=== PATIENT | male | born 1950 | race Caucasian/White ===

== ENCOUNTER 2019-12-22 06:59 | Outpatient (CLI) | payer MEDICARE, SELFPAY ==
[2019-12-22 08:23] LABS: Alanine Aminotransferase 25 U/L (16-63); Albumin Level 3.9 g/dL (3.4-5.0); Alkaline Phosphatase 77 U/L (46-116); Anion Gap 12.8 mmol/L (7-16); Aspartate Amino Transferase 19 U/L (15-37); Bilirubin,Total 0.5 mg/dL (0.00-1.00); Blood Urea Nitrogen 24 mg/dL (7-18); Calcium 9.2 mg/dL (8.5-10.1); Carbon Dioxide 29 mmol/L (21-32); Chloride 105 mmol/L (98-108); Estimated Glomerular Filt Rate 51; Glucose 97 mg/dL (70-99); Osmolality Calculated 298 mOsm/kg (285-295); Potassium 4.8 mmol/L (3.5-5.1); Prostate Specific Antigen 5.8 ng/mL (< OR = 4.0); Sodium 142 mmol/L (136-145); Total Protein 7.1 g/dL (6.4-8.2)
[2019-12-26 14:51] LABS: Testosterone Free 76.2 pg/mL (30.0-135.0); Testosterone Total 508 ng/dL (250-1100)
== END 2019-12-22 07:00 | disposition home or self-care (01) ==
LOC: CHSLAB 07:02
PROVIDERS: Visit Provider Urology
DX: N42.9 Disorder of prostate, unspecified (principal)
CPT/HCPCS: 36415; 80053; 84153; 84402; 84403

== ENCOUNTER 2020-04-16 07:30 | Outpatient (RCR) | payer MEDICARE, SELFPAY ==
--- NOTE | 2020-04-16 07:47 | PTOPEVAL ---
Thank you for referring Jimi Villalobos to [facility]. Please review, sign, date and return this plan of care ROJELIO. I agree with and certify that the following plan of care is medically necessary. Referring Physician Date Admitting Provider: Attending Provider: Romero Obando MD Referring Provider: *PT Outpatient Evaluation Start: 04/16/20 07:03 Freq: Status: Active Protocol: Document 04/16/20 07:04 RAFAT (Rec: 04/16/20 07:27 RAFAT [id number]) Therapy Assessment Status Assessment Status Assessment Status Evaluation Evaluation Information Problem Diagnosis right arm pain, cervical radiculopathy Onset 02/15/20 Subjective Information Pt. reports he developed arm Query Text:As Reported By Patient/ pain on the right couple Family months ago. He recalls no particular incident, just gradual onset. He reports pain and numbness in the right forearm and hand and pain into the right shoulder blade and neck. He reports pain affects his sleep. He reports that nothing particular increases his pain and pain is pretty much continous. He states that his goal is to reduce his arm pain. 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 [employer] Hand Dominance Right Activity of Daily Living Ability Independent Indoor/Home Mobility Independent Community Mobility Independent Stairs Ability Independent Functional Cognition (Planning, Shopping Independent , Taking Medications) Cooking Yes Cleaning Yes Laundry Yes Shopping Yes Driving Yes Pain Assessment Pain Scale Pain Scale Used Numeric (1 - 10) Self Report Pain Assessment Right Arm(s) Reported Pain Level 7 Pain Description Aching,Burning Pain Frequency Chronic Lowest Pain Intensity 0 Greatest Pain Intensity 7 Pain Aggravating Factors None Pain Behaviors None Pain Score Pain Score 7: Self Report Cervical and Lumbar ROM Cervical ROM Cervical Flexion (0-60) 55 Query Text:Active in Degrees Cervical Extension (0-70) 30 Query Text:A
== END 2020-05-08 09:26 | disposition home or self-care (01) ==
LOC: CHSPT 07:30
PROVIDERS: PCP Family Medicine; Visit Provider Family Medicine
DX: M54.12 Radiculopathy, cervical region (principal); M19.90 Unspecified osteoarthritis, unspecified site
CPT/HCPCS: 97012; 97014; 97110; 97140; 97161; G0283

== ENCOUNTER 2020-05-04 08:42 | Outpatient (CLI) | payer MEDICARE, SELFPAY ==
--- NOTE | ~2020-05-04 | MR_ITS ---
EXAMINATION: MR cervical spine wo con DATE: 05/04/2020 10:03 INDICATION: Neck pain. TECHNIQUE: Magnetic resonance imaging (MRI) of the cervical spine was performed without intravenous c ontrast. Sequences included sagittal T2-weighted FSE, sagittal T2-weighted FS FSE, sagittal T1-weight ed FSE, axial MERGE, and axial T2-weighted FSE. COMPARISON: Cervical spine MRI 11/29/2014, radiographs 11/14/2014 FINDINGS: Motion artifact is noted. There is kyphosis of cervical spine. There is 2 mm anterolisthesi s of C4 on C5. Vertebral body heights are normal. There is mildly decreased disc height at C4-C5 and C5-C6 and severely decreased disc height at C6-C7. The spinal cord signal intensity is normal. The fo llowing disc levels are specifically discussed: C2-C3: The disc does not extend beyond the endplate margin. There is ankylosis of right uncovertebral joint with mild hypertrophy. There is mild left facet joint osteoarthritis. There is ankylosis of ri ght facet joint with moderate hypertrophy. There is moderate right neural foraminal stenosis. There i s no central canal stenosis. C3-C4: The disc is bulging. There is severe right and mild left uncovertebral joint osteoarthritis. T here is severe right and moderate left facet joint osteoarthritis. There is severe right and moderate left neural foraminal stenosis. There is no central canal stenosis. C4-C5: The disc is bulging. There is severe bilateral uncovertebral joint osteoarthritis. There is mo derate right and severe left facet joint osteoarthritis. There is moderate bilateral neural foraminal stenosis. There is no central canal stenosis. C5-C6: The disc is bulging. There is severe bilateral uncovertebral joint osteoarthritis. There is mi ld right and severe left facet joint osteoarthritis. There is moderate bilateral neural foraminal alma nosis. There is moderate central canal stenosis. C6-C7: The disc is bulging. There is severe bilateral uncovertebral joint osteoarthritis. There is no facet joint osteoarthritis. There is moderate bilateral neural foraminal stenosis. There is mild leonarda tral canal stenosis. C7-T1: The disc is bulging. There is no uncovertebral joint osteoarthritis. There is severe bilateral facet joint osteoarthritis. There is moderate right and mild left neural foraminal stenosis. There i s mild central canal stenosis. IMPRESSION: 1. Severe cervical spondylosis, stable from 11/29/2014. Reviewed, dictated and finalized at location A.
== END 2020-05-04 08:43 | disposition home or self-care (01) ==
LOC: CHSIMG 08:44
PROVIDERS: PCP Family Medicine; Visit Provider Family Medicine
DX: M54.2 Cervicalgia (principal); M54.12 Radiculopathy, cervical region
CPT/HCPCS: 72141

== ENCOUNTER 2020-05-17 13:12 | Outpatient (CLI) | payer MEDICARE, SELFPAY ==
--- NOTE | ~2020-05-17 | XR_ITS ---
XR cervical spine 4-5V DATE: 05/17/2020 13:57 INDICATION: Right arm tingling. Radiculopathy. TECHNIQUE: AP, open-mouth, lateral, swimmer's views. Flexion and extension lateral views. COMPARISON: 05/04/2020 MR cervical spine examination 11/14/2014 cervical spine FINDINGS: There is straightening of the cervical spine. C1 and C2 are normally aligned and the odontoid process is intact. No fracture or dislocation or locked facet is evident. No prevertebral soft tissue swelling. There is severe degenerative disc disease at C5-6 and C6-7. There is prominent degenerative change at the apophyseal joints of the cervical spine. There is uncovertebral joint spurring of the mid and lower cervical spine, particularly pronounced at C5-6 and C6-7 on the right and C6-7 on the left. IMPRESSION: Extensive degenerative changes Reviewed, dictated and finalized at location A.
== END 2020-05-17 13:13 | disposition home or self-care (01) ==
PROVIDERS: PCP Family Medicine; Visit Provider Family Medicine
DX: M54.12 Radiculopathy, cervical region (principal)
CPT/HCPCS: 72050

== ENCOUNTER 2021-02-06 08:47 | Outpatient (CLI) | payer MEDICARE, SELFPAY ==
[2021-02-06 08:58] LABS: Basophils Absolute Auto 0.06 K/mm3 (0.00-0.10); Basophils Percent Auto 0.7 % (0.0-1.0); Eosinophils Absolute Auto 0.39 K/mm3 (0.02-0.50); Eosinophils Percent Auto 4.5 % (1.0-6.0); Hematocrit 42.4 % (37.0-46.0); Hemoglobin 14.1 g/dL (12.4-15.3); Immature Granulocyte Absolute 0.03 K/mm3 (0.00-0.00); Immature Granulocyte Percent A 0.3 % (0.0-0.0); Lymphocytes Absolute Auto 3.12 K/mm3 (1.10-4.50); Lymphocytes Percent Auto 35.9 % (18.0-42.0); Mean Corpuscular HGB Conc 33.3 g/dL (32.0-36.0); Mean Corpuscular Hemoglobin 31.2 pg (27.0-31.0); Mean Corpuscular Volume 93.8 fL (78.0-102.0); Mean Platelet Volume 8.8 fl (8.7-11.0); Monocytes Absolute Auto 0.61 K/mm3 (0.10-0.90); Neutrophils Absolute Auto 4.5 K/mm3 (1.7-7.2); Neutrophils Percent Auto 51.6 % (50.0-70.0); Platelet Count Result 250 K/mm3 (150-420); Red Blood Count 4.52 M/mm3 (4.70-6.10); Red Cell Distribution Width 12.8 % (11.6-14.4); White Blood Count 8.7 K/mm3 (4.8-10.8)
[2021-02-06 09:47] LABS: Alanine Aminotransferase 24 U/L (16-63); Albumin Level 3.8 g/dL (3.4-5.0); Alkaline Phosphatase 79 U/L (46-116); Anion Gap 7 mmol/L (8-16); Aspartate Amino Transferase 19 U/L (15-37); Bilirubin,Total 0.7 mg/dL (0.00-1.00); Blood Urea Nitrogen 24 mg/dL (7-18); Calcium 8.8 mg/dL (8.5-10.1); Carbon Dioxide 31 mmol/L (21-32); Chloride 103 mmol/L (98-108); Cholesterol 112 mg/dL (0-200); Estimated Glomerular Filt Rate 55; Ferritin 168 ng/mL (26-388); Glucose 89 mg/dL (70-99); HDL Direct 46 mg/dL (40-60); Iron 95 ug/dL (65-175); LDL Cholesterol Calculated 52 mg/dL (<130); Osmolality Calculated 295 mOsm/kg (285-295); Percent Iron Saturation 32 % (12-57); Potassium 4.6 mmol/L (3.5-5.1); Sodium 141 mmol/L (136-145); Total Protein 6.8 g/dL (6.4-8.2); Triglycerides 68 mg/dL (0-150)
[2021-02-06 09:54] LABS: Thyroid Stimulating Hormone Reflex 2.37 u/IU/mL (0.36-3.74)
== END 2021-02-06 08:48 | disposition home or self-care (01) ==
LOC: CHSLAB 08:50
PROVIDERS: PCP Family Medicine; Visit Provider Family Medicine
DX: G62.9 Polyneuropathy, unspecified (principal); I10 Essential (primary) hypertension; D64.9 Anemia, unspecified; E66.3 Overweight; E78.5 Hyperlipidemia, unspecified; R97.20 Elevated prostate specific antigen [PSA]
CPT/HCPCS: 36415; 80053; 80061; 82728; 83540; 83550; 84153; 84443; 85025

== ENCOUNTER 2023-06-10 08:13 | Emergency (ER) | payer MEDICARE, SELFPAY ==
[2023-06-10 08:24] VITALS: BP 152/81; PULSE 69; RESP 18; TEMP 36.4; O2SAT 97
--- NOTE | 2023-06-10 08:30 | ED.WOUNDLAC ---
HPI - Wound/Laceration General Chief Complaint: Wound/Laceration Stated Complaint: left thumb laceration Time Seen by Provider: 06/10/23 08:29 Source: patient Mode of arrival: ambulatory Limitations: no limitations History of Present Illness HPI narrative: patient presents to the emergency room with a left thumb laceration. Laceration was done last evening. Tetanus shot is up-to-date 6 years ago. Patient was using a pair of scissors and sliced his left outer thumb. Onset (ago): hour(s) (12) Place: home Patient tetanus UTD: Yes Context: accidental Associated symptoms: none Treatments prior to arrival: bandage Related Data Home Medications Medication Instructions Recorded Confirmed atorvastatin 20 mg tablet 20 mg PO DAILY 11/10/19 05/14/21 celecoxib 100 mg capsule (Celebrex) 100 mg PO BID 11/10/19 05/14/21 magnesium oxide 400 mg PO DAILY 11/10/19 05/14/21 omeprazole 20 mg capsule,delayed 20 mg PO DAILY 11/10/19 05/14/21 release sildenafil (pulm.hypertension) 20 20 mg PO .PRN PRN sexual activity 11/10/19 05/14/21 mg tablet cyanocobalamin (vitamin B-12) 1,000 mcg PO DAILY 01/10/20 05/14/21 1,000 mcg capsule Allergies Allergy/AdvReac Type Severity Reaction Status Date / Time bee venom protein (honey bee) Allergy Severe Anaphylaxis Verified 06/10/23 08:28 codeine Allergy Anaphylaxis Verified 06/10/23 08:28 Bee stings Allergy Intermediate anaphylaxis Uncoded 05/14/21 08:19 Review of Systems Review of Systems: All systems reviewed & are unremarkable except as noted in HPI and below Cardiovascular: Cardiovascular: Reports no additional cardiovascular complaints and Denies chest pain Respiratory: Respiratory: Reports no additional respiratory complaints and Denies chest congestion Gastrointestinal: Gastrointestinal: Reports no additional gastrointestinal complaints and Denies abdominal pain Musculoskeletal: Musculoskeletal: Reports no additional musculoskeletal complaints, Denies back pain and Denies myalgias Integumentary/Breasts: Skin/Breast: Reports system reviewed and no additional complaints, except as docu PMFSH Past Medical History Medical History (Updated 06/10/23 @ 08:41 by Shane Patel MD) Cervical radiculopathy GERD (gastroesophageal reflux disease) Hyperlipidemia Hypertension Osteoarthritis Overweight Surgical History Surgical History H/O knee surgery Bilateral Orthoscopic History of carpal tunnel surgery Bilateral Hx of tonsillectomy Age 11 Family History Family History Mother Medical history unknown Father Medical history unknown Social History Social History Smoking status: Former smoker Tobacco type: cigarettes Alcohol intake: current Living arrangements: with family Additional living arrangements comments: . 3 Children. Occupation/Education: retired Additional occupation/education comments: Prior Occupation: [employer]. Gender identity (if verbalized by the patient): Male Exam Const: General: healthy appearing Nutritional Appearance: well nourished Orientation/consciousness: patient oriented x3 Limitations: no limitations Chest: Chest palpation & inspection: normal inspection of the chest Resp: Effort & Inspection: normal respiratory effort Cardio: Rate: regular rate Rhythm: regular rhythm Heart sounds: no murmurs Skin: General skin exam: normal color Rashes: no rashes Wounds: wounds noted ( Left thumb extensor surface has a 3.5 cm laceration to subcutaneous.) Neuro: General: patient oriented x3 and moves all extremities Extrem: General: normal to inspection and no clubbing, cyanosis or edema Course Vital Signs Vital signs: Vital Signs Temperature 36.4 C L 06/10/23 08:24 Pulse Rate 69 06/10/23 08:24 Respir
[2023-06-10] MEDS: LIDOCAINE HCL 1% LOCAL INJ 10 ML VIAL 5 ML INFILTRATE (08:37)
== END 2023-06-10 09:08 | disposition home or self-care (01) ==
PROVIDERS: Emergency Provider Emergency Medicine
DX: S61.012A Laceration without foreign body of left thumb without damage to nail, initial encounter (principal); E78.5 Hyperlipidemia, unspecified; I10 Essential (primary) hypertension; Z87.891 Personal history of nicotine dependence; W45.8XXA Other foreign body or object entering through skin, initial encounter; Y92.009 Unspecified place in unspecified non-institutional (private) residence as the place of occurrence of the external cause
CPT/HCPCS: 12001; 99282

== ENCOUNTER 2024-05-24 13:00 | Outpatient (RCR) | payer MEDICARE, SELFPAY ==
--- NOTE | 2024-05-24 13:50 | OPREHPOC ---
Outpatient Therapy Plan of Care This is a Multidisciplinary Plan of Care that may contain components documented by all disciplines (PT, OT, and ST.) PT Problem 1 PT Problem #1 Knowledge Deficit PT Goal 1 Goal 1. patient to display safe NWB R LE transfer/ ambulation, and verbalized understanding of post op rehab plan. Target Visit 1 Progress Met
--- NOTE | 2024-05-24 13:51 | PTOPEVDC ---
Assessment and note entered by JT File, PT Thank you for referring Jimi Dominguez Jr. to [facility].? An evaluation has been completed. No further treatment is needed. Evaluation Information Assessment Status Evaluation Diagnosis pre-op weight bearing and rom training. Other ICD-10 Condition Codes ( M13.871 - other specified arthritis, R ankle and PT) foot Subjective Information patient reports he is having surgery on the R ankle on 07/05/24. he reports he is having the ankle fused to straighten it out. he reports he is coming to therapy to be trained on getting around with post-op NWB precautions. he reports he lives alone, but will have his grandson staying with him after surgery. he reports he was told he will be non weightbearing on the R LE for 2 months after the surgery. he reports he does have 5 steps to get in and out of the home. he reports he does have a basement. he reports he will not need to go down to the basement after surgery. he reports he does have a railing on both sides of his outside steps. he reports he also has a ramp. he reports he does own a walker and a wheelchair. he reports he also owns a knee scooter. he reports he averages 10,000 steps a day walking. he report she also still works 4 days per week. Reported Pain Level Pain Score 0: Self Report Assessment PT Clinical Summary mr. dominguez is a 74 yo man who presents to skilled PT services for evaluation and education of safe transfers and ambulation with NWB R LE in preparation of R ankle surgery next month. objective measures of the R ankle were taken in anticipation of patient returning to skilled PT after surgery. he was educated and displays safe transfers and ambulation with NWB R LE today. patient will be DC'd from skilled PT at this time, but return roughly 2 months post op for rehab. Plan of Care Treatment Frequency and DC to independent HEP pre-op, and return to Duration skilled PT for post-op rehab.
== END 2024-05-24 14:40 | disposition home or self-care (01) ==
LOC: CHSPT 13:00
DX: M13.871 Other specified arthritis, right ankle and foot (principal)
CPT/HCPCS: 97110; 97161

== ENCOUNTER 2024-06-02 09:00 | Outpatient (CLI) | payer MEDICARE, SELFPAY ==
--- NOTE | 2024-06-02 09:17 | ECG_ITS ---
Test Date: 2024-06-02 09:24:36 Measurements Intervals [place] Rate: 60 P: 58 IA: 180 QRS: -7 QRSD: 100 T: 31 QT: 426 QTc: 428 Interpretive Statements SINUS RHYTHM BASELINE ARTIFACT- I, II, III, AVR, AVL, AVF, V1-V3 NORMAL ECG No previous ECG available for comparison Electronically Signed On 06-02-2024 12:38:54 CDT by Cody Jorgensen D.O.
[2024-06-02 09:23] LABS: Basophils Absolute Auto 0.05 K/mm3 (0.00-0.10); Basophils Percent Auto 0.6 % (0.0-1.0); Eosinophils Absolute Auto 0.36 K/mm3 (0.02-0.50); Eosinophils Percent Auto 4.3 % (1.0-6.0); Hematocrit 41.5 % (37.0-46.0); Immature Granulocyte Absolute 0.04 K/mm3 (0.00-0.00); Immature Granulocyte Percent A 0.5 % (0.0-0.0); Lymphocytes Absolute Auto 2.77 K/mm3 (1.10-4.50); Lymphocytes Percent Auto 33.5 % (18.0-42.0); Mean Corpuscular HGB Conc 33.7 g/dL (32-36); Mean Corpuscular Hemoglobin 30.4 pg (27.0-31.0); Mean Platelet Volume 8.8 fl (8.7-11.0); Monocytes Absolute Auto 0.64 K/mm3 (0.10-0.90); Monocytes Percent Auto 7.7 % (2.0-11.0); Neutrophils Absolute Auto 4.42 K/mm3 (1.70-7.20); Neutrophils Percent Auto 53.4 % (50.0-70.0); Platelet Count Result 255 K/mm3 (150-420); Red Blood Count 4.61 M/mm3 (4.70-6.10); White Blood Count 8.3 K/mm3 (4.8-10.8)
[2024-06-02 09:33] LABS: Hemoglobin A1C 5.6 % (<5.7)
[2024-06-02 09:37] LABS: Prothrombin Time 10.5 Seconds (9.50-12.1)
[2024-06-02 09:57] LABS: Alanine Aminotransferase 23 U/L (16-63); Albumin Level 3.6 g/dL (3.4-5.0); Alkaline Phosphatase 83 U/L (46-116); Anion Gap 7 mmol/L (4-12); Aspartate Amino Transferase 20 U/L (15-37); Bilirubin,Total 0.9 mg/dL (0.00-1.00); Blood Urea Nitrogen 15 mg/dL (7-18); Calcium 8.8 mg/dL (8.5-10.1); Carbon Dioxide 30 mmol/L (21-32); Chloride 104 mmol/L (98-108); Cholesterol 121 mg/dL (0-200); Estimated Glomerular Filt Rate 50; Glucose 97 mg/dL (70-99); HDL Direct 43 mg/dL (40-60); LDL Cholesterol Calculated 60 mg/dL (<130); Osmolality Calculated 292 mOsm/kg (285-295); Potassium 4.6 mmol/L (3.5-5.1); Prostate Specific Antigen 5.6 ng/mL (< OR = 4.0); Sodium 141 mmol/L (136-145); Total Protein 6.8 g/dL (6.4-8.2); Triglycerides 90 mg/dL (0-150)
== END 2024-06-02 09:01 | disposition home or self-care (01) ==
PROVIDERS: PCP Family Medicine; Visit Provider Family Medicine
DX: Z01.818 Encounter for other preprocedural examination (principal); E11.9 Type 2 diabetes mellitus without complications; R10.9 Unspecified abdominal pain; E78.5 Hyperlipidemia, unspecified; R97.20 Elevated prostate specific antigen [PSA]; R35.1 Nocturia; Z12.5 Encounter for screening for malignant neoplasm of prostate
CPT/HCPCS: 36415; 80053; 80061; 83036; 84153; 85025; 85610; 93005; G0103

== ENCOUNTER 2024-06-07 14:20 | Outpatient (CLI) | payer MEDICARE, SELFPAY ==
--- NOTE | 2024-06-07 14:30 | ECG_ITS ---
Test Date: 2024-06-07 14:43:06 Measurements Intervals [place] Rate: 72 P: 19 IL: 173 QRS: -3 QRSD: 98 T: 38 QT: 376 QTc: 412 Interpretive Statements SINUS RHYTHM DELAYED PRECORDIAL R/S TRANSITION BASELINE WANDER- II, III, AVF, V4 BORDERLINE ECG Compared to ECG 06/02/2024 09:24:36 No significant changes Electronically Signed On 06-07-2024 17:09:32 CDT by Cody Jorgensen D.O.
[2024-06-07 14:34] LABS: Basophils Absolute Auto 0.06 K/mm3 (0.00-0.10); Basophils Percent Auto 0.6 % (0.0-1.0); Eosinophils Absolute Auto 0.32 K/mm3 (0.02-0.50); Hematocrit 42.2 % (37.0-46.0); Immature Granulocyte Absolute 0.05 K/mm3 (0.00-0.00); Immature Granulocyte Percent A 0.5 % (0.0-0.0); Lymphocytes Percent Auto 34.4 % (18.0-42.0); Mean Corpuscular HGB Conc 33.2 g/dL (32-36); Mean Corpuscular Hemoglobin 29.6 pg (27.0-31.0); Mean Corpuscular Volume 89.2 fL (78.0-102.0); Mean Platelet Volume 8.4 fl (8.7-11.0); Monocytes Absolute Auto 0.77 K/mm3 (0.10-0.90); Monocytes Percent Auto 7.2 % (2.0-11.0); Neutrophils Absolute Auto 5.86 K/mm3 (1.70-7.20); Neutrophils Percent Auto 54.3 % (50.0-70.0); Platelet Count Result 240 K/mm3 (150-420); Red Blood Count 4.73 M/mm3 (4.70-6.10); Red Cell Distribution Width 13.6 % (11.6-14.4); White Blood Count 10.8 K/mm3 (4.8-10.8)
== END 2024-06-07 14:21 | disposition home or self-care (01) ==
LOC: CHSLAB 14:22
PROVIDERS: PCP Nurse Practitioner Family; Visit Provider Nurse Practitioner Family
DX: Z01.818 Encounter for other preprocedural examination (principal)
CPT/HCPCS: 36415; 85025; 93005

== ENCOUNTER 2024-10-11 13:40 | Emergency (ER) | payer MEDICARE, SELFPAY ==
--- NOTE | ~2024-10-11 | US_ITS ---
EXAMINATION: US venous doppler LE RT DATE: 10/11/2024 15:04 INDICATION: Right lower limb swelling TECHNIQUE: Grayscale ultrasound images without and with compression and Doppler ultrasound images of the right lower extremity veins were obtained. COMPARISON: None. FINDINGS: The visualized portions of right common femoral vein, profunda (deep) femoral vein, femoral vein, pop liteal vein, peroneal trunk, posterior tibial veins, peroneal veins, gastrocnemius vein and greater s aphenous vein outflow are patent. IMPRESSION: 1. No deep venous thrombosis in the right lower limb. Reviewed, dictated and finalized at location B. DILIGENCE COORDINATOR
[2024-10-11 13:40] VITALS: BP 154/72; PULSE 80; RESP 18; TEMP 36.6; O2SAT 98
--- NOTE | 2024-10-11 14:02 | ED_ITS ---
HPI - Extremity Injury (Lower) General Chief Complaint: Extremity Injury, Lower Stated Complaint: right leg swelling Time Seen by Provider: 10/11/24 13:57 Source: patient Mode of arrival: ambulatory Limitations: no limitations History of Present Illness HPI Narrative: 74-year-old male with a history of hypertension, dyslipidemia, arthritis, cervical radiculopathy, GERD, bilateral leg swelling, right ankle arthritis S/P right fibular osteotomy and TB of fibular fusion presents to the ED with -- R leg swelling. right greater than the left. No history of recent trauma. No chest pain or shortness of breath. he is unsure as to how long he has had it. When he went for physical therapy, the therapist noted his swelling and directed him to the ED for further management. MD complaint: other ( Right leg swelling) Relieving factors: nothing Exacerbating factors: nothing Other symptoms: none Related Data Home Medications Medication Instructions Recorded Confirmed atorvastatin 20 mg tablet 20 mg PO DAILY 11/10/19 06/07/24 magnesium oxide 400 mg PO DAILY 11/10/19 06/07/24 omeprazole 20 mg capsule,delayed 20 mg PO DAILY 11/10/19 06/07/24 release cyanocobalamin (vitamin B-12) 1,000 mcg PO DAILY 01/10/20 06/07/24 1,000 mcg capsule gabapentin 100 mg capsule 100 mg PO BID 06/21/23 06/07/24 Allergies Allergy/AdvReac Type Severity Reaction Status Date / Time bee venom protein (honey bee) Allergy Severe Anaphylaxis Verified 10/11/24 13:55 codeine Allergy Anaphylaxis Verified 10/11/24 13:55 Bee stings Allergy Intermediate anaphylaxis Uncoded 06/07/24 14:15 Review of Systems Review of Systems: All systems reviewed & are unremarkable except as noted in HPI and below Constitutional: Constitutional: Reports as per HPI and Reports no additional constitutional complaints Eyes: Eyes: Reports as per HPI and Reports no additional eye complaints ENT: Reports system reviewed and no additional complaints, except as documented and Reports as per HPI Cardiovascular: Cardiovascular: Reports as per HPI and Reports no additional cardiovascular complaints Respiratory: Respiratory: Reports as per HPI and Reports no additional respiratory complaints Gastrointestinal: Gastrointestinal: Reports as per HPI and Reports no additional gastrointestinal complaints Genitourinary: Genitourinary: Reports no additional male genitourinary complaints and Reports as per HPI Musculoskeletal: Musculoskeletal: Reports as per HPI Comments: Arthritis with surgery of the right foot on 06/04/2024. Status post bilateral knee surgeries. Integumentary/Breasts: Skin/Breast: Reports system reviewed and no additional complaints, except as docu and Reports as per HPI Neurologic: Reports system reviewed and no additional complaints, except as documented and Reports as per HPI Psychiatric: Psychiatric: Reports no additional psychiatric complaints and Reports as per HPI Endocrine: Endocrine: Reports no additional endocrine complaints and Reports as per HPI Hematologic/Lymphatic: Hematologic/Lymphatic: Reports no additional hematologic/lymphatic complaints and Reports as per HPI Allergic/Immunologic: Allergic/Immunologic: Reports no additional allergic/immunologic complaints and Reports as per HPI [facility] Past Medical History Medical History (Updated 10/11/24 @ 15:23 by Gary Pritchett MD) Cervical radiculopathy GERD (gastroesophageal reflux disease) Hyperlipidemia Hypertension Osteoarthritis Overweight Surgical History Surgical History H/O knee surgery Bilateral Orthoscopic History of carpal tunnel surgery Bilateral Hx of tonsillectomy Age 11 Family History Family History Mother Medical history unknown Father Medical history unknown Social History Social History Smoking status: Former smoker Tobacco type: cigarettes Alcohol intake: current Living arrangements: with family Additional living arrangements comments: . 3 Children. Occupation/Education: retired Additional occupation/education comments: Prior Occupation: [employer]. Gender identity (if verbalized by the patient): Male Exam Narrative: Blood pressure stable. Oxygen saturation of 98% on room air with a respiratory rate of 18 Const: General: no acute distress Nutritional Appearance: obese Orientation/consciousness: patient oriented x3 Limitations: no limitations HENMT: Head: normal to inspection Ears: external ears normal Face/Nose/Sinus: Normal external nose present Face and sinus: normal facial exam Mouth: Yes Normal oral and palatal mucosa present Throat: posterior oropharynx normal Eyes: Conjunctivae: conjunctivae normal Pupils: Equal, round and reactive pupils present EOM: EOMs intact bilaterally Direct Ophthalmoscopy: no photophobia Chest: Chest palpation & inspection: normal inspection of the chest and abnormal inspection of the chest Resp: Effort & Inspection: normal respiratory effort Auscultation: clear to auscultation bilaterally Cardio: Rate: regular rate Rhythm: regular rhythm GI: GI Palp: Yes Soft to palpation Auscultation: normal bowel sounds Other: no tenderness/ rigidity / rebound. : General: Yes no CVA tenderness Back/Spine/Pelvis: Back: no CVA tenderness Skin: Rashes: no rashes Wounds: no wounds Other: Both legs have chronic venous stasis changes with distended veins. Neuro: General: patient oriented x3, moves all extremities, no meningeal signs, no focal motor deficits and CN's II-XI intact bilaterally Cranial nerves: Yes Nystagmus not present Speech: normal speech Extrem: General: no pedal edema Other: Bilateral leg swelling right greater than the left. Scars on bilateral knee joints. Scar on the right lateral foot and leg. Psych: Mental Status: mental status grossly normal Affect: normal affect Attitude: cooperative Course Course Emergency Course: Right leg swelling--- venous Dopplers do not show any evidence of DVT Vital Signs Vital signs: Vital Signs Temperature 36.6 C 10/11/24 13:40 Pulse Rate 80 10/11/24 13:40 Respiratory Rate 18 10/11/24 13:40 Blood Pressure 154/72 H 10/11/24 13:40 Pulse Oximetry 98 10/11/24 13:40 Oxygen Delivery Room Air 10/11/24 13:40 Temperature 36.6 C 10/11/24 13:40 Pulse Rate 67 10/11/24 14:45 Respiratory Rate 16 10/11/24 14:45 Blood Pressure 127/56 L 10/11/24 14:45 Pulse Oximetry 96 10/11/24 14:45 Oxygen Delivery Room Air 10/11/24 14:45 MDM - Extremity Injury (Lower) MDM Narrative Medical decision making narrative: right leg swelling-- postoperative Differential Diagnosis Differential diagnosis: Likely ankle sprain and strain Medical Records Attestation: I reviewed the patient's medical records. Discharge Plan Discharge Clinical Impression: Leg swelling Patient Disposition: Home, Self-Care Condition: Stable Instructions: Antibiotic Form, Leg Edema (ED) Patient Language: Romanian Prescriptions: No Action magnesium oxide 400 mg magnesium tablet 400 mg PO DAILY omeprazole 20 mg capsule,delayed release(DR/EC) 20 mg PO DAILY atorvastatin 20 mg tablet 20 mg PO DAILY cyanocobalamin (vitamin B-12) 1,000 mcg capsule 1,000 mcg PO DAILY gabapentin 100 mg capsule 100 mg PO BID ipratropium bromide 42 mcg (0.06 %) spray,non-aerosol 2 spray intranasal TID Qty: 15 5RF Rx Instructions: administer into each nostril Follow-up/Referrals: Serge Lauren DO [Primary Care Provider] - Time of Disposition: 15:23
[2024-10-11 14:45] VITALS: BP 127/56; PULSE 67; RESP 16; O2SAT 96
== END 2024-10-11 15:35 | disposition home or self-care (01) ==
PROVIDERS: Emergency Provider Internal Medicine Critical Care Medicine; PCP Family Medicine
DX: M79.89 Other specified soft tissue disorders (principal); I10 Essential (primary) hypertension; E78.5 Hyperlipidemia, unspecified; Z87.891 Personal history of nicotine dependence
CPT/HCPCS: 93971; 99284

== ENCOUNTER 2025-03-05 18:21 | Emergency (ER) | payer MEDICARE, SELFPAY ==
[2025-03-05] VITALS (18 sets, daily range): BP systolic 115–144; BP diastolic 57–121; PULSE 69–90; RESP 13–23; TEMP 36.5–37.2; O2SAT 95–99
--- NOTE | ~2025-03-05 | CT_ITS ---
CTA chest PE protocol Ordering provider: Oumar Castañeda III, DO History: 74 years Male with . cp . Comparison: : NONE. Technique: CT angiogram chest was performed following timed intravenous injection of contrast. Thin s lice axial images and reformatted coronal images were obtained. Three dimensional reformatted images of the chest were also obtained using a [employer] workstation. . Automated exposure control and iterati ve reconstruction technique were employed. The dose-length product was 861.12 mGy-cm. 100 mL Omnipaqu e 350 was given IV. Findings: PULMONARY ARTERIES: No pulmonary embolus. VISUALIZED THORACIC INLET: Normal. MEDIASTINUM: Aorta/coronary arteries: Mild atheromatous disease. Heart/other: The heart is not enlarged. Lymph nodes: No mediastinal or hilar adenopathy. LUNGS: No pulmonary nodules or masses. No infiltrates or effusions. No pneumothorax. Dependent atelectatic c hanges. VISUALIZED UPPER ABDOMEN: the visualized upper abdomen is normal. MUSCULOSKELETAL: Soft tissues: The superficial soft tissues are normal. Bones: Age appropriate degenerative changes of the spine. IMPRESSION: 1. No pulmonary embolism. 2. No acute cardiopulmonary pathology. Reviewed, dictated and finalized at location A.
--- NOTE | ~2025-03-05 | XR_ITS ---
XR chest 1V portable Ordering provider: Oumar Castañeda III, DO History: 74 years Male with . chest pain . Comparison: None. FINDINGS: MEDIASTINUM: The cardiac silhouette is not enlarged. LUNGS: No infiltrates, effusions or pneumothorax. OTHER: No free air under the diaphragm. IMPRESSION: No acute cardiopulmonary pathology. Reviewed, dictated and finalized at location A.
--- OUTSIDE RECORDS SUMMARY | 2025-03-05 18:23 | XMS_ITS | Encounter Summary ---
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 This section includes the names of all active insurance providers for the patient. Insurance Provider Type of Coverage Plan Name Start of Policy Coverage End of Policy Coverage Group Number Member ID Insurance Provider's Telephone Number Policy Goodman's Name Patient's Relationship to Policy Goodman AARP MEDIGAP PLAN F PLAN F Nov 22, 2018 MEDIGAP [id number] [phone] BLANCA TOTH RT PATIENT AARP MED SUPP MEDIGAP PLAN F PLAN F Nov 22, 2018 PLAN F [id number] BLANCA TOTH RT PATIENT AARP MED SUPP MEDIGAP PLAN F MEDIC ARE SUPPL EMENT Aug 22, 2015 PLAN F [id number] [phone] BLANCA TOTH RT PATIENT AARP MED SUPP MEDIGAP PLAN F PLAN F Aug 22, 2015 PLAN F [id number] [phone] BLANCA TOTH RT PATIENT AARP MED SUPP MEDICARE SUPPLEMEN THIERNO MEDIC ARE SUPPL EMENT Aug 22, 2015 PLAN F [id number] WOOD,ALBE RT PATIENT AARP MED SUPP MEDIGAP PLAN F MEDIC ARE SUPPL EMENT Aug 22, 2015 PLAN F [id number] [phone] BLANCA TOTH RT PATIENT AARP MED SUPP MEDIGAP PLAN F MEDIC ARE SUPPL EMENT Aug 22, 2015 PLAN F [id number] [phone] BLANCA TOTH RT PATIENT MEDICARE (WNR) MEDICARE () PART B Apr 22, 2014 PART B [id number] WOODGERBERE RT PATIENT MEDICARE (WNR) MEDICARE (M) PART A Apr 22, 2014 PART A [id number] WOODGERBERE RT PATIENT MEDICARE (WNR) MEDICARE (M) PART B Apr 22, 2014 PART B [id number] GERBER TOTHE RT PATIENT MEDICARE (WNR) MEDICARE (M) PART A Apr 22, 2014 PART A [id number] [phone] WOODGERBERE RT PATIENT MEDICARE (WNR) MEDICARE () PART B Apr 22, 2014 PART B [id number] GERBER TOTHE RT PATIENT MEDICARE (WNR) MEDICARE () PART A Apr 22, 2014 PART A [id number] BLANCA TOTH RT PATIENT MEDICARE (WNR) MEDICARE () PART B Apr 22, 2014 PART B [id number] BLANCA TOTH RT PATIENT MEDICARE (WNR) MEDICARE () PART A Apr 22, 2014 PART A [id number] WOODBLANCA RT PATIENT MEDICARE (WNR) MEDICARE () PART A Apr 22, 2014 PART A [id number] WOODGERBERE RT PATIENT MEDICARE (WNR) MEDICARE (M) PART B Apr 22, 2014 PART B [id number] WOODGERBERE RT PATIENT MEDICARE (WNR) MEDICARE () PART A Apr 22, 2014 PART A [id number] [phone] WOODALBE RT PATIENT MEDICARE (WNR) MEDICARE (M) PART B Apr 22, 2014 PART B [id number] [phone] WOOD,ALBE RT PATIENT MEDICARE (WNR) MEDICARE (M) PART B Apr 22, 2014 PART B [id number] BLANCA TOTH RT PATIENT MEDICARE (WNR) MEDICARE (M) PART A Apr 22, 2014 PART A [id number] [phone] BLANCA TOTH RT PATIENT MEDICARE (WNR) MEDICARE (M) PART B Apr 22, 2014 PART B [id number] [phone] BLANCA TOTH RT PATIENT MEDICARE (WNR) MEDICARE (M) PART A Apr 22, 2014 PART A [id number] BLANCA TOTH RT PATIENT Selected Encounter This section includes the information on record at MD for the Encounter. 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 Date/Time Primary/Secondary Diagnosis Diagnosis Name Provider Source April 20, 2024 03:10 PM PRIMARY Idiopathic progressive neuropathy OSVALDO JOHNSON [facility] Plan of Treatment: Future Appointments (+ 6 months) and Future Tests (+/- 45 days) The Plan of Treatment section includes future care activities for the patient from all MD treatmentfacilities. This section includes future appointments and future orders which are active, pending or scheduled. Future Appointments This section includes appointments that were scheduled to occur 6 months from the date of the Encounter, up to a maximum of 20 appointments. The data comes from all MD treatment facilities. Appointment Date/Time Appointment Type Appointme nt Facility Name May 18, 2024 09:00 AM AMBULATORY - NONE [facility] May 31, 2024 09:00 AM AMBULATORY - NONE [facility] Jun 28, 2024 10:30 AM AMBULATORY - NONE [facility] NIS[facility] Jul 20, 2024 12:00 PM AMBULATORY - NONE [facility] Sep 18, 2024 09:45 AM AMBULATORY - MEDICINE [facility] RUPERT[facility] Sep 18, 2024 10:30 AM AMBULATORY - SURGERY [facility] Cheryl GUIDRY [facility] Oct 18, 2024 11:30 AM AMBULATORY - NONE [facility] Social History: Smoking Status (Most current) and Tobacco Use (All prior to encounter date) This section includes the most current, and the historical, smoking and tobacco- related health factors from the MD facility where the Encounter took place. Current Smoking Status This section includes the most current smoking, or tobacco-related health factor, from the MD facility where the Encounter took place. Date/Time Current Smoking Status Comment Perri ity April 12, 2023 08:30 AM VA-TOBACCO FORMER USER [facility] Tobacco Use History This section includes a history of the smoking, or tobacco-related health factors, that were collected on or before the date of the Encounter. The data comes from the MD facility where the Encounter took place. Date/Time Smoking Status/Tobacco Use Comment Madonna acfaisal April 12, 2023 08:30 AM VA-TOBACCO QUIT 15 YRS OR MORE [facility] Sep 20, 2018 01:16 PM VA-TOBACCO FORMER USER [facility] Sep 20, 2018 01:16 PM VA-TOBACCO QUIT 15 YRS OR MORE [facility] Sep 21, 2017 08:29 AM QUIT TOBACCO >7 YEARS AGO quit 20 years ago [facility] Nov 02, 2016 09:14 AM QUIT TOBACCO >7 YEARS AGO [facility] Feb 05, 2015 08:58 AM QUIT TOBACCO >7 YEARS AGO [facility] Aug 08, 2013 07:25 AM QUIT TOBACCO >12 M O & <7 YRS AGO [facility] Jul 12, 2012 08:35 AM QUIT TOBACCO >12 M O & <7 YRS AGO [facility] March 25, 2011 09:59 AM QUIT TOBACCO IN TH E LAST 12 MONTHS [facility] Mar 18, 2010 08:33 AM TOBACCO OFFERRED P T MEDS (PROVIDER) [facility] Mar 18, 2010 08:33 AM TOBACCO OFFERRED S [facility] SMOKING CLINIC [facility] Feb 01, 2009 08:40 AM TOBACCO OFFERRED P T MEDS (PROVIDER) [facility] Feb 01, 2009 08:40 AM TOBACCO OFFERRED S [facility] CLINIC [facility] Aug 03, 2008 02:23 PM TOBACCO OFFERRED P T MEDS (PROVIDER) [facility] Aug 03, 2008 02:23 PM TOBACCO OFFERRED S [facility]MOKING CLINIC [facility] Jun 10, 2007 08:46 AM TOBACCO OFFERRED P T MEDS (PROVIDER) [facility] Jun 10, 2007 08:46 [facility] Mar 10, 2001 11:07 AM CURRENT NON-SMOKER [facility] May 08, 2000 08:41 AM CURRENT NON-SMOKER [facility] Advance Directives: All historical and current Section Date Range: From patient's date of to the date document was created. This section includes ALL of a patient's completed or amended [facility] Advance and Rescinded Directives. The entries below indicate that a directive exists for the patient, but an actual copy is not included with this document. The data comes from all MD facilities. Date Advance Directives Provider Source Mar 16, 2024 ADVANCE DIRECTIVE DISCUSSION LUPE LEPE [facility] Feb 09, 2024 ADVANCE DIRECTIVE LEXY WHALEY Nov 03, 2023 RESCINDED ADVANCE DIRECTIVE LUPE LEPE [place] [facility] Sep 20, 2023 RESCINDED ADVANCE DIRECTIVE LENNIE VALENTIN [facility] Aug 26, 2021 [facility] Encounter Notes: All associated encounter notes This section contains the clinical notes associated to the Encounter. Date/Time Encounter Note(s) Provider Source April 20, 2024 02:59 PM ORTHOTICS PROSTHET ICS CONSULT: LOCAL TITLE: CONSULT/ORTHOTIC LAB (CUSTOM) STANDARD TITLE: ORTHOTICS PROSTHETICS CONSULT DATE OF NOTE: APRIL 20, 2024@14:59 ENTRY DATE: APRIL 20, 2024@15:00 AUTHOR: OSVALDO JOHNSON EXP COSIGNER: URGENCY: STATUS: COMPLETED OLEG TOTH Apr Consult for: ED Shoes & Custom Inserts referred from: _x_ [facility] __Mahoney _x_Lind __ [facility] __Japour __Nachowicz __ [facility] __Beckett __Nachowicz __ [facility] __Miller __ Other Diagnosis:Idiopathic Progressive Neuropathy(ICD-10-CM G60.3) Foot Exam Date:2023 Date of Last Issued Shoes:Jun 2020 __Serviceable _x_Condemned Date of Previous Issued Shoes: __Servicable __Condemned [place]'s primary complaint is:Wants smaller shoes to wear when he is not wearing his AFO's. Assessment/Treatment: [place] presents wearing previously dispensed pair of shoes with Bilat. ROMEO [facility] reports they are 10 years old. Shoes & AFO's show significant signs of wear and break down. They are in need of replacement at this time. may be having foot surgery so it does not make sense to make new AFO's. Will order 1 pair of footwear and 2 pairs of custom inserts for Se[place] to have some support while not wearing his AFO's. The following measurement was taken: Mens 10 x-wide/crush boxes. The following order will be placed with [facility]. __ Initial Shoe Order _x_ Repeat Shoe Order Order and send to [facility]: VENDOR-Orthofeet ([id number]) 1 pair ED Shoes-- Dorset 653 Black Size Mens 10 x-wide Vendor- [employer] Liz ([id number]) 2 pair custom Inserts-- Hixson [place] left 1st met cutout, right P- wing mod. and deep heel cups. _X_ FSS Contract Shoe __ Non Contract Shoe; meets patient's medical requirements _x_ Contracted Orthotic Device __ Off Contract Orthotic Device; meets patient's medical requirements [place] will be scheduled for fitting once orthotic devices arrive. Delivery/Scheduling Location: __[place] __[place] __Mail to __[facility] __[facility] __[facility] Education: was instructed on proper wear and care of orthotic devices. [place] instructed to follow-up as needed and to contact the clinic with any questions or concerns regarding orthotic devices. /montrell/ OSVALDO JOHNSON Family Literacy Coordinator Signed: 04/20/2024 15:10 OSVALDO JOHNSON [facility]
--- OUTSIDE RECORDS SUMMARY | 2025-03-05 18:23 | XMS_ITS | Encounter Summary ---
Author Organization [facility] Address [address] [place] [address] Care Team Providers Care Animal Shelter Worker Name Role Phone Richard Ibrahim DO, Anthony John Primary Care Pro vider Gretchen Salinas MD Unavailable [phone] Encounter Details Date Type Department Care Team (Late st Contact Info) Description 11/23/2023 Telephone [facility] [address] [place] [address] Gretchen Salinas MD [address] [place] [address] Social History Tobacco Use Types Packs/Day Years Used Date Smoking Tobacco: Former Cigarettes Q uit: 1990 Smokeless Tobacco: Never Alcohol Use Standard Drinks/Week Comments Never 0 (1 standard drink = 0.6 oz pur e alcohol) Sex and Gender Information Value Date Recorded Sex Assigned at Not on file Legal Sex Male 10:01 PM CDT Gender Identity Not on file Sexual Orientation Not on file documented as of this encounter Plan of Treatment Not on file documented as of this encounter Visit Diagnoses Not on filedocumented in this encounter Care Teams Animal Shelter Worker Relationship Specialty Start Date End Date Nishant Ramos Jr., DO [address] [place] [address] PCP - General FAMILY PRACTICE 09/17/23 Gretchen Salinas MD [facility] [place] [address] Consulting Physician CARDIOVASCULAR DISEASE 09/20/23 documented as of this encounter
--- OUTSIDE RECORDS SUMMARY | 2025-03-05 18:23 | XMS_ITS | Encounter Summary ---
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 Name Role Phone DEJUAN PEARL Primary Care [...] F PLAN F Nov 22, 2018 MEDIGAP [id number] [phone] BLANCA TOTH RT PATIENT AARP MED SUPP MEDIGAP PLAN F PLAN F Nov 22, 2018 PLAN F [id number] [phone] BLANCA TOTH RT PATIENT AARP MED SUPP MEDIGAP PLAN F MEDIC ARE SUPPL EMENT Aug 22, 2015 PLAN F [id number] [phone] BLANCA TOTH RT PATIENT AARP MED SUPP MEDICARE SUPPLEMEN THIERNO MEDIC ARE SUPPL EMENT Aug 22, 2015 PLAN F [id number] BLANCA TOTH RT PATIENT AARP MED SUPP MEDIGAP PLAN F PLAN F Aug 22, 2015 PLAN F [id number] [phone] BLANCA TOTH RT PATIENT AARP MED SUPP MEDIGAP PLAN F MEDIC ARE SUPPL EMENT Aug 22, 2015 PLAN F [id number] [phone] BLANCA TOTH RT PATIENT AARP MED SUPP MEDIGAP PLAN F MEDIC ARE SUPPL EMENT Aug 22, 2015 PLAN F [id number] [phone] BLANCA TOTH RT PATIENT MEDICARE (WNR) MEDICARE (M) PART A Apr 22, 2014 PART A [id number] WOODGERBERE RT PATIENT MEDICARE (WNR) MEDICARE (M) PART B Apr 22, 2014 PART B [id number] BLANCA TOTH RT PATIENT MEDICARE (WNR) MEDICARE (M) PART A Apr 22, 2014 PART A [id number] BLANCA TOTH RT PATIENT MEDICARE (WNR) MEDICARE (M) PART B Apr 22, 2014 PART B [id number] BLANCA TOTH RT PATIENT MEDICARE (WNR) MEDICARE (M) PART A Apr 22, 2014 PART A [id number] BLANCA TOTH RT PATIENT MEDICARE (WNR) MEDICARE (M) PART B Apr 22, 2014 PART B [id number] BLANCA TOTH RT PATIENT MEDICARE (WNR) MEDICARE (M) PART A Apr 22, 2014 PART A [id number] BLANCA TOTH RT PATIENT MEDICARE (WNR) MEDICARE (M) PART B Apr 22, 2014 PART B [id number] BLANCA TOTH RT PATIENT MEDICARE (WNR) MEDICARE (M) PART A Apr 22, 2014 PART A [id number] BLANCA TOTH RT PATIENT MEDICARE (WNR) MEDICARE (M) PART B Apr 22, 2014 PART B [id number] WOODGERBERE RT PATIENT MEDICARE (WNR) MEDICARE (M) PART A Apr 22, 2014 PART A [id number] WOODGERBERE RT PATIENT MEDICARE (WNR) MEDICARE (M) PART B Apr 22, 2014 PART B [id number] WOOD,ALBE RT PATIENT MEDICARE (WNR) MEDICARE (M) PART A Apr 22, 2014 PART A [id number] BLANCA TOTH RT PATIENT MEDICARE (WNR) MEDICARE (M) PART B Apr 22, 2014 PART B [id number] BLANCA TOTH RT PATIENT MEDICARE (WNR) MEDICARE (M) PART A Apr 22, 2014 PART A [id number] BLANCA TOTH RT PATIENT MEDICARE (WNR) MEDICARE (M) PART B Apr 22, 2014 PART B [id number] [phone] BLANCA TOTH RT PATIENT Selected Encounter This section includes the information on record at [place] for the Encounter. Date/Time Encounter Type Encounter Description Reason Provider Source Feb 12, 2025 09:00 AM OFFICE O/P EST LOW 20 MIN PRIMARY CARE/MEDICINE ICD-10-CM I89.0 Lymphedema, not elsewhere classified CRISTELA ALVAREZ [facility] Encounter Template Text not used by [place] Assessments - Encounter Diagnoses This section includes the primary and secondary diagnoses documented for the Encounter. Date/Time Primary/Secondary Diagnosis Diagnosis Name Provider Source Feb 19, 2025 04:02 PM PRIMARY Lymphedema, not elsewhere classified CRISTELA ALVAREZ [facility] Feb 19, 2025 04:02 PM SECONDARY Hyperlipidemia, unspecified CUTINECRISTELA WADSWORTH [facility] Feb 19, 2025 04:02 PM SECONDARY Morbid (severe) obesity due to excess calories CRISTELA ALVAREZ [facility] Feb 19, 2025 04:02 PM SECONDARY Nonrheumatic aortic (valve) insufficiency CRISTELA ALVAREZ [facility] Feb 19, 2025 04:02 PM SECONDARY Pain in left knee CRISTELA ALVAREZ [facility] Feb 19, 2025 04:02 PM SECONDARY Paresthesia of skin CRISTELA ALVAREZ [facility] Plan of Treatment: Future Appointments (+ 6 months) and Future Tests (+/- 45 days) The Plan of Treatment section includes future care activities for the patient from all [place] treatmentfacilities. This section includes future appointments and future orders which are active, pending or scheduled. Future Appointments This section includes appointments that were scheduled to occur 6 months from the date of the Encounter, up to a maximum of 20 appointments. The data comes from all [place] treatment facilities. Appointment Date/Time Appointment Type Appointme nt Facility Name Feb 13, 2025 11:00 AM AMBULATORY - NONE [facility] Mar 13, 2025 10:00 AM AMBULATORY - NONE [facility] April 02, 2025 10:30 AM AMBULATORY - SURGERY [facility] April 05, 2025 10:40 AM AMBULATORY - NONE [facility] April 17, 2025 08:00 AM AMBULATORY - NONE [facility] Active, Pending, and Scheduled Orders This section includes a listing of several types of active, pending, and scheduled orders, including clinic medications orders, diagnostic test orders, procedure orders and consult orders; where the start date of the order is 45 days before the date of the Encounter or 45 days after the date of theEncounter. The data comes from all [place] treatment [facility]. Test Date/Time Test Type Test Details Facility Name Feb 07, 2025 06:49 AM Consult Order [facility] Cons Concrete Tester's Choice [facility] Lab Results: +/- 30 days of the encounter This section includes the Chemistry and Hematology Lab Results on record with [place] for the patient. Radiology Reports and Pathology Reports are provided separately, in subsequent sections. Lab Results This section contains the Chemistry/Hematology Results that were resulted 30 days before or 30 daysafter the date of the Encounter. Date/Time Source Result Type Result - Unit Interpretation Reference Range Specimen Type Comment Feb 26, 2025 11:31 AM [facility] OCCULT BLOOD FIT X1 SCREEN (550) FECES Specim en Type: FECES No comment entered. Ordering Provider: JOSÉ LUIS ALVAREZ Report Released Date/Time: Feb 12, 2025 09:13 AM Reporting Lab: [address] [id number] Performing Lab: [address] [id number] OCCULT BLOOD (FIT) #1 OF 1 Negative Nega tive Vital Signs: All taken on the encounter date This section contains inpatient and outpatient Vital Signs collected on the date of the Encounter. Date/Time Temperature Pulse Blood Pressure Respiratory Rate SP02 Pain Height Weight Body Mass Index Source Feb 12, 2025 09:02 AM 97.2 76 132/74 18 97 270.9 44 [facility] Social History: Smoking Status (Most current) and Tobacco Use (All prior to encounter date) This section includes the most current, and the historical, smoking and tobacco- related health factors from the [place] facility where the Encounter took place. Current Smoking Status This section includes the most current smoking, or tobacco-related health factor, from the [place] facility where the Encounter took place. Date/Time Current Smoking Status Comment Facil ity Feb 12, 2025 09:00 AM VA-TOBACCO NEVER USED CIGARETTES [facility] Tobacco Use History This section includes a history of the smoking, or tobacco-related health factors, that were collected on or before the date of the Encounter. The data comes from the [place] facility where the Encounter took place. Date/Time Smoking Status/Tobacco Use Comment F acility Feb 12, 2025 09:00 AM VA-TOBACCO NEVER U SED OTHER TYPE [facility] April 12, 2023 08:30 AM VA-TOBACCO FORMER USER [facility] April 12, 2023 08:30 AM VA-TOBACCO QUIT 15 YRS OR MORE [facility] Sep 20, 2018 01:16 PM VA-TOBACCO FORMER USER [facility] Sep 20, 2018 01:16 PM VA-TOBACCO QUIT 15 YRS OR MORE [facility] Sep 21, 2017 08:29 AM QUIT TOBACCO >7 YEARS AGO quit 20 years ago [facility] Nov 02, 2016 09:14 AM QUIT TOBACCO >7 YEARS AGO [facility] Feb 05, 2015 08:58 AM QUIT TOBACCO >7 YEARS AGO [facility] Aug 08, 2013 07:25 AM QUIT TOBACCO >12 M O & <7 YRS AGO [facility] Jul 12, 2012 08:35 AM QUIT TOBACCO >12 M O & <7 YRS AGO [facility] March 25, 2011 09:59 AM QUIT TOBACCO IN TH E LAST 12 MONTHS [facility] Mar 18, 2010 08:33 AM TOBACCO OFFERRED P T MEDS (PROVIDER) TIFFANIE [facility] Mar 18, 2010 08:33 AM TOBACCO OFFERRED S [facility] Feb 01, 2009 08:40 AM TOBACCO OFFERRED P T MEDS (PROVIDER) [facility] Feb 01, 2009 08:40 AM TOBACCO OFFERRED S [facility] Aug 03, 2008 02:23 PM TOBACCO OFFERRED P T MEDS (PROVIDER) [facility] Aug 03, 2008 02:23 PM TOBACCO OFFERRED S [facility] Jun 10, 2007 08:46 AM TOBACCO OFFERRED P T MEDS (PROVIDER) [facility] Jun 10, 2007 08:46 AM TOBACCO OFFERRED S [facility] Mar 10, 2001 11:07 AM CURRENT NON-SMOKER [facility] May 08, 2000 08:41 AM CURRENT NON-SMOKER [facility] Advance Directives: All historical and current Section Date Range: From patient's date of to the date document was created. This section includes ALL of a patient's completed or amended [place] Advance and Rescinded Directives. The entries below indicate that a directive exists for the patient, but an actual copy is not included with this document. The data comes from all [place] facilities. Date Advance Directives Provider Source Mar 16, 2024 ADVANCE DIRECTIVE DISCUSSION LUPE LEPE [facility] Feb 09, 2024 ADVANCE DIRECTIVE LEXY WHALEY Nov 03, 2023 RESCINDED ADVANCE DIRECTIVE LUPE LEPE [facility] Sep 20, 2023 RESCINDED ADVANCE DIRECTIVE LENNIE VALENTIN [facility] Aug 26, 2021 ADVANCE DIRECTIVE DISCUSSION [facility] Radiology Reports: +/- 30 days of the encounter Radiology Reports For cases when an order for radiology services may have been completed prior to the date of the Encounter, the report list includes the Radiology Reports that were completed up to 30 days before dateof the Encounter. For cases when an order for radiology services may have been completed after the date of the Encounter, the report list also includes the Radiology Reports that were completed up to30 days after date of the Encounter. The data comes from all [place] treatment facilities. Date/Time Radiology Report Provider Source Feb 12, 2025 09:38 AM RIGHT KNEE 2 VIEWS : OLEG TOTHLeroy [id number] -1950 M Exm Date: FEB 12, 2025@09:38 Req Phys: JOSÉ LUIS ALVAREZ Loc: [facility] PACCleo Summers MD (Req'g Loc) Img Loc: [facility] Service: [place] [address] (Case [id number] COMPLETE) RIGHT KNEE 2 VIEWS (RAD Detailed) CPT:41625 Proc Modifiers : RIGHT Reason for Study: See clinical history below: Clinical History: chronic right knee pain Report Status: Verified Date Reported: FEB 14, 2025 Date Verified: FEB 14, 2025 Cras E-Sig: Report: RIGHT KNEE 2 VIEWS HISTORY: See clinical history below: COMPARISON: 05/15/2019 TECHNIQUE: 2 view(s) of the right knee, submitted to the [place] National Teleradiology Program (NTP) for interpretation. FINDINGS: Moderate medial tibiofemoral compartment joint space narrowing with [id number] tricompartmental osteophyte production most pronounced at the patellofemoral articulation. Chondrocalcinosis. Patella alfred with small to moderate knee joint effusion/synovitis. 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 READING PHYSICIAN: Dima Lucas MD -[id number] 02/14/2025 5:55 PDT [facility] National Teleradiology Program [phone] (For Medical Practitioner Use Only) Attention Patients / Veterans: If you have questions or concerns about these test results, please contact your ordering provider or primary care team. Primary Diagnostic Code: NO ALERT REQUIRED Primary Interpreting Staff: OUTSIDE SERVICE RADIOLOGY, Staff Physician / RADIOLOGY,OUTSIDE SERVICE [facility] Encounter Notes: All associated encounter notes This section contains the clinical notes associated to the Encounter. Date/Time Encounter Note(s) Provider Source Feb 12, 2025 09:18 AM PRIMARY CARE NOTE: LOCAL TITLE: PROVIDER/VISIT ACTION STANDARD TITLE: PRIMARY CARE NOTE DATE OF NOTE: FEB 12, 2025@09:18 ENTRY DATE: FEB 12, 2025@09:18:23 AUTHOR: JOSÉ LUIS ALVAREZ COSIGNER: URGENCY: STATUS: COMPLETED SUBJECTIVE:PRESENTS WITH A CHIEF CONCERN OF EVALUATION AND MANAGEMENT OF: Annual visit- HISTORY OF PRESENT ILLNESS: This 74-year-old male presents to the [place] clinic to review his chronic health conditions, and recent labs: 1. Routine check-up, yearly. 2. My foot swelled up from wearing compression socks. It will swell when I work. It was like a baseball. What do I do about the socks? It helps his LLE. He denies open sore on right foot. He denies ankle/calf pain. 3. Review labs. Weight loss- I am working on it. He is scheduled for clinical pharmacy consult tomorrow. 4. Knees- the right one really hurts. 5. Right ankle- he is scheduled to see Michael Wood MD [facility] 6. His legs tighten at night. He takes daily OTC mag in AM. Current medications: Reviewed. OBJECTIVE: NURSING NOTES REVIEWED. VITAL SIGNS: DATE/TIME TEMP PULSE RESP BP PAIN WT (LB) P OX 02/12/25 @ 0902 97.2 76 18 132/74 270.9 97 01/23/25 @ 0805 Weight is down 10 pounds. 272 General: Morbidly obese, pleasant, conversational 74 y/o male who has a normal mood/affect and is in no acute distress. HEENT: EACs free of cerumen; TMs clear. Neck: there is no adenopathy, JVD, or thyromegaly. Heart: regular rate and rhythm without rubs/murmurs/gallops. Lungs: clear to auscultation with good aeration. There are no rales/rhonchi/wheezes. Musculoskeletal: bilateral 3+ nonpitting calf/ankle edema. Crepitus with passive ROM of right knee. The right knee demonstrates no effusion. Medial joint line is tender to palpation. There is full extension of the right knee. Neurological: MSR's are 1/4 bilaterally in patella/Achilles. There are no distal motor deficits. Negative straight leg raising bilaterally. LABORATORY DATA: None available. Assessment: 1. Lymphedema bilateral lower extremities, right greater than left. 2. Morbid obesity. 3. Osteoarthritis of the right knee. 4. Hyperlipidemia. 5. Systolic murmur. 6. Sensory neuropathy. Plan: 1. Discuss edema with podiatry. 2. 1000 mg Tylenol 2-3 times per day. Osteo Biflex. 3. Continue current medications. 4. He agrees to return for labs in June 2024. 5. He agrees to right knee X-rays. 6. He agrees to FIT test for colon cancer screening. 7. F/U with [facility]! Discussed importance of losing weight. 3. He is encouraged to follow-up with his other healthcare providers. 4. Return in 1 year. PC-MEDICATION RECONCILIATION: The following medication list was reviewed with the patient/caregiver: MRT5 - Allergies/ADRs FACILITY ALLERGY/ADR -------- [facility] BEE VENOM [facility] CODEINE MRR1 - Med Reconciliation INCLUDED IN THIS LIST: Alphabetical list of active outpatient prescriptions dispensed from this [place] (local) and dispensed from another [place] or [facility] facility (remote) as well as inpatient orders (local pending and active), local clinic medications, locally documented non-VA medications, and local prescriptions that have or been discontinued in the past 90 days. Non-VA Meds Last Documented On: Feb 12, 2025 NOTE The display of VA prescriptions dispensed from another [place] or [facility]D facility (remote) is limited to active outpatient prescription entries matched to National Drug File at the originating site and may not include some items such as investigational drugs, compounds, etc. NOT INCLUDED IN THIS LIST: Medications self-entered by the patient into personal health records (i.e. [employer]) are NOT included in this list. Non-VA medications documented outside this [place], remote inpatient orders (regardless of status) and remote clinic medications are NOT included in this list. The patient and provider must always discuss medications the patient is taking, regardless of where the medication was dispensed or obtained. OUTPT ATORVASTATIN CALCIUM 20MG TAB (Status = Active) TAKE ONE TABLET BY MOUTH AT BEDTIME FOR CHOLESTEROL CALL YOUR PROVIDER IF YOU HAVE MUSCLE PAIN, TENDERNESS OR WEAKNESS Rx# [id number] Last Released: 12/25/24 Qty/Days Supply: Rx Expiration Date: 02/14/25 Refills Remainin Indication: FOR CHOLESTEROL OUTPT BACLOFEN 10MG TAB (Status = Active) TAKE ONE-HALF TABLET BY MOUTH AT BEDTIME Rx# [id number] Last Released: 11/23/24 Qty/Days Supply: Rx Expiration Date: 11/02/25 Refills Remainin Indication: FOR MUSCLE SPASM Non-VA CYANOCOBALAMIN 1000MCG TAB TAKE FIVE TABLETS BY MOUTH ONCE A WEEK OUTPT GABAPENTIN 300MG CAP (Status = Active) TAKE ONE CAPSULE BY MOUTH TWICE A DAY Rx# [id number] Last Released: 01/19/25 Qty/Days Supply: Rx Expiration Date: 11/02/25 Refills Remainin Indication: FOR NERVE PAIN Non-VA MAGNESIUM OXIDE 400MG TAB TAKE ONE TABLET BY MOUTH DAILY Non-VA MULTIVITAMIN,HERBAL CAP/TAB TAKE BY MOUTH OUTPT OMEPRAZOLE 20MG EC CAP (Status = Discontinued) TAKE ONE CAPSULE BY MOUTH EVERY MORNING 30 MINUTES BEFORE BREAKFAST FOR STOMACH ACID Rx# [id number] Last Released: 11/03/24 Qty/Days Supply: Rx Expiration Date: 07/19/25 Refills Remainin Indication: FOR STOMACH ACID OUTPT OMEPRAZOLE 20MG EC CAP (Status = Active/Suspended) TAKE ONE CAPSULE BY MOUTH EVERY MORNING 30 MINUTES BEFORE BREAKFAST FOR STOMACH ACID Rx# [id number] Last Released: Qt Supply: Rx Expiration Date: 02/13/26 Refills Remainin Indication: FOR STOMACH ACID Non-VA PSYLLIUM CAP TAKE 1 CAPSULE BY MOUTH DAILY SUPPLIES Potential risks, benefits, and alternative to medications prescribed were discussed with Addy/caregiver who was given an opportunity to ask questions, which were answered to the best of my ability and seemingly to their satisfaction. Addy/caregiver was/were instructed to contact provider (means provided) with any concerns or questions. A list of reconciled medications was provided to the /caregiver. /montrell/ josé luis alvarez do DO Signed: 02/13/2025 12:47 JOSÉ LUIS ALVAREZ [facility] Feb 12, 2025 09:05 AM NURSING NOTE: LOCAL TITLE: SAKINA/PREVMED STANDARD TITLE: NURSING NOTE DATE OF NOTE: FEB 12, 2025@09:05 ENTRY DATE: FEB 12, 2025@09:05:39 AUTHOR: FARIBA ANTHONY EXP COSIGNER: URGENCY: STATUS: COMPLETED Two patient identifiers used: - NAME - DATE OF S: 74 year old patient presents to the [facility]. Reason for visit: Routine Stated chief concern / complaint: - edema in RLE after wearing compression stocking - bilateral knee pain and nerve pain LABS done: 09/18/2024 CO-MANAGED by: [facility] referrals Patient needs medication refills. Patient provided education on [facility] appointment information. O: Current medications reviewed and taken as prescribed. Denies any new herbal, OTC, or new prescription medications. HEIGHT: 65.5 in [166.4 cm] (04/12/2023 08:30) WEIGHT: 270.9 lb [122.88 kg] (02/12/2025 09:02) TEMP: 97.2 F [36.2 C] (02/12/2025 09:02) PULSE: 76 (02/12/2025 09:02) RESP: 18 (02/12/2025 09:02) BP: 132/74 (02/12/2025 09:02) POX: 97 w/Supplemental 02 (No entry) Qualifier ROOM AIR (02/12/2025 09:02) A / P: Refer to provider for evaluation. Clinical Reminders: Alcohol Use Screen (AUDIT-C): Alcohol Screen: SCREEN FOR ALCOHOL (AUDIT-C) An alcohol screening test (AUDIT-C) was negative (score=4). 1. How often did you have a drink containing alcohol in the past year? Consider a drink to be a 12 ounce can or bottle of regular beer, 8 ounces of malt liquor, a 5 ounce glass of table wine, or a 1.5 ounce shot of liquor (like scotch, gin, or vodka). Four or more times a week 2. How many drinks containing alcohol did you have on a typical day when you were drinking in the past year? One or two drinks 3. How often did you have six or more drinks on one occasion in the past year? Never Depression Screening: Perform PHQ-2 A PHQ-2 screen was performed. The score was 0 which is a negative screen for depression. Over the past two weeks, how often have you been bothered by the following problems? 1. Little interest or pleasure in doing things Not at all 2. Feeling down, depressed, or hopeless Not at all Sexual Orientation: The patient thinks of their sexual orientation as: Straight or Heterosexual RHS Screen: RHS Screen Session Format: Face to Face Environmental Check Screening was not completed at this time due to: Another adult present SAKINA-DIABETIC FOOT SCREEN: Patient had diabetic foot screen at this encounter. Skin inspection (left) FINDINGS: Normal Skin inspection (right) FINDINGS: Normal Pedal Pulses present (left) FINDINGS: Normal Pedal Pulses present (right) FINDINGS: Normal Patient had sensation checked by monofilament (left) FINDINGS: Abnormal Patient had sensation checked by monofilament (right) FINDINGS: Abnormal FOOT RISK ASSESSMENT SCREEN SCORE: NORMAL: Foot Risk Level 0 Normal skin inspection of the feet,palpable pedal pulses, and ability to feel monofilament deformity. Advise the patient to monitor the feet on a daily basis. EDUCATIONAL TOPIC: KEEPING FEET HEALTHY-INSTRUCTIONS FOR PROPER FOOT CARE Additional topics covered: podiatry care Level of Understanding: Good Homelessness/Food Insecurity Screen: In the past 2 months, have you been living in stable housing that you own, rent, or stay in as part of a household? Yes - Living in stable housing. Are you worried or concerned that in the next 2 months you may NOT have stable housing that you own, rent, or stay in as part of a household? No - Not worried about housing near future The reports the following: Within the past 12 months, you worried whether your food would run out before you got money to buy more. Never true Within the past 12 months, the food you bought just didn't last and you didn't have money to get more. Never true SAKINA-ADVANCE DIRECTIVES: Advance care planning is the process for identifying and communicating an individual's values and preferences regarding future health care. An advance directive is a written statement regarding preferences about future health care decisions in the event that individual becomes unable to make those decisions. Notification of Rights Related to Advance Directives: Written notification provided. ADVANCE DIRECTIVE: Do you have an Advance Directive? YES Addy's Advance Directive is available in the medical record. The Addy does not want to have the Advance Directive updated, rescinded, or reviewed. SAKINA-EDUCATION ASSESSMENT: ``````````````````````````` ``````````` ANNUAL EDUCATION NEEDS/BARRIER ASSESSMENT Primary healthcare language: Swiss Barriers to Learning: Physical: Hearing Impairment Visual Impairment Cognitive: None Socioeconomic: None Preferred Learning Methods: Small Group Instruction - Interaction ``````````````````````````` ``````````` SAKINA-EXERCISE SCREEN: Patient had Exercise Screening done at this encounter. Type of exercise, duration and frequency/week. Comment: as tolerated Did patient report New Balance Problem? [ NO ] Did patient report New Transfer Problem? [ NO ] Did patient report New Ambulating Problem? [ NO ] Has the patient fallen within the past 12 months? NO. Consult Orders placed: No Consult orders needed. SAKINA-PT AT RISK INCAPACITATED SCREEN: 1) Does the patient meet any of the criteria for being considered incapacitated? [ NO ] SAKINA-SKIN RISK ASSESSMENT: SAKINA/SKIN RISK REMINDER *CORPORATE RECRUITER* The reports no current pressure ulcers, wounds, or a history of pressure ulcers. The reports no use of a wheelchair for mobility at least 75% of the time. SAKINA/FRAIL ELDERLY SCREEN(FISH): BEGIN ASSESSMENT INSTRUMENTAL ACTIVITIES OF DAILY LIVING (IADL) SCALE ([place]) Ability to use telephone: 1 point - Operates telephone on own initiative; looks up and dials numbers, etc. Shoppin point - Takes care of all shopping needs independently Food preparation: 1 point - Plans, prepares, and serves adequate meals independently Housekeepin point - Maintains house alone or with occasional assistance (e.g., heavy work domestic help ) Laundry: 1 point - Does personal laundry completely Mode of transportation: 1 point - Travels independently on public transportation or drives own car Responsibility for own medications: 1 point - Is responsible for taking medication in correct dosages at correct time Ability to handle finances: 1 point - Manages financial matters independently (budgets, writes checks, pays rent and bills, goes to bank), collects and keeps track of income SCORING: The total score may range from 0 - 8. A lower score indicates the patient needs more assistances. Total score: 8 points Click appropriate selection below: Patient does not require assistance. (Total Score was 8) SAKINA/AKBAR INDEX (ADLS SCREEN): FUNCTIONAL: Akbar Index of [place] in Activities of Daily Living ACTIVITIES INDEPENDENCE (1 point) NO supervision, direction, or personal assistance. DEPENDENCE (0 points) WITH supervision, direction, personal assistance, OR total care. BATHING Point(s) (1 point) Baths self completely or needs help in bathing only a single a single part of the body such as the back, genital area or disabled extremity. DRESSING Point(s) (1 point) Gets clothes from closets and drawers and puts on clothes and outer garments complete with fasteners. May complete with fasteners. May have help tying shoes. TOILETING Point(s) (1 point) Goes to toilet, gets on and off, arranges clothes, cleans genital area without help.\ TRANSFERRING Point(s) (1 point) Moves in and out of bed or chair unassisted. Mechanical transferring aides are acceptable. CONTINENCE Point(s) (1 point) Exercises complete self control over urination and defecation. FEEDING Point(s) (1 point) Gets food from plate into mouth without help Preparation of food may be done by another person. TOTAL POINTS: 6=High (patient independent) 0=Low (patient very dependent) 6 Tobacco Use Screening: The patient has never smoked cigarettes. The patient has never used other types of tobacco. Stress: reports nothing in the last 6 months that has caused worry or stress. Avg Risk Colorectal Cancer Screen: AVERAGE RISK colorectal cancer screening is due based on information available to this clinical reminder FOBT/FIT (Fecal Immunochemical Testing) has been ordered. See order tab for details. /montrell/ Fariba Anthony LPN Licensed Practical Nurse Signed: 02/12/2025 09:12 FARIBA ANTHONY
--- OUTSIDE RECORDS SUMMARY | 2025-03-05 18:23 | XMS_ITS ---
Author Organization Unknown Address [address] [place] [phone] Phone Care Team Providers Care Mechanical Engineering Intern Name Role Phone LACEY Clark Attending Unavailable NO PCP Primary Unavailable Social History Type Status Start Date End Date Code Code Syst em Sex Male Hospital Discharge Instructions Should you have any questions prior to discharge, please contact a member of your healthcare team. If you have left the hospital and have any questions, please contact your primary care physician. Reason For Referral No Data Found Plan of Treatment No Data Found Encounters Encounter Diagnosis Start Date Code Code Sys tem Electrocardiogram abnormal 09/30/2023 [id number] S NOMED-CT Personal Care Team Section Performer Name Performer Role Active Date Inactive Da te
--- OUTSIDE RECORDS SUMMARY | 2025-03-05 18:23 | XMS_ITS | Encounter Summary ---
Author Name [facility] [place] [facility] Address [address] [place] [address] Care Team Providers Care Die Setter Name Role Phone DEJUAN PEARL Primary Care [...] F PLAN F Nov 22, 2018 MEDIGAP [id number] [phone] BLANCA TOTH RT PATIENT AARP MED SUPP MEDIGAP PLAN F PLAN F Nov 22, 2018 PLAN F [id number] [phone] BLANCA TOTH RT PATIENT AARP MED SUPP MEDIGAP PLAN F MEDIC ARE SUPPL EMENT Aug 22, 2015 PLAN F [id number] [phone] BLANCA TOTH RT PATIENT AARP MED SUPP MEDIGAP PLAN F PLAN F Aug 22, 2015 PLAN F [id number] [phone] BLANCA TOTH RT PATIENT AARP MED SUPP MEDICARE SUPPLEMEN THIERNO MEDIC ARE SUPPL EMENT Aug 22, 2015 PLAN F [id number] BLANCA TOTH RT PATIENT AARP MED SUPP MEDIGAP PLAN F MEDIC ARE SUPPL EMENT Aug 22, 2015 PLAN F [id number] [phone] BLANCA TOTH RT PATIENT AARP MED SUPP MEDIGAP PLAN F MEDIC ARE SUPPL EMENT Aug 22, 2015 PLAN F [id number] [phone] BLANCA TOTH RT PATIENT MEDICARE (WNR) MEDICARE (M) PART B Apr 22, 2014 PART B [id number] BLANCA TOTH RT PATIENT MEDICARE (WNR) MEDICARE (M) PART A Apr 22, 2014 PART A [id number] BLANCA TOTH RT PATIENT MEDICARE (WNR) MEDICARE (M) PART B Apr 22, 2014 PART B [id number] BLANCA TOTH RT PATIENT MEDICARE (WNR) MEDICARE (M) PART A Apr 22, 2014 PART A [id number] [phone] BLANCA TOTH RT PATIENT MEDICARE (WNR) MEDICARE (M) PART B Apr 22, 2014 PART B [id number] [phone] BLANCA TOTH RT PATIENT MEDICARE (WNR) MEDICARE (M) PART A Apr 22, 2014 PART A [id number] BLANCA TOTH RT PATIENT MEDICARE (WNR) MEDICARE (M) PART B Apr 22, 2014 PART B [id number] BLANCA TOTH RT PATIENT MEDICARE (WNR) MEDICARE (M) PART A Apr 22, 2014 PART A [id number] BLANCA TOTH RT PATIENT MEDICARE (WNR) MEDICARE (M) PART A Apr 22, 2014 PART A [id number] BLANCA TOTH RT PATIENT MEDICARE (WNR) MEDICARE (M) PART B Apr 22, 2014 PART B [id number] BLANCA TOTH RT PATIENT MEDICARE (WNR) MEDICARE (M) PART A Apr 22, 2014 PART A [id number] [phone] BLANCA TOTH RT PATIENT MEDICARE (WNR) MEDICARE (M) PART B Apr 22, 2014 PART B [id number] [phone] BLANCA TOTH RT PATIENT MEDICARE (WNR) MEDICARE (M) PART B Apr 22, 2014 PART B [id number] BLANCA TOTH RT PATIENT MEDICARE (WNR) MEDICARE (M) PART A Apr 22, 2014 PART A [id number] [phone] BLANCA TOTH RT PATIENT MEDICARE (WNR) MEDICARE (M) PART B Apr 22, 2014 PART B [id number] [phone] BLANCA TOTH PATIENT MEDICARE (WNR) MEDICARE (M) PART A Apr 22, 2014 PART A [id number] BLANCA TOTH PATIENT Selected Encounter This section includes the information on record at [place] for the Encounter. Date/Time Encounter Type Encounter Description Reason Pro vider Source April 03, 2024 09:15 AM Outpatient Encounter COMMUNITY CARE CONSULT IHE Encounter Template Text not used by [facility] Plan of Treatment: Future Appointments (+ 6 months) and Future Tests (+/- 45 days) The Plan of Treatment section includes future care activities for the patient from all [place] treatmentfacilities. This section includes future appointments and future orders which are active, pending or scheduled. Future Appointments This section includes appointments that were scheduled to occur 6 months from the date of the Encounter, up to a maximum of 20 appointments. The data comes from all [place] treatment facilities. Appointment Date/Time Appointment Type Appointme nt Facility Name April 06, 2024 09:00 AM [facility]ATORY - NONE [facility] April 10, 2024 10:45 AM AMBULATORY - NONE [facility] April 20, 2024 01:00 PM AMBULATORY - NONE [facility] May 18, 2024 09:00 AM AMBULATORY - NONE [facility] May 31, 2024 09:00 AM AMBULATORY - NONE [facility] Jun 28, 2024 10:30 AM AMBULATORY - NONE [facility] Jul 20, 2024 12:00 PM AMBULATORY - NONE [facility] Sep 18, 2024 09:45 AM AMBULATORY - MEDICINE [facility] Sep 18, 2024 10:30 AM AMBULATORY - SURGERY [facility] Advance Directives: All historical and current Section Date Range: From patient's date of to the date document was created. This section includes ALL of a patient's completed or amended VA Advance and Rescinded Directives. The entries below indicate that a directive exists for the patient, but an actual copy is not included with this document. The data comes from all [place] facilities. Date Advance Directives Provider Source Mar 16, 2024 ADVANCE DIRECTIVE DISCUSSION [facility] Feb 09, 2024 ADVANCE DIRECTIVE LEXY WHALEY [facility] Nov 03, 2023 RESCINDED ADVANCE DIRECTIVE [facility] Sep 20, 2023 RESCINDED ADVANCE DIRECTIVE LENNIE VALENTIN [facility] Aug 26, 2021 ADVANCE DIRECTIVE DISCUSSION COLT PEARL [facility] Encounter Notes: All associated encounter notes This section contains the clinical notes associated to the Encounter. Date/Time Encounter Note(s) Provider Source Mar 16, 2024 11:06 AM NONVA NOTE: LOCAL TITLE: COMMUNITY CARE-PATIENT LETTER (AUTO-PRINT) STANDARD TITLE: NONVA NOTE DATE OF NOTE: MAR 16, 2024@11:06 ENTRY DATE: MAR 16, 2024@11:06:47 AUTHOR: GALE MORTON COSIGNER: URGENCY: STATUS: COMPLETED Dear: OLEG TOTH DO NOT REPORT TO A [place] LOCATION OF CARE You have an appointment with a community provider. Your appointment details are: Appointment date & time: March@09:15 Community Provider or Facility: [facility] Community Provider Location: [address] [address] P:[phone] F:[phone] [phone] Community Provider Type of Specialty: Physical Therapy Referral number: [id number] Referral valid: Feb to Jul You can find your authorization information online at [email or web address] If you have a co-pay for your care or prescriptions, [place] will send you a bill in the mail. Do not pay co-pays to community providers. If you get a bill or are asked for a co-pay, contact [facility] at [phone]. In case of emergency call 911 or go to the nearest emergency department. You or your emergency care provider can contact [place] to report emergency treatment. You have 72 hours to report emergency care to [place]. Call (TTY:711) or visit [email or web address] If you have an immediate need for prescription medication after your community care visit, you may be eligible for up to a 14-day supply, filled at a participating [facility] ([facility]) pharmacy. You can find an in-network pharmacy online at: [email or web address].gov/find-locations/ For immediate prescription, provide an eligible pharmacy the following information: BIN: [id number] PCN: [id number] Group: [id number] The prescribed medications must be related to the services authorized on the referral and must be included in the [place] National Formulary. If you do not need medication immediately and for medication supply greater than 14-days, ask the community provider to send your prescription to the pharmacy at [facility] and [place] will mail it to you. To reach the [facility] pharmacy call and press 1. If you are eligible for travel benefits, please note: - Travel will only be paid to the nearest facility that can provide care. - All claims must include proof of attendance attached to the claim. (after-visit summary, discharge paper, letter from treating facility on official letterhead, patient name, dates of service, and provider signature). NOTE: Appointments lists, and preparation instructions are not acceptable. - Claims can be submitted through the Beneficiary Travel Self Service System (BTSSS)at access.[place].gov - For assistance with your travel pay, you may contact [place] [employer] at [phone]. GALE MORTON [facility]
--- OUTSIDE RECORDS SUMMARY | 2025-03-05 18:23 | XMS_ITS | Clinical Summary ---
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 Active atorvastatin (LIPITOR) 20 MG tablet Take 1 tablet (20 mg total) by mouth nightly at bedtime. Active baclofen (LIORESAL) 10 MG tablet Take 0.5 tablets (5 mg total) by mouth nightly at bedtime. Active gabapentin (NEURONTIN) 300 MG capsule Take 1 capsule (300 mg total) by mouth 2 (two) times a day. Active omeprazole (PRILOSEC) 20 MG capsule Take 1 capsule (20 mg total) by mouth daily. Active vitamin B-12 (CYANOCOBALAMIN ) 1000 MCG tablet Take 5 tablets (5,000 mcg total) by mouth once a week. Active Multiple Vitamins-Minera ls (MULTIVITAMIN-M INERALS OR) Active Senna (SENNOSIDES) 8.6 MG tablet Take 1 tablet (8.6 mg total) by mouth daily. 04/12/2023 Active magnesium oxide (MAG-OX) 400 MG tablet Take 1 tablet (400 mg total) by mouth daily. 04/12/2023 Active B Complex-C (SUPER B COMPLEX OR) Take 1 tablet by mouth daily. Active Active Problems Problem Noted Date Diagnosed Date Abnormal ECG 11/07/2023 Hypercholesterolemia 11/07/2023 H/O: hypertension 11/07/2023 Social History Tobacco Use Types Packs/Day Years Used Date Smoking Tobacco: Former Cigarettes Q uit: 1990 Smokeless Tobacco: Never Tobacco Cessation:Counseling Given: No Alcohol Use Standard Drinks/Week Comments Never 0 (1 standard drink = 0.6 oz pur e alcohol) PHQ-2 Answer Date Recorded Patient Health Questionnaire-2 Score 0 05/15/2024 Sex and Gender Information Value Date Recorded Sex Assigned at Not on file Legal Sex Male 10:01 PM CDT Gender Identity Not on file Sexual Orientation Not on file Last Filed Vital Signs Vital Sign Reading Time Taken Comments Blood Pressure 148/76 05/15/2024 9:51 AM CDT Pulse 61 05/15/2024 9:51 AM CDT Temperature 36.4 C (97.5 F) 05/15/2024 9:51 AM CDT Respiratory Rate 20 11/18/2023 4:06 PM [facility] [facility] Oxygen Saturation 98% 05/15/2024 9:51 AM CDT Inhaled Oxygen Concentration - - Weight 124.7 kg (275 lb) 05/15/2024 9:51 AM CDT Height 165.1 cm (5' 5 ) 05/15/2024 9:51 AM CDT Body Mass Index 45.76 05/15/2024 9:51 AM CDT Plan of Treatment Health Maintenance Due Date Last Done Comments Colorectal Cancer Screening Colonoscopy (10 Years) 1950 Hepatitis C 1967 AAA SCREENING 2014 Annual Medicare Wellness Visit 2014 Zoster Vaccines (2 of 2) 05/15/2019 03/20/2019 RSV Immunization or 60+ Years (1 - 1-dose 75+ series) 2024 COVID-19 Vaccine ( - season) 2024 04/14/2021, 04/11/2021, 03/24/2021 PHQ-2 (Physician Endeavor) 11/22/2024 05/15/2024 DTaP, Tdap and Td Vaccines (3 - Td or Tdap) 09/01/2026 09/01/2016, 08/22/2016, 11/22/2009, Additional history exists Pneumococcal Vaccine: 50+ Years Completed 08/26/2021, 11/02/2016, 02/05/2015 Meningococcal B Vaccine Aged Out No l onger eligible based on patient's age to complete this topic Meningococcal Vaccine Aged Out No wojciech francesca eligible based on patient's age to complete this topic RSV Immunizations Under 20 Months Aged Out No longer eligible based on patient's age to complete this topic Insurance [facility] OFFICE OF COMMUNITY CARE MEDICARE AAR Advance Directives Documents on File Type Date Recorded 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 Expl anation Advance Directives and Living Will 02/09/2024 8:50 AM 09/20/2022 - LIVING WILL Power of Preschool Teacher'S Assistant 02/09/2024 8:49 AM 09/20 - ANGI Balderrama-Healthcare Agent; Healthcare Agents on File Name Relationship Healthcare Agent Relationship Communication Aneglia Pastor ([facility]) Healthcare Agent Health Care Agent Care Teams Funeral Prearrangement Counselor Relationship Specialty Start Date End Date Nishant Ramos Jr., DO [address] [place] [address] PCP - General FAMILY PRACTICE 09/17/23 Gretchen Salinas MD [facility] [place] [address] Consulting Physician CARDIOVASCULAR DISEASE 09/20/23
--- OUTSIDE RECORDS SUMMARY | 2025-03-05 18:23 | XMS_ITS ---
Author Organization [facility] Address [address] [place], [place] [id number] Care Team Providers Care Vendor Analyst Name Role Phone JOJO GALVAN Unavailable [phone] Jason Alarcon Jr Unavailable Unavailable Allergies Allergen (clinical drug ingredient) Drug/Non Drug Allergy documented on EMR Reaction Allergy Type Onset Date Status bee pollen Bee Pollens (uncoded) Unknown Allergy 015 active Bee Sting/Venom (uncoded) Unknown Allergy 05/23/2015 active codeine Codeine Unknown Drug Allergy 05/23/2015 active REASON FOR VISIT Patient has severe collapse of the right foot and ankle. He wears Addis braces and the foot continues to collapse and cause pain. [facility] not [facility]., He would like cortisone injections for both ankles as this provides relief. He is also inquiring about where he could go to discuss surgery Medications Medication SIG (Take, Route, Frequency, Duration) Notes Start Date End Date Status hydrocortisone 10 MG/ML / neomycin 3.5 MG/ML / polymyxin B 29923 UNT/ML Otic Solution hydrocortisone 10 MG/ML / neomycin 3.5 MG/ML / polymyxin B 04972 UNT/ML Otic SolutionOriginal Medicationhydrocortisone 10 MG/ML / neomycin 3.5 MG/ML / polymyxin B 67377 UNT/ML Otic Solution *Reorder from [facility] 8 Active Encounters Encounter Location Date Provider Diagnosis [facility] [address] [place], [place] [id number] 03/20/2024 JOJO SNOOK Pain in right ankle and joints of right foot M25.571 ; Pain in left ankle and joints of left foot M25.572 ; Primary osteoarthritis, right ankle and foot M19.071 ; Primary osteoarthritis, left ankle and foot M19.072 ; Posterior tibial tendinitis, right leg M76.821 and Pain in right foot M79.671 Assessments Encounter Date Diagnosis (ICD Code) Assessment Notes Treatment Notes Treatment Clinical Notes Section Notes 03/20/2024 Pain in right ankle and joints of right foot (ICD-10 - M25.571) Sinus Tarsi Syndrome: I discussed anti-inflammatory treatment options and various means of immobilization with the patient. I educated the patient on icing and stretching, supportive shoegear, and the use of orthotic devices and bracing. Kenalog Injection: Following skin prep, a total of 3 ccs of a 1-1-1 mix of 0.5% marcaine plain, 1% lidocaine plain, and Kenalog was injected right sinus tarsi. 03/20/2024 Pain in left ankle and joints of left foot (ICD-10 - M25.572) Sinus Tarsi Syndrome: I discussed anti-inflammatory treatment options and various means of immobilization with the patient. I educated the patient on icing and stretching, supportive shoegear, and the use of orthotic devices and bracing. Arthritis, Osteo: I discussed anti-inflammatory treatment options and various means of immobilization with the patient. I educated the patient on icing and stretching, supportive shoegear, and the use of orthotic devices and bracing. Kenalog Injection: Following skin prep, a total of 3 ccs of a 1-1-1 mix of 0.5% marcaine plain, 1% lidocaine plain, and Kenalog was injected left sinus tarsi 03/20/2024 Primary osteoarthritis , right ankle and foot (ICD-10 - M19.071) Consult: Dr. Marc Caro for evaluation of collapsed right foot 03/20/2024 Primary osteoarthritis , left ankle and foot (ICD-10 - M19.072) 03/20/2024 Posterior tibial tendinitis, right leg (ICD-10 - M76.821) Posterior Tibialis Tendon Dysfunction: I discussed anti-inflammatory treatment options and various means of immobilization with the patient. I educated the patient on icing and stretching, supportive shoegear, and the use of orthotic devices and bracing. Continue [place] ankle braces 03/20/2024 Pain in right foot (ICD-10 - M79.671) Plan Of Treatment Treatment Notes Assessment Notes Pain in right ankle and join ts of right foot Sinus Tarsi Syndrome: I discussed anti-inflammatory treatment options and various means of immobilization with the patient. I educated the patient on icing and stretching, supportive shoegear, and the use of orthotic devices and bracing. Kenalog Injection: Following skin prep, a total of 3 ccs of a 1-1-1 mix of 0.5% marcaine plain, 1% lidocaine plain, and Kenalog was injected right sinus tarsi. Pain in left ankle and joint s of left foot Sinus Tarsi Syndrome: I discussed anti-inflammatory treatment options and various means of immobilization with the patient. I educated the patient on icing and stretching, supportive shoegear, and the use of orthotic devices and bracing. Arthritis, Osteo: I discussed anti-inflammatory treatment options and various means of immobilization with the patient. I educated the patient on icing and stretching, supportive shoegear, and the use of orthotic devices and bracing. Kenalog Injection: Following skin prep, a total of 3 ccs of a 1-1-1 mix of 0.5% marcaine plain, 1% lidocaine plain, and Kenalog was injected left sinus tarsi Primary osteoarthritis, righ t ankle and foot Consult: Dr. Marc Caro for evaluati on of collapsed right foot Posterior tibial tendinitis, right leg Posterior Tibialis Tendon Dysfunction: I discussed anti-inflammatory treatment options and various means of immobilization with the patient. I educated the patient on icing and stretching, supportive shoegear, and the use of orthotic devices and bracing. Continue [place] ankle braces Progress Notes * OLEG TOTH WDOB:1950 (74 yo M)Acc No.[id number]:03/20/2024 Patient: OLEG DAMIAN Provider: Adolfo Galvan DPM :1950 A ge:73 Y S ex:Male Date:03/20/2024 Address:[address] [place] [address] Subjective: * Chief Complaints: * 1 . Patient has severe collapse of the right foot and ankle. He wears Addis braces and the foot continues to collapse and cause pain. Patient has been discussing [facility] with [facility] but they can not help.. 2. He would like cortisone injections for both ankles as this provides relief. He is also inquiring about where he could go to discuss surgery. * HPI: H PI: Follow Up Visit P atient presents for follow up visit for bilateral foot pain. Patient would like injection in both. Recieved cortisone injection in both at last visit. Patient would also like to discuss surgery on right foot with doctor., MA: LB. * ROS: G eneral / Constitutional: Patient denies c hills, fever, weight loss. ? M usculoskeletal: Patient complains of a rthritis, gait (walking problems), use of Addis braces. P eripheral Vascular: Patient denies u lceration of feet. S kin: Patient complains of f ungal nails, nail changes. ? N eurologic: Patient denies b alance difficulty, confusion, difficulty speaking. * Medical History: * Family History: F ather: PRN - Father: . M other: PRN - Mother: . B rother: SIB - Brother: . S ister: SIB - Sister: . * Social History: M igrated Social History: M igrated Social History: History of tobacco use : , Smoking Status : Former smoker , Alcohol intake :. * Medications: T aking hydrocortisone 10 MG/ML / neomycin 3.5 MG/ML / polymyxin B 75965 UNT/ML Otic Solution , Notes to Pharmacist: hydrocortisone 10 MG/ML / neomycin 3.5 MG/ML / polymyxin B 24845 UNT/ML Otic SolutionOriginal Medicationhydrocortisone 10 MG/ML / neomycin 3.5 MG/ML / polymyxin B 20379 UNT/ML Otic Solution *Reorder from [facility], Medication List reviewed and reconciled with the patient * Allergies: B ee Pollens: Allergy - Onset Date 05/23/2015, Bee Sting/Venom: Allergy - Onset Date 05/23/2015, Codeine: Allergy - Onset Date 05/23/2015. Objective: * Vitals: * Examination: C onstitutional: Constitutional T he patient is awake, alert, well developed, well groomed and well nourished.. D ermatologic: Skin findings: S kin is thin, atrophic and lacking pedal hair.. Nail pathology: N ails 1-5 bilateral are elongated, thick, discolored, and dystrophic with subungual debris. They are painful to palpation. ? V ascular: Dorsalis pedis pulse: 0 /4, bilateral. Posterior tibial pulse: 1 /4, bilaterally. Capillary refill: g reater than 3 seconds. Edema: N o edema, bilateral. N eurologic: Gross sensation G ross sensation is intact to light touch..? M usculoskeletal: Muscle Strength M uscle strength is 5/5 in regards to dorsiflexion, plantarflexion, inversion, and eversion in bilateral lower extremities.. Pain on palpation l ateral portal of the left sinus tarsi and with ROM of the subtalar joint., lateral portal of the right sinus tarsi and with ROM of the subtalar joint.. Foot Structure T he foot structure is noted to be, planus, bilaterally, There is calcaneus valgus noted, right, There is forefoot valgus noted, right. ? Assessment: * Assessment: 1. P ain in right ankle and joints of right foot - M25.571 (Primary) 2 . P ain in left ankle and joints of left foot - M25.572 3 . P rimary osteoarthritis, right ankle and foot - M19.071 4 . P rimary osteoarthritis, left ankle and foot - M19.072 5 . P osterior tibial tendinitis, right leg - M76.821 ?6. P ain in right foot - M79.671 Plan: * Treatment: 2. P ain in left ankle and joints of left foot Notes: Sinus Tarsi Syndrome: I discussed anti-inflammatory treatment options and various means of immobilization with the patient. I educated the patient on icing and stretching, supportive shoegear, and the use of orthotic devices and bracing. Arthritis, Osteo: I discussed anti-inflammatory treatment options and various means of immobilization with the patient. I educated the patient on icing and stretching, supportive shoegear, and the use of orthotic devices and bracing. Kenalog Injection: Following skin prep, a total of 3 ccs of a 1-1-1 mix of 0.5% marcaine plain, 1% lidocaine plain, and Kenalog was injected left sinus tarsi 3. P rimary osteoarthritis, right ankle and foot Notes: Consult: Dr. Marc Caro for evaluation of collapsed right foot 4. P osterior tibial tendinitis, right leg Notes: Posterior Tibialis Tendon Dysfunction: I discussed anti-inflammatory treatment options and various means of immobilization with the patient. I educated the patient on icing and stretching, supportive shoegear, and the use of orthotic devices and bracing. Continue Addis ankle braces * Procedure Codes: 2 0600 DRAIN/INJECT, JOINT/BURSA, Modifiers: RT , DRAIN/INJECT, JOINT/BURSA, Modifiers: 59 , LT * Billing Information: * Visit Code: 11501 Office Visit, Est Pt., Level 3. Modifiers: 25 * Procedure Codes: DRAIN/INJECT, JOINT/BURSA. Modifiers: RT DRAIN/INJECT, JOINT/BURSA. Modifiers: 59, LT * Sign off status: Completed true * Provider: Adolfo Galvan DPM Date: 0 03/20/2024 Generated for Petrona steve/Cameron/Jaxon on: 0 03/05/2025 06:23 PM CDT History and Physical Notes * HPI (History of Present Illness) Category Sub-Category Detail Notes Category Not es HPI Follow Up Visit Patient presents for follow up visit for bilateral foot pain. Patient would like injection in both. Recieved cortisone injection in both at last visit. Patient would also like to discuss surgery on right foot with doctor., MA: LB Examination Category Sub-Category Detail Notes Category Not es Dermatologic Skin findings: Skin is thin, at rophic and lacking pedal hair. Nail pathology: Nails 1-5 bilateral are elongated, thick, discolored, and dystrophic with subungual debris. They are painful to palpation Neurologic Gross sensation Gross sensation is intact to light touch. Vascular Dorsalis pedis pulse: 0/4, bilateral Edema: No edema, bilateral Capillary refill: greater than 3 secon ds Posterior tibial pulse: 1/4, bilaterally Musculoskeletal Muscle Strength Muscle strength is 5/5 in regards to dorsiflexion, plantarflexion, inversion, and eversion in bilateral lower extremities. Pain on palpation lateral portal of th e left sinus tarsi and with ROM of the subtalar joint., lateral portal of the right sinus tarsi and with ROM of the subtalar joint. Foot Structure The foot structure i s noted to be, planus, bilaterally, There is calcaneus valgus noted, right, There is forefoot valgus noted, right Constitutional Constitutional The patient is a wake, alert, well developed, well groomed and well nourished.
--- OUTSIDE RECORDS SUMMARY | 2025-03-05 18:23 | XMS_ITS | Encounter Summary ---
Author Name [facility] [place] [facility] [place] Address [address] [place] [address] Care Team Providers Care Sorter Operator Name Role Phone DEJUAN PEARL Primary Care [...] F PLAN F Nov 22, 2018 MEDIGAP [id number] [phone] BLANCA TOTH RT PATIENT AARP MED SUPP MEDIGAP PLAN F PLAN F Nov 22, 2018 PLAN F [id number] [phone] BLANCA TOTH RT PATIENT AARP MED SUPP MEDIGAP PLAN F MEDIC ARE SUPPL EMENT Aug 22, 2015 PLAN F [id number] [phone] BLANCA TOTH RT PATIENT AARP MED SUPP MEDIGAP PLAN F MEDIC ARE SUPPL EMENT Aug 22, 2015 PLAN F [id number] [phone] BLANCA TOTH RT PATIENT AARP MED SUPP MEDICARE SUPPLEMEN THIERNO MEDIC ARE SUPPL EMENT Aug 22, 2015 PLAN F [id number] BLANCA TOTH RT PATIENT AARP MED SUPP MEDIGAP PLAN F MEDIC ARE SUPPL EMENT Aug 22, 2015 PLAN F [id number] [phone] BLANCA TOTH RT PATIENT AARP MED SUPP MEDIGAP PLAN F PLAN F Aug 22, 2015 PLAN F [id number] [phone] BLANCA TOTH RT PATIENT MEDICARE (WNR) MEDICARE () PART A Apr 22, 2014 PART A [id number] WOODGERBERE RT PATIENT MEDICARE (WNR) MEDICARE (M) PART B Apr 22, 2014 PART B [id number] WOODGERBERE RT PATIENT MEDICARE (WNR) MEDICARE (M) PART A Apr 22, 2014 PART A [id number] [phone] WOODALBE RT PATIENT MEDICARE (WNR) MEDICARE (M) PART B Apr 22, 2014 PART B [id number] [phone] GERBER TOTHE RT PATIENT MEDICARE (WNR) MEDICARE () PART A Apr 22, 2014 PART A [id number] BLANCA TOTH RT PATIENT MEDICARE (WNR) MEDICARE (M) PART B Apr 22, 2014 PART B [id number] BLANCA TOTH RT PATIENT MEDICARE (WNR) MEDICARE () PART A Apr 22, 2014 PART A [id number] GERBER TOTHE RT PATIENT MEDICARE (WNR) MEDICARE (M) PART B Apr 22, 2014 PART B [id number] [phone] WOODGERBERE RT PATIENT MEDICARE (WNR) MEDICARE (M) PART A Apr 22, 2014 PART A [id number] WOODGERBERE RT PATIENT MEDICARE (WNR) MEDICARE (M) PART A Apr 22, 2014 PART A [id number] WOODGERBERE RT PATIENT MEDICARE (WNR) MEDICARE (M) PART B Apr 22, 2014 PART B [id number] WOODALBE RT PATIENT MEDICARE (WNR) MEDICARE (M) PART A Apr 22, 2014 PART A [id number] WOOD,ALBE RT PATIENT MEDICARE (WNR) MEDICARE (M) PART B Apr 22, 2014 PART B [id number] BLANCA TOTH RT PATIENT MEDICARE (WNR) MEDICARE (M) PART B Apr 22, 2014 PART B [id number] BLANCA TOTH RT PATIENT MEDICARE (WNR) MEDICARE (M) PART A Apr 22, 2014 PART A [id number] BLANCA TOTH RT PATIENT MEDICARE (WNR) MEDICARE (M) PART B Apr 22, 2014 PART B [id number] BLANCA TOTH PATIENT Selected Encounter This section includes the information on record at [place] for the Encounter. Date/Time Encounter Type Encounter Description Reason Provider Source Feb 13, 2025 01:00 PM NQHP OL DIG ASSMT&MGMT 5-10 CLINICAL PHARMACY ICD-10-CM E66.9 Obesity, unspecified TERRY ALVARADO IHAdolfo Encounter Template Text not used by [place] Assessments - Encounter Diagnoses This section includes the primary and secondary diagnoses documented for the Encounter. Date/Time Primary/Secondary Diagnosis Diagnosis Name Provider Source Feb 13, 2025 02:17 PM PRIMARY Obesity, unspecified TERRY ALVARADO [facility] Plan of Treatment: Future Appointments (+ 6 months) and Future Tests (+/- 45 days) The Plan of Treatment section includes future care activities for the patient from all [place] treatmentfacilities. This section includes future appointments and future orders which are active, pending or scheduled. Future Appointments This section includes appointments that were scheduled to occur 6 months from the date of the Encounter, up to a maximum of 20 appointments. The data comes from all [place] treatment facilities. Appointment Date/Time Appointment Type Appointme nt Facility Name Mar 13, 2025 10:00 AM AMBULATORY - NONE [facility] April 02, 2025 10:30 AM AMBULATORY - SURGERY [facility] April 05, 2025 10:40 AM [facility] April 17, 2025 08:00 AM AMBULATORY - NONE [facility] Active, Pending, and Scheduled Orders This section includes a listing of several types of active, pending, and scheduled orders, including clinic medications orders, diagnostic test orders, procedure orders and consult orders; where the start date of the order is 45 days before the date of the Encounter or 45 days after the date of theEncounter. The data comes from all [place] treatment facilities. Test Date/Time Test Type Test Details Facility Name Feb 07, 2025 06:49 AM Consult Order [facility] Oracle Database Manager's Choice [facility] Lab Results: +/- 30 days of the encounter This section includes the Chemistry and Hematology Lab Results on record with [facility] for the patient. Radiology Reports and Pathology Reports are provided separately, in subsequent sections. Lab Results This section contains the Chemistry/Hematology Results that were resulted 30 days before or 30 daysafter the date of the Encounter. Date/Time Source Result Type Result - Unit Interpretation Reference Range Specimen Type Comment Feb 26, 2025 11:31 AM [facility] OCCULT BLOOD FIT X1 SCREEN (550) FECES Specim en Type: FECES No comment entered. Ordering Provider: JOSÉ LUIS ORTIZ Report Released Date/Time: Feb 12, 2025 09:13 AM Reporting Lab: [address] [id number] Performing Lab: [address] [id number] OCCULT BLOOD (FIT) #1 OF 1 Negative Nega tive Social History: Smoking Status (Most current) and Tobacco Use (All prior to encounter date) This section includes the most current, and the historical, smoking and tobacco- related health factors from the [place] facility where the Encounter took place. Current Smoking Status This section includes the most current smoking, or tobacco-related health factor, from the [place] facility where the Encounter took place. Date/Time Current Smoking Status Comment Perri ity Feb 12, 2025 09:00 AM [place]-TOBACCO NEVER USED CIGARETTES [facility] Tobacco Use History This section includes a history of the smoking, or tobacco-related health factors, that were collected on or before the date of the Encounter. The data comes from the [place] facility where the Encounter took place. Date/Time Smoking Status/Tobacco Use Comment F acility Feb 12, 2025 09:00 AM VA-TOBACCO NEVER U SED OTHER TYPE [facility] April 12, 2023 08:30 AM VA-TOBACCO FORMER USER [facility] April 12, 2023 08:30 AM VA-TOBACCO QUIT 15 YRS OR MORE [facility] Sep 20, 2018 01:16 PM VA-TOBACCO FORMER USER [facility] Sep 20, 2018 01:16 PM VA-TOBACCO QUIT 15 YRS OR [address] [facility] Sep 21, 2017 08:29 AM QUIT TOBACCO >7 YEARS AGO quit 20 years ago [facility] Nov 02, 2016 09:14 AM QUIT TOBACCO >7 YEARS AGO [facility] Feb 05, 2015 08:58 AM QUIT TOBACCO >7 YEARS AGO [facility] Aug 08, 2013 07:25 AM QUIT TOBACCO >12 M O & <7 YRS AGO [facility] Jul 12, 2012 08:35 AM QUIT TOBACCO >12 M O & <7 YRS AGO [facility] March 25, 2011 09:59 AM QUIT TOBACCO IN TH E LAST 12 MONTHS [facility] Mar 18, 2010 08:33 AM TOBACCO OFFERRED P T MEDS (PROVIDER) [facility] Mar 18, 2010 08:33 AM TOBACCO OFFERRED S TOP SMOKING CLINIC [facility] Feb 01, 2009 08:40 AM TOBACCO OFFERRED P T MEDS (PROVIDER) [facility] Feb 01, 2009 08:40 AM TOBACCO OFFERRED S [facility]MO[facility] CL[facility] Aug 03, 2008 02:23 PM TOBACCO OFFERRED P T MEDS (PROVIDER) [facility] Aug 03, 2008 02:23 PM TOBACCO OFFERRED S [facility]MO[facility] CLINIC [facility] Jun 10, 2007 08:46 AM TOBACCO OFFERRED P T MEDS (PROVIDER) [facility] Jun 10, 2007 08:46 AM TOBACCO OFFERRED S [facility]MO[facility] CLIN[facility] Mar 10, 2001 11:07 AM CURRENT NON-SMOKER [facility] May 08, 2000 08:41 AM CURRENT NON-SMOKER [facility] Advance Directives: All historical and current Section Date Range: From patient's date of to the date document was created. This section includes ALL of a patient's completed or amended [facility] Advance and Rescinded Directives. The entries below indicate that a directive exists for the patient, but an actual copy is not included with this document. The data comes from all [place] facilities. Date Advance Directives Provider Source Mar 16, 2024 ADVANCE DIRECTIVE DISCUSSION LUPE LEPE [facility] Feb 09, 2024 ADVANCE DIRECTIVE LEXY WHALEY Nov 03, 2023 RESCINDED ADVANCE DIRECTIVE LUPE LEPE [facility] Sep 20, 2023 RESCINDED ADVANCE DIRECTIVE LENNIE VALENTIN L[facility] Aug 26, 2021 ADVANCE DIRECTIVE DISCUSSION [facility] Radiology Reports: +/- 30 days of [...] the Encounter. The data comes from all [place] treatment facilities. 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 FINDINGS: Moderate medial tibiofemoral compartment joint space narrowing with [id number] tricompartmental osteophyte production most pronounced at the patellofemoral articulation. Chondrocalcinosis. Patella alfred with small to moderate knee joint effusion/synovitis. 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 READING PHYSICIAN: Dima Lucas MD -[id number] 02/14/2025 5:55 PDT [facility] National Teleradiology Program [phone] (For Medical Practitioner Use Only) Attention Patients / Veterans: If you have questions or concerns about these test results, please contact your ordering provider or primary care team. Primary Diagnostic Code: NO ALERT REQUIRED Primary Interpreting Staff: OUTSIDE SERVICE RADIOLOGY, Staff Physician / RADIOLOGY,OUTSIDE SERVICE [facility] Encounter Notes: All associated encounter notes This section contains the clinical notes associated to the Encounter. Date/Time Encounter Note(s) Provider Source Feb 13, 2025 01:00 PM PHARMACY CONSULT: LOCAL TITLE: CONSULT/PHARMACY STANDARD TITLE: PHARMACY CONSULT DATE OF NOTE: FEB 13, 2025@13:00 ENTRY DATE: FEB 13, 2025@13:00:43 AUTHOR: TERRY ALVARADO EXP COSIGNER: URGENCY: STATUS: COMPLETED Pharmacy Non-Formulary Request for Qsymia: APPROVED The medical record has been reviewed with regard to this prior authorization drug request. Medication requested: PHENTERMINE 3.75/TOPIRAMATE 23MG SA CAP Medication indication: obesity Medical history relevant to this request: OLEG TOTH JR is a 74 year old MALE managed by [facility] for weight loss. PMH includes OA, HTN, HLD, GERD. [facility] [place] has a BMI of 44.5 and enrolled with the MOVE program. CPP discussed weight loss options with . prefers phentermine/topiramate. Patient would like to avoid orlistat given frequent consumption of some high fat foods. Buproprion/naltrexone less desirable due to potential increased seizure risk with periodic heavy alcohol use. CPP counseled pt that while alcohol use is not a contraindication with Qsymia and it does not have the same seizure risk as bupropion/naltrexone, alcohol can still increase adverse effects and it is recommended to limit alcohol while taking. does not have glaucoma or hyperthyroidism and no SI. not on any interacting mediations. meets CFU for Qsymia. Will order under PACT provider and CPP is responsible for ensuring patient receives appropriate education and is scheduled for follow-up to assess efficacy and tolerability of medication. The request is approved - No formulary-preferred alternative Time Spent: 8 minutes /montrell/ Terry Alvarado, PharmD Assoc Chief, Clinical Pharmacy Signed: 02/13/2025 14:17 TERRY ALVARADO [facility]
--- OUTSIDE RECORDS SUMMARY | 2025-03-05 18:23 | XMS_ITS ---
Author Organization [facility] Address [address] [place], [place] [id number] Care Team Providers Care Cleaning Validation Consultant Name Role Phone JOJO GALVAN Unavailable [phone] Jason Alarcon Jr Unavailable Unavailable REASON FOR VISIT General care Encounters Encounter Location Date Provider Diagnosis [facility] [place] [address] [place], [place] [id number] 02/28/2024 JOJO GALVAN Plan Of Treatment No Information Progress Notes * OLEG TOTH WDOB:1950 (74 yo M)Acc No.[id number]:02/28/2024 Patient: OLEG DAMIAN Provider: Adolfo Galvan DPM :1950 A ge:73 Y S ex:Male Date:02/28/2024 Address:[address] [place], [place] [id number] Subjective: * Chief Complaints: * 1 . General care. * Medical History: Objective: * Vitals: Assessment: Plan: * Treatment: * Billing Information: * Visit Code: * Procedure Codes: * Electronic signature of JOJO GALVAN DPM on 03/05/2025 at 06:23 PM CDT Sign off status: Pending * Provider: Adolfo Galvan DPM Date: 02/28/2024 Generated for Printi ng/Faxing/eTransmitting on: 03/05/2025 06:23 PM CDT
--- OUTSIDE RECORDS SUMMARY | 2025-03-05 18:23 | XMS_ITS | Encounter Summary ---
Author Name [facility] [place] [facility] [place] [facility] [facility] [place] Address [address] [place] [address] Care Team Providers Care Data Management Specialist Name Role Phone DEJUAN PEARL Primary Care [...] F PLAN F Nov 22, 2018 MEDIGAP [id number] [phone] BLANCA TOTH RT PATIENT AARP MED SUPP MEDIGAP PLAN F PLAN F Nov 22, 2018 PLAN F [id number] [phone] BLANCA TOTH RT PATIENT AARP MED SUPP MEDIGAP PLAN F MEDIC ARE SUPPL EMENT Aug 22, 2015 PLAN F [id number] [phone] BLANCA TOTH RT PATIENT AARP MED SUPP MEDICARE SUPPLEMEN THIERNO MEDIC ARE SUPPL EMENT Aug 22, 2015 PLAN F [id number] BLANCA TOTH RT PATIENT A[employer] MED SUPP MEDIGAP PLAN F PLAN F Aug 22, 2015 PLAN F [id number] [phone] BLANCA TOTH RT PATIENT AARP MED SUPP MEDIGAP PLAN F MEDIC ARE SUPPL EMENT Aug 22, 2015 PLAN F [id number] [phone] BLANCA TOTH RT PATIENT AARP MED SUPP MEDIGAP PLAN F MEDIC ARE SUPPL EMENT Aug 22, 2015 PLAN F [id number] [phone] BLANCA TOTH RT PATIENT MEDICARE (WNR) MEDICARE (M) PART A Apr 22, 2014 PART A [id number] WOODGERBERE RT PATIENT MEDICARE (WNR) MEDICARE (M) PART B Apr 22, 2014 PART B [id number] BLANCA TOTH RT PATIENT MEDICARE (WNR) MEDICARE (M) PART A Apr 22, 2014 PART A [id number] BLANCA TOTH RT PATIENT MEDICARE (WNR) MEDICARE (M) PART B Apr 22, 2014 PART B [id number] BLANCA TOTH RT PATIENT MEDICARE (WNR) MEDICARE (M) PART A Apr 22, 2014 PART A [id number] BLANCA TOTH RT PATIENT MEDICARE (WNR) MEDICARE (M) PART B Apr 22, 2014 PART B [id number] BLANCA TOTH RT PATIENT MEDICARE (WNR) MEDICARE (M) PART A Apr 22, 2014 PART A [id number] BLANCA TOTH RT PATIENT MEDICARE (WNR) MEDICARE (M) PART B Apr 22, 2014 PART B [id number] BLANCA TOTH RT PATIENT MEDICARE (WNR) MEDICARE (M) PART A Apr 22, 2014 PART A [id number] BLANCA TOTH RT PATIENT MEDICARE (WNR) MEDICARE (M) PART B Apr 22, 2014 PART B [id number] WOODGERBERE RT PATIENT MEDICARE (WNR) MEDICARE (M) PART A Apr 22, 2014 PART A [id number] WOODGERBERE RT PATIENT MEDICARE (WNR) MEDICARE (M) PART B Apr 22, 2014 PART B [id number] WOOD,ALBE RT PATIENT MEDICARE (WNR) MEDICARE (M) PART A Apr 22, 2014 PART A [id number] BLANCA TOTH RT PATIENT MEDICARE (WNR) MEDICARE (M) PART B Apr 22, 2014 PART B [id number] BLANCA TOTH RT PATIENT MEDICARE (WNR) MEDICARE (M) PART A Apr 22, 2014 PART A [id number] [phone] BLANCA TOTH RT PATIENT MEDICARE (WNR) MEDICARE (M) PART B Apr 22, 2014 PART B [id number] BLANCA TOTH RT PATIENT Selected Encounter This section includes the information on record at [place] for the Encounter. Date/Time Encounter Type Encounter Description Reason Provider Source Dec 29, 2024 11:30 AM OFFICE O/P EST LOW 20 MIN PODIATRY ICD-10-CM M19.071 Primary osteoarthritis , right ankle and foot HORACE GONSALES Adolfo Encounter Template Text not used by [place] Assessments - Encounter Diagnoses This section includes the primary and secondary diagnoses documented for the Encounter. Date/Time Primary/Secondary Diagnosis Diagnosis Name Provider Source Jan 05, 2025 09:01 AM PRIMARY Primary osteoarthritis, right ankle and foot HORACE GONSALES [facility] Jan 05, 2025 09:01 AM SECONDARY Other abnormalities of gait and mobility HORACE GONSALES [facility] Jan 05, 2025 09:01 AM SECONDARY Other idiopathic peripheral autonomic neuropathy HORACE GONSALES [facility] Jan 05, 2025 09:01 AM SECONDARY Tinea unguium HORACE GONSALES [facility] Plan of Treatment: Future Appointments (+ 6 months) and Future Tests (+/- 45 days) The Plan of Treatment section includes future care activities for the patient from all [place] treatmentfacilities. This section includes future appointments and future orders which are active, pending or scheduled. Future Appointments This section includes appointments that were scheduled to occur 6 months from the date of the Encounter, up to a maximum of 20 appointments. The data comes from all [place] treatment facilities. Appointment Date/Time Appointment Type Appointme nt Facility Name Jan 23, 2025 08:00 AM AMBULATORY - NONE TIFFANIE TRACY [facility] Feb 01, 2025 10:00 AM AMBULATORY - SURGERY TIFFANIE GUIDRY [facility] Feb 01, 2025 10:05 AM AMBULATORY - NONE [facility] Feb 12, 2025 09:00 AM [facility] Feb 12, 2025 09:38 AM [facility] NONE [facility] Feb 13, 2025 11:00 AM AMBULATORY - NONE [facility] Mar 13, 2025 10:00 AM AMBULATORY - NONE [facility] April 02, 2025 10:30 AM AM[facility] - SURG[facility] April 05, 2025 10:40 AM AMBULATORY - NONE [facility] April 17, 2025 08:00 AM AMBULATORY - NONE [facility] Active, Pending, and Scheduled Orders This section includes a listing of several types of active, pending, and scheduled orders, including clinic medications orders, diagnostic test orders, procedure orders and consult orders; where the start date of the order is 45 days before the date of the Encounter or 45 days after the date of theEncounter. The data comes from all [place] treatment facilities. Test Date/Time Test Type Test Details Facility Name Feb 07, 2025 06:49 AM Consult Order [facility] Cons Grout Pump Operator's Choice [facility] Social History: Smoking Status (Most current) and Tobacco Use (All prior to encounter date) This section includes the most current, and the historical, smoking and tobacco- related health factors from the [facility] facility where the Encounter took place. Current Smoking Status This section includes the most current smoking, or tobacco-related health factor, from the [facility] facility where the Encounter took place. Date/Time Current Smoking Status Comment Perri ity April 12, 2023 08:30 AM VA-TOBACCO FORMER USER [facility] Tobacco Use History This section includes a history of the smoking, or tobacco-related health factors, that were collected on or before the date of the Encounter. The data comes from the [facility] facility where the Encounter took place. Date/Time Smoking Status/Tobacco Use Comment F acility April 12, 2023 08:30 AM VA-TOBACCO QUIT 15 YRS OR MORE [facility] Sep 20, 2018 01:16 PM VA-TOBACCO FORMER USER [facility] Sep 20, 2018 01:16 PM VA-TOBACCO QUIT 15 YRS OR MORE [facility] Sep 21, 2017 08:29 AM QUIT TOBACCO >7 YEARS AGO quit 20 years ago [facility] Nov 02, 2016 09:14 AM QUIT TOBACCO >7 YEARS AGO [facility] Feb 05, 2015 08:58 AM QUIT TOBACCO >7 YEARS AGO [facility] Aug 08, 2013 07:25 AM QUIT TOBACCO >12 M O & <7 YRS AGO [facility] Jul 12, 2012 08:35 AM QUIT TOBACCO >12 M O & <7 YRS AGO [facility] March 25, 2011 09:59 AM QUIT TOBACCO IN TH E LAST 12 MONTHS [facility] Mar 18, 2010 08:33 AM TOBACCO OFFERRED P T MEDS (PROVIDER) [facility] Mar 18, 2010 08:33 AM TOBACCO OFFERRED S [facility] Feb 01, 2009 08:40 AM TOBACCO OFFERRED P T MEDS (PROVIDER) [facility] Feb 01, 2009 08:40 AM TOBACCO OFFERRED S [facility] Aug 03, 2008 02:23 PM TOBACCO OFFERRED P T MEDS (PROVIDER) [facility] Aug 03, 2008 02:23 PM TOBACCO OFFERRED S [facility] Jun 10, 2007 08:46 AM TOBACCO OFFERRED P T MEDS (PROVIDER) [facility] Jun 10, 2007 08:46 AM TOBACCO OFFERRED S [facility] Mar 10, 2001 11:07 AM CURRENT NON-SMOKER [facility] May 08, 2000 08:41 AM CURRENT NON-SMOKER [facility] Advance Directives: All historical and current Section Date Range: From patient's date of to the date document was created. This section includes ALL of a patient's completed or amended [facility] Advance and Rescinded Directives. The entries below indicate that a directive exists for the patient, but an actual copy is not included with this document. The data comes from all [place] facilities. Date Advance Directives Provider Source Mar 16, 2024 ADVANCE DIRECTIVE DISCUSSION LUPE LEPE [facility] Feb 09, 2024 ADVANCE DIRECTIVE LEXY WHALEY [facility] Nov 03, 2023 RESCINDED ADVANCE DIRECTIVE LUPE LEPE [facility] Sep 20, 2023 RESCINDED ADVANCE DIRECTIVE LENNIE VALENTIN [facility] Aug 26, 2021 ADVANCE DIRECTIVE DISCUSSION COLT PEARL [facility] Encounter Notes: All associated encounter notes This section contains the clinical notes associated to the Encounter. Date/Time Encounter Note(s) Provider Source Dec 29, 2024 11:31 AM SURGERY NOTE: LOCAL TITLE: SURGERY/PODIATRY STANDARD TITLE: SURGERY NOTE DATE OF NOTE: DEC 29, 2024@11:31 ENTRY DATE: DEC 29, 2024@11:31:18 AUTHOR: HORACE GONSALES COSIGNER: URGENCY: STATUS: COMPLETED SUBJECTIVE 1) CONCERN: Painful, elongated toenails and callus formation Complicating factor(s): Diabetic neuropathy HPI: Patient presents with painful digital nail deformities of historically gradual onset present for an extended duration and painful callus formation. The condition is reported to be exacerbated by any increased pressure to the toes. The nail pathology is reported to be causing pain in the toes and negatively impacting the ability to wear protective shoe gear and the callus formation increases risk for ulceration. 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 2) S/p ankle fusion right ankle Patient underwent surgical management of end stage osteoarthritis of right ankle at [facility] in [place], [place]. Currently patient post-op management is deferred to their care. Currently reports ambulating in CAM boot and walker. Has started PT 2x/week per patient. Denies any other pedal concerns. ROS: Complete Review of Systems - All other systems reviewed and negative Allergies: Personally reviewed. See Cover Sheet Past medical history: Personally reviewed. See Cover Sheet Current medications: Personally reviewed. See Cover Sheet Family history: Personally reviewed. Social history was reviewed. OBJECTIVE VITALS Most recent vitals reviewed. See Cover Sheet. General: Patient is alert and oriented to person, place and time. Vascular: Dorsalis pedis and posterior tibial pulses are palpable bilaterally. The capillary refill time is less than 3 seconds in both feet. Scant hair growth on the dorsum of the feet and toes +1 Edema bilateral lower extremity. Neurological: Sensation is grossly intact and without deficit in both lower extremities with respect to light touch, two-point discrimination, and proprioception. Musculoskeletal: Muscle strength +5/5 left foot. Right foot 3/5 secondary s/p surgery. Integument: Skin texture and turgor is normal. The toenails on both feet (1-5 bilateral) are noted to be elongated, dystrophic, with subungual debris and lysis with variable levels of involvement on each nail. Cicatrix is noted to the lateral aspect of the foot with stab incision to medial aspect and plantar heel all healed consistent with prior surgery. Maceration noted to 3rd and 4th interspace right foot with no epidermal breakdown. No hyperkeratosis noted to feet bilateral. Psychological: Normal mood, appropriate to circumstances IMAGING No imaging obtained today. Prior films were not reviewed. ASSESSMENT Osteoarthritis Right Foot Peripheral Neuropathy Gait Instability Tinea Unguium PLAN -Chart Reviewed. -Patient examined and findings/treatment recommendations discussed. All questions answered to their satisfaction. End-stage PTTD, right -Patient underwent surgical intervention in the community in [place], [place]. -Patient to continue all recommendation per surgeon Tinea Unguium -The toenail(s) noted above were debrided manually with nail nippers. -Patient tolerated the procedure well. Tinea Pedis -Continue: Miconazole powder; patient reports having supplies at home. -Patient verbalized understanding and agrees with current plan of care. -RTC in 3 months for moderate risk DM foot care /es/ Horace Gonsales DPM, BRITTNEY ARGUELLO Reference Library Assistant Signed: 01/01/2025 14:51 [facility]
--- NOTE | 2025-03-05 18:24 | ECG_ITS ---
Test Date: 2025-03-05 18:31:41 Measurements Intervals Hurley Rate: 85 P: 47 NM: 192 QRS: -54 QRSD: 105 T: 60 QT: 360 QTc: 430 Interpretive Statements SINUS RHYTHM LEFT ANTERIOR FASCICULAR BLOCK MINIMAL Q WAVES- HIGH LATERAL LEADS BASELINE ARTIFACT- I, III, AVR, AVL ABNORMAL ECG Compared to ECG 06/07/2024 14:43:06 NO SIGNIFICANT CHANGE Electronically Signed On 03-06-2025 06:17:18 CDT by Cody Jorgensen D.O.
--- OUTSIDE RECORDS SUMMARY | 2025-03-05 18:24 | XMS_ITS | Encounter Summary ---
Author Name [facility] [place] [facility] [facility] [place] Address [address] [place] [address] Care Team Providers Care Pre Press Proofer Name Role Phone DEJUAN PEARL Primary Care [...] F PLAN F Nov 22, 2018 MEDIGAP [id number] [phone] BLANCA TOTH RT PATIENT AARP MED SUPP MEDIGAP PLAN F PLAN F Nov 22, 2018 PLAN F [id number] [phone] BLANCA TOTH RT PATIENT AARP MED SUPP MEDIGAP PLAN F MEDIC ARE SUPPL EMENT Aug 22, 2015 PLAN F [id number] [phone] BLANCA TOTH RT PATIENT AARP MED SUPP MEDIGAP PLAN F MEDIC ARE SUPPL EMENT Aug 22, 2015 PLAN F [id number] [phone] BLANCA TOTH RT PATIENT AARP MED SUPP MEDICARE SUPPLEMEN THIERNO MEDIC ARE SUPPL EMENT Aug 22, 2015 PLAN F [id number] BLANCA TOTH RT PATIENT AARP MED SUPP MEDIGAP PLAN F MEDIC ARE SUPPL EMENT Aug 22, 2015 PLAN F [id number] [phone] BLANCA TOTH RT PATIENT A[employer] MED SUPP MEDIGAP PLAN F PLAN F Aug 22, 2015 PLAN F [id number] [phone] BLANCA TOTH RT PATIENT MEDICARE (WNR) MEDICARE () PART A Apr 22, 2014 PART A [id number] BLANCA TOTH RT PATIENT MEDICARE (WNR) MEDICARE () PART B Apr 22, 2014 PART B [id number] [phone] GERBER TOTHE RT PATIENT MEDICARE (WNR) MEDICARE () PART A Apr 22, 2014 PART A [id number] BLANCA TOTH RT PATIENT MEDICARE (WNR) MEDICARE () PART A Apr 22, 2014 PART A [id number] BLANCA TOTH RT PATIENT MEDICARE (WNR) MEDICARE () PART B Apr 22, 2014 PART B [id number] BLANCA TOTH RT PATIENT MEDICARE (WNR) MEDICARE () PART B Apr 22, 2014 PART B [id number] BLANCA TOTH RT PATIENT MEDICARE (WNR) MEDICARE () PART A Apr 22, 2014 PART A [id number] BLANCA TOTH RT PATIENT MEDICARE (WNR) MEDICARE () PART B Apr 22, 2014 PART B [id number] BLANCA TOTH RT PATIENT MEDICARE (WNR) MEDICARE () PART A Apr 22, 2014 PART A [id number] BLANCA TOTH RT PATIENT MEDICARE (WNR) MEDICARE (M) PART A Apr 22, 2014 PART A [id number] WOODBLANCA RT PATIENT MEDICARE (WNR) MEDICARE (M) PART B Apr 22, 2014 PART B [id number] WOODGERBERE RT PATIENT MEDICARE (WNR) MEDICARE () PART A Apr 22, 2014 PART A [id number] GERBER TOTHE RT PATIENT MEDICARE (WNR) MEDICARE (M) PART B Apr 22, 2014 PART B [id number] [phone] BLANCA TOTH RT PATIENT MEDICARE (WNR) MEDICARE (M) PART B Apr 22, 2014 PART B [id number] BLANCA TOTH RT PATIENT MEDICARE (WNR) MEDICARE (M) PART A Apr 22, 2014 PART A [id number] BLANCA TOTH RT PATIENT MEDICARE (WNR) MEDICARE (M) PART B Apr 22, 2014 PART B [id number] BLANCA TOTH PATIENT Selected Encounter This section includes the information on record at [place] for the Encounter. Date/Time Encounter Type Encounter Description Reason Provider Source Feb 01, 2025 10:00 AM TELEHEALTH FACILITY FEE PHYSICAL THERAPY ICD-10-CM Z71.89 Other specified counseling HAMZAH ARROYO Adolfo Encounter Template Text not used by [place] Assessments - Encounter Diagnoses This section includes the primary and secondary diagnoses documented for the Encounter. Date/Time Primary/Secondary Diagnosis Diagnosis Name Provider Source Feb 08, 2025 11:21 AM PRIMARY Other specified counseling HAMZAH ARROYO [facility] Plan of Treatment: Future Appointments (+ 6 months) and Future Tests (+/- 45 days) The Plan of Treatment section includes future care activities for the patient from all [place] treatmentfacilities. This section includes future appointments and future orders which are active, pending or scheduled. Future Appointments This section includes appointments that were scheduled to occur 6 months from the date of the Encounter, up to a maximum of 20 appointments. The data comes from all [place] treatment facilities. Appointment Date/Time Appointment Type Appointme nt Facility Name Feb 12, 2025 09:00 AM AMBULATORY - MEDICINE [facility] Feb 12, 2025 09:38 AM AMBULATORY - NONE [facility] Feb 13, 2025 11:00 AM AMBULATORY - NONE [facility] Mar 13, 2025 10:00 AM AMBULATORY - NONE [facility] April 02, 2025 10:30 AM AMBULATORY - SURGERY [facility] April 05, 2025 10:40 AM AMBULATORY - NONE [facility] April 17, 2025 08:00 AM AMBULATORY - NONE [facility] [place] [facility] Active, Pending, and Scheduled Orders This section includes a listing of several types of active, pending, and scheduled orders, including clinic medications orders, diagnostic test orders, procedure orders and consult orders; where the start date of the order is 45 days before the date of the Encounter or 45 days after the date of theEncounter. The data comes from all [place] treatment facilities. Test Date/Time Test Type Test Details Facility Name Feb 07, 2025 06:49 AM Consult Order [facility] Cons Laundry Route Driver's Choice [facility] Lab Results: +/- 30 days of the encounter This section includes the Chemistry and Hematology Lab Results on record with [place] for the patient. Radiology Reports and Pathology Reports are provided separately, in subsequent sections. Lab Results This section contains the Chemistry/Hematology Results that were resulted 30 days before or 30 daysafter the date of the Encounter. Date/Time Source Result Type Result - Unit Interpretation Reference Range Specimen Type Comment Feb 26, 2025 11:31 AM [facility] OCCULT BLOOD FIT X1 SCREEN (550) FECES Specim en Type: FECES No comment entered. Ordering Provider: JOSÉ LUIS ORTIZ Report Released Date/Time: Feb 12, 2025 09:13 AM Reporting Lab: [facility] [address] [facility] [address] Performing Lab: [address] [address] OCCULT BLOOD (FIT) #1 OF 1 Negative Nega tive Social History: Smoking Status (Most current) and Tobacco Use (All prior to encounter date) This section includes the most current, and the historical, smoking and tobacco- related health factors from the [place] facility where the Encounter took place. Current Smoking Status This section includes the most current smoking, or tobacco-related health factor, from the [place] facility where the Encounter took place. Date/Time Current Smoking Status Comment Perri holland April 12, 2023 08:30 AM VA-TOBACCO FORMER USER [facility] Tobacco Use History This section includes a history of the smoking, or tobacco-related health factors, that were collected on or before the date of the Encounter. The data comes from the [place] facility where the Encounter took place. Date/Time Smoking Status/Tobacco Use Comment Madonna avila April 12, 2023 08:30 AM VA-TOBACCO QUIT 15 YRS OR MORE [facility] Sep 20, 2018 01:16 PM VA-TOBACCO FORMER USER [facility] Sep 20, 2018 01:16 PM [place] QUIT 15 YRS OR MORE [facility] Sep 21, 2017 08:29 AM QUIT TOBACCO >7 YEARS AGO quit 20 years ago [facility] Nov 02, 2016 09:14 AM QUIT TOBACCO >7 YEARS AGO [facility] Feb 05, 2015 08:58 AM QUIT TOBACCO >7 YEARS AGO [facility] Aug 08, 2013 07:25 AM QUIT TOBACCO >12 M O & <7 YRS AGO [facility] Jul 12, 2012 08:35 AM QUIT TOBACCO >12 M O & <7 YRS AGO [facility] March 25, 2011 09:59 AM QUIT TOBACCO IN TH E LAST 12 MONTHS [facility] Mar 18, 2010 08:33 AM TOBACCO OFFERRED P T MEDS (PROVIDER) [facility] Mar 18, 2010 08:33 AM TOBACCO OFFERRED S [facility] Feb 01, 2009 08:40 AM TOBACCO OFFERRED P T MEDS (PROVIDER) [facility] Feb 01, 2009 08:40 AM TOBACCO OFFERRED S [facility] Aug 03, 2008 02:23 PM TOBACCO OFFERRED P T MEDS (PROVIDER) [facility] Aug 03, 2008 02:23 PM TOBACCO OFFERRED S [facility] Jun 10, 2007 08:46 AM TOBACCO OFFERRED P T MEDS (PROVIDER) [facility] Jun 10, 2007 08:46 AM TOBACCO OFFERRED S [facility] Mar 10, 2001 11:07 AM CURRENT NON-SMOKER [facility] May 08, 2000 08:41 AM CURRENT NON-SMOKER [facility] Advance Directives: All historical and current Section Date Range: From patient's date of to the date document was created. This section includes ALL of a patient's completed or amended [place] Advance and Rescinded Directives. The entries below indicate that a directive exists for the patient, but an actual copy is not included with this document. The data comes from all [place] facilities. Date Advance Directives Provider Source Mar 16, 2024 ADVANCE DIRECTIVE DISCUSSION LUPE LEPE [facility] Feb 09, 2024 ADVANCE DIRECTIVE LEXY WHALEY [facility] Nov 03, 2023 RESCINDED ADVANCE DIRECTIVE LUPE LEPE [facility] Sep 20, 2023 RESCINDED ADVANCE DIRECTIVE LENNIE VALENTIN RA Aug 26, 2021 ADVANCE DIRECTIVE DISCUSSION COLT PEARL [facility] Radiology Reports: +/- 30 days of [...] the Encounter. The data comes from all [place] treatment facilities. 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 FINDINGS: Moderate medial tibiofemoral compartment joint space narrowing with [id number] tricompartmental osteophyte production most pronounced at the patellofemoral articulation. Chondrocalcinosis. Patella alfred with small to moderate knee joint effusion/synovitis. 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 READING PHYSICIAN: Dima Lucas MD -[id number] 02/14/2025 5:55 PDT [facility] National Teleradiology Program [phone] (For Medical Practitioner Use Only) Attention Patients / Veterans: If you have questions or concerns about these test results, please contact your ordering provider or primary care team. Primary Diagnostic Code: NO ALERT REQUIRED Primary Interpreting Staff: OUTSIDE SERVICE RADIOLOGY, Staff Physician / RADIOLOGY,OUTSIDE SERVICE [facility] Encounter Notes: All associated encounter notes This section contains the clinical notes associated to the Encounter. Date/Time Encounter Note(s) Provider Source Feb 01, 2025 10:04 AM TELEHEALTH NOTE: LOCAL TITLE: CVT REHAB STANDARD TITLE: TELEHEALTH NOTE DATE OF NOTE: FEB 01, 2025@10:04 ENTRY DATE: FEB 01, 2025@10:04:41 AUTHOR: HAMZAH ARROYO EXP COSIGNER: URGENCY: STATUS: COMPLETED Patient is here today for scheduled [facility] Patient gave verbal consent for CVT encounter. Brief history, patient reports: for compression stocking per provider order Exam: right ankle: 12' left ankle: 11.5 right calf: 18.75 left calf: 18.25 TeleRehab consultation with physical therapist Provider advised will order 6 closed toed, black hose to be mailed to [facility]. [place] reviewed. safety and laundring reveiewd. Naomy also be be ordered at mailed Patient verbalized understanding of instructions. /es/ HAMZAH ARROYO LPN LICENSED PRACITCAL NURSE Signed: 02/01/2025 10:15 Receipt Acknowledged By: 02/01/2025 10:17 /es/ Marc Alarcon, PT. Cert MDT. Cert DN. [facility] Physical Therapist HAMZAH ARROYO [facility]
--- OUTSIDE RECORDS SUMMARY | 2025-03-05 18:24 | XMS_ITS | Encounter Summary ---
Author Name [facility] [place] [facility] [place] [facility] [place] Address [address] [place] [address] Care Team Providers Care Rapid Extractor Operator Name Role Phone DEJUAN PEARL Primary [...] F PLAN F Nov 22, 2018 MEDIGAP [id number] BLANCA TOTH RT PATIENT AARP MED SUPP MEDIGAP PLAN F PLAN F Nov 22, 2018 PLAN F [id number] BLANCA TOTH RT PATIENT AARP MED SUPP MEDIGAP PLAN F MEDIC ARE SUPPL EMENT Aug 22, 2015 PLAN F [phone] BLANCA TOTH RT PATIENT AARP MED SUPP MEDICARE SUPPLEMEN THIERNO MEDIC ARE SUPPL EMENT Aug 22, 2015 PLAN F [id number] BLANCA TOTH RT PATIENT AARP MED SUPP MEDIGAP PLAN F PLAN F Aug 22, 2015 PLAN F [id number] BLANCA TOTH RT PATIENT AARP MED SUPP MEDIGAP PLAN F MEDIC ARE SUPPL EMENT Aug 22, 2015 PLAN F [id number] BLANCA TOTH RT PATIENT AARP MED SUPP MEDIGAP PLAN F MEDIC ARE SUPPL EMENT Aug 22, 2015 PLAN F [id number] BLANCA TOTH RT PATIENT MEDICARE (WNR) MEDICARE (M) PART A Apr 22, 2014 PART A [id number] WOODGERBERE RT PATIENT MEDICARE (WNR) MEDICARE (M) PART B Apr 22, 2014 PART B [id number] BLANCA TOTH RT PATIENT MEDICARE (WNR) MEDICARE (M) PART A Apr 22, 2014 PART A [id number] BLANCA TOTH RT PATIENT MEDICARE (WNR) MEDICARE (M) PART B Apr 22, 2014 PART B [id number] BLANCA TOTH RT PATIENT MEDICARE (WNR) MEDICARE (M) PART A Apr 22, 2014 PART A [id number] BLANCA TOTH RT PATIENT MEDICARE (WNR) MEDICARE (M) PART B Apr 22, 2014 PART B [id number] BLANCA TOTH RT PATIENT MEDICARE (WNR) MEDICARE (M) PART A Apr 22, 2014 PART A [id number] BLANCA TOTH RT PATIENT MEDICARE (WNR) MEDICARE (M) PART B Apr 22, 2014 PART B [id number] BLANCA TOTH RT PATIENT MEDICARE (WNR) MEDICARE (M) PART A Apr 22, 2014 PART A [id number] BLANCA TOTH RT PATIENT MEDICARE (WNR) MEDICARE (M) PART B Apr 22, 2014 PART B [id number] WOODGERBERE RT PATIENT MEDICARE (WNR) MEDICARE (M) PART A Apr 22, 2014 PART A [id number] WOODGERBERE RT PATIENT MEDICARE (WNR) MEDICARE (M) PART B Apr 22, 2014 PART B [id number] WOOD,ALBE RT PATIENT MEDICARE (WNR) MEDICARE (M) PART A Apr 22, 2014 PART A [id number] BLANCA TOTH RT PATIENT MEDICARE (WNR) MEDICARE (M) PART B Apr 22, 2014 PART B [id number] BLANCA TOTH RT PATIENT MEDICARE (WNR) MEDICARE (M) PART A Apr 22, 2014 PART A [id number] BLANCA TOTH RT PATIENT MEDICARE (WNR) MEDICARE (M) PART B Apr 22, 2014 PART B [id number] BLANCA TOTH PATIENT Selected Encounter This section includes the information on record at [place] for the Encounter. Date/Time Encounter Type Encounter Description Reason Provider Source Oct 18, 2024 11:30 AM OFFICE O/P EST MOD 30 MIN OPTOMETRY ICD-10-CM H25.13 Age-related nuclear cataract, bilateral CIARA WOODSON Adolfo Encounter Template Text not used by VA Assessments - Encounter Diagnoses This section includes the primary and secondary diagnoses documented for the Encounter. Date/Time Primary/Secondary Diagnosis Diagnosis Name Provider Source Oct 25, 2024 02:40 PM PRIMARY Age-related nuclear cataract, bilateral BRENDA WOODSON [facility] Oct 25, 2024 02:40 PM SECONDARY Benign neoplasm of right choroid BRENDA WOODSON [facility] Oct 25, 2024 02:40 PM SECONDARY Unspecified disorder of refraction BRENDA WOODSON [facility] Plan of Treatment: Future Appointments (+ 6 months) and Future Tests (+/- 45 days) The Plan of Treatment section includes future care activities for the patient from all [place] treatmentfacilities. This section includes future appointments and future orders which are active, pending or scheduled. Future Appointments This section includes appointments that were scheduled to occur 6 months from the date of the Encounter, up to a maximum of 20 appointments. The data comes from all [place] treatment facilities. Appointment Date/Time Appointment Type Appointme nt Facility Name Nov 01, 2024 08:30 AM AMBULATORY - NONE [facility] Nov 21, 2024 10:00 AM AMBULATORY - NONE [facility] Dec 29, 2024 11:30 AM AMBULATORY - SURGERY [facility] Jan 23, 2025 08:00 AM AMBULATORY - NONE [facility] Feb 01, 2025 10:00 AM AM[facility]ULATORY - [facility] Feb 01, 2025 10:05 AM [facility] Feb 12, 2025 09:00 AM [facility] - [facility]INE [facility] Feb 12, 2025 09:38 AM AMBULATORY - NONE [facility] Feb 13, 2025 11:00 AM AMBULATORY - NONE [facility] Mar 13, 2025 10:00 AM AMBULATORY - NONE [facility] April 02, 2025 10:30 AM AMBULATORY - SURGERY [facility] April 05, 2025 10:40 [facility] April 17, 2025 08:00 AM [facility] - NONE [facility] Social History: Smoking Status (Most current) [...] 12, 2023 08:30 AM VA-TOBACCO [facility] Tobacco Use History This section includes a history of the smoking, or tobacco-related health factors, that were collected on or before the date of the Encounter. The data comes from the [facility] facility where the Encounter took place. Date/Time Smoking Status/Tobacco Use Comment Madonna avila April 12, 2023 08:30 AM VA-TOBACCO QUIT 15 YRS OR MORE [facility] Sep 20, 2018 01:16 PM VA-TOBACCO FORMER USER [facility] Sep 20, 2018 01:16 PM VA-TOBACCO QUIT 15 YRS OR MORE [facility] Sep 21, 2017 08:29 AM QUIT TOBACCO >7 YEARS AGO quit 20 years ago [facility] Nov 02, 2016 09:14 AM QUIT TOBACCO >7 YEARS AGO [facility] Feb 05, 2015 08:58 AM QUIT TOBACCO >7 YEARS AGO [facility] Aug 08, 2013 07:25 AM QUIT TOBACCO >12 M O & <7 YRS AGO [facility] Jul 12, 2012 08:35 AM QUIT TOBACCO >12 M O & <7 YRS AGO [facility] March 25, 2011 09:59 AM QUIT TOBACCO IN TH E LAST 12 MONTHS [facility] Mar 18, 2010 08:33 AM TOBACCO OFFERRED P T MEDS (PROVIDER) [facility] Mar 18, 2010 08:33 AM TOBACCO OFFERRED S [facility] Feb 01, 2009 08:40 AM TOBACCO OFFERRED P T MEDS (PROVIDER) [facility] Feb 01, 2009 08:40 AM TOBACCO OFFERRED S [facility] Aug 03, 2008 02:23 PM TOBACCO OFFERRED P T MEDS (PROVIDER) [facility] Aug 03, 2008 02:23 PM TOBACCO OFFERRED S [facility] Jun 10, 2007 08:46 AM TOBACCO OFFERRED P T MEDS (PROVIDER) [facility] Jun 10, 2007 08:46 AM TOBACCO OFFERRED S [facility] Mar 10, 2001 11:07 AM CURRENT NON-SMOKER [facility] May 08, 2000 08:41 AM CURRENT NON-SMOKER [facility] Advance Directives: All historical and current Section Date Range: From patient's date of to the date document was created. This section includes ALL of a patient's completed or amended VA Advance and Rescinded Directives. The entries below indicate that a directive exists for the patient, but an actual copy is not included with this document. The data comes from all [place] facilities. Date Advance Directives Provider Source Mar 16, 2024 ADVANCE DIRECTIVE DISCUSSION LUPE LEPE [facility] Feb 09, 2024 ADVANCE DIRECTIVE LEXY WHALEY [facility] Nov 03, 2023 RESCINDED ADVANCE DIRECTIVE LUPE LEPE [facility] Sep 20, 2023 RESCINDED ADVANCE DIRECTIVE LENNIE VALENTIN RA [facility] Aug 26, 2021 ADVANCE DIRECTIVE DISCUSSION COLT PEARL [facility] Encounter Notes: All associated encounter notes This section contains the clinical notes associated to the Encounter. Date/Time Encounter Note(s) Provider Source Oct 18, 2024 11:45 AM OPTOMETRY NOTE: LOCAL TITLE: [facility] EYEGLASS PRESCRIPTION STANDARD TITLE: OPTOMETRY NOTE DATE OF NOTE: OCT 18, 2024@11:45 ENTRY DATE: OCT 18, 2024@11:45:25 AUTHOR: BRENDA WOODSON COSIGNER: URGENCY: STATUS: COMPLETED SUBJECT: optometry [address], [place] [address] New order EYEGLASS RX: R: +3.75-0.50*030 L: +3.75-0.50*020 ADD: +2.50 Lens Material: High index Lens Style: Progressive *Transitions Medical justification: PHOTOPHOBIA,NS Rx expires 2 years from date of provider signature. /montrell/ BRENDA WOODSON O.D. FRAME STRAIGHTENER Signed: 10/18/2024 12:09 BRENDA WOODSON [facility] Oct 18, 2024 10:16 AM SURGERY NOTE: LOCAL TITLE: SURGERY/OPTOMETRY CLINIC STANDARD TITLE: SURGERY NOTE DATE OF NOTE: OCT 18, 2024@10:16 ENTRY DATE: OCT 18, 2024@10:16:35 AUTHOR: BRENDA WOODSON EXP COSIGNER: URGENCY: STATUS: COMPLETED SUBJECT: optometry Ancillary Testing/Screening completed by:Mercedez Roland, COA, Optometry Foundation Assistant, [facility]. SUBJECTIVE: PT IDENTIFIED X 2 _x_EST __NEW __CONSULT REASON FOR VISIT/CHIEF COMPLAINT: 1 year return for routie exam Vision STABLE. No pain. No eye meds/drops. 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), +cataract ou, +choroidal nevus od, glaucoma, -AMD FOHX: no glaucoma, no AMD, no blindness Last Eye Exam: 10/28/2023 Ocular Meds: none Review of Systems/Medical Hx: x indicates positive response; no x indicates negative response x Cardio: __HTN, __CAD, _x_HL, __AFIB, __MI, _x_SVT w/ unstatained A-fib Respiratory: __COPD, __asthma, __sleep apnea/__CPAP, __home oxygen x Neuro: __Stroke (date), __Parkinson's, __MS, __dementia, __TBI, __migraine _x_Neuropathy Endocrine: __DM, __hypothyroid, __hyperthyroid Immune: __Rheumatoid arthritis, __lupus, __other autoimmune : __kidney disease, __dialysis Cancer: x Other:_x_Chronic pain joint/OA knee, _x_Reflux x Social Hx: Current Smoker __yes/PPD _x_no/Quit (1992) Blood Pressure: 118/76 (03/15/2024 13:53) BMI: 41.7 (APRIL 06, 2024@09:02:45) Allergies/ADR: ZOCOR, BEE VENOM, CODEINE OBJECTIVE: Alert & Oriented x 3 Distance Visual Acuity __sRx _x_cRx R: 20/25-2 L: 20/30 OU: 20/20-1 Near Visual Acuity __sRx _x_cRx OU: 20/20 Habitual Rx: (10/28/2023) _x_VA __private R: +4.25-0.50*030 L: +4.50-0.75*005 ADD: +2.50 Lens Style: __SVN __SVD __FT28 __FT35 __TF _x_PAL Other: __Tint (color) _x_Transitions (indication) Refraction: R: +3.75-0.50*030 L: +3.75-0.50*020 ADD: +2.50 Lens Material: High index Lens Style: Progressive *Transitions Medical justification: PHOTOPHOBIA,NS Acuity OD 20/20-1 OS 20/20 OU 20/20 Near 20/20 *vision comes and goes between blinks os>od* *slt axis change os noted, pt prefered today* Extra-Ocular Muscles: FROM both eyes, seems able to fix and follow including downgaze but does not move eye downward on command (pt notes unable to look down entire life ) Confrontational Field: FTFC each eye Pupils: ERRL OU, no APD OU SLIT LAMP EVALUATION: Lids and Lashes: S/p Ectropion Repair LL OU Conjunctiva: W/Q OU Cornea: Poor tbut OU Iris: Clear OU, no NVI OU A/C: D/Q OU Lens: 2+NS OU, tr fine PSC OU Angles (V/H): open OU Verbal consent obtained for tonometry/dilation. Pt advised on side effects. Drops instilled: _x_FLURESS/__PROPARACAINE/_ _FLUORESCEIN STRIP _x_1% TROPICAMIDE/__2.5% PHENYLEPHRINE 1 gtt OU _x__Goldmann ___Tonopen ___ICare IOP (mmHg): R 13 L 16 @ 11;45am DILATED FUNDUS EXAMINATION: ____Photos taken Vitreous: clear OD, asteroid OS C/D: OD 0.35 and OS 0.35 Rim: -NVD OU, Healthy OU Macula: Flat/even OU, no HEME/THICKENING/GA/CSME/CNV M OU Posterior Pole: clear OS, tiny nevus just beyond ST arcade OD Vessels: normal caliber and appearance OU Periphery: OD: Flat 360, no apparent breaks/tears/RD OS: Flat 360, no apparent breaks/tears/RD ASSESSMENT/PLAN: 1.Age-related nuclear cataract, bilateral Not visually significant. Pt ed cataract symptoms and natural progression. 2.Benign neoplasm of right choroid Longstanding 0.25DD size flat nevus with no high risk characteristics. Continue to monitor. 3.Unspecified disorder of refraction New glasses ordered today. See noted entitled [facility] Prescription on this date for details. RTC: 1yr DFE, baseline MAC OCT 35 minutes spent reviewing, documenting, examining and education, not including additional testing. Pt voiced understanding and agreement of plan. MEDICATION RECONCILIATION WAS DONE If medications were added, changed, discontinued or used on a temporary basis during this episode of care, they were evaluated for conflicts with other medications. The patient was made aware of any change in his/her medications and has been educated on the use of this product. Warnings related to adverse effects and reasons for this change in his/her medications were also discussed. Suicide Screen: C-SSRS Screening [place]-Suicide Severity Rating Scale (C-SSRS Screener) 1. Over the past month, have you wished you were or wished you could go to sleep and not wake up? No 2. Over the past month, have you had any actual thoughts of killing yourself? No 3. Over the past month, have you been thinking about how you might do this? Response not required due to responses to other questions. 4. Over the past month, have you had these thoughts and had some intention of acting on them? Response not required due to responses to other questions. 5. Over the past month, have you started to work out or worked out the details of how to kill yourself? Response not required due to responses to other questions. 6. If yes, at any time in the past month did you intend to carry out this plan? Response not required due to responses to other questions. 7. In your lifetime, have you ever done anything, started to do anything, or prepared to do anything to end your life (for example, collected pills, obtained a gun, gave away valuables, went to the roof but didn't jump)? No 8. If YES, was this within the past 3 months? Response not required due to responses to other questions. /montrell/ BRENDA WOODSON O.D. FRAME STRAIGHTENER Signed: 10/18/2024 12:23 BRENDA WOODSON [facility]
--- OUTSIDE RECORDS SUMMARY | 2025-03-05 18:24 | XMS_ITS | Encounter Summary ---
Author Name [facility] [place] Address [address] [place] [address] Care Team Providers Care Research Mechanic Name Role Phone DEJUAN PEARL Primary Care [...] F PLAN F Nov 22, 2018 MEDIGAP [id number] [phone] BLANCA TOTH RT PATIENT AARP MED SUPP MEDIGAP PLAN F PLAN F Nov 22, 2018 PLAN F [id number] BLANCA TOTH RT PATIENT AARP MED SUPP MEDIGAP PLAN F MEDIC ARE SUPPL EMENT Aug 22, 2015 PLAN F [id number] [phone] BLANCA TOTH RT PATIENT AARP MED SUPP MEDIGAP PLAN F MEDIC ARE SUPPL EMENT Aug 22, 2015 PLAN F [id number] BLANCA TOTH RT PATIENT AARP MED SUPP MEDICARE SUPPLEMEN THIERNO MEDIC ARE SUPPL EMENT Aug 22, 2015 PLAN F [id number] BLANCA TOTH RT PATIENT AARP MED SUPP MEDIGAP PLAN F MEDIC ARE SUPPL EMENT Aug 22, 2015 PLAN F [id number] BLANCA TOTH RT PATIENT AARP MED SUPP MEDIGAP PLAN F PLAN F Aug 22, 2015 PLAN F [id number] [phone] BLANCA TOTH RT PATIENT MEDICARE (WNR) MEDICARE () PART A Apr 22, 2014 PART A [id number] BLANCA TOTH RT PATIENT MEDICARE (WNR) MEDICARE () PART B Apr 22, 2014 PART B [id number] GERBER TOTHE RT PATIENT MEDICARE (WNR) MEDICARE () PART A Apr 22, 2014 PART A [id number] BLANCA TOTH RT PATIENT MEDICARE (WNR) MEDICARE () PART A Apr 22, 2014 PART A [id number] BLANCA TOTH RT PATIENT MEDICARE (WNR) MEDICARE () PART B Apr 22, 2014 PART B [id number] BLANCA TOTH RT PATIENT MEDICARE (WNR) MEDICARE () PART B Apr 22, 2014 PART B [id number] BLANCA TOTH RT PATIENT MEDICARE (WNR) MEDICARE () PART A Apr 22, 2014 PART A [id number] BLANCA TOTH RT PATIENT MEDICARE (WNR) MEDICARE () PART B Apr 22, 2014 PART B [id number] [phone] BLANCA TOTH RT PATIENT MEDICARE (WNR) MEDICARE () PART A Apr 22, 2014 PART A [id number] BLANCA TOTH RT PATIENT MEDICARE (WNR) MEDICARE (M) PART A Apr 22, 2014 PART A [id number] WOODBLANCA RT PATIENT MEDICARE (WNR) MEDICARE (M) PART B Apr 22, 2014 PART B [id number] 61A WOODGERBERE RT PATIENT MEDICARE (WNR) MEDICARE () PART A Apr 22, 2014 PART A [id number] GERBER TOTHE RT PATIENT MEDICARE (WNR) MEDICARE (M) PART B Apr 22, 2014 PART B [id number] BLANCA TOTH RT PATIENT MEDICARE (WNR) MEDICARE (M) PART B Apr 22, 2014 PART B [id number] BLANCA TOTH RT PATIENT MEDICARE (WNR) MEDICARE (M) PART A Apr 22, 2014 PART A [id number] BLANCA TOTH RT PATIENT MEDICARE (WNR) MEDICARE (M) PART B Apr 22, 2014 PART B [id number] BLANCA TOTH PATIENT Selected Encounter This section includes the information on record at [place] for the Encounter. Date/Time Encounter Type Encounter Description Reason Provider Source Mar 15, 2024 01:45 PM TELEHEALTH FACILITY FEE CARDIOLOGY ICD-10-CM Z71.89 Other specified counseling HAMZAH ARROYO Adolfo Encounter Template Text not used by [place] Assessments - Encounter Diagnoses This section includes the primary and secondary diagnoses documented for the Encounter. Date/Time Primary/Secondary Diagnosis Diagnosis Name Provider Source March 23, 2024 09:39 AM PRIMARY Other specified counseling [facility]ROY[facility] Plan of Treatment: Future Appointments (+ 6 months) and Future Tests (+/- 45 days) The Plan of Treatment section includes future care activities for the patient from all [place] treatmentfacilities. This section includes future appointments and future orders which are active, pending or scheduled. Future Appointments This section includes appointments that were scheduled to occur 6 months from the date of the Encounter, up to a maximum of 20 appointments. The data comes from all [place] treatment facilities. Appointment Date/Time Appointment Type Appointme nt Facility Name April 06, 2024 09:00 AM AMBULATORY - NONE [facility] April 10, 2024 10:45 AM AMBULATORY - NONE [facility] April 20, 2024 01:00 PM AMBULATORY - NONE [facility] May 18, 2024 09:00 AM AMBULATORY - NONE [facility] May 31, 2024 09:00 AM AMBULATORY - NONE [facility] Jun 28, 2024 10:30 AM AMBULATORY - NONE [facility] Jul 20, 2024 12:00 PM AMBULATORY - NONE [facility] Vital Signs: All taken on the encounter date This section contains inpatient and outpatient Vital Signs collected on the date of the Encounter. Date/Time Temperature Pulse Blood Pressure Respiratory Rate SP02 Pain Height Weight Body Mass Index Source Mar 15, 2024 01:53 PM 118/76 [facility] Mar 15, 2024 01:46 PM 98.2 71 146/77 20 5 271 45 [facility] Social History: Smoking Status (Most current) and Tobacco Use (All prior to encounter date) This section includes the most current, and the historical, smoking and tobacco- related health factors from the [place] facility where the Encounter took place. Current Smoking Status This section includes the most current smoking, or tobacco-related health factor, from the [place] facility where the Encounter took place. Date/Time Current Smoking Status Comment Facil ity April 12, 2023 08:30 AM VA-TOBACCO FORMER USER [facility] Tobacco Use History This section includes a history of the smoking, or tobacco-related health factors, that were collected on or before the date of the Encounter. The data comes from the [place] facility where the Encounter took place. Date/Time Smoking Status/Tobacco Use Comment F acility April 12, 2023 08:30 AM VA-TOBACCO QUIT 15 YRS OR MORE [facility] Sep 20, 2018 01:16 PM VA-TOBACCO FORMER USER [facility] Sep 20, 2018 01:16 PM VA-TOBACCO QUIT 15 YRS OR MORE [facility] Sep 21, 2017 08:29 AM QUIT TOBACCO >7 YEARS AGO quit 20 years ago [facility] Nov 02, 2016 09:14 AM QUIT TOBACCO >7 YEARS AGO [facility] Feb 05, 2015 08:58 AM QUIT TOBACCO >7 YEARS AGO [facility] Aug 08, 2013 07:25 AM QUIT TOBACCO >12 M O & <7 YRS AGO [facility] Jul 12, 2012 08:35 AM QUIT TOBACCO >12 M O & <7 YRS AGO [facility] March 25, 2011 09:59 AM QUIT TOBACCO IN TH E LAST 12 MONTHS [facility] Mar 18, 2010 08:33 AM TOBACCO OFFERRED P T MEDS (PROVIDER) [facility] Mar 18, 2010 08:33 AM TOBACCO OFFERRED S [facility] Feb 01, 2009 08:40 AM TOBACCO OFFERRED P T MEDS (PROVIDER) [facility] Feb 01, 2009 08:40 AM TOBACCO OFFERRED S [facility] Aug 03, 2008 02:23 PM TOBACCO OFFERRED P T MEDS (PROVIDER) [facility] Aug 03, 2008 02:23 PM TOBACCO OFFERRED S [facility] Jun 10, 2007 08:46 AM TOBACCO OFFERRED P T MEDS (PROVIDER) [facility] Jun 10, 2007 08:46 AM TOBACCO OFFERRED S [facility] Mar 10, 2001 11:07 AM CURRENT NON-SMOKER [facility] May 08, 2000 08:41 AM CURRENT NON-SMOKER [facility] Advance Directives: All historical and current Section Date Range: From patient's date of to the date document was created. This section includes ALL of a patient's completed or amended VA Advance and Rescinded Directives. The entries below indicate that a directive exists for the patient, but an actual copy is not included with this document. The data comes from all [place] facilities. Date Advance Directives Provider Source Mar 16, 2024 ADVANCE DIRECTIVE DISCUSSION LUPE LEPE [facility] Feb 09, 2024 ADVANCE DIRECTIVE LEXY WHALEY [facility] Nov 03, 2023 RESCINDED ADVANCE DIRECTIVE LUPE LEPE [facility] Sep 20, 2023 RESCINDED ADVANCE DIRECTIVE LENNIE VALENTIN [facility] Aug 26, 2021 [facility] Encounter Notes: All associated encounter notes This section contains the clinical notes associated to the Encounter. Date/Time Encounter Note(s) Provider Source Mar 15, 2024 01:53 PM TELEHEALTH NOTE: LOCAL TITLE: CVT CARDIOLOGY STANDARD TITLE: TELEHEALTH NOTE DATE OF NOTE: MAR 15, 2024@13:53 ENTRY DATE: MAR 15, 2024@13:53:53 AUTHOR: HAMZAH ARROYO COSIGNER: URGENCY: STATUS: COMPLETED Patient is here today for scheduled CVT cardiology clinical encounter with [facility]. Patient gave verbal consent for CVT encounter. Brief history, patient reports: 6 months follow up. Went over results of monitor . Sex:MALE Age:73 Patient lives with: self -VITAL SIGNS- 03/15/24 @ 1346 TEMPERATURE: 98.2 PULSE: 71 (03/15/24 @ 1346) RESPIRATION: 20 (03/15/24 @ 1346) BLOOD PRESSURE: 118/76 (03/15/24 @ 1353) BLOOD PRESSURE: 146/77 (03/15/24 @ 1346) WEIGHT: 271 lb. (123.18 kg.) (03/15/24 @ 1346) HEIGHT: 65.5 in [166.4 cm] (04/12/2023 08:30) BMI: 44.5 (MAR 15, 2024@13:46:44) PAIN: 5 (03/15/24 @ 1346) level today Vetern voiced undstanding of drama critic appointment today. /montrell/ HAMZAH ARROYO LPN LICENSED PRACITCAL NURSE Signed: 03/15/2024 14:01 HAMZAH ARROYO [facility]
--- OUTSIDE RECORDS SUMMARY | 2025-03-05 18:24 | XMS_ITS | Clinical Summary ---
Author Organization [employer] [address] [facility] Address [address] [place] [address] Care Team Providers Care Advertising Account Manager Name Role Phone Romero Obando MD Primary Care Provider Allergies Active Allergy Reactions Criticality Noted Date Comments Codeine Anaphylaxis High 06/27/2020 Hymenoptera Allergenic Extract Anaphylaxis High 04/2020 Medications celecoxib (CeleBREX) 200 mg capsule TAKE ONE CAPSULE BY MOUTH TWICE A DAY FOR PAIN Active DULoxetine (CYMBALTA) 20 mg Capsule, Delayed Release(E.C.) TAKE 1 CAPSULE BY MOUTH TWICE A DAY MOOD/PAIN Active omeprazole (PriLOSEC) 20 mg Capsule, Delayed Release(E.C.) TAKE ONE CAPSULE BY MOUTH EVERY MORNING 30 MINUTES BEFORE BREAKFAST FOR STOMACH ACID Active atorvastatin (LIPITOR) 40 mg tablet TAKE ONE-HALF TABLET BY MOUTH AT BEDTIME CALL YOUR PROVIDER IF YOU HAVE MUSCLE PAIN, TENDERNESS OR WEAKNESS (REPLACES ROSUVASTATIN) Active vardenafiL (LEVITRA) 20 mg tablet TAKE ONE TABLET BY MOUTH NEEDED 60 MINUTES PRIOR TO SEXUAL ACTIVITY. ED Active cyanocobalamin, vitamin B-12, 5,000 mcg tablet, IR & ER, biphasic TAKE ONE-HALF TABLET BY MOUTH EVERY DAY Active magnesium oxide 400 mg magnesium Tablet TAKE ONE TABLET BY MOUTH DAILY Active ferrous fumarate/vit Bcomp,C (SUPER B COMPLEX ORAL) Take 1 Tablet by mouth daily. Active Active Problems Problem Noted Date Diagnosed Date Ulnar neuropathy at elbow, right 06/25/2020 Cervical spondylosis without myelopathy 06/25/20 20 Family History Medical History Relation Name Comments No Known Problems Brother No Known Problems Father No Known Problems Mother No Known Problems Sister Relation Name Status Comments Brother Father Mother Sister Social History Tobacco Use Types Packs/Day Years Used Date Smoking Tobacco: Former Cigarettes Q uit: 1995 Alcohol Use Standard Drinks/Week Comments Yes 0 (1 standard drink = 0.6 oz pur e alcohol) rare Sex and Gender Information Value Date Recorded Sex Assigned at Not on file Legal Sex Male 11:29 AM CDT Gender Identity Not on file Sexual Orientation Not on file Occupation Industry Job Start Date Job End Date Not on file Not on file Not on file Not on file Last Filed Vital Signs Vital Sign Reading Time Taken Comments Blood Pressure - - Pulse - - Temperature - - Respiratory Rate - - Oxygen Saturation - - Inhaled Oxygen Concentration - - Weight 99.8 kg (220 lb) 06/27/2020 8:43 AM CDT Height 167.6 cm (5' 6 ) 06/27/2020 8:43 AM CDT Body Mass Index 35.51 06/27/2020 8:43 AM CDT Plan of Treatment Health Maintenance Due Date Last Done Comments COLORECTAL SCREENING 1994 Colorectal Cancer Screening 1994 FIT-DNA Q 3 years 1994 FIT/FOBT Q 1 year 1994 Flex Sig/CT Colonography Q 5 years 1994 ZOSTER VACCINE (1 of 2) 1999 RSV VACCINE (60+ or ) (1 - 1-dose 75+ series) 2024 INFLUENZA VACCINE (#1) 2024 8, 09/21/2017, 11/02/2016 DTAP/TDAP/TD VACCINES (2 - T d or Tdap) 08/22/2026 08/22/2016 PNEUMOCOCCAL VACCINE 50+ YEARS Completed 11/02/2016 , 02/05/2015 Insurance MEDICARE PART A [facility] [id number] Care Teams Advertising Account Manager Relationship Specialty Start Date End Date Romero Obando MD [address] [place] [address] PCP - General Family Practice 05/28/20
--- OUTSIDE RECORDS SUMMARY | 2025-03-05 18:24 | XMS_ITS | Encounter Summary ---
Author Name [facility] [place] [facility] [place] Address [address] [place] [address] Care Team Providers Care Events Associate Name Role Phone DEJUAN PEARL Primary Care [...] F PLAN F Nov 22, 2018 MEDIGAP [id number] BLANCA TOTH RT PATIENT AARP MED SUPP MEDIGAP PLAN F PLAN F Nov 22, 2018 PLAN F [id number] BLANCA TOTH RT PATIENT AARP MED SUPP MEDIGAP PLAN F MEDIC ARE SUPPL EMENT Aug 22, 2015 PLAN F [id number] [phone] BLANCA TOTH RT PATIENT AARP MED SUPP MEDIGAP PLAN F MEDIC ARE SUPPL EMENT Aug 22, 2015 PLAN F [id number] BLANCA TOTH RT PATIENT AARP MED SUPP MEDICARE SUPPLEMEN THIERNO MEDIC ARE SUPPL EMENT Aug 22, 2015 PLAN F [id number] WOOD,ALBE RT PATIENT AARP MED SUPP MEDIGAP PLAN F PLAN F Aug 22, 2015 PLAN F [id number] [phone] BLANCA TOTH RT PATIENT A[employer] MED SUPP MEDIGAP PLAN F MEDIC ARE SUPPL EMENT Aug 22, 2015 PLAN F [id number] BLANCA TOTH RT PATIENT MEDICARE (WNR) MEDICARE () PART A Apr 22, 2014 PART A [id number] WOODGERBERE RT PATIENT MEDICARE (WNR) MEDICARE () PART B Apr 22, 2014 PART B [id number] WOODGERBERE RT PATIENT MEDICARE (WNR) MEDICARE () PART A Apr 22, 2014 PART A [id number] GERBER TOTHE RT PATIENT MEDICARE (WNR) MEDICARE () PART B Apr 22, 2014 PART B [id number] BLANCA TOTH RT PATIENT MEDICARE (WNR) MEDICARE () PART A Apr 22, 2014 PART A [id number] BLANCA TOTH RT PATIENT MEDICARE (WNR) MEDICARE () PART B Apr 22, 2014 PART B [id number] BLANCA TOTH RT PATIENT MEDICARE (WNR) MEDICARE () PART A Apr 22, 2014 PART A [id number] BLANCA TOTH RT PATIENT MEDICARE (WNR) MEDICARE () PART B Apr 22, 2014 PART B [id number] WOODBLANCA RT PATIENT MEDICARE (WNR) MEDICARE () PART A Apr 22, 2014 PART A [id number] WOODBLANCA RT PATIENT MEDICARE (WNR) MEDICARE () PART B Apr 22, 2014 PART B [id number] WOODGERBERE RT PATIENT MEDICARE (WNR) MEDICARE () PART A Apr 22, 2014 PART A [id number] WOODALBE RT PATIENT MEDICARE (WNR) MEDICARE (M) PART B Apr 22, 2014 PART B [id number] WOOD,ALBE RT PATIENT MEDICARE (WNR) MEDICARE (M) PART A Apr 22, 2014 PART A [id number] [phone] BLANCA TOTH RT PATIENT MEDICARE (WNR) MEDICARE (M) PART B Apr 22, 2014 PART B [id number] BLANCA TOTH RT PATIENT MEDICARE (WNR) MEDICARE (M) PART A Apr 22, 2014 PART A [id number] BLANCA TOTH RT PATIENT MEDICARE (WNR) MEDICARE (M) PART B Apr 22, 2014 PART B [id number] BLANCA TOTH PATIENT Selected Encounter This section includes the information on [place] at [place] for the Encounter. Date/Time Encounter Type Encounter Description Reason Provider Source Mar 15, 2024 02:00 PM OFFICE O/P EST LOW 20 MIN CARDIOLOGY ICD-10-CM I47.10 Supraventricular tachycardia, unspecified EMMANUEL-MEGUID, ALAA E IHE Encounter Template Text not used by [place] Assessments - Encounter Diagnoses This section includes the primary and secondary diagnoses documented for the Encounter. Date/Time Primary/Secondary Diagnosis Diagnosis Name Provider Source March 23, 2024 09:37 AM PRIMARY Supraventricular tachycardia, unspecified EMMANUEL-MEGUID, ALAA E [facility] Plan of Treatment: Future Appointments (+ 6 months) and Future Tests (+/- 45 days) The Plan of Treatment section includes future care activities for the patient from all [place] treatmentfacilities. This section includes future appointments and future orders which are active, pending or scheduled. Future Appointments This section includes appointments that were scheduled to occur 6 months from the date of the Encounter, up to a maximum of 20 appointments. The data comes from all [place] treatment facilities. Appointment Date/Time Appointment Type Appointme nt Facility Name April 06, 2024 09:00 AM AMBULATORY - NONE [facility] April 10, 2024 10:45 AM AMBULATORY - NONE [facility] April 20, 2024 01:00 PM AMBULATORY - NONE [facility] May 18, 2024 09:00 AM AMBULATORY - NONE [facility] May 31, 2024 09:00 AM AMBULATORY - NONE [facility] Jun 28, 2024 10:30 AM AMBULATORY - NONE [facility] Jul 20, 2024 12:00 PM AMBULATORY - NONE [facility] [...] this document. The data comes from all [place] facilities. Date Advance Directives Provider Source Mar 16, 2024 ADVANCE DIRECTIVE DISCUSSION LUPE LEPE [place] [facility] Feb 09, 2024 ADVANCE DIRECTIVE LEXY WHALEY H Nov 03, 2023 RESCINDED ADVANCE DIRECTIVE LUPE LEPE [place] [facility] Sep 20, 2023 RESCINDED ADVANCE DIRECTIVE LENNIE VALENTIN [facility] Aug 26, 2021 ADVANCE DIRECTIVE DISCUSSION COLT PEARL [facility] Encounter Notes: All associated encounter notes This section contains the clinical notes associated to the Encounter. Date/Time Encounter Note(s) Provider Source Mar 15, 2024 01:49 PM TELEHEALTH NOTE: LOCAL TITLE: CVT CARDIOLOGY STANDARD TITLE: TELEHEALTH NOTE DATE OF NOTE: MAR 15, 2024@13:49 ENTRY DATE: MAR 15, 2024@13:49:44 AUTHOR: RAMONA POTTS COSIGNER: URGENCY: STATUS: COMPLETED Patient is here today for scheduled Follow up.with [facility]. Patient gave verbal consent for CVT encounter. Brief history, patient reports: History of non sustained PVCs, APCs (asymptomatic) Sex:MALE Age:73 Patient lives with: Family. -VITAL SIGNS- 03/15/24 @ 1346 TEMPERATURE: 98.2 PULSE: 71 (03/15/24 @ 1346) RESPIRATION: 20 (03/15/24 @ 1346) BLOOD PRESSURE: 146/77 (03/15/24 @ 1346) WEIGHT: 271 lb. (123.18 kg.) (03/15/24 @ 1346) HEIGHT: 65.5 in [166.4 cm] (04/12/2023 08:30) BMI: 44.5 (MAR 15, 2024@13:46:44) PULSE OXIMETRY - NONE FOUND - 1D Room Air PAIN: 5 (03/15/24 @ 1346) level today This is visit via CVT. The patient was agreeable to conduct this visit via CVT. I identified the by his first name, last name, and last 4 of his Social Security number. This is a follow-up visit. I have seen the visit last time in August 2023 (see note). The patient also sees a business objects architect in the community. He last saw Dr. Salinas ([facility]) on 11/18/2023. Dr. Salinas cleared him for foot surgery. His cardiac work-up included a Holter monitor which did not reveal any sustained arrhythmias. Patient remains asymptomatic from a cardiac standpoint. He has no chest pain. He has no dyspnea, orthopnea, or PND. He has no dizziness or loss of consciousness. His repeat blood pressure today was 118/76. Patient is a stable from a cardiac standpoint. No further cardiac work-up is needed at this time. /montrell/ RAMONA POTTS Freelance Photographer Signed: 03/15/2024 14:22 RAMONA POTTS HCS
--- OUTSIDE RECORDS SUMMARY | 2025-03-05 18:24 | XMS_ITS | Encounter Summary ---
Author Name [facility] [place] [facility] [place] Address [address] [place] [address] Care Team Providers Care Employee Relation Manager Name Role Phone DEJUAN PEARL Primary Care [...] F PLAN F Nov 22, 2018 MEDIGAP [id number] BLANCA TOTH RT PATIENT AARP MED SUPP MEDIGAP PLAN F PLAN F Nov 22, 2018 PLAN F [id number] BLANCA TOTH RT PATIENT AARP MED SUPP MEDIGAP PLAN F MEDIC ARE SUPPL EMENT Aug 22, 2015 PLAN F [id number] BLANCA TOTH RT PATIENT AARP MED SUPP MEDIGAP PLAN F PLAN F Aug 22, 2015 PLAN F [id number] BLANCA TOTH RT PATIENT AARP MED SUPP MEDICARE SUPPLEMEN THIERNO MEDIC ARE SUPPL EMENT Aug 22, 2015 PLAN F [id number] WOOD,ALBE RT PATIENT AARP MED SUPP MEDIGAP PLAN F MEDIC ARE SUPPL EMENT Aug 22, 2015 PLAN F [id number] [phone] BLANCA TOTH RT PATIENT AARP MED SUPP MEDIGAP PLAN F MEDIC ARE SUPPL EMENT Aug 22, 2015 PLAN F [phone] BLANCA TOTH RT PATIENT MEDICARE (WNR) MEDICARE () PART B Apr 22, 2014 PART B [id number] 61A WOODGERBERE RT PATIENT MEDICARE (WNR) MEDICARE (M) PART A Apr 22, 2014 PART A [id number] WOODGERBERE RT PATIENT MEDICARE (WNR) MEDICARE (M) PART B Apr 22, 2014 PART B [id number] GERBER TOTHE RT PATIENT MEDICARE (WNR) MEDICARE (M) PART A Apr 22, 2014 PART A [id number] [phone] WOODGERBERE RT PATIENT MEDICARE (WNR) MEDICARE () PART B Apr 22, 2014 PART B [id number] GERBER TOTHE RT PATIENT MEDICARE (WNR) MEDICARE () PART A Apr 22, 2014 PART A [id number] BLANCA TOTH RT PATIENT MEDICARE (WNR) MEDICARE () PART B Apr 22, 2014 PART B [id number] 86 BLANCA TOTH RT PATIENT MEDICARE (WNR) MEDICARE () PART A Apr 22, 2014 PART A [id number] WOODBLANCA RT PATIENT MEDICARE (WNR) MEDICARE () PART A Apr 22, 2014 PART A [id number] WOODGERBERE RT PATIENT MEDICARE (WNR) MEDICARE (M) PART B Apr 22, 2014 PART B [id number] WOODGERBERE RT PATIENT MEDICARE (WNR) MEDICARE () PART A Apr 22, 2014 PART A [id number] WOODALBE RT PATIENT MEDICARE (WNR) MEDICARE (M) PART B Apr 22, 2014 PART B [id number] [phone] WOOD,ALBE RT PATIENT MEDICARE (WNR) MEDICARE (M) PART B Apr 22, 2014 PART B [id number] BLACNA TOTH RT PATIENT MEDICARE (WNR) MEDICARE (M) PART A Apr 22, 2014 PART A [id number] [phone] BLANCA TOTH RT PATIENT MEDICARE (WNR) MEDICARE (M) PART B Apr 22, 2014 PART B [id number] [phone] BLANCA TOTH RT PATIENT MEDICARE (WNR) MEDICARE (M) PART A Apr 22, 2014 PART A [id number] BLANCA TOTH RT PATIENT Selected Encounter This section includes the information on record at [place] for the Encounter. Date/Time Encounter Type Encounter Description Reason Provider Source Mar 15, 2024 01:00 PM OFFICE O/P EST MOD 30 MIN PODIATRY ICD-10-CM 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, right foot MARC GONSALES Adolfo Encounter Template Text not used by [place] Assessments - Encounter Diagnoses This section includes the primary and secondary diagnoses documented for the Encounter. Date/Time Primary/Secondary Diagnosis Diagnosis Name Provider Source March 23, 2024 09:11 AM PRIMARY Congenital pes planus, right foot TALLEY,AMANDA MORENO [facility] March 23, 2024 09:11 AM SECONDARY Other abnormalities of gait and mobility AMANDA TALLEY [facility] March 23, 2024 09:11 AM SECONDARY Posterior tibial tendinitis, right leg AMANDA TALLEY [facility] Plan of Treatment: Future Appointments (+ 6 months) and Future Tests (+/- 45 days) The Plan of Treatment section includes future care activities for the patient from all [place] treatmentfacilities. This section includes future appointments and future orders which are active, pending or scheduled. Future Appointments This section includes appointments that were scheduled to occur 6 months from the date of the Encounter, up to a maximum of 20 appointments. The data comes from all [place] treatment facilities. Appointment Date/Time Appointment Type Appointme nt Facility Name April 06, 2024 09:00 AM AMBULATORY - NONE [facility] April 10, 2024 10:45 AM AMBULATORY - NONE [facility] April 20, 2024 01:00 PM AMBULATORY - NONE [facility] May 18, 2024 09:00 AM AMBULATORY - NONE [facility] May 31, 2024 09:00 AM AMBULATORY - NONE [facility] Jun 28, 2024 10:30 AM AMBULATORY - NONE [facility] Jul 20, 2024 12:00 PM AMBULATORY - NONE [facility] Vital Signs: All taken on the encounter date This section contains inpatient and outpatient Vital Signs collected on the date of the Encounter. Date/Time Temperature Pulse Blood Pressure Respiratory Rate SP02 Pain Height Weight Body Mass Index Source Mar 15, 2024 01:53 PM 118/76 [facility] Mar 15, 2024 01:46 PM 98.2 71 146/77 20 5 271 45 [facility] Social History: Smoking Status (Most current) and Tobacco Use (All prior to encounter date) This section includes the most current, and the historical, smoking and tobacco- related health factors from the [place] facility where the Encounter took place. Current Smoking Status This section includes the most current smoking, or tobacco-related health factor, from the [place] facility where the Encounter took place. Date/Time Current Smoking Status Comment Perri ity April 12, 2023 08:30 AM VA-TOBACCO FORMER USER [facility] Tobacco Use History This section includes a history of the smoking, or tobacco-related health factors, that were collected on or before the date of the Encounter. The data comes from the [place] facility where the Encounter took place. Date/Time Smoking Status/Tobacco Use Comment F margarita April 12, 2023 08:30 AM VA-TOBACCO QUIT 15 YRS OR MORE [facility] Sep 20, 2018 01:16 PM VA-TOBACCO FORMER USER [facility] Sep 20, 2018 01:16 PM VA-TOBACCO QUIT 15 YRS OR MORE [facility] Sep 21, 2017 08:29 AM QUIT TOBACCO >7 YEARS AGO quit 20 years ago [facility] Nov 02, 2016 09:14 AM QUIT TOBACCO >7 YEARS AGO [facility] Feb 05, 2015 08:58 AM QUIT TOBACCO >7 YEARS AGO [facility] Aug 08, 2013 07:25 AM QUIT TOBACCO >12 M O & <7 YRS AGO [facility] Jul 12, 2012 08:35 AM QUIT TOBACCO >12 M O & <7 YRS AGO [facility] March 25, 2011 09:59 AM QUIT TOBACCO IN TH E LAST 12 MONTHS [facility] Mar 18, 2010 08:33 AM TOBACCO OFFERRED P T MEDS (PROVIDER) [facility] Mar 18, 2010 08:33 AM TOBACCO OFFERRED S [facility]MO[facility] CLINIC [facility] Feb 01, 2009 08:40 AM TOBACCO OFFERRED P T MEDS (PROVIDER) [facility] Feb 01, 2009 08:40 AM TOBACCO OFFERRED S [facility]MO[facility] CLINIC [facility] Aug 03, 2008 02:23 PM TOBACCO OFFERRED P T MEDS (PROVIDER) [facility] Aug 03, 2008 02:23 PM TOBACCO OFFERRED S [facility] SMO[facility] CLINIC [facility] Jun 10, 2007 08:46 AM TOBACCO OFFERRED P T MEDS (PROVIDER) [facility] Jun 10, 2007 08:46 AM TOBACCO OFFERRED S [facility] CLINIC [facility] Mar 10, 2001 11:07 AM CURRENT NON-SMOKER [facility] May 08, 2000 08:41 AM CURRENT NON-SMOKER [facility] Advance Directives: All historical and current Section Date Range: From patient's date of to the date document was created. This section includes ALL of a patient's completed or amended [place] Advance and Rescinded Directives. The entries below indicate that a directive exists for the patient, but an actual copy is not included with this document. The data comes from all [place] facilities. Date Advance Directives Provider Source Mar 16, 2024 ADVANCE DIRECTIVE DISCUSSION LUPE LEPE [facility] Feb 09, 2024 ADVANCE DIRECTIVE LEXY WHALEY [facility] Nov 03, 2023 RESCINDED ADVANCE DIRECTIVE LUPE LEPE [facility] Sep 20, 2023 RESCINDED ADVANCE DIRECTIVE LENNIE VALENTIN [facility] Aug 26, 2021 ADVANCE DIRECTIVE DISCUSSION COLT PEARL [facility] Encounter Notes: All associated encounter notes This section contains the clinical notes associated to the Encounter. Date/Time Encounter Note(s) Provider Source Mar 15, 2024 01:08 PM SURGERY NOTE: LOCAL TITLE: SURGERY/PODIATRY STANDARD TITLE: SURGERY NOTE DATE OF NOTE: MAR 15, 2024@13:08 ENTRY DATE: MAR 15, 2024@13:08:14 AUTHOR: AMANDA TALLEY COSIGNER: MARC GONSALES URGENCY: STATUS: COMPLETED SURGERY/PODIATRY Has ADDENDA SUBJECTIVE 73 yo male return to clinic for end-stage PTTD right foot. Patient is accompanied by daughter. Patient reports continued pain to the right ankle. Continues to use ankle brace AFO with little to no improvement. Admits to seeing outside line haul owner operator for second opinion. Has an upcoming cardiology appointment. Inquires about proceeding with surgery for right ankle. ROS: Complete Review of Systems - All other systems reviewed and negative Allergies: Personally reviewed. See Cover Sheet Past medical history: Personally reviewed. See Cover Sheet Current medications: Personally reviewed. See Cover Sheet Family history: Personally reviewed. See Cover Sheet Social history was reviewed. OBJECTIVE VITALS Most [...] light touch, two-point discrimination, and proprioception. Musculoskeletal: Unchanged, with muscle strength +5/5. Left foot maintains a fairly neutral/rectus alignment. Right foot shows substantial posterior tibial tendon dysfunction with subluxation at the talonavicular joint and heightened areas of redness pain and pressure plantar medial arch where the talar head and medial cuneiform are misaligned. Pes planus is noted with forefoot abduction and rear foot eversion. This is semirigid and not manually reducible to neutral. Positive equinus deformity is noted as well. Positive pain on palpation bilateral sinus tarsi. Integument: Skin texture and turgor is normal. Areas of red discoloration due to continued high pressure and irritation along the plantar medial arch over the subluxed talar head and medial cuneiform, right greater than the left. The toenails on both feet (1-5 bilateral) are noted to be elongated, dystrophic, with subungual debris and lysis with variable levels of involvement on each nail. Hyperkeratosis to first met head left foot. Psychological: Normal mood, appropriate to circumstances IMAGING No imaging obtained today. Prior films were not reviewed. ASSESSMENT End Stage Posterior Tibial Tendon Dysfunction/Tendonitis right foot Osteoarthritis Right Foot Gastrocnemius Equinus right foot Pes Planus right foot Peripheral Neuropathy Gait Instability Tinea Unguium PLAN -Chart Reviewed. -Patient examined and findings/treatment recommendations discussed. All questions answered to their satisfaction. End-stage PTTD, right -Clinically, patient with end-stage digit deformity with minimal improvement with conservative care. -Patient was informed we will not be able to perform the surgery in [place]. -continue Addis ankle braces. new order placed -continue diclofenac gel as needed -will submit [facility] consult for 2nd opinion for surgical intervention. patient may benefit for surgical intervention. -Custom insert ordered -Prosthetics consulted for therapeutic shoe and plastizote insert. Tinea Unguium -The toenail(s) noted above were debrided manually with nail nippers. -Patient tolerated the procedure well. -Patient verbalized understanding and agrees with current plan of care. -RTC in 3 months for moderate risk foot care Amanda Talley DPM PGY2 Assessment and plan of care discussed with the attending physician, Dr. Gonsales, who concurs. /montrell/ AMANDA TALLEY Podiatry Resident// Signed: 03/15/2024 15:01 /montrell/ Marc Gonsales DPM, BRITTNEY ARGUELLO Clip Wrapper Cosigned: 03/15/2024 15:20 03/15/2024 ADDENDUM STATUS: COMPLETED Patient was seen and evaluated with the Resident (Amanda Talley DPM, PGY-2). Conditions and treatment options were presented and discussed with the resident with agreement on the plan of care. /montrell/ Marc Gonsales DPM, BRITTNEY ARGUELLO Clip Wrapper Signed: 03/15/2024 15:21 AMANDA TALLEY [facility]
--- OUTSIDE RECORDS SUMMARY | 2025-03-05 18:24 | XMS_ITS | Data Portability ---
Author Organization [facility], [address] [facility] ([place]) Address [address] 4th [place] [address] Care Team Providers Care Hog Sticker Name Role Phone WYATT NUNEZ Primary Care Provider JOSÉ LUIS ORTIZ Referring Provider [phone] Assessment Encounter Date Assessment Date Assessment LastModified by Organization Details LastModified Time 10/02/2024 10/02/2024 ASSESSMENT: Added in some resistance with sidestepping as well as hip 3 way. Also added in balance activities today with no ill effects. Decided to cancel all but 1 session for next week and then he will just work on his own. GOALS: Short Term Goals to be achieved in 4 weeks: -Patient will be independent with initial HEP. -Patient will report pain no worse than 3/10 with all activity. -Patient will demonstrate improvement on LEFS score from 50 to 70 . -Patient will demonstrate at least 4/5 right LE strength. -Patient will demonstrate improved right LE ROM. Longterm Goals to be achieved in 8 weeks: -Patient will report no pain with activity. -Patient will report no functional limitations on LEFS. -Patient will demonstrate 5/5 right LE strength -Patient will return to full work duties with no restrictions. -Patient will ambulate independently. -Patient will be independent with final HEP to continue upon discharge from PT. PLAN: Patient to be seen 2x/week for 8 weeks. Treatment will consist of therapeutic exercise, neuromuscular re-education, therapeutic activities, manual therapy, gait training and modalities as indicated. [email or web address] Not available 10/02/2024 11:36:07 10/11/2024 10/11/2024 ASSESSMENT: At this time patient is doing well and has no concerns that he feels need to be addressed with farther therapy. He does still have limitations in the motion at his ankle and his foot but that is to be expected given the surgery he had. Despite these limitations he is walking all his normal distances with no device. He will call with any concerns, but otherwise will be discharged from PT. GOALS: Short Term Goals to be achieved in 4 weeks: -Patient will be independent with initial HEP. -Patient will report pain no worse than 3/10 with all activity. -Patient will demonstrate improvement on LEFS score from 50 to 70 . -Patient will demonstrate at least 4/5 right LE strength. -Patient will demonstrate improved right LE ROM. Longterm Goals to be achieved in 8 weeks: -Patient will report no pain with activity. -Patient will report no functional limitations on LEFS. -Patient will demonstrate 5/5 right LE strength -Patient will return to full work duties with no restrictions. -Patient will ambulate independently. -Patient will be independent with final HEP to continue upon discharge from PT. PLAN: Discharge with HEP. [email or web address] Not available 10/11/2024 11:19:12 12/28/2024 12/28/2024 ASSESSMENT: 1. Stable six months postoperative course status post right TT fusion with little to no symptoms. 2. Left arch height loss with subfibular impingement. PLAN: He wanted to proceed with cortisone injection on the left and tolerated this well. He will continue activities as tolerated on the right. We are going to see him back in 3 months for possible repeat injection on the left and repeat x-rays on the right subtalar joint. CHIEF COMPLAINT: Six months status post right ankle fusion. HISTORY OF PRESENT ILLNESS: The patient returns today overall doing well. He is having pain on his right ankle. He is very pleased. He does have some pain on his left ankle. It is on the lateral side. It is an achy to sharp-shooting pain. PHYSICAL EXAMINATION: CONST: No acute distress. EYES: No icterus. RESP: Breathing appears normal. No use of accessory muscles. CV: Pulses palpable in feet. MSK: Patient s right lower extremity is neurovascularly intact, strength is 5/5, capillary refill is brisk, and sensations are intact. Range of motion is intact as expected. Skin incision is well healed. Moderate edema on the right. He is tender on the left over the subtalar joint and sinus tarsi. SKIN: No jaundice. PSYCH: Stable mood and affect. NEURO: No speech difficulty. Reviewed pertinent diagnostic tests, lab work, and imaging. These were reviewed with the patient. X-rays reviewed independently. Informed consent was discussed and obtained. An explanation of the procedure was provided. The risks and benefits of the procedure, the risks and benefits of alternative procedures, as well as the possible consequences of not undergoing the procedure were discussed. The patient verbalized understanding and gives consent to proceed. The left ankle was prepped. The ankle joint was injected intra-articularly with a mixture of 1 mL of betamethasone 6 mg/mL mixed with 2 mL of 0.5% Marcaine without epinephrine. The patient tolerated the procedure well. The patient was given the appropriate instructions of after-care for this injection. [email or web address] Not available 12/28/2024 13:44:03 Plan of Treatment Reminders Order Date Submit Date Provider Last Modified By Organization Details Last Modified Time Details Appointments Establish ed Patient 10.EST 2024 10:40A M Dr. Michael Wood Not available Not available Not available Lab None recorded. Referral None recorded. Procedures None recorded. Surgeries None recorded. Imaging None recorded. Medication Orders None recorded. Patient TargetsNo targets recorded. Patient InstructionsNo instructions recorded. Reason for Referral None Reported. Results Created Date Observation Date Name Description Value Unit Range Abnormal Flag Note LastModifiedBy Organization Detail LastModifiedTime 09/18/20 24 04/03/2024 imagi ng/di agnos tic resul t No observ ation record ed. [email or web address] Not Available 03:36:06 10/03/20 24 09/28/2024 XR, ankle , 3 [place] [address] Teleph one [phone] Name: Jiim Villalobos [id number] am Date: 2023 Age: 74Phys ician: Romero flores MD, Benj in : 1949Ex aminat ion: XR ANKLE COMPLE TE RIGHT EXAM: 3 views right ankle HISTOR Y: Status post operat rosemary arthro desis FINDIN GS: Tibiot alar arthro desis site appear s be united . Subtal ar arthro desis site appear s be united . Hardwa re stable . IMPRES ANDRADE: Likely united tibiot alar and subtal ar arthro desis sites with intact hardwa re. Electr onical ly signed in [employer] cribe by: RICO Flores MD on: 7:28 AM cc: Page PAGE 1 of [facility] ES 1 INTERFACE [facility] [address] [place] [address], [address], 10/03/2024 08:31:08 01/02/2012/28/2024 XR, ankle , 3 or more view [address] [address] Tele one Name: Jimi Villalobos [id number] am Date: 2024 Age: 74Phys ician: Romero flores MD, Rico in : 1949Ex aminat ion: XR ANKLE COMPLE TE RIGHT EXAM: 3 views right ankle HISTOR Y: Status post operat rosemary arthro desis FINDIN GS: Tibiot alar and subtal ar arthro desis sites appear to be well-h ealed. Hardwa re appear s to be stable . No change s since previo us films. IMPRES ANDRADE: Likely united tibiot alar and subtal ar arthro desis sites with intact hardwa re. Electr onical ly signed in [place] cribe by: RICO Flores MD on:12/23 7:27 AM cc: Page PAGE 1 of [facility] ES 1 INTERFACE [facility] [address] [place] [address], [address], 01/02/2025 08:29:47 Result Notes None recorded. Problems Name Problem SNOMED Code Status Onset Date Resolution Date Notes Provider Name and Address Organization Details Recorded Time Delayed healing of surgical wound 231314376 Active 2023 WHITNEY AroraC [address] [place] [address], [id number] , [facility] 4 10:48:25 Swelling of lower limb 411204280 Active 2023 Cecile Malik [facility] 4 11:19:51 Ankle pain 706891720 Active 2024 [facility] 13:13:58 Diabetic foot 991097786 Active 2023 Joel Palumbo [facility] 4 11:04:00 Acquired valgus deformity of left ankle 2698020199592 01 Active 2023 Joel Palumbo [facility] 4 11:25:08 Pain of right ankle joint 0843508044140 9106 Active 2023 Leigh Amezcua [facility] 4 10:34:30 Pain of left ankle joint 3166308454133 9103 Active 2023 Leigh Amezcua [facility] 4 10:34:35 Arthritis of right ankle 0521439198766 106 Active 2023 Melissa Peters [facility] 4 10:22:34 Tibialis posterior tendinitis 691851854 Active 2023 Lo Girard [facility] 4 12:09:44 Acquired equinus deformity of foot 87733090 Active 2023 Lo Girard [facility] 4 12:09:48 Notes:Some problems listed i n Document: #[id number] could not be added to this patient's chart. Please review this document and add these problems to the patient's chart manually as needed. Problem Notes None recorded. Procedures Surgical History Date Name Laterality Status Provider Name and Address Organization Details Recorded Time 07/05/20 24 Fusion of ankle joint open completed Melissa Peters [facility] 07/06/2024 07:58:59 Colonoscopy with biopsy completed Not Available Health Note 05/11/2024 11:34:52 Removal of tonsils completed Not Available Health Note 04/03/2024 19:44:28 Total knee arthroplasty completed Not Available Health Note 04/03/2024 19:44:28 Imaging Results Imaging Date Name Status LastModified by Organiz [facility] Details LastModified Time 04/03/2024 imaging/diag nostic result completed [email or web address] Information not available 09/18/2024 03:36:06 09/28/2024 XR, ankle, 3 or more view completed INTERFACE [facility] [address] [place] [address], [address], 10/03/2024 08:31:08 12/28/2024 XR, ankle, 3 or more view completed INTERFACE [facility] [address] [place] [address], [address], 01/02/2025 08:29:47 Procedure Notes None recorded. Medical Equipment None Reported. Allergies Allergen ID Allergen Name Allergen Category Reaction Reaction Severity Criticality Documentation Date Start Date Code Code System Note Provider Name and Address Organization Details Recorded Time 1173359 codeine medicatio n anaphylax is Not available Not available 12/22/20232019 2670 RxNorm React ion: Anaph ylaxi s; Not Available Not Available Not Available 2189445 honey bee venom environme nt anaphylax is Not available Not available 12/22/20232019 15064 7 RxNorm React ion: Anaph ylaxi s; Comme nt: Bee sting ; Not Available Not Available Not Available Medications Name Sig Start Date Stop Date Status Note LastModified by Organization Details LastModified Time amoxicillin 875 mg tablet TAKE 1 TABLET BY MOUTH EVERY 12 HOURS active Not Available Not Available No t Available aspirin 325 mg tablet,delaye d release TAKE 1 TABLET BY MOUTH DAILY active Not Available Not Available No t Available hydrocodone 7.5 mg-acetaminop hen 325 mg tablet TAKE 1 TO 2 TABLETS BY MOUTH EVERY 6 HOURS NEEDED FOR PAIN active Not Available Not Available No t Available cephalexin 500 mg capsule TAKE 1 CAPSULE BY MOUTH EVERY 8 HOURS FOR 14 DAYS active Not Available Not Available No t Available ipratropium bromide 42 mcg (0.06 %) nasal spray USE 2 SPRAYS IN EACH NOSTRIL THREE TIMES DAILY active Not Available Not Available No t Available Vitals None Recorded Social History Question Answer Notes LastModified by Organizat ion Details LastModified Time Do You Have An Advance Directive? Yes [email or web address] Information not available 05/11/2024 What Is Your Level Of Alcohol Consumption? Occasional [email or web address] Information not available 05/11/2024 How Many Times Per Week Do You Consume Alcohol? Less Than 1 Time Per Week [email or web address] Information not available 05/11/2024 What Is Your Level Of Caffeine Consumption? None [email or web address] Information not available 05/11/2024 What Is Your Code Status? Other [email or web address] Information not available 05/11/2024 Are You Currently Employed? 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 3-4 Times Per Week [email or web address] Information not available 05/11/2024 When Did You Quit Smoking? 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 Yes [email or web address] Information not available 05/11/2024 What Was The Date Of Your Most Recent Tobacco Screening? 05/18/2024 [email or web address] Information not available 05/11/2024 What Is Your Relationship Status? [email or web address] Information not available 05/11/2024 Do You Use Any Illicit Or Recreational Drugs? No [email or web address] Information not available 05/11/2024 Sex: Unknown Functional Status Question Answer Note LastModified by Organization D etails LastModified Time What is your exercise level? Moderate [email or web address] Information not available 05/11/2024 Mental Status None recorded. Family History Relationship Description Onset Age of this Age Resolved Age Notes LastModified by Organization Details LastModified Time Father No current problems or disability [email or web address] Not available 04/03 19:44:27 Mother No current problems or disability [email or web address] Not available 04/03 19:44:27 Unspecified Relation Family history unknown [email or web address] Not available 2023 11:34:51 Medical History Condition Response High Blood Pressure N COPD N Depression N Anxiety Disorder N Arthritis Y Cancer N Stroke N Fibromyalgia N Kidney Disease N Attention-deficit Hyperactivity Disorder N Thyroid Problems N Anemia N Diabetes N Bleeding Disorder N Hyperlipidemia N Asthma N Seizures N Heart Disease N Osteoporosis Y Past Encounters Encounter ID Performer Location Encounter Start Date Encounter Closed Date Diagnosis/Indication Diagnosis SNOMED-CT Code Diagnosis ICD10 Code Diagnosis Note [id number] Carl Rowland DPM [address] [facility] ([place]) [address], [place] [address] 04/10/2024 11:04:05 04/10/2024 15:52:10 Diabetic foot 013728299 E11.59 Acquired v algus deformity of left ankle 4818666619 69972 M21.421 [id number] Michael Wood MD [address] [facility] [place] [address] [place] [address] 05/18/2024 09:23:24 05/18/2024 10:35:28 Arthritis of right ankle 8126035273 641756 M13.871 Tibialis p osterior tendinitis 703333389 M76.821 Acquired e quinus deformity of foot 28202114 M21.6X1 [id number] Melissa [facility] ([place]) [address], [place] [address] 07/11/2024 12:20:11 07/11/2024 12:26:19 Arthritis of right ankle 0081634850 811082 M13.757 [id number] Butch Otto PA-C [address] [facility] [place] [address] [place] [address] 07/20/2024 10:03:09 07/20/2024 18:43:32 Arthritis of right ankle 3271495843 061789 M13.871 Delayed he aling of surgical wound 869424167 T81.89XS [id number] Butch Otto PA-C [address] [facility] ([place]) [address], [place] [address] 07/27/2024 10:20:42 07/27/2024 18:46:40 Arthritis of right ankle 3282085066 217499 M13.871 Delayed he aling of surgical wound 882290644 T81.89XA Additional diagnosis detail: Delayed surgical wound healing, initial encounter Postoperative visit 1836 [address] Z48.89 History of arthrodesis 127833562 Z98.1 Additional diagnosis detail: Arthrodesi s status [id number] Michael Wood MD [address] [facility] ([place]) [address] [place] [address], [place] [address] 08/17/2024 09:38:42 08/17/2024 10:48:16 Arthritis of right ankle 0521334460 488296 M13.871 History of arthrodesis 260378251 Z98.1 Additional diagnosis detail: Arthrodesi s status [id number] [facility] [address] [place] [address] ([place]) [address] [place] [address], [place] [address] 09/05/2024 10:46:56 09/05/2024 11:34:48 Arthritis of right ankle 8009197592 883784 M13.871 [id number] [facility] [address] [place] [address] ([place]) [address] [place] [address], [place] [address] 09/11/2024 11:23:11 09/11/2024 12:16:05 Arthritis of right ankle 2927960884 847273 M13.871 [id number] [facility] [address] [place] [address] ([place]) [address] [place] [address], [place] [address] 09/20/2024 11:28:25 09/20/2024 13:32:17 Arthritis of right ankle 7148513462 556649 M13.871 [id number] [facility] [address] [place] [address] ([place]) [address] [place] [address], [place] [address] 09/26/2024 10:54:23 09/26/2024 11:46:42 Arthritis of right ankle 8496914505 949677 M13.871 [id number] [facility] [address] [place] [address] ([place]) [address] [place] [address], [place] [address] 09/28/2024 09:21:16 09/28/2024 10:06:30 Arthritis of right ankle 1181027547 850613 M13.871 [id number] Michael Wood MD [address] [facility] ([place]) [address] [place] [address], [place] [address] 09/28/2024 10:23:29 09/28/2024 11:36:09 History of arthrodesis 574827589 Z98.1 Additional diagnosis detail: Arthrodesi s status [id number] Treva Barclay [facility] [address] [place] [address] ([place]) [address] [place] [address], [place] [address] 10/02/2024 10:56:22 10/02/2024 11:44:09 Arthritis of right ankle 3019699548 517070 M13.871 [id number] Tre[facility] [address] [place] [address] ([place]) [address] [place] [address] 10/11/2024 10:45:25 10/11/2024 11:32:58 Arthritis of right ankle 4579480526 852204 M13.871 [id number] Michael Wood MD [address] [facility] ([place]) [address] [place] [address], [place] [address] 11/13/2024 15:46:07 11/13/2024 18:30:29 [id number] Carl Rowland DPM [address] [facility] ([place]) [address] [place] [address], [place] [address] 11/21/2024 10:56:34 11/21/2024 11:22:17 Pain of right ankle joint 8823995828 2371073 M25.571 Z98.890 Swelling o f lower limb 240263123 M79.89 [id number] Michael Wood MD [address] [facility] ([place]) [address] [place] [address], [place] [address] 12/28/2024 11:07:56 12/28/2024 12:07:05 Ankle pain 934934680 M25.571 M25.572 History of arthrodesis 867795691 Z98.1 Additional diagnosis detail: Arthrodesi s status Health Concerns Section Related Observation LastModified by Organization Detai ls LastModified Time None Recorded Concern Status LastModified by Organization Details LastModified Time None Recorded Advance Directives Directive Y: Payers Encounter Date Sequence Insurance Name Policy Number Policy Goodman Covered Member ID Goodman Member ID Guarantor Name 10/02/2024 [facility] Jimi Wood [id number] [place]i [place] 10/02/2024 2 [facility] (MEDICARE REPLACEMENT/A DVANTAGE - PPO) Jimi Villalobos [id number] [facility] 10/11/2024 [facility] Villalobos [id number] [facility] 11/13/2024 [place] Jimi Clark Wilfredo [id number] [facility] 11/13/2024 2 [facility] (MEDICARE REPLACEMENT/A DVANTAGE - PPO) Jimi Villalobos [id number] [place]i [place] 11/21/2024 [facility] Jimi Villalobos [id number] [facility] 12/28/2024 [place] Jimi Villalobos [id number] [facility] 12/28/2024 2 [facility] (MEDICARE REPLACEMENT/A DVANTAGE - PPO) Jimi Villalobos [id number] [facility] Notes Date Note Type Note Provider Name and Address Organization Details Recorded Time 10/02/2024 text/html Patient reports the doctor told him he can drive and that he doesn't really need to return to therapy unless he wants to. States he has not been cleared to return to work yet. Treva Barclay DPT [address] [place] [address], [address], [facility] 10/02/2024 11:40:51 10/11/2024 text/html Patient reports his foot has been feeling fine. He walked almost 5000 steps yesterday. States he is going to put up his [place] lights today, but he doesn't climb ladders or anything. States he will be going back to work on November 22. Treva Barclay DPT [address] [place] [address], [address], [facility] 10/11/2024 11:23:16 11/21/2024 text/html Jimi Valencia a 74 year oldmalecomplains of chronic swelling of his right leg he had ankle reconstruction with Dr. Wood and was told that he would have swelling but now it seems to getting worse more in the leg and the foot he has had water pills but has not had a compression stocking Right leg shows 3+ pitting edema compared to 1+ pitting edema of the left leg Impression swelling right leg Plan I discussed in detail nature problem with him we will get him over the phone no pharmacy to black pickler 2 pairs of Jobst relief medium compression stockings follow-up as needed aCrl Rowland DPM [address] [place] [address], [address], [facility] 11/21/2024 11:22:09 12/28/2024 text/html Jimi Valencia a 74 year oldmalepresenting for care. Michael Wood MD [address] [place] [address], [address], [facility] 01/01/2025 10:11:02
--- OUTSIDE RECORDS SUMMARY | 2025-03-05 18:24 | XMS_ITS | Encounter Summary ---
Author Name [facility] [place] [facility] [place] Address [address] [place] [address] Care Team Providers Care Pulley Maintainer Name Role Phone DEJUAN PEARL Primary Care [...] F PLAN F Nov 22, 2018 MEDIGAP [id number] [phone] BLANCA TOTH RT PATIENT AARP MED SUPP MEDIGAP PLAN F PLAN F Nov 22, 2018 PLAN F [id number] BLANCA TOTH RT PATIENT AARP MED SUPP MEDIGAP PLAN F MEDIC ARE SUPPL EMENT Aug 22, 2015 PLAN F [id number] BLANCA TOTH RT PATIENT AARP MED SUPP MEDIGAP PLAN F PLAN F Aug 22, 2015 PLAN F [id number] [phone] BLANCA TOTH RT PATIENT AARP MED SUPP MEDICARE SUPPLEMEN THIERNO MEDIC ARE SUPPL EMENT Aug 22, 2015 PLAN F [id number] BLANCA TOTH RT PATIENT AARP MED SUPP MEDIGAP PLAN F MEDIC ARE SUPPL EMENT Aug 22, 2015 PLAN F [id number] [phone] BLANCA TOTH RT PATIENT AARP MED SUPP MEDIGAP PLAN F MEDIC ARE SUPPL EMENT Aug 22, 2015 PLAN F [id number] [phone] BLANCA TOTH RT PATIENT MEDICARE (WNR) MEDICARE (M) PART B Apr 22, 2014 PART B [id number] [phone] BLANCA TOTH RT PATIENT MEDICARE (WNR) MEDICARE (M) PART A Apr 22, 2014 PART A [id number] BLANCA TOTH RT PATIENT MEDICARE (WNR) MEDICARE (M) PART B Apr 22, 2014 PART B [id number] BLANCA TOTH RT PATIENT MEDICARE (WNR) MEDICARE (M) PART A Apr 22, 2014 PART A [id number] [phone] BLANCA TOTH RT PATIENT MEDICARE (WNR) MEDICARE (M) PART B Apr 22, 2014 PART B [id number] BLANCA TOTH RT PATIENT MEDICARE (WNR) MEDICARE (M) PART A Apr 22, 2014 PART A [id number] BLANCA TOTH RT PATIENT MEDICARE (WNR) MEDICARE (M) PART B Apr 22, 2014 PART B [id number] BLANCA TOTH RT PATIENT MEDICARE (WNR) MEDICARE (M) PART A Apr 22, 2014 PART A [id number] BLANCA TOTH RT PATIENT MEDICARE (WNR) MEDICARE (M) PART A Apr 22, 2014 PART A [id number] BLANCA TOTH RT PATIENT MEDICARE (WNR) MEDICARE (M) PART B Apr 22, 2014 PART B [id number] BLANCA TOTH RT PATIENT MEDICARE (WNR) MEDICARE (M) PART A Apr 22, 2014 PART A [id number] [phone] BLANCA TOTH RT PATIENT MEDICARE (WNR) MEDICARE (M) PART B Apr 22, 2014 PART B [id number] [phone] BLANCA TOTH RT PATIENT MEDICARE (WNR) MEDICARE (M) PART B Apr 22, 2014 PART B [id number] BLANCA TOTH RT PATIENT MEDICARE (WNR) MEDICARE (M) PART A Apr 22, 2014 PART A [id number] [phone] BLANCA TOTH RT PATIENT MEDICARE (WNR) MEDICARE (M) PART B Apr 22, 2014 PART B [id number] [phone] BLANCA TOTH RT PATIENT MEDICARE (WNR) MEDICARE (M) PART A Apr 22, 2014 PART A [id number] [phone] BLANCA TOTH PATIENT Selected Encounter This section includes the information on record at [place] for the Encounter. Date/Time Encounter Type Encounter Description Reason Pro vider Source April 10, 2024 10:45 AM Outpatient Encounter COMMUNITY CARE CONSULT IHE Encounter Template Text not used by [facility] Plan of Treatment: Future Appointments (+ 6 months) and Future Tests (+/- 45 days) The Plan of Treatment section includes future care activities for the patient from all [place] treatmentfacilities. This section includes future appointments and future orders which are active, pending or scheduled. Future Appointments This section includes appointments that were scheduled to occur 6 months from the date of the Encounter, up to a maximum of 20 appointments. The data comes from all [place] treatment facilities. Appointment Date/Time Appointment Type Appointme nt Facility Name April 20, 2024 01:00 PM AMBULATORY - NONE [facility] May 18, 2024 09:00 AM AM[facility]ULATORY - NONE [facility] May 31, 2024 09:00 AM AMBULATORY - NONE [facility] Jun 28, 2024 10:30 AM AMBULATORY - NONE [facility] Jul 20, 2024 12:00 PM AMBULATORY - NONE [facility] Sep 18, 2024 09:45 AM AMBULATORY - MEDICINE [facility] Sep 18, 2024 10:30 AM AMBULATORY - SURGERY [facility] Advance Directives: All historical and current Section Date Range: From patient's date of to the date document was created. This section includes ALL of a patient's completed or amended VA Advance and Rescinded Directives. The entries below indicate that a directive exists for the patient, but an actual copy is not included with this document. The data comes from all [place] facilities. Date Advance Directives Provider Source Mar 16, 2024 ADVANCE DIRECTIVE DISCUSSION [facility] LEPE [facility] Feb 09, 2024 ADVANCE DIRECTIVE LEXY WHALEY H Nov 03, 2023 RESCINDED ADVANCE DIRECTIVE LUPE LEPE [facility] Sep 20, 2023 RESCINDED ADVANCE DIRECTIVE LENNIE VALENTIN RA [facility] Aug 26, 2021 ADVANCE DIRECTIVE DISCUSSION COLT PEARL [facility] Encounter Notes: All associated encounter notes This section contains the clinical notes associated to the Encounter. Date/Time Encounter Note(s) Provider Source Mar 16, 2024 11:25 AM NONVA NOTE: LOCAL TITLE: COMMUNITY CARE-PATIENT LETTER (AUTO-PRINT) STANDARD TITLE: NONVA NOTE DATE OF NOTE: MAR 16, 2024@11:25 ENTRY DATE: MAR 16, 2024@11:25:21 AUTHOR: GALE MORTON COSIGNER: URGENCY: STATUS: COMPLETED Dear: OLEG TOTH DO NOT REPORT TO A [place] LOCATION OF CARE You have an appointment with a [facility] provider. Your appointment details are: Appointment date & time: March@10:45 [facility] Provider or Facility: [facility] Provider Location: [address] [address] Community Provider Type of Specialty: Podiatry Referral number: [id number] Referral valid: Feb to Jun You can find your authorization information online at [email or web address] If you have a co-pay for your care or prescriptions, [place] will send you a bill in the mail. Do not pay co-pays to [facility] providers. If you get a bill or are asked for a co-pay, contact [facility] at [phone]. In case of emergency call 911 or go to the nearest emergency department. You or your emergency care provider can contact [place] to report emergency treatment. You have 72 hours to report emergency care to VA. Call [phone] (TTY:711) or visit [email or web address]/ If you have an immediate need for prescription medication after your community care visit, you may be eligible for up to a 14-day supply, filled at a participating [facility] ([facility]) pharmacy. You can find an in-network pharmacy online at: [email or web address].gov/find-locations/ For immediate prescription, provide an eligible pharmacy the following information: BIN: [id number] PCN: [id number] Group: [id number] The prescribed medications must be related to the services authorized on the referral and must be included in the [place] National Formulary. If you do not need medication immediately and for medication supply greater than 14-days, ask the community provider to send your prescription to the pharmacy at [facility] and [place] will mail it to you. To reach the [facility] pharmacy call and press 1. If you [...] the Beneficiary Travel Self Service System (BTSSS)at access.[place].gov - For assistance with your travel pay, you may contact [employer] at [phone]. GALE MORTON [facility]
--- OUTSIDE RECORDS SUMMARY | 2025-03-05 18:24 | XMS_ITS | Encounter Summary ---
Author Name [facility] [place] [facility] [place] Address [address] [place] [address] Care Team Providers Care Aircraft Worker Name Role Phone DEJUAN PEARL Primary Care [...] F PLAN F Nov 22, 2018 MEDIGAP [id number] [phone] BLANCA TOTH RT PATIENT AARP MED SUPP MEDIGAP PLAN F PLAN F Nov 22, 2018 PLAN F [id number] BLANCA TOTH RT PATIENT AARP MED SUPP MEDIGAP PLAN F MEDIC ARE SUPPL EMENT Aug 22, 2015 PLAN F [id number] BLANCA TOTH RT PATIENT AARP MED SUPP MEDIGAP PLAN F PLAN F Aug 22, 2015 PLAN F [id number] [phone] BLANCA TOTH RT PATIENT AARP MED SUPP MEDICARE SUPPLEMEN THIERNO MEDIC ARE SUPPL EMENT Aug 22, 2015 PLAN F [id number] BLANCA TOTH RT PATIENT AARP MED SUPP MEDIGAP PLAN F MEDIC ARE SUPPL EMENT Aug 22, 2015 PLAN F [id number] [phone] BLANCA TOTH RT PATIENT AARP MED SUPP MEDIGAP PLAN F MEDIC ARE SUPPL EMENT Aug 22, 2015 PLAN F [id number] [phone] BLANCA TOTH RT PATIENT MEDICARE (WNR) MEDICARE () PART B Apr 22, 2014 PART B [id number] NAVNEETALBE RT PATIENT MEDICARE (WNR) MEDICARE (M) PART A Apr 22, 2014 PART A [id number] WOODALBE RT PATIENT MEDICARE (WNR) MEDICARE (M) PART B Apr 22, 2014 PART B [id number] GERBER TOTHE RT PATIENT MEDICARE (WNR) MEDICARE () PART A Apr 22, 2014 PART A [id number] [phone] GERBER TOTHE RT PATIENT MEDICARE (WNR) MEDICARE () PART B Apr 22, 2014 PART B [id number] [phone] GERBER TOTHE RT PATIENT MEDICARE (WNR) MEDICARE () PART A Apr 22, 2014 PART A [id number] BLANCA TOTH RT PATIENT MEDICARE (WNR) MEDICARE () PART B Apr 22, 2014 PART B [id number] BLANCA TOTH RT PATIENT MEDICARE (WNR) MEDICARE () PART A Apr 22, 2014 PART A [id number] GERBER TOTHE RT PATIENT MEDICARE (WNR) MEDICARE (M) PART A Apr 22, 2014 PART A [id number] NAVNEETALBE RT PATIENT MEDICARE (WNR) MEDICARE (M) PART B Apr 22, 2014 PART B [id number] WOODGERBERE RT PATIENT MEDICARE (WNR) MEDICARE (M) PART A Apr 22, 2014 PART A [id number] [phone] WOODALBE RT PATIENT MEDICARE (WNR) MEDICARE (M) PART B Apr 22, 2014 PART B [id number] [phone] WOODALBE RT PATIENT MEDICARE (WNR) MEDICARE (M) PART B Apr 22, 2014 PART B [id number] BLANCA TOTH RT PATIENT MEDICARE (WNR) MEDICARE (M) PART A Apr 22, 2014 PART A [id number] [phone] BLANCA TOTH RT PATIENT MEDICARE (WNR) MEDICARE (M) PART B Apr 22, 2014 PART B [id number] [phone] BLANCA TOTH RT PATIENT MEDICARE (WNR) MEDICARE (M) PART A Apr 22, 2014 PART A [id number] BLANCA TOTH RT PATIENT Selected Encounter This section includes the information on record at [place] for the Encounter. Date/Time Encounter Type Encounter Description Reason Provider Source Feb 01, 2025 10:05 AM SELF CARE MNGMENT TRAINING PHYSICAL THERAPY ICD-10-CM R60.0 Localized edema MARC BLANDON Adolfo Encounter Template Text not used by [place] Assessments - Encounter Diagnoses This section includes the primary and secondary diagnoses documented for the Encounter. Date/Time Primary/Secondary Diagnosis Diagnosis Name Provider Source Feb 08, 2025 11:20 AM PRIMARY Localized edema MARC BLANDON [facility] Plan of Treatment: Future Appointments (+ 6 months) and Future Tests (+/- 45 days) The Plan of Treatment section includes future care activities for the patient from all [place] treatmentfacilities. This section includes future appointments and future orders which are active, pending or scheduled. Future Appointments This section includes appointments that were scheduled to occur 6 months from the date of the Encounter, up to a maximum of 20 appointments. The data comes from all [place] treatment facilities. Appointment Date/Time Appointment Type Appointme nt Facility Name Feb 12, 2025 09:00 AM AMBULATORY - MEDICINE [facility] Feb 12, 2025 09:38 AM AMBULATORY - NONE [facility] Feb 13, 2025 11:00 AM AMBULATORY - NONE [facility] Mar 13, 2025 10:00 AM AMBULATORY - NONE [facility] April 02, 2025 10:30 AM AMBULATORY - SURGERY [facility] April 05, 2025 10:40 AM AMBULATORY - NONE [facility] April 17, 2025 08:00 AM AMBULATORY - NONE [facility] Active, Pending, and Scheduled Orders This section includes a listing of several types of active, pending, and scheduled orders, including clinic medications orders, diagnostic test orders, procedure orders and consult orders; where the start date of the order is 45 days before the date of the Encounter or 45 days after the date of theEncounter. The data comes from all [place] treatment facilities. Test Date/Time Test Type Test Details Facility Name Feb 07, 2025 06:49 AM Consult Order [facility] Cons Box Toe Maker's Choice [facility] Lab Results: +/- 30 days of the encounter This section includes the Chemistry and Hematology Lab Results on record with [place] for the patient. Radiology Reports and Pathology Reports are provided separately, in subsequent sections. Lab Results This section contains the Chemistry/Hematology Results that were resulted 30 days before or 30 daysafter the date of the Encounter. Date/Time Source Result Type Result - Unit Interpretation Reference Range Specimen Type Comment Feb 26, 2025 11:31 AM [facility] OCCULT BLOOD FIT X1 SCREEN (550) FECES Specim en Type: FECES No comment entered. Ordering Provider: JOSÉ LUIS ORTIZ Report Released Date/Time: Feb 12, 2025 09:13 AM Reporting Lab: [facility] [address] [facility] [id number] Performing Lab: [facility] [address] [facility] [id number] OCCULT BLOOD (FIT) #1 OF 1 Negative Nega tive Advance Directives: All historical and current Section Date Range: From patient's date of to the date document was created. This section includes ALL of a patient's completed or amended [place] Advance and Rescinded Directives. The entries below indicate that a directive exists for the patient, but an actual copy is not included with this document. The data comes from all [place] facilities. Date Advance Directives Provider Source Mar 16, 2024 ADVANCE DIRECTIVE DISCUSSION LUPE LEPE [facility] Feb 09, 2024 ADVANCE DIRECTIVE LEXY WHALEY [facility] Nov 03, 2023 RESCINDED ADVANCE DIRECTIVE LUPE LEPE [facility] Sep 20, 2023 RESCINDED ADVANCE DIRECTIVE LENNIE VALENTIN RA [facility] Aug 26, 2021 ADVANCE DIRECTIVE DISCUSSION COLT PEARL [facility] Radiology Reports: +/- 30 days of the [...] the Encounter. The data comes from all [place] treatment facilities. 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 FINDINGS: Moderate medial tibiofemoral compartment joint space narrowing with [id number] tricompartmental osteophyte production most pronounced at the patellofemoral articulation. Chondrocalcinosis. Patella alfred with small to moderate knee joint effusion/synovitis. 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 READING PHYSICIAN: Dima Lucas MD -[id number] 02/14/2025 5:55 PDT [facility] National Teleradiology Program [phone] (For Medical Practitioner Use Only) Attention Patients / Veterans: If you have questions or concerns about these test results, please contact your ordering provider or primary care team. Primary Diagnostic Code: NO ALERT REQUIRED Primary Interpreting Staff: OUTSIDE SERVICE RADIOLOGY, Staff Physician / RADIOLOGY,OUTSIDE SERVICE [facility] Encounter Notes: All associated encounter notes This section contains the clinical notes associated to the Encounter. Date/Time Encounter Note(s) Provider Source Feb 01, 2025 10:03 AM PHYSICAL MEDICINE REHAB CONSULT: LOCAL TITLE: CONSULT/HARRIETT/GENERAL NOTE STANDARD TITLE: PHYSICAL MEDICINE REHAB CONSULT DATE OF NOTE: FEB 01, 2025@10:03 ENTRY DATE: FEB 01, 2025@10:03:18 AUTHOR: MARC BLANDON EXP COSIGNER: URGENCY: STATUS: COMPLETED VISIT #: 01 REFERRING PROVIDER: Dru Edema/Venous Insufficiency (I87.2) 15-20 mmHg Knee high S: Needs stockings for LE's. CHF: No O: Size 18.75, 12 Would like Black Closed toe Oriented to christel. Will order Oriented to stocking use. A: Verbalized understanding. P: Will order stockings and christel 15 min self management education /es/ Marc Blandon, PT. Cert MDT. Cert DN. [facility] Physical Therapist Signed: 02/01/2025 10:15 MARC BLANDON [facility]
--- OUTSIDE RECORDS SUMMARY | 2025-03-05 18:25 | XMS_ITS | Patient Health Record ---
Author Organization [facility] Address [address] [place], [place] [id number] Care Team Providers Care Patient Care Name Role Phone JOJO WATSON Unavailable [phone] Jason Alarcon Jr Unavailable Unavailable Allergies Allergen (clinical drug ingredient) Drug/Non Drug Allergy documented on EMR Reaction Allergy Type Onset Date Status bee pollen Bee Pollens (uncoded) Unknown Allergy 015 active Bee Sting/Venom (uncoded) Unknown Allergy 05/23/2015 active codeine Codeine Unknown Drug Allergy 05/23/2015 active Reason For Referral No Information Medications Medication SIG (Take, Route, Frequency, Duration) Notes Start Date End Date Status hydrocortisone 10 MG/ML / neomycin 3.5 MG/ML / polymyxin B 81602 UNT/ML Otic Solution hydrocortisone 10 MG/ML / neomycin 3.5 MG/ML / polymyxin B 55234 UNT/ML Otic SolutionOriginal Medicationhydrocortisone 10 MG/ML / neomycin 3.5 MG/ML / polymyxin B 16451 UNT/ML Otic Solution *Reorder from [facility] 8 Active Encounters Encounter Location Date Provider Diagnosis [facility] [address] [place], [place] [id number] 03/20/2024 JOJO SNOOK Pain in right ankle [...] devices and bracing. Continue Addis ankle braces 03/20/2024 Pain in right foot (ICD-10 - M79.671) Plan Of Treatment No Information Insurance Providers Payer Name Payer Address Payer Phone Subscriber Number Group Number Insured Name Patient Relationship to Insured Coverage Start Date Coverage End Date Medicare Part B [facility] [address] [place] [address] [id number] OLEG TOTH Self - patient is the insured [facility] [address] [address] [place], [place] [id number] [phone] [id number] OLEG TOTH Self - patient is the insured
--- OUTSIDE RECORDS SUMMARY | 2025-03-05 18:25 | XMS_ITS | Clinical Summary ---
Author Organization [facility] Address [address] [place] [address] Care Team Providers Care Senior Bioinformatics Specialist Name Role Phone Romero Obando MD Primary Care Provider Allergies Active Allergy Reactions Criticality Noted Date Comments Codeine Other (See comments) High 06/27/2020 Reportedly unable to be aroused seven hours after taking codeine in 1976 Venom-Honey Bee Shortness of breath,Flushing (skin) High 01/23/2016 Has required epinephrine four to five times Medications atorvastatin (LIPITOR) 40 mg tablet TAKE ONE-HALF TABLET BY MOUTH AT BEDTIME CALL YOUR PROVIDER IF YOU HAVE MUSCLE PAIN, TENDERNESS OR WEAKNESS (REPLACES ROSUVASTATIN) Active celecoxib (CeleBREX) 200 mg capsule TAKE ONE CAPSULE BY MOUTH TWICE A DAY FOR PAIN Active cyanocobalamin, vitamin B-12, 5,000 mcg tablet, IR & ER, biphasic TAKE ONE-HALF TABLET BY MOUTH EVERY DAY Active DULoxetine DR (CYMBALTA) 20 mg capsule TAKE 1 CAPSULE BY MOUTH TWICE A DAY MOOD/PAIN Active omeprazole (PriLOSEC) 20 mg capsule TAKE ONE CAPSULE BY MOUTH EVERY MORNING 30 MINUTES BEFORE BREAKFAST FOR STOMACH ACID Active Active Problems Problem Noted Date Diagnosed Date Ulnar neuropathy at elbow, right 06/25/2020 Spinal stenosis of cervical region 01/23/2016 Pain of upper extremity 01/23/2016 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 gion 01/23/2016 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 Cervical spondylosis without myelopathy 01/23/20 16 Vitamin B12 deficiency without anemia 07/18/2015 Overview (02/26/2017): Vitamin B12 deficiency (non anemic) Skin sensation disturbance 08/08/2013 Overview (02/25/2017): SKIN SENSATION DISTURB Surgical History Surgery Date Site/Laterality Comments EPIDURAL INJECTION LUMBOSACRAL 04/22/2016 N/A EPIDURAL INJECTION LUMBOSACRAL 02/28/2016 N/A KNEE SURGERY 11/22/1998 - 11/21/1999 Bilateral Medical History Medical History Date Comments Hyperlipidemia Hyperlipidemia Hypertension Hypertension Social History Tobacco Use Types Packs/Day Years Used Date Smoking Tobacco: Former Smokeless Tobacco: Never Alcohol Use Standard Drinks/Week Comments Yes 0 (1 standard drink = 0.6 oz pur e alcohol) Sex and Gender Information Value Date Recorded Sex Assigned at Not on file 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 Gender Identity Not on file Sexual Orientation Not on file Obstetrics History Last Filed Vital Signs Vital Sign Reading Time Taken Comments Blood Pressure 128/75 05/15/2021 12:59 PM CDT Pulse 68 05/15/2021 12:59 PM CDT Temperature 36.4 C (97.5 F) 05/15/2021 12:59 PM CDT Respiratory Rate - - Oxygen Saturation 97% 05/15/2021 12:59 PM CDT Inhaled Oxygen Concentration - - Weight 117 kg (258 lb) 05/15/2021 12:59 PM CDT Height 165.1 cm (5' 5 ) 05/15/2021 12:59 PM CDT Body Mass Index 42.93 05/15/2021 12:59 PM CDT Plan of Treatment Not on file Insurance MEDICARE [facility] MEDICARE Member Subscriber Plan / Payer (Ef fective 2021-Present) Name:Jimi Villalobos W Member ID:[id number] Relation to Subscriber:Self Name:Jimi Villalobos Subscriber ID:[id number] Payer ID:[id number] Group ID:Not on file Type:MEDICARE TRADITIONAL Address: [address] [address] [facility] MEDICARE Care Teams Senior Bioinformatics Specialist Relationship Specialty Start Date End Date Romero Obando MD PCP - General Family Medicine 07/12/20
--- OUTSIDE RECORDS SUMMARY | 2025-03-05 18:25 | XMS_ITS | Referral Summary ---
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
--- OUTSIDE RECORDS SUMMARY | 2025-03-05 18:25 | XMS_ITS | Encounter Summary ---
Author Name [facility] [place] [facility] [place] [facility] [facility] [place] Address [address] [place] [address] Care Team Providers Care Floor Worker [place] Name Role Phone DEJUAN PEARL Primary Care [...] F PLAN F Nov 22, 2018 MEDIGAP [id number] [phone] BLANCA TOTH RT PATIENT AARP MED SUPP MEDIGAP PLAN F PLAN F Nov 22, 2018 PLAN F [id number] [phone] BLANCA TOTH RT PATIENT AARP MED SUPP MEDIGAP PLAN F MEDIC ARE SUPPL EMENT Aug 22, 2015 PLAN F [id number] [phone] BLANCA TOTH RT PATIENT AARP MED SUPP MEDIGAP PLAN F MEDIC ARE SUPPL EMENT Aug 22, 2015 PLAN F [id number] [phone] BLANCA TOTH RT PATIENT AARP MED SUPP MEDICARE SUPPLEMEN THIERNO MEDIC ARE SUPPL EMENT Aug 22, 2015 PLAN F [id number] BLANCA TOTH RT PATIENT AARP MED SUPP MEDIGAP PLAN F PLAN F Aug 22, 2015 PLAN F [id number] [phone] BLANCA TOTH RT PATIENT AARP MED SUPP MEDIGAP PLAN F MEDIC ARE SUPPL EMENT Aug 22, 2015 PLAN F [id number] [phone] BLANCA TOTH RT PATIENT MEDICARE (WNR) MEDICARE () PART A Apr 22, 2014 PART A [id number] WOODGERBERE RT PATIENT MEDICARE (WNR) MEDICARE () PART B Apr 22, 2014 PART B [id number] WOODGERBERE RT PATIENT MEDICARE (WNR) MEDICARE () PART A Apr 22, 2014 PART A [id number] [phone] GERBER TOTHE RT PATIENT MEDICARE (WNR) MEDICARE () PART B Apr 22, 2014 PART B [id number] BLANCA TOTH RT PATIENT MEDICARE (WNR) MEDICARE () PART A Apr 22, 2014 PART A [id number] BLANCA TOTH RT PATIENT MEDICARE (WNR) MEDICARE () PART B Apr 22, 2014 PART B [id number] BLANCA TOTH RT PATIENT MEDICARE (WNR) MEDICARE () PART A Apr 22, 2014 PART A [id number] BLANCA TOTH RT PATIENT MEDICARE (WNR) MEDICARE () PART B Apr 22, 2014 PART B [id number] WOODBLANCA RT PATIENT MEDICARE (WNR) MEDICARE () PART A Apr 22, 2014 PART A [id number] WOODGERBERE RT PATIENT MEDICARE (WNR) MEDICARE () PART B Apr 22, 2014 PART B [id number] WOODGERBERE RT PATIENT MEDICARE (WNR) MEDICARE () PART A Apr 22, 2014 PART A [id number] WOODALBE RT PATIENT MEDICARE (WNR) MEDICARE () PART B Apr 22, 2014 PART B [id number] [phone] WOODALBE RT PATIENT MEDICARE (WNR) MEDICARE (M) PART A Apr 22, 2014 PART A [id number] BLANCA TOTH RT PATIENT MEDICARE (WNR) MEDICARE (M) PART B Apr 22, 2014 PART B [id number] BLANCA TOTH RT PATIENT MEDICARE (WNR) MEDICARE (M) PART A Apr 22, 2014 PART A [id number] BLANCA TOTH RT PATIENT MEDICARE (WNR) MEDICARE (M) PART B Apr 22, 2014 PART B [id number] BLANCA TOTH PATIENT Selected Encounter This section includes the information on record at [place] for the Encounter. Date/Time Encounter Type Encounter Description Reason Provider Source Sep 18, 2024 10:30 AM OFFICE O/P EST LOW 20 MIN PODIATRY ICD-10-CM B35.1 Tinea unguium MARC GONSALES Adolfo Encounter Template Text not used by [place] Assessments - Encounter Diagnoses This section includes the primary and secondary diagnoses documented for the Encounter. Date/Time Primary/Secondary Diagnosis Diagnosis Name Provider Source Sep 29, 2024 09:38 AM PRIMARY Tinea unguium AMANDA TALLEY [facility] Sep 29, 2024 09:38 AM SECONDARY Other abnormalities of gait and mobility AMANDA TALLEY [facility] Sep 29, 2024 09:38 AM SECONDARY Type 2 diabetes mellitus with diabetic neuropathy, unsp ROSALIOAMANDA [facility] Plan of Treatment: Future Appointments (+ [...] Date/Time Appointment Type Appointme nt Facility Name Oct 18, 2024 11:30 AM AMBULATORY - NONE [facility] Nov 01, 2024 08:30 AM AM[facility]ATORY - NONE [facility] Nov 21, 2024 10:00 [facility] Dec 29, 2024 11:30 AM [facility] - SURGERY [facility] Jan 23, 2025 08:00 AM AM[facility]ULATORY - NONE [facility] Feb 01, 2025 10:00 AM AMBULATORY - SURGERY [facility] Feb 01, 2025 10:05 AM AMBULATORY - NONE [facility] Feb 12, 2025 09:00 AM AMBULATORY - MEDICINE [facility] Feb 12, 2025 09:38 AM AMBULATORY - NONE [facility] Feb 13, 2025 11:00 AM AMBULATORY - NONE [facility] Mar 13, 2025 10:00 AM AMBULATORY - NONE [facility] Lab Results: +/- 30 days of [...] Unit Interpretation Reference Range Specimen Type Comment Sep 18, 2024 09:27 AM [facility] VITAMIN B12 EIA SERUM Specimen Type: SERUM No comment entered. Ordering Provider: PAOLO ORTIZ Report Released Date/Time: Sep 11, 2024 02:38 PM Reporting Lab: [address] [address] Performing Lab: [address] [address] VITAMIN B12 EIA 580 pg/mL [id number] Sep 18, 2024 09:27 AM [facility] LIPID PNL PLASMA Specimen Type: PLASMA Comment: Low-risk levels (desirable) <200 mg/dL Moderate-risk levels (borderline) 200-239 mg/dL High-risk levels: >= 240 mg/dL Normal: <150 mg/dL -Borderline High: 150-199 mg/dL -High: 200-499 mg/dL -Very High: >500 mg/dL eGFR was calculated using the CKD-EPI Creatinine (2020) equation. Optimal: <100 mg/dL -Near Optimal/Above Optimal: 100-129 mg/dL -Borderline High: 130-159 mg/dL -High: 160-189 mg/dL -Very High: >=190 mg/dL Ordering Provider: JOSÉ LUIS ORTIZ Report Released Date/Time: Sep 11, 2024 02:38 PM Reporting Lab: [address] [address] Performing Lab: [facility] [address] [facility] [address] DIR. HDL 40 mg/dL L >=60 TRIGLYCERIDES 124 mg/dL See Comment DIR LDL canc CHOL 128 mg/dL See Comment LDL (CALCULATED) 63 mg/dL See Comment Sep 18, 2024 09:27 AM [facility] COMPREHENSIVE PNL PLASMA Specimen Ty pe: PLASMA Comment: Low-risk levels (desirable) <200 mg/dL Moderate-risk levels (borderline) 200-239 mg/dL High-risk levels: >= 240 mg/dL Normal: <150 mg/dL -Borderline High: 150-199 mg/dL -High: 200-499 mg/dL -Very High: >500 mg/dL eGFR was calculated using the CKD-EPI Creatinine (2020) equation. Optimal: <100 mg/dL -Near Optimal/Above Optimal: 100-129 mg/dL -Borderline High: 130-159 mg/dL -High: 160-189 mg/dL -Very High: >=190 mg/dL Ordering Provider: JOSÉ LUIS ORTIZ Report Released Date/Time: Sep 11, 2024 02:38 PM Reporting Lab: [facility] [address] [facility] [phone] Performing Lab: [address] [address] ANION GAP 8 mmol/L 5-15 EGFR 61 mL/min/{1.73_m2} >= 60 GLUCOSE 99 mg/dL 70-99 POTASSIUM 4.3 mmol/L 3.5-4.7 SODIUM 141 mmol/L 136-145 BILI,TOTAL 0.8 mg/dL 0.2-1.2 PROTEIN, TOTL 7.3 g/dL 5.7-8.2 ALBUMIN 4.5 g/dL 3.4-5.0 ALKAL PHOS 87 U/L 45-117 ALT 20 U/L 10-65 AST 19 U/L 10-37 UREA NITROGEN 18 mg/dL 7-21 CALCIUM, TOTAL 10.3 mg/dL 8.7-10.4 CO2 28 mmol/L 21-32 CHLORIDE 105 mmol/L 98-109 CREATININE 1.24 mg/dL H 0.73-1.18 Social History: Smoking Status (Most current) and Tobacco Use (All prior to encounter date) This section includes the most current, and the historical, smoking and tobacco- related health factors from the [place] facility where the Encounter took place. Current Smoking Status This section includes the most current smoking, or tobacco-related health factor, from the [place] facility where the Encounter took place. Date/Time Current Smoking Status Comment Perri ity April 12, 2023 08:30 AM VA-TOBACCO FORMER USER [facility] Tobacco Use History This section includes a history of the smoking, or tobacco-related health factors, that were collected on or before the date of the Encounter. The data comes from the [place] facility where the Encounter took place. Date/Time Smoking Status/Tobacco Use Comment F acfaisal April 12, 2023 08:30 AM VA-TOBACCO QUIT 15 YRS OR MORE [facility] Sep 20, 2018 01:16 PM VA-TOBACCO FORMER USER [facility] Sep 20, 2018 01:16 PM VA-TOBACCO QUIT 15 YRS OR MORE [facility] Sep 21, 2017 08:29 AM QUIT TOBACCO >7 YEARS AGO quit 20 years ago [facility] Nov 02, 2016 09:14 AM QUIT TOBACCO >7 YEARS AGO [facility] Feb 05, 2015 08:58 AM QUIT TOBACCO >7 YEARS AGO [facility] Aug 08, 2013 07:25 AM QUIT TOBACCO >12 M O & <7 YRS AGO [facility] Jul 12, 2012 08:35 AM QUIT TOBACCO >12 M O & <7 YRS AGO [facility] March 25, 2011 09:59 AM QUIT TOBACCO IN TH E LAST 12 MONTHS [facility] Mar 18, 2010 08:33 AM TOBACCO OFFERRED P T MEDS (PROVIDER) [facility] Mar 18, 2010 08:33 AM TOBACCO OFFERRED S [facility] SMOKING CLINIC [facility] Feb 01, 2009 08:40 AM TOBACCO OFFERRED P T MEDS (PROVIDER) [facility] Feb 01, 2009 08:40 AM TOBACCO OFFERRED S TOP SMOKING CLINIC [facility] Aug 03, 2008 02:23 PM TOBACCO OFFERRED P T MEDS (PROVIDER) [facility] Aug 03, 2008 02:23 PM TOBACCO OFFERRED S [facility] SMOKING CLINIC [facility] Jun 10, 2007 08:46 AM TOBACCO OFFERRED P T MEDS (PROVIDER) [facility] Jun 10, 2007 08:46 AM TOBACCO OFFERRED S [facility] SMOKING CLINIC [facility] Mar 10, 2001 11:07 AM CURRENT NON-SMOKER [facility] May 08, 2000 08:41 AM CURRENT NON-SMOKER [facility] Advance Directives: All historical and current [...] 16, 2024 ADVANCE DIRECTIVE DISCUSSION LUPE LEPE [facility] Feb 09, 2024 ADVANCE DIRECTIVE LEXY WHALEY H Nov 03, 2023 RESCINDED ADVANCE DIRECTIVE LUPE LEPE [place] [facility] Sep 20, 2023 RESCINDED ADVANCE DIRECTIVE LENNIE VALENTIN [facility] Aug 26, 2021 ADVANCE DIRECTIVE DISCUSSION COLT [facility] Encounter Notes: All associated encounter notes This section contains the clinical notes associated to the Encounter. 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 2) S/p ankle fusion right ankle Patient underwent surgical management of end stage osteoarthritis of right ankle at [facility] [place]. Currently patient post-op management is deferred [...] Tendon Dysfunction/Tendonitis right foot Osteoarthritis Right Foot Peripheral Neuropathy Gait Instability Tinea Unguium PLAN -Chart Reviewed. -Patient examined and findings/treatment recommendations discussed. All questions answered to their satisfaction. End-stage PTTD, right -Patient underwent surgical intervention in the community in [place], [place]. -Patient to continue all recommendation per surgeon Tinea Unguium -The toenail(s) noted above were debrided manually with nail nippers. -Patient tolerated the procedure well. Tinea Pedis -Continue: Miconazole powder; patient reports having supplies at home. -Patient verbalized understanding and agrees with current plan of care. -RTC in 3 months for moderate risk DM foot care Amanda Talley DPM PGY-3 Assessment and plan of care discussed with the attending physician, Dr. Gonsales, who concurs. /keiko TALLEY Podiatry Resident// Signed: 09/18/2024 11:50 /montrell/ Marc Gonsales DPM, FACFAS, D.ABFAS Metal Gauge Maker Cosigned: 09/19/2024 11:49 09/19/2024 ADDENDUM STATUS: COMPLETED Yes MEDICATION RECONCILIATION WAS DONE If Yes, Medications were added, changed, discontinued or used on a temporary basis during this episode of care. They were evaluated for conflicts with other medications. The patient was made aware of any change in his/her medications and has been educated on the use of this product. Warnings related to adverse effects and reasons for this change in his/her medications were also discussed. If No, No medications were added, changed, discontinued, or used on a temporary basis during this episode of care. Patient was seen and evaluated with the Resident (Amanda Talley DPM, PGY-3). Conditions and treatment options were presented and discussed with the resident with agreement on the plan of care. /keiko Gonsales DPM, FACFAS, D.ABFAS Metal Gauge Maker Signed: 09/19/2024 11:50 AMANDA TALLEY
--- OUTSIDE RECORDS SUMMARY | 2025-03-05 18:25 | XMS_ITS ---
Author Organization [facility] Address [address] [place], [place] [id number] Care Team Providers Care Traffic Police Officer Name Role Phone JOJO GALVAN Unavailable [phone] Jason Alarcon Jr Unavailable Unavailable REASON FOR VISIT The patient returns for multiple reasons. He is going to have surgery on his right ankle to have itstraightened out. This will be in December/January time frame. For now, he has pain in both ankles and is requesting a cortisone injection for each. He wears [employer]/Tropical Skoops braces., He also has thick painful toenails of both feet. The cause pain with shoes and ambulation Medications Medication SIG (Take, Route, Frequency, Duration) Notes Start Date End Date Status hydrocortisone 10 MG/ML / neomycin 3.5 MG/ML / polymyxin B 83349 UNT/ML Otic Solution hydrocortisone 10 MG/ML / neomycin 3.5 MG/ML / polymyxin B 92928 UNT/ML Otic SolutionOriginal Medicationhydrocortisone 10 MG/ML / neomycin 3.5 MG/ML / polymyxin B 60024 UNT/ML Otic Solution *Reorder from [facility] 8 Active Vital Signs Height 67.00 in 11/29/2023 Weight 288 lbs 11/29/2023 BMI 45.1 kg/m2 11/29/2023 Height-cm 170.18 cm 11/29/2023 Weight-kg 130.63 kg 11/29/2023 Encounters Encounter Location Date Provider Diagnosis [facility] [address] [place], [place] [id number] 11/29/2023 JOJO GALVAN Tinea unguium B35.1 ; Tarsal tunnel syndrome of right side G57.51 ; Pain in right ankle and joints of [...] Treatment Notes Treatment Clinical Notes Section Notes 11/29/2023 Tinea unguium (ICD-10 - B35.1) FUNGAL TOENAILS: Discussed various treatment options for fungal toenails including debridement, topical antifungals, oral antifungals, toenail avulsion, or toenail matrixectomy. NAIL DEBRIDEMENT: Nails 1-5 Bilateral were debrided extensively with nail nippers and emery board, reducing length and girth to pink healthy tissue with any subungual debris and necrotic tissue removed 11/29/2023 Tarsal tunnel syndrome of right side (ICD-10 - G57.51) 11/29/2023 Pain in right ankle and joints of [...] and Kenalog was injected right sinus tarsi. 11/29/2023 Pain in left ankle and joints of [...] and Kenalog was injected left sinus tarsi 11/29/2023 Primary osteoarthritis , right ankle and foot (ICD-10 - M19.071) 11/29/2023 Primary osteoarthritis , left ankle and foot (ICD-10 - M19.072) 11/29/2023 Posterior tibial tendinitis, right leg (ICD-10 - M76.821) Posterior Tibialis Tendon Dysfunction: I discussed anti-inflammatory treatment options and various means of immobilization with the patient. I educated the patient on icing and stretching, supportive shoegear, and the use of orthotic devices and bracing. Continue Addis ankle braces 11/29/2023 Pain in right foot (ICD-10 - M79.671) Plan Of Treatment Treatment Notes Assessment Notes Tinea unguium FUNGAL TOENAILS: Discussed various treatment options for fungal toenails including debridement, topical antifungals, oral antifungals, toenail avulsion, or toenail matrixectomy. NAIL DEBRIDEMENT: Nails 1-5 Bilateral were debrided extensively with nail nippers and emery board, reducing length and girth to pink healthy tissue with any subungual debris and necrotic tissue removed Pain in right ankle and join ts [...] and Kenalog was injected left sinus tarsi Posterior tibial tendinitis, right leg Posterior Tibialis Tendon Dysfunction: I discussed anti-inflammatory treatment options and various means of immobilization with the patient. I educated the patient on icing and stretching, supportive shoegear, and the use of orthotic devices and bracing. Continue Addis ankle braces Next Appt Details Follow Up: prn, Reason: Progress Notes * OLEG TOTH WDOB:1950 (74 yo M)Acc No.[id number]:11/29/2023 Patient: OLEG DAMIAN Provider: Adolfo Galvan DPM :1950 A ge:73 Y S ex:Male Date:11/29/2023 Address:[address] [place] [address] Subjective: * Chief Complaints: * 1 . The patient returns for multiple reasons. He is going to have surgery on his right ankle to have it straightened out. This will be in December/January time frame. For now, he has pain in both ankles and is requesting a cortisone injection for each. He wears AFOs/Tropical Skoops braces.. 2. He also has thick painful toenails of both feet. The cause pain with shoes and ambulation. * HPI: H PI: General care Glenn richey presents to the office for at risk foot care. Patient states that their nails are thickened, elongated and painful. Patient states that it is aggravated by shoe gear. Onset is gradual. Patient denies being diabetic. P kaiden denies taking prescription blood thinners but does take a daily aspirin.,Date last seen by Dr. Alarcon was , I nitials As. N ew Complaint E stablished patient presents with a new complaint. P atrissa complains of bilateral foot pain. Pt states he would like injections. M A: As. * ROS: G eneral / Constitutional: Patient denies c hills, fever, weight loss. ? M usculoskeletal: Patient complains of a rthritis, gait (walking problems), use of Addis braces. P eripheral Vascular: Patient denies u lceration of feet. S kin: Patient complains of f ungal nails, nail changes. ? N eurologic: Patient denies b alance difficulty, confusion, difficulty speaking. * Medical History: * Social History: M igrated Social History: M igrated Social History: History of tobacco use : , Smoking Status : Former smoker , Alcohol intake :. * Medications: T aking hydrocortisone 10 MG/ML / neomycin 3.5 MG/ML / polymyxin B 13588 UNT/ML Otic Solution , Notes to Pharmacist: hydrocortisone 10 MG/ML / neomycin 3.5 MG/ML / polymyxin B 34598 UNT/ML Otic SolutionOriginal Medicationhydrocortisone 10 MG/ML / neomycin 3.5 MG/ML / polymyxin B 89965 UNT/ML Otic Solution *Reorder from [facility], Medication List reviewed and reconciled with the patient Objective: * Vitals: W t:288lbs, Wt-k.63 kg, Ht: 67.00 in, Ht-cm: 170.18 cm, BMI:45.1Index, Body Surface Area: 2.48. * Examination: C onstitutional: Constitutional T he [...] noted, right. ? Assessment: * Assessment: 1. T arsal tunnel syndrome of right side - G57.51 (Primary) 2 . T inea unguium - B35.1 3 . P ain in right ankle and joints of right foot - M25.571 ? 4 . P ain in left ankle and joints of left foot - M25.572 5 . P rimary osteoarthritis, right ankle and foot - M19.071 6 . P rimary osteoarthritis, left ankle and foot - M19.072 7 . P osterior tibial tendinitis, right leg - M76.821 8 . P ain in right foot - M79.671 Plan: * Treatment: 2. P ain in right ankle and joints of right foot Notes: Sinus Tarsi Syndrome: I discussed [...] and Kenalog was injected right sinus tarsi. 3. P ain in left ankle and joints [...] and Kenalog was injected left sinus tarsi 4. P osterior tibial tendinitis, right leg Notes: Posterior Tibialis Tendon Dysfunction: I discussed anti-inflammatory treatment options and various means of immobilization with the patient. I educated the patient on icing and stretching, supportive shoegear, and the use of orthotic devices and bracing. Continue Addis ankle braces * Immunizations: Immunization record has been reviewed and updated. * Procedure Codes: 2 0605 DRAIN/INJECT, JOINT/BURSA, Modifiers: RT , DRAIN/INJECT, JOINT/BURSA, Modifiers: 59 , LT * Follow Up: p rn * Billing Information: * Visit Code: 07201 Office Visit, Est Pt., Level 3. * Procedure Codes: DRAIN/INJECT, JOINT/BURSA. Modifiers: RT DRAIN/INJECT, JOINT/BURSA. Modifiers: 59, LT * Sign off status: Completed true * Provider: Adolfo Galvan DPM Date: 0 11/29/2023 Generated for Petrona steve/Cameron/Jaxon on: 0 03/05/2025 06:24 PM CDT History and Physical Notes * HPI (History of Present Illness) Category Sub-Category Detail Notes Category Not es HPI General care Patient presents to the office for at risk foot care. Patient states that their nails are thickened, elongated and painful. Patient states that it is aggravated by shoe gear. Onset is gradual. Patient denies being diabetic. Patient denies taking prescription blood thinners but does take a daily aspirin.,Date last seen by Dr. Alarcon was Jul., Initials As New Complaint Established patient presents with a new complaint. Patient complains of bilateral foot pain. Pt states he would like injections. MA: As Examination Category Sub-Category Detail Notes Category Not [...]
--- OUTSIDE RECORDS SUMMARY | 2025-03-05 18:25 | XMS_ITS | Continuity of Care Document ---
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 It does not include entries that were removed or entered in error. Problem Status Onset Date Problem Type Date of Resolution Comments Source Acquired equinus deformity of foot Active Condition [facility] Anemia Active Condition [facility] Aortic insufficiency Active Condition Feb 14, 2024 Entered By: JOSÉ LUIS ORTIZ Comment: AUG 26, 2023 ECHO [facility] Benign hypertension Active Condition [facility] Bilateral acquired valgus deformity of ankles Active Condition [facility] Bilateral arthritis of ankle Active Condition [facility] Blurring of visual image Active Condition [facility] Cervical radiculopathy Active Condition [facility] Chronic alcoholism in remission Active Condition [facility] Cramp in lower leg Active Condition [facility] Cyanocobalamine deficiency (non anemic) Active Condition Jan 31, 2016 Entered By: JOSÉ LUIS ORTIZ Comment: monitored by Dr E[facility] Degeneration of cervical intervertebral disc Active Condition [facility] Dry eyes Active Condition [facility] Dysfunction of posterior tibial tendon of right foot Active Condition [facility] Elevated PSA Active Condition Jul 07, 2023 Entered By: JOSÉ LUIS ORTIZ Comment: 4.23 [facility] Gastroesophageal reflux disease Active Condition [facility] Gastroesophageal reflux disease without esophagitis (SNOMED CT 364965965) Active Condition [facility] History of left knee replacement Active Condition Feb 12 5 Entered By: JOSÉ LUIS ORTIZ Comment: 2019 at hospital in [facility] Hyperlipidemia Active Condition [facility] Hyperlipidemia (SNOMED CT [id number]) Active Condition [facility] Instability of gait Active [facility] Lymphoedema Active Condition Feb 12, 2025 Entered By: JOSÉ LUIS ORTIZ Comment: [facility] Morbid obesity Active Condition [facility] Nevus of choroid Active [facility] 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 [facility] Pes planus [facility] Primary erectile dysfunction Active Condition [facility] Sebaceous cyst of skin Active Condition [facility] Sensorineural hearing loss, bilateral Active [facility] Sensory neuropathy Active Condition [facility] Snoring Active Condition [facility] SVT - Supraventricular tachycardia Active Condition Sep 07, 2023 Entered By: JOSÉ LUIS ORTIZ Comment: episodes of paroxysmal supraventricular tachycardias with occasional episodes of nonsustained atrial fibrillation on rhythm strip as per cardiology noteFeb 14, 2024 Entered By: JOSÉ LUIS ORTIZ Comment: 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 [facility]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 [facility] Tinea unguium Active Condition [facility] Trichiasis Active [facility] Hip Pain Inactive Condition 02/05/2015 [facility] [place] [facility] Joint Pain, Shoulder Inactive Condition 02/05/2015 [facility] Multiple axillary skin tags Inactive Condition 08/27/2022 [facility] Onychomycosis Inactive Condition 03/25/2017 [facility] Diagnosis: ICD-10-CM E66.9 Obesity, unspecified Active Diagnosis [facility] Diagnosis: ICD-10-CM E66.01 Morbid (severe) obesity due to excess calories Active Diagnosis [facility] [place] [facility] Diagnosis: ICD-10-CM I89.0 Lymphedema, not elsewhere classified Active Diagnosis [facility] Diagnosis: ICD-10-CM R60.0 Localized edema Active Diagnosis [facility] Diagnosis: ICD-10-CM Z71.89 Other specified counseling Active Diagnosis [facility] Diagnosis: ICD-10-CM M19.071 Primary osteoarthritis, right ankle and foot Active Diagnosis [facility] Diagnosis: ICD-10-CM H25.13 Age-related nuclear cataract, bilateral Active Diagnosis [facility] Diagnosis: ICD-10-CM Z65.8 Oth problems related to psychosocial circumstances Active Diagnosis [facility] Diagnosis: ICD-10-CM B35.1 Tinea unguium Active Diagnosis [facility] Diagnosis: ICD-10-CM 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 [facility] Diagnosis: ICD-10-CM I47.10 Supraventricular tachycardia, unspecified Active Diagnosis [facility] Diagnosis: ICD-10-CM 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, right foot Active Diagnosis [facility] Diagnosis: ICD-10-CM Z09 Encntr for f/u exam aft trtmt for cond oth than malig neoplm Active Diagnosis [facility] Diagnosis: ICD-10-CM M76.821 Posterior tibial tendinitis, right leg Active Diagnosis [facility] Diagnosis: ICD-10-CM 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 Medication Details Route Status Patient Instructions Prescription Expires Prescription Number Last Dispense Date Ordering Provider Order Date Order Qty Source ATORVASTATI N CA 20MG TAB TAKE ONE TABLET BY MOUTH AT BEDTIME FOR CHOLESTE ROL CALL YOUR PROVIDER IF YOU HAVE MUSCLE PAIN, TENDERNE SS OR WEAKNESS ORAL DISCONT INUED 04/12/2024 [id number] JOSÉ LUIS ORTIZ 2022 90 [facility] ATORVASTATI N CA 20MG TAB TAKE ONE TABLET BY MOUTH AT BEDTIME FOR CHOLESTE ROL CALL YOUR PROVIDER IF YOU HAVE MUSCLE PAIN, TENDERNE SS OR WEAKNESS ORAL 02/14/2025 [id number] JOSÉ LUIS ORTIZ 2023 90 [facility] BACLOFEN 10MG TAB TAKE ONE-HALF TABLET BY MOUTH AT BEDTIME ORAL ACTIVE 11/02/2025 [id number] JOSÉ LUIS ORTIZ 2024 45 [facility] BACLOFEN 10MG TAB TAKE ONE-HALF TABLET BY MOUTH AT BEDTIME ORAL DISCONT INUED 12/10/2024 [id number] JOSÉ LUIS ORTIZ 2023 45 [facility] CYANOCOBALA MIN 1000MCG TAB TAKE FIVE TABLETS BY MOUTH ONCE A WEEK ORAL ACTIVE JOSÉ LUIS ORTIZ 2024 [facility] GABAPENTIN 300MG CAP TAKE ONE CAPSULE BY MOUTH TWICE A DAY ORAL ACTIVE 11/02/2025 [id number] JOSÉ LUIS ORTIZ 2023 180 [facility] GABAPENTIN 300MG CAP TAKE ONE CAPSULE BY MOUTH TWICE A DAY ORAL DISCONT INUED 08/05/2024 [id number] JOSÉ LUIS ORTIZ 2022 180 [facility] MAGNESIUM OXIDE 400MG TAB TAKE ONE TABLET BY MOUTH DAILY ORAL ACTIVE JOSÉ LUIS ORTIZ 2022 [facility] MULTIVITAMI N,HERBAL CAP/TAB TAKE BY MOUTH ORAL ACTIVE JOSÉ LUIS ORTIZ 2022 [facility] OMEPRAZOLE 20MG CAP,EC TAKE ONE CAPSULE BY MOUTH EVERY MORNING 30 MINUTES BEFORE BREAKFAS T FOR STOMACH ACID ORAL ACTIVE 02/13/2026 [id number] JOSÉ LUIS ORTIZ 2024 90 [facility] OMEPRAZOLE 20MG CAP,EC TAKE ONE CAPSULE BY MOUTH EVERY MORNING 30 MINUTES BEFORE BREAKFAS T FOR STOMACH ACID ORAL DISCONT INUED 07/19/2025 [id number] JOSÉ LUIS ORTIZ 2023 90 [facility] OMEPRAZOLE 20MG CAP,EC TAKE ONE CAPSULE BY MOUTH EVERY MORNING 30 MINUTES BEFORE BREAKFAS T FOR STOMACH ACID ORAL DISCONT INUED 07/05/2024 [id number] JOSÉ LUIS ORTIZ 2023 90 [facility] OMEPRAZOLE 20MG CAP,EC TAKE ONE CAPSULE BY MOUTH EVERY MORNING 30 MINUTES BEFORE BREAKFAS T FOR STOMACH ACID ORAL DISCONT INUED 04/12/2024 [id number] JOSÉ LUIS ORTIZ 2022 90 [facility] PHENTERMINE 3.75MG/TOPI RAMATE 23MG CAP,SA TAKE ONE CAPSULE BY MOUTH EVERY MORNING FOR 14 DAYS FOR WEIGHT LOSS ; THEN START 7.5/46MG CAPSULE PRESCRIP TION (ONE CAPSULE 7.5/46MG EVERY MORNING) ; THEN START 7.5/46MG CAPSULE PRESCRIP TION (ONE CAPSULE 7.5/46MG EVERY MORNING) ORAL ACTIVE 03/16/2025 [id number] JOSÉ LUIS ORTIZ 2024 14 [facility] PHENTERMINE 7.5MG/TOPIR AMATE 46MG CAP,SA TAKE ONE CAPSULE BY MOUTH EVERY MORNING FOR WEIGHT LOSS ORAL ACTIVE 03/16/2025 [id number] JOSÉ LUIS ORTIZ 2024 30 [facility] PSYLLIUM CAP,ORAL TAKE 1 CAPSULE BY MOUTH DAILY ORAL ACTIVE JOSÉ LUIS ORTIZ 2024 [facility] Allergies, Adverse Reactions, Alerts Combined list of allergies from Department of Defense and Veterans 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 It does not include entries that were removed or entered in error. Substance Category Reaction Severity Reaction type Status Date Reported Comments Source BEE VENOM Propensity to adverse reaction (finding) Anaphylaxis active 1 [facility] BEE VENOM Propensity to adverse reaction (finding) Anaphylaxis SEVERE active 3 [facility] CODEINE Propensity to adverse reactions to drug (finding) active 1 [facility] CODEINE Propensity to adverse reactions to drug (finding) Anaphylaxis SEVERE active 3 [facility] ZOCOR Propensity to adverse reactions to drug (finding) active 3 [facility] Immunizations Combined list of available immunizations from the Department of Defense and Veterans 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 Immunization Series Date Given Administered By Site Reaction Lot Number CVX Code Drug Automotive Diagnostic Technician Status Comments Source INFLUENZA, HIGH-DOSE, QUADRIVALENT 2022 ASHLEY DOUGHERTY RIGHT DELTO ID [id number] 197 complet ed [facility] INFLUENZA VACCINE, QUADRIVALENT, ADJUVANTED 2021 205 complet ed [facility] INFLUENZA VACCINE, QUADRIVALENT, ADJUVANTED 2020 205 complet ed [facility] PNEUMOCOCCAL POLYSACCHARID E PPV23 2020 33 complet ed [facility] COVID-19 (PFIZER), MRNA, LNP-S, PF, 30 MCG/0.3 ML DOSE 1 2020 208 complet ed HISTORICA L INFORMATI ON - FROM OTHER REGISTRY, [facility] COVID-19 (PFIZER), MRNA, LNP-S, PF, 30 MCG/0.3 ML DOSE [address] [facility] COVID-19 (PFIZER), MRNA, LNP-S, PF, 30 MCG/0.3 ML DOSE [address] [facility] INFLUENZA, HIGH-DOSE, QUADRIVALENT 2019 197 complet ed [facility] ZOSTER RECOMBINANT 1 2018 187 complet ed [facility] INFLUENZA, TRIVALENT, ADJUVANTED 2017 168 complet ed [facility] INFLUENZA, SEASONAL, INJECTABLE, PRESERVATIVE FREE 2016 140 complet ed Left Deltoid 0.5ml IM [facility] INFLUENZA, SEASONAL, INJECTABLE, PRESERVATIVE FREE 2015 140 complet ed Right Deltoid 0.5ml IM [facility] PNEUMOCOCCAL CONJUGATE PCV 13 2015 133 complet ed [facility] TDAP 1 2015 115 complet ed HISTORICA L INFORMATI ON - FROM OTHER REGISTRY, [facility] HEP B, ADULT 1 2015 43 complet ed HISTORICA L INFORMATI ON - FROM OTHER REGISTRY, [facility] TDAP 2015 115 complet ed [facility] INFLUENZA, UNSPECIFIED FORMULATION 2014 88 complet ed Right Deltoid 0.5ml IM [facility] PNEUMOCOCCAL POLYSACCHARID E PPV23 2014 33 complet ed [facility] INFLUENZA, UNSPECIFIED FORMULATION 2012 88 complet ed Right Deltoid 0.5ml IM [facility] INFLUENZA, UNSPECIFIED FORMULATION 2012 88 complet ed Left Deltoid 0.5ml IM [facility] INFLUENZA, UNSPECIFIED FORMULATION 2011 88 complet ed Left Deltoid 0.5ml IM [facility] INFLUENZA, UNSPECIFIED FORMULATION 2009 88 complet ed Left Deltoid 0.5ml IM [facility] TD(ADULT) UNSPECIFIED FORMULATION 2009 139 complet ed UNKNOWN -RO INFLUENZA, UNSPECIFIED FORMULATION 2008 88 complet ed Left Deltoid 0.5ml IM [facility] INFLUENZA, UNSPECIFIED FORMULATION 2005 88 complet ed Left Deltoid 0.5ml IM [facility] TETANUS TOXOID, UNSPECIFIED FORMULATION 2004 112 complet ed Left Deltoid 0.5ml IM [facility] TD(ADULT) UNSPECIFIED FORMULATION 1994 139 complet ed [facility] Results Combined list of recent chemistry, hematology and other laboratory results from Department of Defense and Veterans Affairs, ranging from 15 months to all on record, depending upon the facility. Order Name Results Value Reference Range Date Interpretation Specimen Comments Source OCCULT BLOOD FIT X1 SCREEN (550) HEMOGLOBIN .GASTROINT ESTINAL.LO WER [PRESENCE] IN STOOL BY IMMUNOASSA Y Negative 02/26 Specimen Type: FECES No comment entered. Ordering Provider: Ayde ORTIZ Report Released Date/Time: Feb 12, 2025 09:13 AM Reporting Lab: [address] [address] Performing Lab: [address] [address] [facility] VITAMIN B12 EIA COBALAMIN (VITAMIN B12) [MASS/VOLU ME] IN SERUM OR PLASMA 580 pg/mL 193 - 986 09/18 Specimen Type: SERUM No comment entered. Ordering Provider: Ayde ORTIZ Report Released Date/Time: Sep 11, 2024 02:38 PM Reporting Lab: [address] [address] Performing Lab: [address] [address] [facility] LIPID PNL CHOLESTERO L IN HDL [MASS/VOLU ME] IN SERUM OR PLASMA 40 mg/dL 60 09/18 L Specimen Type: PLASMA Comment: Low-risk levels (desirable) <200 mg/dL Moderate-ri sk levels (borderline ) 200-239 mg/dL High-risk levels: >= 240 mg/dL Normal: <150 mg/dL -Borderline High: 150-199 mg/dL -High: 200-499 mg/dL -Very High: >500 mg/dL eGFR was calculated using the CKD-EPI Creatinine (2020) equation. Optimal: <100 mg/dL -Near Optimal/Abo ve Optimal: 100-129 mg/dL -Borderline High: 130-159 mg/dL -High: 160-189 mg/dL -Very High: >=190 mg/dL Ordering Provider: Ayde ORTIZ Report Released Date/Time: Sep 11, 2024 02:38 PM Reporting Lab: [address] [address] Performing Lab: [address] [address] [facility] LIPID PNL TRIGLYCERI DE [MASS/VOLU ME] IN SERUM OR PLASMA 124 mg/dL 09/18 Specimen Type: PLASMA Comment: Low-risk levels (desirable) <200 mg/dL Moderate-ri sk levels (borderline ) 200-239 mg/dL High-risk levels: >= 240 mg/dL Normal: <150 mg/dL -Borderline High: 150-199 mg/dL -High: 200-499 mg/dL -Very High: >500 mg/dL eGFR was calculated using the CKD-EPI Creatinine (2020) equation. Optimal: <100 mg/dL -Near Optimal/Abo ve Optimal: 100-129 mg/dL -Borderline High: 130-159 mg/dL -High: 160-189 mg/dL -Very High: >=190 mg/dL Ordering Provider: Ayde ORTIZ Report Released Date/Time: Sep 11, 2024 02:38 PM Reporting Lab: [address] [address] Performing Lab: [address] [address] [facility] LIPID PNL CHOLESTERO L IN LDL [MASS/VOLU ME] IN SERUM OR PLASMA BY DIRECT ASSAY can 09/18 Specimen Type: PLASMA Comment: Low-risk levels (desirable) <200 mg/dL Moderate-ri sk levels (borderline ) 200-239 mg/dL High-risk levels: >= 240 mg/dL Normal: <150 mg/dL -Borderline High: 150-199 mg/dL -High: 200-499 mg/dL -Very High: >500 mg/dL eGFR was calculated using the CKD-EPI Creatinine (2020) equation. Optimal: <100 mg/dL -Near Optimal/Abo ve Optimal: 100-129 mg/dL -Borderline High: 130-159 mg/dL -High: 160-189 mg/dL -Very High: >=190 mg/dL Ordering Provider: Ayde ORTIZ Report Released Date/Time: Sep 11, 2024 02:38 PM Reporting Lab: [address] [address] Performing Lab: [address] [address] [facility] LIPID PNL CHOLESTERO L [MASS/VOLU ME] IN SERUM OR PLASMA 128 mg/dL 09/18 Specimen Type: PLASMA Comment: Low-risk levels (desirable) <200 mg/dL Moderate-ri sk levels (borderline ) 200-239 mg/dL High-risk levels: >= 240 mg/dL Normal: <150 mg/dL -Borderline High: 150-199 mg/dL -High: 200-499 mg/dL -Very High: >500 mg/dL eGFR was calculated using the CKD-EPI Creatinine (2020) equation. Optimal: <100 mg/dL -Near Optimal/Abo ve Optimal: 100-129 mg/dL -Borderline High: 130-159 mg/dL -High: 160-189 mg/dL -Very High: >=190 mg/dL Ordering Provider: Ayde ORTIZ Report Released Date/Time: Sep 11, 2024 02:38 PM Reporting Lab: [address] [address] Performing Lab: [address] [address] [facility] LIPID PNL CHOLESTERO L IN LDL [MASS/VOLU ME] IN SERUM OR PLASMA BY DLUCE Parker 63 mg/dL 09/18 Specimen Type: PLASMA Comment: Low-risk levels (desirable) <200 mg/dL Moderate-ri sk levels (borderline ) 200-239 mg/dL High-risk levels: >= 240 mg/dL Normal: <150 mg/dL -Borderline High: 150-199 mg/dL -High: 200-499 mg/dL -Very High: >500 mg/dL eGFR was calculated using the CKD-EPI Creatinine (2020) equation. Optimal: <100 mg/dL -Near Optimal/Abo ve Optimal: 100-129 mg/dL -Borderline High: 130-159 mg/dL -High: 160-189 mg/dL -Very High: >=190 mg/dL Ordering Provider: Ayde ORTIZ Report Released Date/Time: Sep 11, 2024 02:38 PM Reporting Lab: [address] [address] Performing Lab: [address] [address] [facility] COMPREHEN SIVE PNL ANION GAP IN SERUM OR PLASMA 8 mmol/L 5 - 15 09/18 Specimen Type: PLASMA Comment: Low-risk levels (desirable) <200 mg/dL Moderate-ri sk levels (borderline ) 200-239 mg/dL High-risk levels: >= 240 mg/dL Normal: <150 mg/dL -Borderline High: 150-199 mg/dL -High: 200-499 mg/dL -Very High: >500 mg/dL eGFR was calculated using the CKD-EPI Creatinine (2020) equation. Optimal: <100 mg/dL -Near Optimal/Abo ve Optimal: 100-129 mg/dL -Borderline High: 130-159 mg/dL -High: 160-189 mg/dL -Very High: >=190 mg/dL Ordering Provider: Ayde ORTIZ Report Released Date/Time: Sep 11, 2024 02:38 PM Reporting Lab: [address] [address] Performing Lab: [address] [address] [facility] COMPREHEN SIVE PNL GLOMERULAR FILTRATION RATE/1.73 SQ M.PREDICTE D [VOLUME RATE/AREA] IN SERUM, PLASMA OR BLOOD BY CREATININE -BASED FORMULA (CKD-EPI 2020) 61 mL/min/{ 1.73_m2} 60 09/18 Specimen Type: PLASMA Comment: Low-risk levels (desirable) <200 mg/dL Moderate-ri sk levels (borderline ) 200-239 mg/dL High-risk levels: >= 240 mg/dL Normal: <150 mg/dL -Borderline High: 150-199 mg/dL -High: 200-499 mg/dL -Very High: >500 mg/dL eGFR was calculated using the CKD-EPI Creatinine (2020) equation. Optimal: <100 mg/dL -Near Optimal/Abo ve Optimal: 100-129 mg/dL -Borderline High: 130-159 mg/dL -High: 160-189 mg/dL -Very High: >=190 mg/dL Ordering Provider: Ayde ORTIZ Report Released Date/Time: Sep 11, 2024 02:38 PM Reporting Lab: [address] [address] Performing Lab: [address] [address] [facility] COMPREHEN SIVE PNL GLUCOSE [MASS/VOLU ME] IN SERUM OR PLASMA 99 mg/dL 70 - 99 09/18 Specimen Type: PLASMA Comment: Low-risk levels (desirable) <200 mg/dL Moderate-ri sk levels (borderline ) 200-239 mg/dL High-risk levels: >= 240 mg/dL Normal: <150 mg/dL -Borderline High: 150-199 mg/dL -High: 200-499 mg/dL -Very High: >500 mg/dL eGFR was calculated using the CKD-EPI Creatinine (2020) equation. Optimal: <100 mg/dL -Near Optimal/Abo ve Optimal: 100-129 mg/dL -Borderline High: 130-159 mg/dL -High: 160-189 mg/dL -Very High: >=190 mg/dL Ordering Provider: Ayde ORTIZ Report Released Date/Time: Sep 11, 2024 02:38 PM Reporting Lab: [address] [address] Performing Lab: [address] [address] [facility] COMPREHEN SIVE PNL POTASSIUM [MOLES/VOL UME] IN SERUM OR PLASMA 4.3 mmol/L 3.5 - 4.7 09/18 Specimen Type: PLASMA Comment: Low-risk levels (desirable) <200 mg/dL Moderate-ri sk levels (borderline ) 200-239 mg/dL High-risk levels: >= 240 mg/dL Normal: <150 mg/dL -Borderline High: 150-199 mg/dL -High: 200-499 mg/dL -Very High: >500 mg/dL eGFR was calculated using the CKD-EPI Creatinine (2020) equation. Optimal: <100 mg/dL -Near Optimal/Abo ve Optimal: 100-129 mg/dL -Borderline High: 130-159 mg/dL -High: 160-189 mg/dL -Very High: >=190 mg/dL Ordering Provider: Ayde ORTIZ Report Released Date/Time: Sep 11, 2024 02:38 PM Reporting Lab: [address] [address] Performing Lab: [place] [phone] [facility] COMPREHEN SIVE PNL SODIUM [MOLES/VOL UME] IN SERUM OR PLASMA 141 mmol/L 136 - 145 09/18 Specimen Type: PLASMA Comment: Low-risk levels (desirable) <200 mg/dL Moderate-ri sk levels (borderline ) 200-239 mg/dL High-risk levels: >= 240 mg/dL Normal: <150 mg/dL -Borderline High: 150-199 mg/dL -High: 200-499 mg/dL -Very High: >500 mg/dL eGFR was calculated using the CKD-EPI Creatinine (2020) equation. Optimal: <100 mg/dL -Near Optimal/Abo ve Optimal: 100-129 mg/dL -Borderline High: 130-159 mg/dL -High: 160-189 mg/dL -Very High: >=190 mg/dL Ordering Provider: Ayde ORTIZ Report Released Date/Time: Sep 11, 2024 02:38 PM Reporting Lab: [address] [address] Performing Lab: [address] [address] [facility] COMPREHEN SIVE PNL BILIRUBIN. TOTAL [MASS/VOLU ME] IN SERUM OR PLASMA 0.8 mg/dL 0.2 - 1.2 09/18 Specimen Type: PLASMA Comment: Low-risk levels (desirable) <200 mg/dL Moderate-ri sk levels (borderline ) 200-239 mg/dL High-risk levels: >= 240 mg/dL Normal: <150 mg/dL -Borderline High: 150-199 mg/dL -High: 200-499 mg/dL -Very High: >500 mg/dL eGFR was calculated using the CKD-EPI Creatinine (2020) equation. Optimal: <100 mg/dL -Near Optimal/Abo ve Optimal: 100-129 mg/dL -Borderline High: 130-159 mg/dL -High: 160-189 mg/dL -Very High: >=190 mg/dL Ordering Provider: Ayde ORTIZ Report Released Date/Time: Sep 11, 2024 02:38 PM Reporting Lab: [address] [address] Performing Lab: [place] [phone] [facility] COMPREHEN SIVE PNL PROTEIN [MASS/VOLU ME] IN SERUM OR PLASMA 7.3 g/dL 5.7 - 8.2 09/18 Specimen Type: PLASMA Comment: Low-risk levels (desirable) <200 mg/dL Moderate-ri sk levels (borderline ) 200-239 mg/dL High-risk levels: >= 240 mg/dL Normal: <150 mg/dL -Borderline High: 150-199 mg/dL -High: 200-499 mg/dL -Very High: >500 mg/dL eGFR was calculated using the CKD-EPI Creatinine (2020) equation. Optimal: <100 mg/dL -Near Optimal/Abo ve Optimal: 100-129 mg/dL -Borderline High: 130-159 mg/dL -High: 160-189 mg/dL -Very High: >=190 mg/dL Ordering Provider: Ayde ORTIZ Report Released Date/Time: Sep 11, 2024 02:38 PM Reporting Lab: [address] [address] Performing Lab: [address] [address] [facility] COMPREHEN SIVE PNL ALBUMIN [MASS/VOLU ME] IN SERUM OR PLASMA 4.5 g/dL 3.4 - 5.0 09/18 Specimen Type: PLASMA Comment: Low-risk levels (desirable) <200 mg/dL Moderate-ri sk levels (borderline ) 200-239 mg/dL High-risk levels: >= 240 mg/dL Normal: <150 mg/dL -Borderline High: 150-199 mg/dL -High: 200-499 mg/dL -Very High: >500 mg/dL eGFR was calculated using the CKD-EPI Creatinine (2020) equation. Optimal: <100 mg/dL -Near Optimal/Abo ve Optimal: 100-129 mg/dL -Borderline High: 130-159 mg/dL -High: 160-189 mg/dL -Very High: >=190 mg/dL Ordering Provider: Ayde ORTIZ Report Released Date/Time: Sep 11, 2024 02:38 PM Reporting Lab: [address] [address] Performing Lab: [place] [id number] [place] [address] COMPREHEN SIVE PNL ALKALINE PHOSPHATAS E [ENZYMATIC ACTIVITY/V OLUME] IN SERUM OR PLASMA 87 U/L 45 - 117 09/18 Specimen Type: PLASMA Comment: Low-risk levels (desirable) <200 mg/dL Moderate-ri sk levels (borderline ) 200-239 mg/dL High-risk levels: >= 240 mg/dL Normal: <150 mg/dL -Borderline High: 150-199 mg/dL -High: 200-499 mg/dL -Very High: >500 mg/dL eGFR was calculated using the CKD-EPI Creatinine (2020) equation. Optimal: <100 mg/dL -Near Optimal/Abo ve Optimal: 100-129 mg/dL -Borderline High: 130-159 mg/dL -High: 160-189 mg/dL -Very High: >=190 mg/dL Ordering Provider: Ayde ORTIZ Report Released Date/Time: Sep 11, 2024 02:38 PM Reporting Lab: [address] [address] Performing Lab: [place] [phone] [facility] COMPREHEN SIVE PNL ALANINE AMINOTRANS FERASE [ENZYMATIC ACTIVITY/V OLUME] IN SERUM OR PLASMA 20 U/L 10 - 65 09/18 Specimen Type: PLASMA Comment: Low-risk levels (desirable) <200 mg/dL Moderate-ri sk levels (borderline ) 200-239 mg/dL High-risk levels: >= 240 mg/dL Normal: <150 mg/dL -Borderline High: 150-199 mg/dL -High: 200-499 mg/dL -Very High: >500 mg/dL eGFR was calculated using the CKD-EPI Creatinine (2020) equation. Optimal: <100 mg/dL -Near Optimal/Abo ve Optimal: 100-129 mg/dL -Borderline High: 130-159 mg/dL -High: 160-189 mg/dL -Very High: >=190 mg/dL Ordering Provider: Ayde ORTIZ Report Released Date/Time: Sep 11, 2024 02:38 PM Reporting Lab: [place] [id number] Performing Lab: [place] [phone] [facility] COMPREHEN SIVE PNL ASPARTATE AMINOTRANS FERASE [ENZYMATIC ACTIVITY/V OLUME] IN SERUM OR PLASMA 19 U/L - 09/18 Specimen Type: PLASMA Comment: Low-risk levels (desirable) <200 mg/dL Moderate-ri sk levels (borderline ) 200-239 mg/dL High-risk levels: >= 240 mg/dL Normal: <150 mg/dL -Borderline High: 150-199 mg/dL -High: 200-499 mg/dL -Very High: >500 mg/dL eGFR was calculated using the CKD-EPI Creatinine (2020) equation. Optimal: <100 mg/dL -Near Optimal/Abo ve Optimal: 100-129 mg/dL -Borderline High: 130-159 mg/dL -High: 160-189 mg/dL -Very High: >=190 mg/dL Ordering Provider: Ayde ORTIZ Report Released Date/Time: Sep 11, 2024 02:38 PM Reporting Lab: [address] [address] Performing Lab: [place] [phone] [facility] COMPREHEN SIVE PNL UREA NITROGEN [MASS/VOLU ME] IN SERUM OR PLASMA 18 mg/dL - 09/18 Specimen Type: PLASMA Comment: Low-risk levels (desirable) <200 mg/dL Moderate-ri sk levels (borderline ) 200-239 mg/dL High-risk levels: >= 240 mg/dL Normal: <150 mg/dL -Borderline High: 150-199 mg/dL -High: 200-499 mg/dL -Very High: >500 mg/dL eGFR was calculated using the CKD-EPI Creatinine (2020) equation. Optimal: <100 mg/dL -Near Optimal/Abo ve Optimal: 100-129 mg/dL -Borderline High: 130-159 mg/dL -High: 160-189 mg/dL -Very High: >=190 mg/dL Ordering Provider: Ayde ORTIZ Report Released Date/Time: Sep 11, 2024 02:38 PM Reporting Lab: [address] [address] Performing Lab: [address] [address] [facility] COMPREHEN SIVE PNL CALCIUM, TOTAL 10.3 mg/dL 8.7 - 10.4 09/18 Specimen Type: PLASMA Comment: Low-risk levels (desirable) <200 mg/dL Moderate-ri sk levels (borderline ) 200-239 mg/dL High-risk levels: >= 240 mg/dL Normal: <150 mg/dL -Borderline High: 150-199 mg/dL -High: 200-499 mg/dL -Very High: >500 mg/dL eGFR was calculated using the CKD-EPI Creatinine (2020) equation. Optimal: <100 mg/dL -Near Optimal/Abo ve Optimal: 100-129 mg/dL -Borderline High: 130-159 mg/dL -High: 160-189 mg/dL -Very High: >=190 mg/dL Ordering Provider: Ayde ORTIZ Report Released Date/Time: Sep 11, 2024 02:38 PM Reporting Lab: [address] [address] Performing Lab: [place] [phone] [facility] COMPREHEN SIVE PNL CARBON DIOXIDE, TOTAL [MOLES/VOL UME] IN SERUM OR PLASMA 28 mmol/L 21 - 32 09/18 Specimen Type: PLASMA Comment: Low-risk levels (desirable) <200 mg/dL Moderate-ri sk levels (borderline ) 200-239 mg/dL High-risk levels: >= 240 mg/dL Normal: <150 mg/dL -Borderline High: 150-199 mg/dL -High: 200-499 mg/dL -Very High: >500 mg/dL eGFR was calculated using the CKD-EPI Creatinine (2020) equation. Optimal: <100 mg/dL -Near Optimal/Abo ve Optimal: 100-129 mg/dL -Borderline High: 130-159 mg/dL -High: 160-189 mg/dL -Very High: >=190 mg/dL Ordering Provider: Ayde ORTIZ Report Released Date/Time: Sep 11, 2024 02:38 PM Reporting Lab: [address] [address] Performing Lab: [place] [phone] [facility] COMPREHEN SIVE PNL CHLORIDE [MOLES/VOL UME] IN SERUM OR PLASMA 105 mmol/L 98 - 109 09/18 Specimen Type: PLASMA Comment: Low-risk levels (desirable) <200 mg/dL Moderate-ri sk levels (borderline ) 200-239 mg/dL High-risk levels: >= 240 mg/dL Normal: <150 mg/dL -Borderline High: 150-199 mg/dL -High: 200-499 mg/dL -Very High: >500 mg/dL eGFR was calculated using the CKD-EPI Creatinine (2020) equation. Optimal: <100 mg/dL -Near Optimal/Abo ve Optimal: 100-129 mg/dL -Borderline High: 130-159 mg/dL -High: 160-189 mg/dL -Very High: >=190 mg/dL Ordering Provider: Ayde ORTIZ Report Released Date/Time: Sep 11, 2024 02:38 PM Reporting Lab: [address] [address] Performing Lab: [address] [address] [facility] COMPREHEN SIVE PNL CREATININE [MASS/VOLU ME] IN URINE 1.24 mg/dL 0.73 - 1.18 09/18 H Specimen Type: PLASMA Comment: Low-risk levels (desirable) <200 mg/dL Moderate-ri sk levels (borderline ) 200-239 mg/dL High-risk levels: >= 240 mg/dL Normal: <150 mg/dL -Borderline High: 150-199 mg/dL -High: 200-499 mg/dL -Very High: >500 mg/dL eGFR was calculated using the CKD-EPI Creatinine (2020) equation. Optimal: <100 mg/dL -Near Optimal/Abo ve Optimal: 100-129 mg/dL -Borderline High: 130-159 mg/dL -High: 160-189 mg/dL -Very High: >=190 mg/dL Ordering Provider: Ayde ORTIZ Report Released Date/Time: Sep 11, 2024 02:38 PM Reporting Lab: [address] [address] Performing Lab: [place] [phone] [facility] MRSA SURVL NARES DNA (REVISED 2-2-18) METHICILLI N RESISTANT STAPHYLOCO CCUS AUREUS (MRSA) DNA [PRESENCE] IN SPECIMEN BY YUMIKO WITH PROBE DETECTION Not Detected 08/27 Specimen Type: NARES No comment entered. Ordering Provider: TJ ESTEBAN Report Released Date/Time: Aug 26, 2023 10:21 AM Reporting Lab: [address] [address] Performing Lab: [address] [address] [facility] COMPREHEN SIVE PNL ANION GAP IN SERUM OR PLASMA 11 mmol/L 10 - 20 08/27 Specimen Type: PLASMA Comment: eGFR was calculated using the CKD-EPI Creatinine (2020) equation. Ordering Provider: TJ ESTEBAN Report Released Date/Time: Aug 26, 2023 10:21 AM Reporting Lab: [address] [address] Performing Lab: [address] [address] [facility] COMPREHEN SIVE PNL GLOMERULAR FILTRATION RATE/1.73 SQ M.PREDICTE D [VOLUME RATE/AREA] IN SERUM, PLASMA OR BLOOD BY CREATININE -BASED FORMULA (CKD-EPI 2020) 61 mL/min 60 08/27 Specimen Type: PLASMA Comment: eGFR was calculated using the CKD-EPI Creatinine (2020) equation. Ordering Provider: TJ ESTEBAN Report Released Date/Time: Aug 26, 2023 10:21 AM Reporting Lab: [address] [address] Performing Lab: [address] [address] [facility] COMPREHEN SIVE PNL GLUCOSE [MASS/VOLU ME] IN SERUM OR PLASMA 112 mg/dL 70 - 99 08/27 H Specimen Type: PLASMA Comment: eGFR was calculated using the CKD-EPI Creatinine (2020) equation. Ordering Provider: TJ ESTEBAN Report Released Date/Time: Aug 26, 2023 10:21 AM Reporting Lab: [address] [address] Performing Lab: [address] [address] [facility] COMPREHEN SIVE PNL POTASSIUM [MOLES/VOL UME] IN SERUM OR PLASMA 4.4 mmol/L 3.5 - 4.7 08/27 Specimen Type: PLASMA Comment: eGFR was calculated using the CKD-EPI Creatinine (2020) equation. Ordering Provider: TJ ESTEBAN Report Released Date/Time: Aug 26, 2023 10:21 AM Reporting Lab: [address] [address] Performing Lab: [address] [address] [facility] COMPREHEN SIVE PNL SODIUM [MOLES/VOL UME] IN SERUM OR PLASMA 140 mmol/L 136 - 145 08/27 Specimen Type: PLASMA Comment: eGFR was calculated using the CKD-EPI Creatinine (2020) equation. Ordering Provider: TJ ESTEBAN Report Released Date/Time: Aug 26, 2023 10:21 AM Reporting Lab: [address] [address] Performing Lab: [address] [address] [facility] COMPREHEN SIVE PNL BILIRUBIN. TOTAL [MASS/VOLU ME] IN SERUM OR PLASMA 0.6 mg/dL 0.2 - 1.2 10/06 /2023 Specimen Type: PLASMA Comment: eGFR was calculated using the CKD-EPI Creatinine (2020) equation. Ordering Provider: TJ ESTEBAN Report Released Date/Time: Aug 26, 2023 10:21 AM Reporting Lab: [address] [address] Performing Lab: [address] [address] [facility] COMPREHEN SIVE PNL PROTEIN [MASS/VOLU ME] IN SERUM OR PLASMA 6.6 g/dL 5.7 - 8.2 08/27 Specimen Type: PLASMA Comment: eGFR was calculated using the CKD-EPI Creatinine (2020) equation. Ordering Provider: TJ ESTEBAN Report Released Date/Time: Aug 26, 2023 10:21 AM Reporting Lab: [address] [address] Performing Lab: [place] [id number] [place] [address] COMPREHEN SIVE PNL ALBUMIN [MASS/VOLU ME] IN SERUM OR PLASMA 4.1 g/dL 3.4 - 5.0 08/27 Specimen Type: PLASMA Comment: eGFR was calculated using the CKD-EPI Creatinine (2020) equation. Ordering Provider: TJ ESTEBAN Report Released Date/Time: Aug 26, 2023 10:21 AM Reporting Lab: [address] [address] Performing Lab: [address] [address] [facility] COMPREHEN SIVE PNL ALKALINE PHOSPHATAS E [ENZYMATIC ACTIVITY/V OLUME] IN SERUM OR PLASMA 91 U/L 45 - 117 08/27 Specimen Type: PLASMA Comment: eGFR was calculated using the CKD-EPI Creatinine (2020) equation. Ordering Provider: TJ ESTEBAN Report Released Date/Time: Aug 26, 2023 10:21 AM Reporting Lab: [address] [address] Performing Lab: [address] [address] [facility] COMPREHEN SIVE PNL ALANINE AMINOTRANS FERASE [ENZYMATIC ACTIVITY/V OLUME] IN SERUM OR PLASMA 17 U/L 10 - 65 08/27 Specimen Type: PLASMA Comment: eGFR was calculated using the CKD-EPI Creatinine (2020) equation. Ordering Provider: TJ ESTEBAN Report Released Date/Time: Aug 26, 2023 10:21 AM Reporting Lab: [address] [address] Performing Lab: [address] [address] [facility] COMPREHEN SIVE PNL ASPARTATE AMINOTRANS FERASE [ENZYMATIC ACTIVITY/V OLUME] IN SERUM OR PLASMA 16 U/L 10 - 37 08/27 Specimen Type: PLASMA Comment: eGFR was calculated using the CKD-EPI Creatinine (2020) equation. Ordering Provider: TJ ESTEBAN Report Released Date/Time: Aug 26, 2023 10:21 AM Reporting Lab: [address] [address] Performing Lab: [address] [address] [facility] COMPREHEN SIVE PNL UREA NITROGEN [MASS/VOLU ME] IN SERUM OR PLASMA 13 mg/dL 7 - 21 08/27 Specimen Type: PLASMA Comment: eGFR was calculated using the CKD-EPI Creatinine (2020) equation. Ordering Provider: TJ ESTEBAN Report Released Date/Time: Aug 26, 2023 10:21 AM Reporting Lab: [address] [address] Performing Lab: [address] [address] [facility] COMPREHEN SIVE PNL CALCIUM, TOTAL 9.2 mg/dL 8.7 - 10.4 08/27 Specimen Type: PLASMA Comment: eGFR was calculated using the CKD-EPI Creatinine (2020) equation. Ordering Provider: TJ ESTEBAN Report Released Date/Time: Aug 26, 2023 10:21 AM Reporting Lab: [address] [address] Performing Lab: [address] [address] [facility] COMPREHEN SIVE PNL CARBON DIOXIDE, TOTAL [MOLES/VOL UME] IN SERUM OR PLASMA 28.0 mmol/L 21.0 - 32.0 08/27 Specimen Type: PLASMA Comment: eGFR was calculated using the CKD-EPI Creatinine (2020) equation. Ordering Provider: TJ ESTEBAN Report Released Date/Time: Aug 26, 2023 10:21 AM Reporting Lab: [address] [address] Performing Lab: [address] [address] [facility] COMPREHEN SIVE PNL CHLORIDE [MOLES/VOL UME] IN SERUM OR PLASMA 105 mmol/L 98 - 109 08/27 Specimen Type: PLASMA Comment: eGFR was calculated using the CKD-EPI Creatinine (2020) equation. Ordering Provider: TJ ESTEBAN Report Released Date/Time: Aug 26, 2023 10:21 AM Reporting Lab: [address] [address] Performing Lab: [place] [phone] [facility] COMPREHEN SIVE PNL CREATININE [MASS/VOLU ME] IN URINE 1.24 mg/dL 0.67 - 1.17 08/27 H Specimen Type: PLASMA Comment: eGFR was calculated using the CKD-EPI Creatinine (2020) equation. Ordering Provider: TJ ESTEBAN Report Released Date/Time: Aug 26, 2023 10:21 AM Reporting Lab: [address] [address] Performing Lab: [address] [address] [facility] CBC W/DIFF LEUKOCYTES [#/VOLUME] IN BLOOD BY AUTOMATED COUNT 8.0 10*3/uL 4.0 - 11.0 08/27 Specimen Type: BLOOD No comment entered. Ordering Provider: TJ ESTEBAN Report Released Date/Time: Aug 26, 2023 10:21 AM Reporting Lab: [address] [address] Performing Lab: [address] [address] [facility] CBC W/DIFF ERYTHROCYT ES [#/VOLUME] IN BLOOD BY AUTOMATED COUNT 4.69 10*6/uL 4.20 - 5.70 08/27 Specimen Type: BLOOD No comment entered. Ordering Provider: TJ ESTEBAN Report Released Date/Time: Aug 26, 2023 10:21 AM Reporting Lab: [facility] [address] [facility] [address] Performing Lab: [facility] [address] [place] [address] [facility] CBC W/DIFF HEMOGLOBIN [MASS/VOLU ME] IN BLOOD 14.0 g/dL 13.0 - 17.0 08/27 Specimen Type: BLOOD No comment entered. Ordering Provider: TJ ESTEBAN Report Released Date/Time: Aug 26, 2023 10:21 AM Reporting Lab: [facility] [address] [place] [address] Performing Lab: [address] [address] [facility] CBC W/DIFF HEMATOCRIT [VOLUME FRACTION] OF BLOOD BY AUTOMATED COUNT 41.5 40.0 - 51.0 08/27 Specimen Type: BLOOD No comment entered. Ordering Provider: TJ ESTEBAN Report Released Date/Time: Aug 26, 2023 10:21 AM Reporting Lab: [facility] [address] [place] [address] Performing Lab: [address] [address] [facility] CBC W/DIFF MCV [ENTITIC VOLUME] BY AUTOMATED COUNT 88.5 fL 82 - 99 08/27 Specimen Type: BLOOD No comment entered. Ordering Provider: TJ ESTEBAN Report Released Date/Time: Aug 26, 2023 10:21 AM Reporting Lab: [facility] [address] [facility] [address] Performing Lab: [facility] [address] [place] [address] [facility] CBC W/DIFF MCHC [MASS/VOLU ME] BY AUTOMATED COUNT 29.9 pg 27 - 34 08/27 Specimen Type: BLOOD No comment entered. Ordering Provider: TJ ESTEBAN Report Released Date/Time: Aug 26, 2023 10:21 AM Reporting Lab: [facility] [address] [place] [address] Performing Lab: [facility] [address] [place] [address] [facility] CBC W/DIFF MCHC [MASS/VOLU ME] BY AUTOMATED COUNT 33.7 g/dL 31 - 37 08/27 Specimen Type: BLOOD No comment entered. Ordering Provider: TJ ESTEBAN Report Released Date/Time: Aug 26, 2023 10:21 AM Reporting Lab: [address] [address] Performing Lab: [address] [address] [facility] CBC W/DIFF PLATELET MEAN VOLUME [ENTITIC VOLUME] IN BLOOD BY AUTOMATED COUNT 8.9 fL 8 - 12 08/27 Specimen Type: BLOOD No comment entered. Ordering Provider: TJ ESTEBAN Report Released Date/Time: Aug 26, 2023 10:21 AM Reporting Lab: [address] [address] Performing Lab: [address] [address] [facility] CBC W/DIFF PLATELETS [#/VOLUME] IN BLOOD BY AUTOMATED COUNT 241 10*3/uL 130 - 400 08/27 Specimen Type: BLOOD No comment entered. Ordering Provider: TJ ESTEBAN Report Released Date/Time: Aug 26, 2023 10:21 AM Reporting Lab: [address] [address] Performing Lab: [address] [address] [facility] CBC W/DIFF ERYTHROCYT E DISTRIBUTI ON WIDTH [RATIO] BY AUTOMATED COUNT 14.0 < 15.0 - 15.0 08/27 Specimen Type: BLOOD No comment entered. Ordering Provider: TJ ESTEBAN Report Released Date/Time: Aug 26, 2023 10:21 AM Reporting Lab: [address] [address] Performing Lab: [address] [address] [facility] CBC W/DIFF NEUTROPHIL S/100 LEUKOCYTES IN BLOOD BY AUTOMATED COUNT 51.6 08/27 Specimen Type: BLOOD No comment entered. Ordering Provider: TJ ESTEBAN Report Released Date/Time: Aug 26, 2023 10:21 AM Reporting Lab: [facility] [address] [facility] [address] Performing Lab: [facility] [address] [facility] [address] [facility] CBC W/DIFF LYMPHOCYTE S/100 LEUKOCYTES IN BLOOD BY AUTOMATED COUNT 33.9 08/27 Specimen Type: BLOOD No comment entered. Ordering Provider: TJ ESTEBAN Report Released Date/Time: Aug 26, 2023 10:21 AM Reporting Lab: [facility] [address] [facility] [address] Performing Lab: [facility] [address] [facility] [address] [facility] CBC W/DIFF MONOCYTES/ 100 LEUKOCYTES IN BLOOD BY AUTOMATED COUNT 8.8 08/27 Specimen Type: BLOOD No comment entered. Ordering Provider: TJ ESTEBAN Report Released Date/Time: Aug 26, 2023 10:21 AM Reporting Lab: [facility] [address] [facility] [address] Performing Lab: [facility] [address] [facility] [address] [facility] CBC W/DIFF EOSINOPHIL S/100 LEUKOCYTES IN BLOOD BY AUTOMATED COUNT 4.4 08/27 Specimen Type: BLOOD No comment entered. Ordering Provider: TJ ESTEBAN Report Released Date/Time: Aug 26, 2023 10:21 AM Reporting Lab: [facility] [address] [facility] [address] Performing Lab: [facility] [address] [facility] [address] [facility] CBC W/DIFF BASOPHILS/ 100 LEUKOCYTES IN BLOOD BY AUTOMATED COUNT 0.8 08/27 Specimen Type: BLOOD No comment entered. Ordering Provider: TJ ESTEBAN Report Released Date/Time: Aug 26, 2023 10:21 AM Reporting Lab: [facility] [address] [facility] [address] Performing Lab: [facility] [address] [facility] [address] [facility] CBC W/DIFF IMMATURE GRANULOCYT ES/100 LEUKOCYTES IN BLOOD 0.5 08/27 Specimen Type: BLOOD No comment entered. Ordering Provider: TJ ESTEBAN Report Released Date/Time: Aug 26, 2023 10:21 AM Reporting Lab: [facility] [address] [facility] [address] Performing Lab: [facility] [address] [facility] [address] [facility] CBC W/DIFF NEUTROPHIL S [#/VOLUME] IN BLOOD BY AUTOMATED COUNT 4.1 10*3/uL 1.5 - 8.0 08/27 Specimen Type: BLOOD No comment entered. Ordering Provider: TJ ESTEBAN Report Released Date/Time: Aug 26, 2023 10:21 AM Reporting Lab: [facility] [address] [facility] [address] Performing Lab: [facility] [address] [facility] [address] [facility] CBC W/DIFF LYMPHOCYTE S [#/VOLUME] IN BLOOD BY AUTOMATED COUNT 2.7 10*3/uL 1.0 - 4.0 08/27 Specimen Type: BLOOD No comment entered. Ordering Provider: TJ ESTEBAN Report Released Date/Time: Aug 26, 2023 10:21 AM Reporting Lab: [facility] [address] [facility] [address] Performing Lab: [facility] [address] [facility] [address] [facility] CBC W/DIFF MONOCYTES [#/VOLUME] IN BLOOD BY AUTOMATED COUNT 0.7 10*3/uL 0.2 - 1.0 08/27 Specimen Type: BLOOD No comment entered. Ordering Provider: TJ ESTEBAN Report Released Date/Time: Aug 26, 2023 10:21 AM Reporting Lab: [facility] [address] [facility] [address] Performing Lab: [facility] [address] [facility] [address] [facility] CBC W/DIFF EOSINOPHIL S [#/VOLUME] IN BLOOD BY AUTOMATED COUNT 0.4 10*3/uL 0 - 0.4 08/27 Specimen Type: BLOOD No comment entered. Ordering Provider: TJ ESTEBAN Report Released Date/Time: Aug 26, 2023 10:21 AM Reporting Lab: [facility] [address] [facility] [address] Performing Lab: [facility] [address] [facility] [address] [facility] CBC W/DIFF BASOPHILS [#/VOLUME] IN BLOOD BY AUTOMATED COUNT 0.1 10*3/uL 0 - 0.2 08/27 Specimen Type: BLOOD No comment entered. Ordering Provider: TJ ESTEBAN Report Released Date/Time: Aug 26, 2023 10:21 AM Reporting Lab: [address] [address] Performing Lab: [place] [id number] [place] [address] CBC W/DIFF IMMATURE GRANULOCYT ES/100 LEUKOCYTES IN BLOOD <0.110*3 /uL 0 - 0.5 08/27 Specimen Type: BLOOD No comment entered. Ordering Provider: TJ ESTEBAN Report Released Date/Time: Aug 26, 2023 10:21 AM Reporting Lab: [place] [id number] Performing Lab: [place] [id number] [place] [address] CBC W/DIFF NUCLEATED ERYTHROCYT ES/100 ERYTHROCYT ES IN BLOOD 0.0 /100{WBC s} 0 - 0.2 08/27 Specimen Type: BLOOD No comment entered. Ordering Provider: TJ ESTEBAN Report Released Date/Time: Aug 26, 2023 10:21 AM Reporting Lab: [address] [address] Performing Lab: [place] [id number] CBC W/DIFF NUCLEATED ERYTHROCYT ES [#/VOLUME] IN BLOOD <0.0110* 3/uL 0 - 0.012 08/27 Specimen Type: BLOOD No comment entered. Ordering Provider: TJ ESTEBAN Report Released Date/Time: Aug 26, 2023 10:21 AM Reporting Lab: [place] [id number] Performing Lab: [place] [id number] [place] [address] CARDIAC PROF(PLAS MA) MYOGLOBIN [MASS/VOLU ME] IN SERUM OR PLASMA 74.40 ng/mL 0 - 110 08/26 Specimen Type: PLASMA No comment entered. Ordering Provider: TJ ESTEBAN Report Released Date/Time: Aug 26, 2023 11:55 AM Reporting Lab: [facility] [address] [facility] [address] Performing Lab: [facility] [address] [place] [id number] [facility] CARDIAC PROF(PLAS MA) CREATINE KINASE.MB [MASS/VOLU ME] IN BLOOD 1.83 ng/mL - 5.0 08/26 Specimen Type: PLASMA No comment entered. Ordering Provider: TJ ESTEBAN Report Released Date/Time: Aug 26, 2023 11:55 AM Reporting Lab: [address] [address] Performing Lab: [address] [address] [facility] CARDIAC PROF(PLAS MA) TROPONIN T.CARDIAC [MASS/VOLU ME] IN SERUM OR PLASMA BY HIGH SENSITIVIT Y METHOD 4 - 53 08/26 Specimen Type: PLASMA No comment entered. Ordering Provider: TJ ESTEBAN Report Released Date/Time: Aug 26, 2023 11:55 AM Reporting Lab: [address] [address] Performing Lab: [address] [address] [facility] THYROID CASCADE PANEL THYROTROPI N [UNITS/VOL UME] IN SERUM OR PLASMA 1.242 u[IU]/mL 0.550 - 4.780 08/26 Specimen Type: SERUM No comment entered. Ordering Provider: TJ ESTEBAN Report Released Date/Time: Aug 26, 2023 11:49 AM Reporting Lab: [address] [address] Performing Lab: [address] [address] [facility] CARDIAC PROF(PLAS MA) MYOGLOBIN [MASS/VOLU ME] IN SERUM OR PLASMA 82.00 ng/mL 0 - 110 08/26 Specimen Type: PLASMA No comment entered. Ordering Provider: TJ ESTEBAN Report Released Date/Time: Aug 26, 2023 11:49 AM Reporting Lab: [address] [address] Performing Lab: [address] [address] [facility] CARDIAC PROF(PLAS MA) CREATINE KINASE.MB [MASS/VOLU ME] IN BLOOD 1.66 ng/mL - 5.0 08/26 Specimen Type: PLASMA No comment entered. Ordering Provider: TJ ESTEBAN Report Released Date/Time: Aug 26, 2023 11:49 AM Reporting Lab: [address] [address] Performing Lab: [address] [address] [facility] CARDIAC PROF(SULMA MA) TROPONIN T.CARDIAC [MASS/VOLU ME] IN SERUM OR PLASMA BY HIGH SENSITIVIT Y METHOD 4 - 53 08/26 Specimen Type: PLASMA No comment entered. Ordering Provider: TJ ESTEBAN Report Released Date/Time: Aug 26, 2023 11:49 AM Reporting Lab: [address] [address] Performing Lab: [address] [address] [facility] Vital Signs Combined list of inpatient and outpatient Vital Signs from Department of Defense and Veterans Affairs, ranging from 12 months to all on record, depending upon the facility. Vital Sign Value Date Comments Source SYSTOLIC BLOOD PRESSURE 132 02/12/2025 09:02:41 [facility] DIASTOLIC BLOOD PRESSURE 74 02/12/2025 09:02:41 [facility] PULSE OXIMETRY 97 02/12/2025 09:02:41 [facility] WEIGHT 270.9 02/12/2025 09:02:41 [facility] BMI 44 kg/m2 02/12/2025 09:02:41 [facility] TEMPERATURE 97.2 02/12/2025 09:02:41 [facility] PULSE 76 02/12/2025 09:02:41 [facility] RESPIRATION 18 02/12/2025 09:02:41 [facility] WEIGHT 272 01/23/2025 08:05:13 [facility] BMI 45 kg/m2 01/23/2025 08:05:13 [facility] WEIGHT 281 11/01/2024 08:37:49 [facility] BMI 46 kg/m2 11/01/2024 08:37:49 [facility] WEIGHT 254 04/06/2024 09:02:45 [facility] BMI 42 kg/m2 04/06/2024 09:02:45 [facility] SYSTOLIC BLOOD PRESSURE 146 03/15/2024 13:46:44 [facility] DIASTOLIC BLOOD PRESSURE 77 03/15/2024 13:46:44 [facility] WEIGHT 271 03/15/2024 13:46:44 [facility] BMI 45 kg/m2 03/15/2024 13:46:44 [facility] PAIN 5 03/15/2024 13:46:44 [facility] TEMPERATURE 98.2 03/15/2024 13:46:44 [facility] PULSE 71 03/15/2024 13:46:44 [facility] RESPIRATION 20 03/15/2024 13:46:44 [facility] [place] [facility] Encounters Combined list of: 1) Encounters from Department of Veterans Affairs facilities going backup to the last 18 months, not all [place] inpatient encounters are included; 2) Encounters from the Department of Defense facilities going backup to 280 months. 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 ntricul ar tachyca rdia, unspeci fiJOSÉ LUIS Lacy 09/07 [facility] O[facility] Outpatient Encounter [id number] 09/07 [facility] HC PRO PHONE CALL 5-10 MIN [id number] Diagnos is: ICD-10- CM Z09 Encntr for f/u exam aft trtmt for cond oth than malig neoplm CLAUSON,DA RCIE L 09/10 [facility] HC PRO PHONE CALL 11-20 MIN [id number] Diagnos is: ICD-10- CM Z09 Encntr for f/u exam aft trtmt for cond oth than malig neoplm CLAUSON,DA RCIE L 09/13 [facility] TELEHEALTH FACILITY FEE [id number] [id number] Diagnos is: ICD-10- CM 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 RADHA Diaz 09/14 [facility] OFF/OP CONSLTJ NEW/EST SF 20 [id number] [id number] Diagnos is: ICD-10- CM Z74.09 Other reduced mobilit y WELLING,WHALEY PUENTES M 09/14 [facility] OPC OFFICE O/P EST HI 40-54 MIN [id number] [id number] Diagnos is: ICD-10- CM M76.821 Posteri or tibial tendini tis, right leg HORACE BLAKELY 09/14 [facility] OPC OFFICE O/P EST SF 10-19 MIN [id number] [id number] Diagnos is: ICD-10- CM 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 PERROW,CHIKI HOLAS C 09/14 [facility] Outpatient Encounter [id number] Diagnos is: ICD-10- CM Z09 Encntr for f/u exam aft trtmt for cond oth than malig neoplm CLAUSON,DA RCIE L 09/20 [facility] Outpatient Encounter [id number] IMDSOFTTYLER K 09/20 [facility] HC PRO PHONE CALL 5-10 MIN [id number] [id number] Diagnos is: ICD-10- CM Z09 Encntr for f/u exam aft trtmt for cond oth than malig neoplm YANETHON,DA RCIE L 09/20 [facility] Outpatient Encounter [id number] JOSÉ LUIS ORTIZ 09/29 [facility] Outpatient Encounter [id number] 09/30 [facility] Outpatient Encounter [id number] 09/30 [facility] HC PRO PHONE CALL 11-20 MIN [id number] [id number] Diagnos is: ICD-10- CM Z74.09 Other reduced mobilit y JOVANA OLSON 10/05 [facility] Outpatient Encounter [id number] [id number] HORACE BLAKELY 10/05 [facility] HC PRO PHONE CALL 11-20 MIN [id number] [id number] Diagnos is: ICD-10- CM Z09 Encntr for f/u exam aft trtmt for cond oth than malig neoplm CLAON,DA RCIE L 10/19 [facility] Outpatient Encounter [id number] Diagnos is: ICD-10- CM Z09 Encntr for f/u exam aft trtmt for cond oth than malig neoplm CLAON,DA RCIE L 10/19 [facility] HC PRO PHONE CALL 5-10 MIN [id number] [id number] Diagnos is: ICD-10- CM Z09 Encntr for f/u exam aft trtmt for cond oth than malig neoplm CLAUSON,DA RCIE L 10/21 [facility] OPC OFFICE O/P EST SF 10-19 MIN [id number] [id number] Diagnos is: ICD-10- CM 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 PERROW,CHIKI HOLAS C 10/28 [facility] O[facility] OFFICE O/P EST HI 40-54 MIN [id number] [id number] Diagnos is: ICD-10- CM 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 ROSA WOODSONCA M 10/28 [facility] OPC [facility] HC PRO PHONE CALL 11-20 MIN [id number] [id number] Diagnos is: ICD-10- CM Z09 Encntr for f/u exam aft trtmt for cond oth than malig neoplm CLAUSON,DA RCIE L 11/02 [facility] Outpatient Encounter [id number] 11/03 [facility] Outpatient Encounter [id number] [id number] 11/03 [facility] Outpatient Encounter [id number] [id number] 11/03 [facility] HC PRO PHONE CALL 11-20 MIN [id number] [id number] Diagnos is: ICD-10- CM Z09 Encntr for f/u exam aft trtmt for cond oth than malig neoplm CLAUSON,DA RCIE L 11/04 [facility] Outpatient Encounter [id number] [id number] Diagnos is: ICD-10- CM Z09 Encntr for f/u exam aft trtmt for cond oth than malig neoplm CLAUSON,DA RCIE L 11/12 [facility] Outpatient Encounter [id number] [id number] 11/18 [facility] HC PRO PHONE CALL 11-20 MIN [id number] [id number] Diagnos is: ICD-10- CM Z09 Encntr for f/u exam aft trtmt for cond oth than malig neoplm CLAUSON,DA RCIE L 11/24 [facility] OPC OFFICE O/P EST LOW 20 MIN [id number] [id number] Diagnos is: ICD-10- CM M76.821 Posteri or tibial tendini tis, right leg HORACE BLAKELY 12/08 [facility] Outpatient Encounter [id number] [id number] Diagnos is: ICD-10- CM Z09 Encntr for f/u exam aft trtmt for cond oth than malig neoplm CLAUSON,DA RCIE L 12/15 [facility] HC PRO PHONE CALL 11-20 MIN [id number] [id number] Diagnos is: ICD-10- CM Z09 Encntr for f/u exam aft trtmt for cond oth than malig neoplm CLAUSON,DA RCIE L 01/18 [facility] Outpatient Encounter [id number] [id number] Diagnos is: ICD-10- CM Z09 Encntr for f/u exam aft trtmt for cond oth than malig neoplm CLAUSON,DA RCIE L 01/18 [facility] Outpatient Encounter [id number] [id number] 02/01 [facility] HC PRO PHONE CALL 11-20 MIN [id number] [id number] Diagnos is: ICD-10- CM Z09 Encntr for f/u exam aft trtmt for cond oth than malig neoplm CLAUSON,DA RCIE L 02/01 [facility] HC PRO PHONE CALL 11-20 MIN [id number] [id number] Diagnos is: ICD-10- CM Z09 Encntr for f/u exam aft trtmt for cond oth than malig neoplm CLAUSON,DA RCIE L 02/01 [facility] Outpatient Encounter [id number] [id number] 02/01 [facility] OPC OFFICE O/P EST LOW 20 MIN [id number] [id number] Diagnos is: ICD-10- CM I47.10 Suprave ntricul ar tachyca rdia, unspeci fied JOSÉ LUIS ORTIZ 02/13 [facility] Outpatient Encounter [id number] [id number] 02/13 [facility] Outpatient Encounter [id number] [id number] 03/15 [facility] OPC OFFICE O/P EST MOD 30 MIN [id number] [id number] Diagnos is: ICD-10- CM Q66.51 Congeni thao pes planus, right foot HORACE BLAKELY D 03/15 [facility] TELEHEALTH FACILITY FEE [id number] [id number] Diagnos is: ICD-10- CM 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 HARPER Begum 03/15 [facility] OFFICE O/P EST LOW 20 MIN [id number] [id number] Diagnos is: ICD-10- CM I47.10 Suprave ntricul ar tachyca rdia, unspeci fied WIL ID,ALAA E 03/15 [facility] Outpatient Encounter [id number] [id number] 03/15 [facility] Outpatient Encounter [id number] [id number] 03/16 [facility] Outpatient Encounter [id number] [id number] 03/16 [facility] Outpatient Encounter [id number] [id number] 03/16 [facility] Outpatient Encounter [id number] [id number] 03/16 [facility] Outpatient Encounter [id number] [id number] 03/21 [facility] Outpatient Encounter [id number] [id number] 03/23 [facility] Outpatient Encounter [id number] [id number] 04/03 [facility] [id number] [id number] 04/06 [facility] En[facility] [id number] [id number] 04/10 [facility] En[facility] [id number] [id number] 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 PERROW,CHIKI HOL C 04/20 [facility] En[facility] [id number] [id number] 04/21 [facility] En[facility] [id number] [id number] 04/21 [facility] Encounter [id number] [id number] 04/27 [facility] Encounter [id number] [id number] HORACE BLAKELY 05/01 [facility] OPC OFFICE O/P EST SF 10 MIN [id number] [id number] Diagnos is: ICD-10- CM 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 Outpatient Encounter [id number] [id number] 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 RADHA Magaña AM 10/12 [facility] HC PRO PHONE CALL 5-10 MIN [id number] [id number] Diagnos is: ICD-10- CM Z65.8 Oth problem s related to psychos ocial circums tanHOANG Pandya D 10/16 [facility] OFFICE O/P EST MOD 30 MIN [id number] [id number] Diagnos is: ICD-10- CM H25.13 Age-rel ated nuclear catarac t, bilater al CHINTAN,JE SSICA M 10/18 [facility] Outpatient Encounter [id number] 10/18 [facility] Outpatient Encounter [id number] [id number] 10/18 [facility] Outpatient Encounter [id number] [id number] 11/07 [facility] Outpatient Encounter [id number] [id number] 11/21 [facility] OFFICE O/P EST LOW 20 MIN [id number] [id number] Diagnos is: ICD-10- CM M19.071 Primary osteoar thritis , right ankle and foot HORACE BLAKELY 12/29 [facility] Outpatient Encounter [id number] [id number] HORACE BLAKELY 01/02 [facility] TELEHEALTH FACILITY FEE [id number] [id number] Diagnos is: ICD-10- CM 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 HARPER Begum 02/01 [facility] SELF CARE MNGMENT TRAINING [id number] [id number] Diagnos is: ICD-10- CM R60.0 Localiz ed edema HORACE BLANDON 02/01 [facility] Outpatient Encounter [id number] [id number] 02/06 [facility] Outpatient Encounter [id number] [id number] 02/06 [facility] Outpatient Encounter [id number] [id number] 02/09 [facility] Outpatient Encounter [id number] [id number] 02/12 [facility] Outpatient Encounter [id number] [id number] 02/12 [facility] OPC OFFICE O/P EST LOW 20 MIN [id number] [id number] Diagnos is: ICD-10- CM I89.0 Lymphed kaila, not elsewhe re classif ied JOSÉ LUIS ORTIZ 02/12 [facility] OPC MTMS BY PHARM ADDL 15 MIN 55540-5.55 [id number] Diagnos is: ICD-10- CM E66.01 Morbid (severe ) obesity due to excess calorie s KEMI BURDICK 02/13 [facility] OPC NQHP OL DIG ASSMT&MGMT 5-10 [id number] [id number] Diagnos is: ICD-10- CM E66.9 Obesity , unspeci fied NAILA KENNEDY AN L 02/13 [facility] Outpatient Encounter [id number] [id number] 02/26 [facility] Social History Combined list of available smoking, tobacco, and 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 Social History Type Response Date Comment Source Tobacco smoking status [facility]-TOBACCO NEVER USED CIGARETTES 02/12/2025 [facility] History of tobacco use [place]-TOBAC[place] NEVER USED OTHER TYPE 02/12/2025 [facility] History of tobacco use [place] FORMER US[place] 04/12/2023 [facility] History of tobacco use [place]-TO[place]AC[place] FORMER USER 08/27/2022 [facility] History of tobacco use [place]-TOBAC[place] FORMER USER 08/26/2021 [facility] History of tobacco use [place]-TOBACCO FORMER USER 09/20/2018 [facility] History of tobacco use QUIT TOBACCO >7 YEARS AGO 09/21/2017 quit 20 years ago [facility] History of tobacco use QUIT TOBACCO >7 YEARS AGO 11/02/2016 [facility] History of tobacco use QUIT TOBACCO >7 YEARS AGO 02/05/2015 [facility] History of tobacco use QUIT TOBACCO >12 MO and <7 YRS AGO 08/08/2013 [facility] History of tobacco use QUIT TOBACCO >12 MO and <7 YRS AGO 07/12/2012 [facility] History of tobacco use QUIT TOBACCO IN THE LAST 12 MONTHS 03/25/2011 [facility] History of tobacco use TOBACCO OFFERRED PT MEDS (PROVIDER) 03/18/2010 [facility] History of tobacco use TOBACCO OFFERRED PT MEDS (PROVIDER) 02/01/2009 [facility] History of tobacco use TOBACCO OFFERRED PT MEDS (PROVIDER) 08/03/2008 [facility] History of tobacco use TOBACCO OFFERRED PT MEDS (PROVIDER) 06/10/2007 [facility] History of tobacco use CURRENT NON-SMOKER 03/10/2001 [facility] History of tobacco use CURRENT NON-SMOKER 05/08/2000 [facility] Plan of Care List of future care activities from [facility] facilities. Additional future care activities may be listed in the Assessment and Plan section. Date/Time Care Activity Care Activity Detail Facili ty 03/13/2025 AMBULATORY - NONE AMBULATORY - NONE [facility] Advance Directives List of completed, amended, or rescinded Advance Directives on record at [facility] facilities. An actual copy of the Directive is not included. Date Advance Directive Provider Source 03/16/2024 ADVANCE DIRECTIVE DISCUSSION LUPE LEPE [facility] 02/09/2024 ADVANCE DIRECTIVE LEXY WH[facility]Y [facility] 11/03/2023 RESCINDED ADVANCE DIRECTIVE LUPE LEPE [facility] 09/20/2023 RESCINDED ADVANCE DIRECTIVE LENNIE VALENTIN RA [facility] 08/26/2021 ADVANCE DIRECTIVE DISCUSSION COLT PEARL [facility]
--- NOTE | 2025-03-05 18:28 | ED.CHESTPAIN ---
HPI - Chest Pain General Chief Complaint: Chest Pain Stated Complaint: chest pain Time Seen by Provider: 03/05/25 18:24 History of Present Illness HPI narrative: Pt presents with intermittent episodes of chest pain since 1000 this morning. Pt says they occur when he's taking a deep breath and last about 1-2 minutes before resolving. Pt says he has had 14 or 15 episodes since 1000. Pt denies SOB. Pt has hiatal hernia and thought it might be that but it kept happening so he came to get checked out. Related Data Home Medications ?Medication ?Instructions ?Recorded ?Confirmed ?Last Taken ?Type atorvastatin 20 mg tablet 20 mg PO DAILY 11/10/19 12/20/24 Unknown History magnesium oxide 400 mg PO DAILY 11/10/19 12/20/24 Unknown History omeprazole 20 mg capsule,delayed 20 mg PO DAILY 11/10/19 12/20/24 Unknown History release gabapentin 100 mg capsule 100 mg PO BID 06/21/23 12/20/24 Unknown History aspirin 81 mg tablet,delayed 81 mg PO DAILY 10/13/24 12/20/24 Unknown History release (Adult Aspirin Regimen) cyanocobalamin (vitamin B-12) 1,000 mcg PO WEEKLY 10/13/24 12/20/24 Unknown History 1,000 mcg capsule Allergies Allergy/AdvReac Type Severity Reaction Status Date / Time bee venom protein (honey bee) Allergy Severe Anaphylaxis Verified 03/05/25 18:32 codeine Allergy Anaphylaxis Verified 03/05/25 18:32 Bee stings Allergy Intermediate anaphylaxis Uncoded 03/05/25 18:32 Review of Systems Review of Systems: All systems reviewed & are unremarkable except as noted in HPI and below PMFSH Past Medical History Medical History Cervical radiculopathy Hyperlipidemia GERD (gastroesophageal reflux disease) Osteoarthritis Hypertension Overweight Surgical History Surgical History History of carpal tunnel surgery Bilateral H/O knee surgery Bilateral Orthoscopic Hx of tonsillectomy Age 11 Family History Family History Mother Medical history unknown Father Medical history unknown Social History Social History (Reviewed 12/20/24 @ 15:16 by EDGAR Powers Smoking status: Former smoker Tobacco type: cigarettes Alcohol intake: current Living arrangements: with family Additional living arrangements comments: . 3 Children. Occupation/Education: retired Additional occupation/education comments: Prior Occupation: [employer]. Gender identity (if verbalized by the patient): Male Exam Const: General: healthy appearing and no acute distress Nutritional Appearance: well nourished Orientation/consciousness: patient oriented x3 Limitations: no limitations Chest: Chest palpation & inspection: normal inspection of the chest Resp: Effort & Inspection: normal respiratory effort Auscultation: clear to auscultation bilaterally Cardio: Rate: regular rate Rhythm: regular rhythm GI: GI Palp: Yes Soft to palpation and No Tenderness to palpation present (GI) Auscultation: normal bowel sounds Back/Spine/Pelvis: Back: no CVA tenderness Skin: General skin exam: normal color Rashes: no rashes Wounds: no wounds Neuro: General: patient oriented x3, moves all extremities, no meningeal signs and no focal motor deficits Cranial nerves: Yes Nystagmus not present Speech: normal speech Gait exam (Neuro): Normal gait present Extrem: General: normal to inspection and no clubbing, cyanosis or edema Psych: Mental Status: mental status grossly normal Affect: normal affect Attitude: cooperative Course Vital Signs Vital signs: Vital Signs Temperature 99.0 F 03/05/25 18:21 Pulse Rate 90 03/05/25 18:21 Respiratory Rate 17 03/05/25 18:21 Blood Pressure 144/121 H 03/05/25 18:21 Pulse Oximetry 97 03/05/25 18:21 Oxygen Delivery Room Air 03/05/25 18:21 Temperature 99.0 F 03/05/25 18:21 Pulse Rate 69 03/05/25 20:31 Respiratory Rate 14 03/05/25 20:31 Blood Pressure 128/57 L 03/05/25 20:31 Pulse Oximetry 98 03/05/25 20:31 Oxygen Delivery Room Air 03/05/25 18:21 MDM - Chest Pain MDM Narrative Medical decision making narrative: Pt presents with lower anterior chest/epigastric pain with deep breath numerous times today. spells last a minute or two and resolve but recur. Pt has no pain now. Does not sound cardiac but will do cardiac work up given age. d dimer slightly elevated so will get cta to rule out PE. trop and other labs unremarkable ekg unremarkable cxr fine. Pt not having any pain. will send home on pepcid. Lab Data 03/05/25 18:35 03/05/25 18:35 Labs: Lab Results 03/05/25 Range/Units 18:35 WBC 9.0 (4.8-10.8) K/mm3 RBC 4.61 L (4.70-6.10) M/mm3 Hgb 13.6 (12.4-15.3) g/dL Hct 41.1 (37.0-46.0) % MCV 89.2 (78.0-102.0) fL MCH 29.5 (27.0-31.0) pg MCHC 33.1 (32-36) g/dL RDW 13.7 (11.6-14.4) % Plt Count 260 (150-420) K/mm3 MPV 8.7 (8.7-11.0) fl Immature Gran % (Auto) 0.3 H (0.0-0.0) % Neut % (Auto) 52.0 (50.0-70.0) % Lymph % (Auto) 34.4 (18.0-42.0) % [place] % (Auto) 8.6 (2.0-11.0) % Eos % (Auto) 4.3 (1.0-6.0) % Baso % (Auto) 0.4 (0.0-1.0) % Lymph # (Auto) 3.09 (1.10-4.50) K/mm3 [place] # (Auto) 0.77 (0.10-0.90) K/mm3 Eos # (Auto) 0.39 (0.02-0.50) K/mm3 Baso # (Auto) 0.04 (0.00-0.10) K/mm3 Abs Immat Gran (auto) 0.03 H (0.00-0.00) K/mm3 Absolute Neuts (auto) 4.67 (1.70-7.20) K/mm3 Absolute Nucleated RBC 0.00 (0.00-0.00) K/mm3 Nucleated RBC % 0.0 (0-0.0) % PT 10.6 (9.50-12.1) Seconds INR 1.0 APTT 25.7 (23.9-30.70) Sec D-Dimer 0.57 H* (0.19-0.50) mg/L Sodium 142 (136-145) mmol/L Potassium 4.1 (3.5-5.1) mmol/L Chloride 107 (98-108) mmol/L Carbon Dioxide 24 (21-32) mmol/L Anion Gap 11 (4-12) mmol/L BUN 24 H (7-18) mg/dL Creatinine 1.59 H (0.70-1.30) mg/dL Estim Creat Clear Calc 45 ml/min Estimated GFR 43 L (59 - ) Glucose 100 H (70-99) mg/dL Calculated Osmolality 298 H (285-295) mOsm/kg Calcium 8.9 (8.5-10.1) mg/dL Total Bilirubin 0.5 (0.00-1.00) mg/dL AST 16 (15-37) U/L ALT 26 (16-63) U/L Alkaline Phosphatase 113 (46-116) U/L Troponin I 8.2 (0.00-60.4) ng/L NT-Pro-B Natriuret Pep 223 (0-450) pg/mL Total Protein 7.2 (6.4-8.2) g/dL Albumin 3.5 (3.4-5.0) g/dL Lipase 20 (16-77) U/L ECG Data EKG #1: Interpretation: nsr rate 85 lad pulmonary dx pattern no st or t wave changes Discharge Plan Discharge Patient Language: Portuguese Prescriptions: No Action magnesium oxide 400 mg magnesium tablet 400 mg PO DAILY omeprazole 20 mg capsule,delayed release(DR/EC) 20 mg PO DAILY atorvastatin 20 mg tablet 20 mg PO DAILY amoxicillin 875 mg tablet 875 mg PO Q12H Qty: 20 0RF cyanocobalamin (vitamin B-12) 1,000 mcg capsule 1,000 mcg PO WEEKLY gabapentin 100 mg capsule 100 mg PO BID ipratropium bromide 42 mcg (0.06 %) spray,non-aerosol 2 spray intranasal TID Qty: 15 5RF Rx Instructions: administer into each nostril aspirin [Adult Aspirin Regimen] 81 mg tablet,delayed release (DR/EC) 81 mg PO DAILY torsemide 10 mg tablet 10 mg PO QAM Qty: 90 0RF Follow-up/Referrals: Serge Lauren, DO [Primary Care Provider] - Quality HEART score for chest pain patients History: slightly suspicious ECG: normal Age: > or = to 65 years Risk factors: 1 or 2 risk factors Troponin: < or = to 1x normal limit Heart score: 3
--- OUTSIDE RECORDS SUMMARY | 2025-03-05 18:31 | XMS_ITS ---
Author Organization Unknown Address [address] [place] [phone] Phone Care Team Providers Care Phlebotomist Lab Assistant Name Role Phone LACEY Clark Attending Unavailable [...] Code Code Sys tem Electrocardiogram abnormal 09/30/2023 [id number] S NOMED-CT Personal Care Team Section Performer Name Performer Role Active Date Inactive Da te
--- OUTSIDE RECORDS SUMMARY | 2025-03-05 18:31 | XMS_ITS | Continuity of Care Document ---
Author Name [facility] Organization [facility] Care Team Providers Care Analytics Analyst Name Role Phone [facility] Unavailable Unavailable Problems Combined list of problems from Department of Defense and Veterans 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 It does not include entries that were removed or entered in error. 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 Condition [facility] Bilateral arthritis of ankle Active Condition [facility] Blurring of visual image Active Condition [facility] Cervical radiculopathy Active Condition [facility] Chronic alcoholism in remission Active Condition [facility] Cramp in lower leg Active Condition [facility] Cyanocobalamine deficiency (non anemic) Active Condition Jan 31, 2016 Entered By: JOSÉ LUIS ORTIZ Comment: monitored by Dr Ector Maddox[facility] Degeneration of cervical intervertebral disc Active Condition [facility] Dry eyes Active Condition [facility] Dysfunction of posterior tibial tendon of right foot Active Condition [facility] Elevated PSA Active Condition Jul 07, 2023 Entered By: JOSÉ LUIS ORTIZ Comment: 4.23 [facility] Gastroesophageal reflux disease Active Condition [facility] Gastroesophageal reflux disease without esophagitis (SNOMED CT 515318231) Active Condition [facility] History of left knee replacement Active Condition Feb 12 5 Entered By: JOSÉ LUIS ORTIZ Comment: 2019 at hospital in [facility] Hyperlipidemia Active Condition [facility] Hyperlipidemia (SNOMED CT 02392427) Active Condition [facility] Instability of gait Active [facility] Lymphoedema Active Condition Feb 12, 2025 Entered By: JOSÉ LUIS ORTIZ Comment: [facility] Morbid obesity Active Condition [facility] Nevus of choroid Active [facility] 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 [facility] Pes planus [facility] Primary erectile dysfunction Active Condition [facility] Sebaceous cyst of skin Active Condition [facility] Sensorineural hearing loss, bilateral Active [facility] Sensory neuropathy Active Condition [facility] Snoring Active Condition [facility] SVT - Supraventricular tachycardia Active Condition Sep 07, 2023 Entered By: JOSÉ LUIS ORTIZ Comment: episodes of paroxysmal supraventricular tachycardias with occasional episodes of nonsustained atrial fibrillation on rhythm strip as per cardiology noteFeb 14, 2024 Entered By: JOSÉ LUIS ORTIZ Comment: 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 [facility] Tinea unguium Active Condition [facility] Trichiasis [facility] Hip Pain Inactive Condition 02/05/2015 [facility] [place] [facility] Joint Pain, Shoulder Inactive Condition 02/05/2015 [facility] Multiple axillary skin tags Inactive Condition 08/27/2022 [facility] Onychomycosis Inactive Condition 03/25/2017 [facility] Diagnosis: ICD-10-CM E66.9 Obesity, unspecified Active Diagnosis [facility] Diagnosis: ICD-10-CM E66.01 Morbid (severe) obesity due to excess calories Active Diagnosis [facility] [place] [facility] Diagnosis: ICD-10-CM I89.0 Lymphedema, not elsewhere classified Active Diagnosis [facility] Diagnosis: ICD-10-CM R60.0 Localized edema Active Diagnosis [facility] Diagnosis: ICD-10-CM Z71.89 Other specified counseling Active Diagnosis [facility] Diagnosis: ICD-10-CM M19.071 Primary osteoarthritis, right ankle and foot Active Diagnosis [facility] Diagnosis: ICD-10-CM H25.13 Age-related nuclear cataract, bilateral Active Diagnosis [facility] Diagnosis: ICD-10-CM Z65.8 Oth problems related to psychosocial circumstances Active Diagnosis [facility] Diagnosis: ICD-10-CM B35.1 Tinea unguium Active Diagnosis [facility] Diagnosis: ICD-10-CM 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 [facility] Diagnosis: ICD-10-CM I47.10 Supraventricular tachycardia, unspecified Active Diagnosis [facility] Diagnosis: ICD-10-CM 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, right foot Active Diagnosis [facility] Diagnosis: ICD-10-CM Z09 Encntr for f/u exam aft trtmt for cond oth than malig neoplm Active Diagnosis [facility] Diagnosis: ICD-10-CM M76.821 Posterior tibial tendinitis, right leg Active Diagnosis [facility] Diagnosis: ICD-10-CM 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 [facility] Diagnosis: ICD-10-CM M21.6X9 Other acquired deformities of unspecified foot Active Diagnosis [facility] Diagnosis: ICD-10-CM Z74.09 Other reduced mobility Active Diagnosis [facility] Medications Combined list of outpatient medications [...] SS OR WEAKNESS ORAL DISCONT INUED 04/12/2024 [id number] JOSÉ LUIS ORTIZ 2022 90 [facility] ATORVASTATI N CA 20MG TAB TAKE ONE TABLET BY MOUTH AT BEDTIME FOR CHOLESTE ROL CALL YOUR PROVIDER IF YOU HAVE MUSCLE PAIN, TENDERNE SS OR WEAKNESS ORAL 02/14/2025 [id number] JOSÉ LUIS ORTIZ 2023 90 [facility] BACLOFEN 10MG TAB TAKE ONE-HALF TABLET BY MOUTH AT BEDTIME ORAL ACTIVE 11/02/2025 [id number] JOSÉ LUIS ORTIZ 2024 45 [facility] BACLOFEN 10MG TAB TAKE ONE-HALF TABLET BY MOUTH AT BEDTIME ORAL DISCONT INUED 12/10/2024 [id number] JOSÉ LUIS ORTIZ 2023 45 [facility] CYANOCOBALA MIN 1000MCG TAB TAKE FIVE TABLETS BY MOUTH ONCE A WEEK ORAL ACTIVE JOSÉ LUIS ORTIZ 2024 [facility] GABAPENTIN 300MG CAP TAKE ONE CAPSULE BY MOUTH TWICE A DAY ORAL ACTIVE 11/02/2025 [id number] JOSÉ LUIS ORTIZ 2023 180 [facility] GABAPENTIN 300MG CAP TAKE ONE CAPSULE BY MOUTH TWICE A DAY ORAL DISCONT INUED 08/05/2024 [id number] JOSÉ LUIS ORTIZ 2022 180 [facility] MAGNESIUM OXIDE 400MG TAB TAKE ONE TABLET BY MOUTH DAILY ORAL ACTIVE JOSÉ LUIS ORTIZ 2022 [facility] MULTIVITAMI N,HERBAL CAP/TAB TAKE BY MOUTH ORAL ACTIVE JOSÉ LUIS ORTIZ 2022 [facility] OMEPRAZOLE 20MG CAP,EC TAKE ONE CAPSULE BY MOUTH EVERY MORNING 30 MINUTES BEFORE BREAKFAS T FOR STOMACH ACID ORAL ACTIVE 02/13/2026 [id number] JOSÉ LUIS ORTIZ 2024 90 [facility] OMEPRAZOLE 20MG CAP,EC TAKE ONE CAPSULE BY MOUTH EVERY MORNING 30 MINUTES BEFORE BREAKFAS T FOR STOMACH ACID ORAL DISCONT INUED 07/19/2025 [id number] JOSÉ LUIS ORTIZ 2023 90 [facility] OMEPRAZOLE 20MG CAP,EC TAKE ONE CAPSULE BY MOUTH EVERY MORNING 30 MINUTES BEFORE BREAKFAS T FOR STOMACH ACID ORAL DISCONT INUED 07/05/2024 [id number] JOSÉ LUIS ORTIZ 2023 90 [facility] OMEPRAZOLE 20MG CAP,EC TAKE ONE CAPSULE BY MOUTH EVERY MORNING 30 MINUTES BEFORE BREAKFAS T FOR STOMACH ACID ORAL DISCONT INUED 04/12/2024 [id number] JOSÉ LUIS ORTIZ 2022 90 [facility] PHENTERMINE 3.75MG/TOPI RAMATE 23MG CAP,SA TAKE ONE CAPSULE BY MOUTH EVERY MORNING FOR 14 DAYS FOR WEIGHT LOSS ; THEN START 7.5/46MG CAPSULE PRESCRIP TION (ONE CAPSULE 7.5/46MG EVERY MORNING) ; THEN START 7.5/46MG CAPSULE PRESCRIP TION (ONE CAPSULE 7.5/46MG EVERY MORNING) ORAL ACTIVE 03/16/2025 [id number] JOSÉ LUIS ORTIZ 2024 14 [facility] PHENTERMINE 7.5MG/TOPIR AMATE 46MG CAP,SA TAKE ONE CAPSULE BY MOUTH EVERY MORNING FOR WEIGHT LOSS ORAL ACTIVE 03/16/2025 [id number] JOSÉ LUIS ORTIZ 2024 30 [facility] PSYLLIUM CAP,ORAL TAKE 1 CAPSULE BY MOUTH DAILY ORAL ACTIVE JOSÉ LUIS ORTIZ 2024 [facility] Allergies, Adverse Reactions, Alerts Combined list of allergies from Department of Defense and Veterans 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 It does not include entries that were removed or entered in error. Substance Category Reaction Severity Reaction type Status Date Reported Comments Source [facility] Propensity to adverse reaction (finding) Anaphylaxis active 1 [facility] BEE VENOM Propensity to adverse reaction (finding) Anaphylaxis SEVERE active 3 [facility] CODEINE Propensity to adverse reactions to drug (finding) active 1 [facility] CODEINE Propensity to adverse reactions to drug (finding) Anaphylaxis SEVERE active 3 [facility] ZOCOR Propensity to adverse reactions to drug (finding) active 3 [facility] Immunizations Combined list of available immunizations from the Department of Defense and Veterans 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 Immunization Series Date Given Administered By Site Reaction Lot Number CVX Code Drug Furniture Repairer Status Comments Source INFLUENZA, HIGH-DOSE, QUADRIVALENT 2022 ASHLEY DOUGHERTY RIGHT DELTO ID [id number] 197 complet ed [facility] INFLUENZA VACCINE, QUADRIVALENT, ADJUVANTED 2021 205 complet ed [facility] INFLUENZA VACCINE, QUADRIVALENT, ADJUVANTED 2020 205 complet ed [facility] PNEUMOCOCCAL POLYSACCHARID E PPV23 2020 33 complet ed [facility] COVID-19 (PFIZER), MRNA, LNP-S, PF, 30 MCG/0.3 ML DOSE 1 2020 208 complet ed HISTORICA L INFORMATI ON - FROM OTHER REGISTRY, [facility] COVID-19 (PFIZER), MRNA, LNP-S, PF, 30 MCG/0.3 ML DOSE 2 2020 208 complet ed [facility] COVID-19 (PFIZER), MRNA, LNP-S, PF, 30 MCG/0.3 ML DOSE 1 2020 208 complet ed [facility] INFLUENZA, HIGH-DOSE, QUADRIVALENT 2019 197 complet ed [facility] ZOSTER RECOMBINANT 1 2018 187 complet ed [facility] INFLUENZA, TRIVALENT, ADJUVANTED 2017 168 complet ed [facility] INFLUENZA, SEASONAL, INJECTABLE, PRESERVATIVE FREE 2016 140 complet ed Left Deltoid 0.5ml IM [facility] INFLUENZA, SEASONAL, INJECTABLE, PRESERVATIVE FREE 2015 140 complet ed Right Deltoid 0.5ml IM [facility] PNEUMOCOCCAL CONJUGATE PCV 13 2015 133 complet ed [facility] TDAP 1 2015 115 complet ed HISTORICA L INFORMATI ON - FROM OTHER REGISTRY, [facility] HEP B, ADULT 1 2015 43 complet ed HISTORICA L INFORMATI ON - FROM OTHER REGISTRY, [facility] TDAP 2015 115 complet ed [facility] INFLUENZA, UNSPECIFIED FORMULATION 2014 88 complet ed Right Deltoid 0.5ml IM [facility] PNEUMOCOCCAL POLYSACCHARID E PPV23 2014 33 complet ed [facility] INFLUENZA, UNSPECIFIED FORMULATION 2012 88 complet ed Right Deltoid 0.5ml IM [facility] INFLUENZA, UNSPECIFIED FORMULATION 2012 88 complet ed Left Deltoid 0.5ml IM [facility] INFLUENZA, UNSPECIFIED FORMULATION 2011 88 complet [...] TD(ADULT) UNSPECIFIED FORMULATION 1994 139 complet ed [facility] Results Combined list of recent chemistry, [...] Feb 12, 2025 09:13 AM Reporting Lab: [address] [address] Performing Lab: [address] [address] [facility] COMPREHEN SIVE PNL ANION GAP IN SERUM [...] Sep 11, 2024 02:38 PM Reporting Lab: [address] [address] Performing Lab: [place] [phone] [facility] COMPREHEN SIVE PNL GLOMERULAR FILTRATION RATE/1.73 SQ [...] Sep 11, 2024 02:38 PM Reporting Lab: [address] [address] Performing Lab: [address] [address] [facility] COMPREHEN SIVE PNL GLUCOSE [MASS/VOLU ME] IN [...] Sep 11, 2024 02:38 PM Reporting Lab: [address] [address] Performing Lab: [address] [address] [facility] COMPREHEN SIVE PNL POTASSIUM [MOLES/VOL UME] IN [...] Sep 11, 2024 02:38 PM Reporting Lab: [address] [address] Performing Lab: [address] [address] [facility] COMPREHEN SIVE PNL SODIUM [MOLES/VOL UME] IN [...] Sep 11, 2024 02:38 PM Reporting Lab: [address] [address] Performing Lab: [address] [address] [facility] COMPREHEN SIVE PNL BILIRUBIN. TOTAL [MASS/VOLU ME] [...] Sep 11, 2024 02:38 PM Reporting Lab: [address] [address] Performing Lab: [address] [address] [facility] COMPREHEN SIVE PNL PROTEIN [MASS/VOLU ME] IN [...] Sep 11, 2024 02:38 PM Reporting Lab: [address] [address] Performing Lab: [address] [address] [facility] COMPREHEN SIVE PNL ALBUMIN [MASS/VOLU ME] IN [...] Sep 11, 2024 02:38 PM Reporting Lab: [address] [address] Performing Lab: [address] [address] [facility] COMPREHEN SIVE PNL ALKALINE PHOSPHATAS E [ENZYMATIC [...] Sep 11, 2024 02:38 PM Reporting Lab: [address] [address] Performing Lab: [address] [address] [facility] COMPREHEN SIVE PNL ALANINE AMINOTRANS FERASE [ENZYMATIC [...] Sep 11, 2024 02:38 PM Reporting Lab: [address] [address] Performing Lab: [address] [address] [facility] PATIENCEEN SIVE PNL ASPARTATE AMINOTRANS FERASE [ENZYMATIC ACTIVITY/V OLUME] IN SERUM OR PLASMA 19 U/L 10 - 37 09/18 Specimen Type: PLASMA Comment: Low-risk levels [...] Sep 11, 2024 02:38 PM Reporting Lab: [address] [address] Performing Lab: [address] [address] [facility] COMPREHEN SIVE PNL UREA NITROGEN [MASS/VOLU ME] [...] Sep 11, 2024 02:38 PM Reporting Lab: [address] [address] Performing Lab: [address] [address] [facility] COMPREHEN SIVE PNL CALCIUM, TOTAL 10.3 mg/dL [...] Sep 11, 2024 02:38 PM Reporting Lab: [address] [address] Performing Lab: [place] [phone] [facility] H[facility] COMPREHEN SIVE PNL CARBON DIOXIDE, TOTAL [MOLES/VOL [...] Sep 11, 2024 02:38 PM Reporting Lab: [address] [address] Performing Lab: [address] [address] [facility] H[facility] COMPREHEN SIVE PNL CHLORIDE [MOLES/VOL UME] IN [...] Sep 11, 2024 02:38 PM Reporting Lab: [address] [address] Performing Lab: [address] [address] [facility] COMPREHEN SIVE PNL CREATININE [MASS/VOLU ME] [...] Sep 11, 2024 02:38 PM Reporting Lab: [address] [address] Performing Lab: [address] [address] [facility] H[facility] LIPID PNL CHOLESTERO L IN HDL [MASS/VOLU [...] Sep 11, 2024 02:38 PM Reporting Lab: [address] [address] Performing Lab: [address] [address] [facility] [place] [facility] LIPID PNL TRIGLYCERI DE [MASS/VOLU ME] IN [...] Sep 11, 2024 02:38 PM Reporting Lab: [address] [address] Performing Lab: [address] [address] [facility] LIPID PNL CHOLESTERO L IN LDL [...] Sep 11, 2024 02:38 PM Reporting Lab: [address] [address] Performing Lab: [address] [address] [facility] LIPID PNL CHOLESTERO L [MASS/VOLU ME] [...] Sep 11, 2024 02:38 PM Reporting Lab: [address] [address] Performing Lab: [address] [address] [facility] LIPID PNL CHOLESTERO L IN LDL [MASS/VOLU ME] IN SERUM OR PLASMA BY DULCE Parker 63 mg/dL 09/18 Specimen Type: PLASMA [...] Sep 11, 2024 02:38 PM Reporting Lab: [place] [phone] Performing Lab: [place] [phone] [place] [address] OPC VITAMIN B12 EIA COBALAMIN (VITAMIN B12) [MASS/VOLU ME] IN SERUM OR PLASMA 580 pg/mL 193 - 986 09/18 Specimen Type: SERUM No comment entered. Ordering Provider: Ayde ORTIZ Report Released Date/Time: Sep 11, 2024 02:38 PM Reporting Lab: [place] [address] Performing Lab: [place] [phone] OPC MRSA SURVL NARES DNA (REVISED 2-2-18) METHICILLI N RESISTANT STAPHYLOCO CCUS AUREUS (MRSA) DNA [PRESENCE] IN SPECIMEN BY YUMIKO WITH PROBE DETECTION Not Detected 08/27 Specimen Type: NARES No comment entered. Ordering Provider: TJ ESTEBAN Report Released Date/Time: Aug 26, 2023 10:21 AM Reporting Lab: [place] [phone] Performing Lab: [place] [phone] [facility] CBC W/DIFF LEUKOCYTES [#/VOLUME] IN BLOOD BY AUTOMATED COUNT 8.0 10*3/uL 4.0 - 11.0 08/27 Specimen Type: BLOOD No comment entered. Ordering Provider: TJ ESTEBAN Report Released Date/Time: Aug 26, 2023 10:21 AM Reporting Lab: [address] [address] Performing Lab: [place] [phone] [facility] CBC W/DIFF ERYTHROCYT ES [#/VOLUME] IN BLOOD BY AUTOMATED COUNT 4.69 10*6/uL 4.20 - 5.70 08/27 Specimen Type: BLOOD No comment entered. Ordering Provider: TJ ESTEBAN Report Released Date/Time: Aug 26, 2023 10:21 AM Reporting Lab: [facility] [address] [address] Performing Lab: [facility] [address] [address] [facility] CBC W/DIFF HEMOGLOBIN [MASS/VOLU ME] IN BLOOD 14.0 g/dL 13.0 - 17.0 08/27 Specimen Type: BLOOD No comment entered. Ordering Provider: TJ ESTEBAN Report Released Date/Time: Aug 26, 2023 10:21 AM Reporting Lab: [facility] [address] [address] Performing Lab: [facility] [address] [address] [facility] CBC W/DIFF HEMATOCRIT [VOLUME FRACTION] OF BLOOD BY AUTOMATED COUNT 41.5 40.0 - 51.0 08/27 Specimen Type: BLOOD No comment entered. Ordering Provider: TJ ESTEBAN Report Released Date/Time: Aug 26, 2023 10:21 AM Reporting Lab: [facility] [address] [address] Performing Lab: [facility] [address] [address] [facility] CBC W/DIFF MCV [ENTITIC VOLUME] BY AUTOMATED COUNT 88.5 fL 82 - 99 08/27 Specimen Type: BLOOD No comment entered. Ordering Provider: TJ ESTEBAN Report Released Date/Time: Aug 26, 2023 10:21 AM Reporting Lab: [facility] [address] [address] Performing Lab: [facility] [address] [address] [facility] CBC W/DIFF MCHC [MASS/VOLU ME] BY AUTOMATED COUNT 29.9 pg 27 - 34 08/27 Specimen Type: BLOOD No comment entered. Ordering Provider: TJ ESTEBAN Report Released Date/Time: Aug 26, 2023 10:21 AM Reporting Lab: [facility] [address] [address] Performing Lab: [facility] [address] [address] [facility] CBC W/DIFF MCHC [MASS/VOLU ME] BY AUTOMATED COUNT 33.7 g/dL 31 - 37 08/27 Specimen Type: BLOOD No comment entered. Ordering Provider: TJ ESTEBAN Report Released Date/Time: Aug 26, 2023 10:21 AM Reporting Lab: [address] [address] Performing Lab: [address] [address] [facility] CBC W/DIFF PLATELET MEAN VOLUME [ENTITIC VOLUME] IN BLOOD BY AUTOMATED COUNT 8.9 fL 8 - 12 08/27 Specimen Type: BLOOD No comment entered. Ordering Provider: TJ ESTEBAN Report Released Date/Time: Aug 26, 2023 10:21 AM Reporting Lab: [address] [address] Performing Lab: [address] [address] [facility] CBC W/DIFF PLATELETS [#/VOLUME] IN BLOOD BY AUTOMATED COUNT 241 10*3/uL 130 - 400 08/27 Specimen Type: BLOOD No comment entered. Ordering Provider: TJ ESTEBAN Report Released Date/Time: Aug 26, 2023 10:21 AM Reporting Lab: [address] [address] Performing Lab: [address] [address] [facility] CBC W/DIFF ERYTHROCYT E DISTRIBUTI ON WIDTH [RATIO] BY AUTOMATED COUNT 14.0 < 15.0 - 15.0 08/27 Specimen Type: BLOOD No comment entered. Ordering Provider: TJ ESTEBAN Report Released Date/Time: Aug 26, 2023 10:21 AM Reporting Lab: [address] [address] Performing Lab: [address] [address] [facility] CBC W/DIFF NEUTROPHIL S/100 LEUKOCYTES IN BLOOD BY AUTOMATED COUNT 51.6 08/27 Specimen Type: BLOOD No comment entered. Ordering Provider: TJ ESTEBAN Report Released Date/Time: Aug 26, 2023 10:21 AM Reporting Lab: [address] [address] Performing Lab: [place] [address] [address] [facility] CBC W/DIFF LYMPHOCYTE S/100 LEUKOCYTES IN BLOOD BY AUTOMATED COUNT 33.9 08/27 Specimen Type: BLOOD No comment entered. Ordering Provider: TJ ESTEBAN Report Released Date/Time: Aug 26, 2023 10:21 AM Reporting Lab: [facility] [address] [address] Performing Lab: [facility] [address] [address] [facility] CBC W/DIFF MONOCYTES/ 100 LEUKOCYTES IN BLOOD BY AUTOMATED COUNT 8.8 08/27 Specimen Type: BLOOD No comment entered. Ordering Provider: TJ ESTEBAN Report Released Date/Time: Aug 26, 2023 10:21 AM Reporting Lab: [facility] [address] [place] [address] Performing Lab: [facility] [address] [place] [address] [facility] CBC W/DIFF EOSINOPHIL S/100 LEUKOCYTES IN BLOOD BY AUTOMATED COUNT 4.4 08/27 Specimen Type: BLOOD No comment entered. Ordering Provider: TJ ESTEBAN Report Released Date/Time: Aug 26, 2023 10:21 AM Reporting Lab: [facility] [address] [address] Performing Lab: [facility] [address] [place] [address] [facility] CBC W/DIFF BASOPHILS/ 100 LEUKOCYTES IN BLOOD BY AUTOMATED COUNT 0.8 08/27 Specimen Type: BLOOD No comment entered. Ordering Provider: JT ESTEBAN Report Released Date/Time: Aug 26, 2023 10:21 AM Reporting Lab: [facility] [address] [address] Performing Lab: [facility] [address] [place] [address] [facility] CBC W/DIFF IMMATURE GRANULOCYT ES/100 LEUKOCYTES IN BLOOD 0.5 08/27 Specimen Type: BLOOD No comment entered. Ordering Provider: TJ ESTEBAN Report Released Date/Time: Aug 26, 2023 10:21 AM Reporting Lab: [facility] [address] [id number] Performing Lab: [facility] [address] [phone] [facility] CBC W/DIFF NEUTROPHIL S [#/VOLUME] IN BLOOD BY AUTOMATED COUNT 4.1 10*3/uL 1.5 - 8.0 08/27 Specimen Type: BLOOD No comment entered. Ordering Provider: TJ ESTEBAN Report Released Date/Time: Aug 26, 2023 10:21 AM Reporting Lab: [facility] [address] [place] [address] Performing Lab: [facility] [address] [place] [address] [facility] CBC W/DIFF LYMPHOCYTE S [#/VOLUME] IN BLOOD BY AUTOMATED COUNT 2.7 10*3/uL 1.0 - 4.0 08/27 Specimen Type: BLOOD No comment entered. Ordering Provider: TJ ESTEBAN Report Released Date/Time: Aug 26, 2023 10:21 AM Reporting Lab: [address] [address] Performing Lab: [address] [address] [facility] CBC W/DIFF MONOCYTES [#/VOLUME] IN BLOOD BY AUTOMATED COUNT 0.7 10*3/uL 0.2 - 1.0 08/27 Specimen Type: BLOOD No comment entered. Ordering Provider: TJ ESTEBAN Report Released Date/Time: Aug 26, 2023 10:21 AM Reporting Lab: [address] [address] Performing Lab: [address] [address] [facility] CBC W/DIFF EOSINOPHIL S [#/VOLUME] IN BLOOD BY AUTOMATED COUNT 0.4 10*3/uL 0 - 0.4 08/27 Specimen Type: BLOOD No comment entered. Ordering Provider: TJ ESTEBAN Report Released Date/Time: Aug 26, 2023 10:21 AM Reporting Lab: [facility] [address] [place] [address] Performing Lab: [address] [address] [facility] CBC W/DIFF BASOPHILS [#/VOLUME] IN BLOOD BY AUTOMATED COUNT 0.1 10*3/uL 0 - 0.2 08/27 Specimen Type: BLOOD No comment entered. Ordering Provider: TJ ESTEBAN Report Released Date/Time: Aug 26, 2023 10:21 AM Reporting Lab: [address] [address] Performing Lab: [address] [address] [facility] CBC W/DIFF IMMATURE GRANULOCYT ES/100 LEUKOCYTES IN BLOOD <0.110*3 /uL 0 - 0.5 08/27 Specimen Type: BLOOD No comment entered. Ordering Provider: TJ ESTEBAN Report Released Date/Time: Aug 26, 2023 10:21 AM Reporting Lab: [address] [address] Performing Lab: [address] [address] [facility] CBC W/DIFF NUCLEATED ERYTHROCYT ES/100 ERYTHROCYT ES IN BLOOD 0.0 /100{WBC s} 0 - 0.2 08/27 Specimen Type: BLOOD No comment entered. Ordering Provider: TJ ESTEBAN Report Released Date/Time: Aug 26, 2023 10:21 AM Reporting Lab: [address] [address] Performing Lab: [address] [address] [facility] CBC W/DIFF NUCLEATED ERYTHROCYT ES [#/VOLUME] IN BLOOD <0.0110* 3/uL 0 - 0.012 08/27 Specimen Type: BLOOD No comment entered. Ordering Provider: TJ ESTEBAN Report Released Date/Time: Aug 26, 2023 10:21 AM Reporting Lab: [address] [address] Performing Lab: [address] [address] [facility] COMPREH SIVE PNL ANION GAP IN SERUM OR PLASMA 11 mmol/L 10 - 20 08/27 Specimen Type: PLASMA Comment: eGFR was calculated using the CKD-EPI Creatinine (2020) equation. Ordering Provider: TJ ESTEBAN Report Released Date/Time: Aug 26, 2023 10:21 AM Reporting Lab: [address] [address] Performing Lab: [address] [address] [facility] COMPREHEN SIVE PNL GLOMERULAR FILTRATION RATE/1.73 SQ M.PREDICTE D [VOLUME RATE/AREA] IN SERUM, PLASMA OR BLOOD BY CREATININE -BASED FORMULA (CKD-EPI 2020) 61 mL/min 60 08/27 Specimen Type: PLASMA Comment: eGFR was calculated using the CKD-EPI Creatinine (2020) equation. Ordering Provider: TJ ESTEBAN Report Released Date/Time: Aug 26, 2023 10:21 AM Reporting Lab: [address] [address] Performing Lab: [address] [address] [facility] COMPREHEN SIVE PNL GLUCOSE [MASS/VOLU ME] IN SERUM OR PLASMA 112 mg/dL 70 - 99 08/27 H Specimen Type: PLASMA Comment: eGFR was calculated using the CKD-EPI Creatinine (2020) equation. Ordering Provider: TJ ESTEBAN Report Released Date/Time: Aug 26, 2023 10:21 AM Reporting Lab: [address] [address] Performing Lab: [address] [address] [facility] COMPREHEN SIVE PNL POTASSIUM [MOLES/VOL UME] IN SERUM OR PLASMA 4.4 mmol/L 3.5 - 4.7 08/27 Specimen Type: PLASMA Comment: eGFR was calculated using the CKD-EPI Creatinine (2020) equation. Ordering Provider: TJ ESTEBAN Report Released Date/Time: Aug 26, 2023 10:21 AM Reporting Lab: [address] [address] Performing Lab: [address] [address] [facility] COMPREHEN SIVE PNL SODIUM [MOLES/VOL UME] IN SERUM OR PLASMA 140 mmol/L 136 - 145 08/27 Specimen Type: PLASMA Comment: eGFR was calculated using the CKD-EPI Creatinine (2020) equation. Ordering Provider: TJ ESTEBAN Report Released Date/Time: Aug 26, 2023 10:21 AM Reporting Lab: [address] [address] Performing Lab: [address] [address] [facility] COMPREHEN SIVE PNL BILIRUBIN. TOTAL [MASS/VOLU ME] IN SERUM OR PLASMA 0.6 mg/dL 0.2 - 1.2 08/27 Specimen Type: PLASMA Comment: eGFR was calculated using the CKD-EPI Creatinine (2020) equation. Ordering Provider: TJ ESTEBAN Report Released Date/Time: Aug 26, 2023 10:21 AM Reporting Lab: [address] [address] Performing Lab: [address] [address] [facility] COMPREHEN SIVE PNL PROTEIN [MASS/VOLU ME] IN SERUM OR PLASMA 6.6 g/dL 5.7 - 8.2 08/27 Specimen Type: PLASMA Comment: eGFR was calculated using the CKD-EPI Creatinine (2020) equation. Ordering Provider: TJ ESTEBAN Report Released Date/Time: Aug 26, 2023 10:21 AM Reporting Lab: [address] [address] Performing Lab: [address] [address] [facility] COMPREHEN SIVE PNL ALBUMIN [MASS/VOLU ME] IN SERUM OR PLASMA 4.1 g/dL 3.4 - 5.0 08/27 Specimen Type: PLASMA Comment: eGFR was calculated using the CKD-EPI Creatinine (2020) equation. Ordering Provider: TJ ESTEBAN Report Released Date/Time: Aug 26, 2023 10:21 AM Reporting Lab: [address] [address] Performing Lab: [place] [phone] [facility] COMPREHEN SIVE PNL ALKALINE PHOSPHATAS E [ENZYMATIC ACTIVITY/V OLUME] IN SERUM OR PLASMA 91 U/L 45 - 117 08/27 Specimen Type: PLASMA Comment: eGFR was calculated using the CKD-EPI Creatinine (2020) equation. Ordering Provider: TJ ESTEBAN Report Released Date/Time: Aug 26, 2023 10:21 AM Reporting Lab: [address] [address] Performing Lab: [address] [address] [facility] COMPREHEN SIVE PNL ALANINE AMINOTRANS FERASE [ENZYMATIC ACTIVITY/V OLUME] IN SERUM OR PLASMA 17 U/L 10 - 65 08/27 Specimen Type: PLASMA Comment: eGFR was calculated using the CKD-EPI Creatinine (2020) equation. Ordering Provider: TJ ESTEBAN Report Released Date/Time: Aug 26, 2023 10:21 AM Reporting Lab: [address] [address] Performing Lab: [address] [address] [facility] COMPREHEN SIVE PNL ASPARTATE AMINOTRANS FERASE [ENZYMATIC ACTIVITY/V OLUME] IN SERUM OR PLASMA 16 U/L 10 - 37 08/27 Specimen Type: PLASMA Comment: eGFR was calculated using the CKD-EPI Creatinine (2020) equation. Ordering Provider: TJ ESTEBAN Report Released Date/Time: Aug 26, 2023 10:21 AM Reporting Lab: [address] [address] Performing Lab: [address] [address] [facility] COMPREHEN SIVE PNL UREA NITROGEN [MASS/VOLU ME] IN SERUM OR PLASMA 13 mg/dL 7 - 21 08/27 Specimen Type: PLASMA Comment: eGFR was calculated using the CKD-EPI Creatinine (2020) equation. Ordering Provider: TJ ESTEBAN Report Released Date/Time: Aug 26, 2023 10:21 AM Reporting Lab: [address] [address] Performing Lab: [address] [address] [facility] COMPREHEN SIVE PNL CALCIUM, TOTAL 9.2 mg/dL 8.7 - 10.4 08/27 Specimen Type: PLASMA Comment: eGFR was calculated using the CKD-EPI Creatinine (2020) equation. Ordering Provider: TJ ESTEBAN Report Released Date/Time: Aug 26, 2023 10:21 AM Reporting Lab: [address] [address] Performing Lab: [address] [address] [facility] COMPREHEN SIVE PNL CARBON DIOXIDE, TOTAL [MOLES/VOL UME] IN SERUM OR PLASMA 28.0 mmol/L 21.0 - 32.0 08/27 Specimen Type: PLASMA Comment: eGFR was calculated using the CKD-EPI Creatinine (2020) equation. Ordering Provider: TJ ESTEBAN Report Released Date/Time: Aug 26, 2023 10:21 AM Reporting Lab: [address] [address] Performing Lab: [address] [address] [facility] COMPREHEN SIVE PNL CHLORIDE [MOLES/VOL UME] IN SERUM OR PLASMA 105 mmol/L 98 - 109 08/27 Specimen Type: PLASMA Comment: eGFR was calculated using the CKD-EPI Creatinine (2020) equation. Ordering Provider: TJ ESTEBAN Report Released Date/Time: Aug 26, 2023 10:21 AM Reporting Lab: [address] [address] Performing Lab: [address] [address] [facility] COMPREHEN SIVE PNL CREATININE [MASS/VOLU ME] IN URINE 1.24 mg/dL 0.67 - 1.17 08/27 H Specimen Type: PLASMA Comment: eGFR was calculated using the CKD-EPI Creatinine (2020) equation. Ordering Provider: TJ ESTEBAN Report Released Date/Time: Aug 26, 2023 10:21 AM Reporting Lab: [address] [address] Performing Lab: [address] [address] [facility] CARDIAC PROF(PLAS MA) MYOGLOBIN [MASS/VOLU ME] IN SERUM OR PLASMA 74.40 ng/mL 0 - 110 08/26 Specimen Type: PLASMA No comment entered. Ordering Provider: TJ ESTEBAN Report Released Date/Time: Aug 26, 2023 11:55 AM Reporting Lab: [facility] [address] [place] [address] Performing Lab: [facility] [address] [place] [address] [facility] CARDIAC PROF(PLAS MA) CREATINE KINASE.MB [MASS/VOLU ME] IN BLOOD 1.83 ng/mL - 5.0 08/26 Specimen Type: PLASMA No comment entered. Ordering Provider: TJ ESTEBAN Report Released Date/Time: Aug 26, 2023 11:55 AM Reporting Lab: [address] [address] Performing Lab: [address] [address] [facility] CARDIAC PROF(PLAS MA) TROPONIN T.CARDIAC [MASS/VOLU ME] IN SERUM OR PLASMA BY HIGH SENSITIVIT Y METHOD 4 - 53 08/26 Specimen Type: PLASMA No comment entered. Ordering Provider: TJ ESTEBAN Report Released Date/Time: Aug 26, 2023 11:55 AM Reporting Lab: [facility] [address] [place] [address] Performing Lab: [address] [address] [facility] CARDIAC PROF(PLAS MA) MYOGLOBIN [MASS/VOLU ME] IN SERUM OR PLASMA 82.00 ng/mL 0 - 110 08/26 Specimen Type: PLASMA No comment entered. Ordering Provider: TJ ESTEBAN Report Released Date/Time: Aug 26, 2023 11:49 AM Reporting Lab: [facility] [address] [place] [address] Performing Lab: [facility] [address] [place] [address] [facility] CARDIAC PROF(PLAS MA) CREATINE KINASE.MB [MASS/VOLU ME] IN BLOOD 1.66 ng/mL - 5.0 08/26 Specimen Type: PLASMA No comment entered. Ordering Provider: TJ ESTEBAN Report Released Date/Time: Aug 26, 2023 11:49 AM Reporting Lab: [address] [address] Performing Lab: [facility] [address] [address] [facility] CARDIAC PROF(SULMA DUMONT) TROPONIN T.CARDIAC [MASS/VOLU ME] IN SERUM OR PLASMA BY HIGH SENSITIVIT Y METHOD 4 - 53 08/26 Specimen Type: PLASMA No comment entered. Ordering Provider: TJ ESTEBAN Report Released Date/Time: Aug 26, 2023 11:49 AM Reporting Lab: [address] [address] Performing Lab: [address] [address] [facility] THYROID CASCADE PANEL THYROTROPI N [UNITS/VOL UME] IN SERUM OR PLASMA 1.242 u[IU]/mL 0.550 - 4.780 08/26 Specimen Type: SERUM No comment entered. Ordering Provider: TJ ESTEBAN Report Released Date/Time: Aug 26, 2023 11:49 AM Reporting Lab: [address] [address] Performing Lab: [address] [address] [facility] Vital Signs Combined list of inpatient and outpatient Vital Signs from Department of Defense and Veterans Affairs, ranging from 12 months to all on record, depending upon the facility. Vital Sign Value Date Comments Source SYSTOLIC BLOOD PRESSURE 132 02/12/2025 09:02:41 [facility] DIASTOLIC BLOOD PRESSURE 74 02/12/2025 [...] [facility] PULSE 71 03/15/2024 13:46:44 [facility] RESPIRATION 20 03/15/2024 13:46:44 [facility] Encounters Combined list of: 1) Encounters from Department of Veterans Affairs facilities going backup to the last 18 months, not all [place] inpatient encounters are included; 2) Encounters from the Department of Defense facilities going backup to 280 months. Location Location Details Encounter Type Encounter Number Reason For Visit Attending Provider ADM Date DC Date Status Disposition Source [facility] Outpatient Encounter [id number] 09/06 [facility] HC PRO PHONE CALL 11-20 MIN [id number] Diagnos is: ICD-10- CM Z09 Encntr for f/u exam aft trtmt for cond oth than malig neoplslava PICKETTDA GLORIA L 09/06 [facility] OPC OFFICE O/P EST LOW 20-29 MIN [id number] Diagnos is: ICD-10- CM I47.10 Suprave ntricul ar tachyca rdia, unspeci fiJOSÉ LUIS Lacy 09/07 [facility] Outpatient Encounter [id number] 09/07 [facility] HC PRO PHONE CALL 5-10 MIN [id number] Diagnos is: ICD-10- CM Z09 Encntr for f/u exam aft trtmt for cond oth than malig neoplm CLAUSON,DA RCIE L 09/10 [facility] HC PRO PHONE CALL 11-20 MIN [id number] Diagnos is: ICD-10- CM Z09 Encntr for f/u exam aft trtmt for cond oth than malig neoplm CLAUSON,DA RCIE L 09/13 [facility]PC TELEHEALTH FACILITY FEE [id number] Diagnos is: ICD-10- CM 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 RADHA Diaz 09/14 [facility] OFF/OP CONSLTJ NEW/EST SF 20 [id number] Diagnos is: ICD-10- CM Z74.09 Other reduced mobilit y WELLING,WHALEY PUENTES M 09/14 [facility] OPC OFFICE O/P EST HI 40-54 MIN [id number] Diagnos is: ICD-10- CM M76.821 Posteri or tibial tendini tis, right leg HORACE BLAKELY 09/14 [facility] OPC OFFICE O/P EST SF 10-19 MIN [id number] Diagnos is: ICD-10- CM 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 PERROW,CHIKI HOLAS C 09/14 [facility] Outpatient Encounter [id number] Diagnos is: ICD-10- CM Z09 Encntr for f/u exam aft trtmt for cond oth than malig neoplm CLAUSON,DA RCIE L 09/20 [facility] Outpatient Encounter [id number] IMDSOFTTYLER K 09/20 [facility] HC PRO PHONE CALL 5-10 MIN [id number] Diagnos is: ICD-10- CM Z09 Encntr for f/u exam aft trtmt for cond oth than malig neoplm YANETHON,DA RCIE L 09/20 [facility] Outpatient Encounter [id number] JOSÉ LUIS ORTIZ 09/29 [facility] Outpatient Encounter [id number] 09/30 [facility] Outpatient Encounter [id number] 09/30 [facility] HC PRO PHONE CALL 11-20 MIN [id number] Diagnos is: ICD-10- CM Z74.09 Other reduced mobilit y JOVANA OLSON 10/05 [facility] Outpatient Encounter [id number] HORACE BLAKELY 10/05 [facility] HC PRO PHONE CALL 11-20 MIN [id number] Diagnos is: ICD-10- CM Z09 Encntr for f/u exam aft trtmt for cond oth than malig neoplm CLAON,DA RCIE L 10/19 [facility] Outpatient Encounter [id number] Diagnos is: ICD-10- CM Z09 Encntr for f/u exam aft trtmt for cond oth than malig neoplm CLAON,DA RCIE L 10/19 [facility] HC PRO PHONE CALL 5-10 MIN [id number] Diagnos is: ICD-10- CM Z09 Encntr for f/u exam aft trtmt for cond oth than malig neoplm CLAUSON,DA RCIE L 10/21 [facility] OPC OFFICE O/P EST SF 10-19 MIN [id number] Diagnos is: ICD-10- CM 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 PERROW,CHIKI HOLAS C 10/28 [facility] OFFICE O/P EST HI 40-54 MIN [id number] [id number] Diagnos is: ICD-10- CM 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 ROSA WOODSONCA M 10/28 [facility] HC PRO PHONE CALL 11-20 MIN [id number] Diagnos is: ICD-10- CM Z09 Encntr for f/u exam aft trtmt for cond oth than malig neoplm CLAUSON,DA RCIE L 11/02 [facility] Outpatient Encounter [id number] 11/03 [facility] Outpatient Encounter [id number] 11/03 [facility] Outpatient Encounter [id number] 11/03 [facility] HC PRO PHONE CALL 11-20 MIN [id number] Diagnos is: ICD-10- CM Z09 Encntr for f/u exam aft trtmt for cond oth than malig neoplm CLAUSON,DA RCIE L 11/04 [facility] Outpatient Encounter [id number] Diagnos is: ICD-10- CM Z09 Encntr for f/u exam aft trtmt for cond oth than malig neoplm CLAUSON,DA RCIE L 11/12 [facility] Outpatient Encounter [id number] 11/18 [facility] HC PRO PHONE CALL 11-20 MIN [id number] Diagnos is: ICD-10- CM Z09 Encntr for f/u exam aft trtmt for cond oth than malig neoplm CLAUSON,DA RCIE L 11/24 [facility] OPC OFFICE O/P EST LOW 20 MIN [id number] Diagnos is: ICD-10- CM M76.821 Posteri or tibial tendini tis, right leg HORACE BLAKELY 12/08 [facility] Outpatient Encounter [id number] Diagnos is: ICD-10- CM Z09 Encntr for f/u exam aft trtmt for cond oth than malig neoplm CLAUSON,DA RCIE L 12/15 [facility] HC PRO PHONE CALL 11-20 MIN [id number] Diagnos is: ICD-10- CM Z09 Encntr for f/u exam aft trtmt for cond oth than malig neoplm CLAUSON,DA RCIE L 01/18 [facility] Outpatient Encounter [id number] Diagnos is: ICD-10- CM Z09 Encntr for f/u exam aft trtmt for cond oth than malig neoplm CLAUSON,DA RCIE L 01/18 [facility] Outpatient Encounter [id number] 02/01 [facility] HC PRO PHONE CALL 11-20 MIN [id number] Diagnos is: ICD-10- CM Z09 Encntr for f/u exam aft trtmt for cond oth than malig neoplm CLAUSON,DA RCIE L 02/01 [facility] HC PRO PHONE CALL 11-20 MIN [id number] Diagnos is: ICD-10- CM Z09 Encntr for f/u exam aft trtmt for cond oth than malig neoplm CLAUSON,DA RCIE L 02/01 [facility] Outpatient Encounter [id number] 02/01 [facility] OPC OFFICE O/P EST LOW 20 MIN [id number] Diagnos is: ICD-10- CM I47.10 Suprave ntricul ar tachyca rdia, unspeci fied JOSÉ LUIS ORTIZ 02/13 [facility] Outpatient Encounter [id number] 02/13 [facility] Outpatient Encounter [id number] 03/15 [facility] OPC OFFICE O/P EST MOD 30 MIN [id number] [id number] Diagnos is: ICD-10- CM Q66.51 Congeni thao pes planus, right foot HORACE BLAKELY D 03/15 [facility] TELEHEALTH FACILITY FEE [id number] [id number] Diagnos is: ICD-10- CM 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 HARPER Begum 03/15 [facility] OFFICE O/P EST LOW 20 MIN [id number] Diagnos is: ICD-10- CM I47.10 Suprave ntricul ar tachyca rdia, unspeci fied WIL ID,ALAA E 03/15 [facility] Outpatient Encounter [id number] 03/15 [facility] Outpatient Encounter [id number] 03/16 [facility] Outpatient Encounter [id number] 03/16 [facility] Outpatient Encounter [id number] 03/16 [facility] Outpatient Encounter [id number] 03/16 [facility] Outpatient Encounter [id number] 03/21 [facility] Outpatient Encounter [id number] 03/23 [facility] Outpatient Encounter [id number] 04/03 [facility] En[facility] [id number] 04/06 [facility] En[facility] [id number] 04/10 [facility] En[facility] [id number] 04/10 [facility] EST SF 10 MIN [id number] Diagnos is: ICD-10- CM 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 PERROW,CHIKI HOL C 04/20 [facility] En[facility] [id number] 04/21 [facility] En[facility] [id number] 04/21 [facility] En[facility] [id number] 04/27 [facility] En[facility] [id number] HORACE BLAKELY 05/01 [facility] OPC OFFICE O/P EST SF 10 MIN [id number] Diagnos is: ICD-10- CM 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 PERROW,CHIKI HOLAS C 06/28 [facility] Outpatient Encounter [id number] 09/11 [facility] En[facility] [id number] 09/18 [facility] OPC OFFICE O/P EST LOW 20 MIN [id number] Diagnos is: ICD-10- CM B35.1 Tinea unguium HORACE BLAKELY 09/18 [facility] Outpatient Encounter [id number] 09/28 [facility] En[facility] [id number] 10/11 [facility] HC PRO PHONE CALL 5-10 MIN [id number] Diagnos is: ICD-10- CM 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 RADHA Magaña AM 10/12 [facility] HC PRO PHONE CALL 5-10 MIN [id number] [id number] Diagnos is: ICD-10- CM Z65.8 Oth problem s related to psychos ocial circums tanHOANG Pandya D 10/16 [facility] OFFICE O/P EST MOD 30 MIN [id number] Diagnos is: ICD-10- CM H25.13 Age-rel ated nuclear catarac t, bilater al CHINTAN,JE SSICA M 10/18 [facility] Outpatient Encounter [id number] 10/18 [facility] Outpatient Encounter [id number] 10/18 [facility] Outpatient Encounter [id number] 11/07 [facility] Outpatient Encounter [id number] 11/21 [facility] OFFICE O/P EST LOW 20 MIN [id number] [id number] Diagnos is: ICD-10- CM M19.071 Primary osteoar thritis , right ankle and foot HORACE BLAKELY 12/29 [facility] Outpatient Encounter [id number] HORACE BLAKELY 01/02 [facility] [place] [facility] FEE [id number] [id number] Diagnos is: ICD-10- CM 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 HARPER Begum 02/01 [facility] [id number] [id number] Diagnos is: ICD-10- CM R60.0 Localiz ed edema HORACE BLANDON 02/01 [facility] Outpatient Encounter [id number] 02/06 [facility] Outpatient Encounter [id number] 02/06 [facility] Outpatient Encounter [id number] [id number] 02/09 [facility] Outpatient Encounter [id number] 02/12 [facility] Outpatient Encounter [id number] [id number] 02/12 [facility] OPC OFFICE O/P EST LOW 20 MIN 07730-7.55 [id number] Diagnos is: ICD-10- CM I89.0 Lymphed kaila, not elsewhe re classif ied JOSÉ LUIS ORTIZ 02/12 [facility] OPC MTMS BY PHARM ADDL 15 MIN [id number] [id number] Diagnos is: ICD-10- CM E66.01 Morbid (severe ) obesity due to excess calorie s KEMI BURDICK 02/13 [facility] OPC NQHP OL DIG ASSMT&MGMT 5-10 [id number] [id number] Diagnos is: ICD-10- CM E66.9 Obesity , unspeci fied NAILA KENNEDY AN L 02/13 [facility] Outpatient Encounter [id number] [id number] 02/26 [facility] Social History Combined list of available smoking, tobacco, and other social history from [employer] and 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 Social History Type Response Date Comment Source Tobacco smoking status [facility]-TOBACCO NEVER USED CIGARETTES 02/12/2025 [facility] History of tobacco use [place]-TOBACCO NEVER USED OTHER TYPE 02/12/2025 [facility] History of tobacco use [facility]-TOBACCO FORMER USER 04/12/2023 [facility] History of tobacco use VA-TOBACCO FORMER USER 08/27/2022 [facility] History of tobacco use MO-TOBACCO FORMER USER 08/26/2021 [facility] History of tobacco use MO-TOBACCO FORMER USER 09/20/2018 [facility] History of tobacco use QUIT TOBACCO >7 YEARS AGO 09/21/2017 quit 20 years ago [facility] History of tobacco use QUIT TOBACCO >7 YEARS AGO 11/02/2016 [facility] History of tobacco use QUIT TOBACCO >7 YEARS AGO 02/05/2015 [facility] History of tobacco use QUIT TOBACCO >12 MO and <7 YRS AGO 08/08/2013 [facility] History of tobacco use QUIT TOBACCO >12 MO and <7 YRS AGO 07/12/2012 [facility] History of tobacco use QUIT TOBACCO IN THE LAST 12 MONTHS 03/25/2011 [facility] History of tobacco use TOBACCO OFFERRED PT MEDS (PROVIDER) 03/18/2010 [facility] History of tobacco use TOBACCO OFFERRED PT MEDS (PROVIDER) 02/01/2009 [facility] History of tobacco use TOBACCO OFFERRED PT MEDS (PROVIDER) 08/03/2008 [facility] History of tobacco use TOBACCO OFFERRED PT MEDS (PROVIDER) 06/10/2007 [facility] History of tobacco use CURRENT NON-SMOKER 03/10/2001 [facility] History of tobacco use CURRENT NON-SMOKER 05/08/2000 [facility] Plan of Care List of future care activities from [facility] facilities. Additional future care activities may be listed in the Assessment and Plan section. Date/Time Care Activity Care Activity Detail Facili ty 03/13/2025 AMBULATORY - NONE AMBULATORY - NONE [facility] Advance Directives List of completed, amended, or rescinded Advance Directives on record at [facility] facilities. An actual copy of the Directive is not included. Date Advance Directive Provider Source 03/16/2024 ADVANCE DIRECTIVE DISCUSSION LUPE LEPE [facility] 02/09/2024 ADVANCE DIRECTIVE LEXY WHALEY [facility] 11/03/2023 RESCINDED ADVANCE DIRECTIVE LUPE LEPE [facility] 09/20/2023 RESCINDED ADVANCE DIRECTIVE LENNIE VALENTIN [facility] 08/26/2021 ADVANCE DIRECTIVE DISCUSSION COLT PEARL [facility]
[2025-03-05 18:38] LABS: Basophils Absolute Auto 0.04 K/mm3 (0.00-0.10); Basophils Percent Auto 0.4 % (0.0-1.0); Eosinophils Absolute Auto 0.39 K/mm3 (0.02-0.50); Eosinophils Percent Auto 4.3 % (1.0-6.0); Hematocrit 41.1 % (37.0-46.0); Hemoglobin 13.6 g/dL (12.4-15.3); Immature Granulocyte Absolute 0.03 K/mm3 (0.00-0.00); Immature Granulocyte Percent A 0.3 % (0.0-0.0); Lymphocytes Absolute Auto 3.09 K/mm3 (1.10-4.50); Lymphocytes Percent Auto 34.4 % (18.0-42.0); Mean Corpuscular HGB Conc 33.1 g/dL (32-36); Mean Corpuscular Hemoglobin 29.5 pg (27.0-31.0); Mean Corpuscular Volume 89.2 fL (78.0-102.0); Mean Platelet Volume 8.7 fl (8.7-11.0); Monocytes Absolute Auto 0.77 K/mm3 (0.10-0.90); Monocytes Percent Auto 8.6 % (2.0-11.0); Neutrophils Absolute Auto 4.67 K/mm3 (1.70-7.20); Platelet Count Result 260 K/mm3 (150-420); Red Blood Count 4.61 M/mm3 (4.70-6.10); Red Cell Distribution Width 13.7 % (11.6-14.4)
[2025-03-05] MEDS: ASPIRIN 81 MG CHEWABLE TABLET 324 MG PO (18:43)
[2025-03-05 18:54] LABS: Partial Thromboplastin Time 25.7 Sec (23.9-30.70); Prothrombin Time 10.6 Seconds (9.50-12.1)
[2025-03-05 19:02] LABS: Alanine Aminotransferase 26 U/L (16-63); Albumin Level 3.5 g/dL (3.4-5.0); Alkaline Phosphatase 113 U/L (46-116); Anion Gap 11 mmol/L (4-12); Aspartate Amino Transferase 16 U/L (15-37); Bilirubin,Total 0.5 mg/dL (0.00-1.00); Blood Urea Nitrogen 24 mg/dL (7-18); Calcium 8.9 mg/dL (8.5-10.1); Carbon Dioxide 24 mmol/L (21-32); Chloride 107 mmol/L (98-108); Estimated CRCL calculation 45 ml/min; Estimated Glomerular Filt Rate 43; Glucose 100 mg/dL (70-99); Lipase 20 U/L (16-77); NT Pro B Type Natriuretic Pept 223 pg/mL (0-450); Osmolality Calculated 298 mOsm/kg (285-295); Potassium 4.1 mmol/L (3.5-5.1); Sodium 142 mmol/L (136-145); Total Protein 7.2 g/dL (6.4-8.2); Troponin I 8.2 ng/L (0.00-60.4)
[2025-03-05 19:13] LABS: D Dimer 0.57 mg/L (0.19-0.50)
== END 2025-03-05 20:58 | disposition home or self-care (01) ==
PROVIDERS: Emergency Provider Emergency Medicine; PCP Family Medicine
DX: R07.89 Other chest pain (principal); E78.5 Hyperlipidemia, unspecified; I10 Essential (primary) hypertension; Z87.891 Personal history of nicotine dependence
CPT/HCPCS: 36415; 71045; 71275; 80053; 83690; 83880; 84484; 85025; 85380; 85610; 85730; 93005; 99284; A9270; Q9967

== ENCOUNTER 2025-04-17 14:41 | Outpatient (CLI) | payer MEDICARE, SELFPAY ==
--- OUTSIDE RECORDS SUMMARY | 2025-04-17 14:44 | XMS_ITS ---
Author Organization Unknown Address [address] [place] [phone] Phone Care Team Providers Care Crocheter Name Role Phone LACEY Clark Attending Unavailable [...] Code Code Sys tem Electrocardiogram abnormal 09/30/2023 [id number] S NOMED-CT Personal Care Team Section Performer Name Performer Role Active Date Inactive Da te
--- OUTSIDE RECORDS SUMMARY | 2025-04-17 14:44 | XMS_ITS | Clinical Summary ---
Author Organization [employer] [id number] [facility] Address [address] [place] [address] Care Team Providers Care Security Control Assessor Name Role Phone Romero Obando MD Primary [...] 8:43 AM CDT Height 167.6 cm (5' 6) 06/27/2020 8:43 AM CDT Body Mass Index [...] 02/05/2015 Insurance MEDICARE PART A AND B [facility] [id number] Care Teams Security Control Assessor Relationship Specialty Start Date End Date Romero Obando MD [address] [place] [address] PCP - General Family Practice 05/28/20
--- OUTSIDE RECORDS SUMMARY | 2025-04-17 14:44 | XMS_ITS | Continuity of Care Document ---
Author Name [facility] Organization [facility] Care Team Providers Care Lead Esthetician Name Role Phone [facility] Unavailable Unavailable Problems Combined list of problems from Department of Defense and Veterans 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 It does not include entries that were removed or entered in error. 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 Condition [facility] Bilateral arthritis of ankle Active [place] [facility] Blurring of visual image Active Condition [facility] Cervical radiculopathy Active Condition [facility] Chronic alcoholism in remission Active Condition [facility] Cramp in lower leg Active Condition [facility] Cyanocobalamine deficiency (non anemic) Active Condition Jan 31, 2016 Entered By: JOSÉ LUIS ORTIZ Comment: monitored by Dr Ector Maddox- [facility] Degeneration of cervical intervertebral disc Active Condition [facility] Dry eyes Active Condition [facility] Dysfunction of posterior tibial tendon of right foot Active Condition [facility] Elevated PSA Active Condition Jul 07, 2023 Entered By: JOSÉ LUIS ORTIZ Comment: 4.23 [facility] Gastroesophageal reflux disease Active Condition [facility] Gastroesophageal reflux disease without esophagitis (SNOMED CT [id number]) Active Condition [facility] History of left knee replacement Active Condition Feb 12 5 Entered By: JOSÉ LUIS ORTIZ Comment: 2019 at hospital in [facility] Hyperlipidemia Active Condition [facility] Hyperlipidemia (SNOMED CT [id number]) Active Condition [facility] Instability of gait Active [facility] Lymphoedema Active Condition Feb 12, 2025 Entered By: JOSÉ LUIS ORTIZ Comment: [facility] Morbid obesity Active Condition [facility] Nevus of choroid Active [facility] 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 Active Condition [facility] Sebaceous cyst of skin Active Condition [facility] Sensorineural hearing loss, bilateral Active Condition [facility] Sensory neuropathy Active Condition [facility] Snoring Active Condition [facility] SVT - Supraventricular tachycardia Active Condition Sep 07, 2023 Entered By: JOSÉ LUIS ORTIZ Comment: episodes of paroxysmal supraventricular tachycardias with occasional episodes of nonsustained atrial fibrillation on rhythm strip as per cardiology noteFeb 14, 2024 Entered By: JOSÉ LUIS ORTIZ Comment: 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 [facility] 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 [facility] Tinea unguium Active Condition [facility] Trichiasis [facility] Hip Pain Inactive Condition 02/05/2015 [facility] [place] [facility] Joint Pain, Shoulder Inactive Condition 02/05/2015 [facility] Multiple axillary skin tags Inactive Condition 08/27/2022 [facility] Onychomycosis Inactive Condition 03/25/2017 [facility] Diagnosis: ICD-10-CM E66.01 Morbid (severe) obesity due to excess calories Active Diagnosis [facility] [place] [facility] Diagnosis: ICD-10-CM R20.2 Paresthesia of skin Active Diagnosis [facility] Diagnosis: ICD-10-CM E66.9 Obesity, unspecified Active Diagnosis [facility] Diagnosis: ICD-10-CM I89.0 Lymphedema, not elsewhere classified Active Diagnosis [facility] Diagnosis: ICD-10-CM R60.0 Localized edema Active Diagnosis [facility] Diagnosis: ICD-10-CM Z71.89 Other specified counseling Active Diagnosis [facility] Diagnosis: ICD-10-CM M19.071 Primary osteoarthritis, right ankle and foot Active Diagnosis [facility] Diagnosis: ICD-10-CM H25.13 Age-related nuclear cataract, bilateral Active Diagnosis [facility] Diagnosis: ICD-10-CM Z65.8 Oth problems related to psychosocial circumstances Active Diagnosis [facility] Diagnosis: ICD-10-CM B35.1 Tinea unguium Active Diagnosis [facility] Diagnosis: ICD-10-CM 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 [facility] Diagnosis: ICD-10-CM I47.10 Supraventricular tachycardia, unspecified Active Diagnosis [facility] Diagnosis: ICD-10-CM 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, right foot Active Diagnosis [facility] Diagnosis: ICD-10-CM Z09 Encntr for f/u exam aft trtmt for cond oth than malig neoplm Active Diagnosis [facility] Diagnosis: ICD-10-CM M76.821 Posterior tibial tendinitis, right leg Active Diagnosis [facility] Diagnosis: ICD-10-CM 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 [facility] Diagnosis: ICD-10-CM M21.6X9 Other acquired deformities of unspecified foot Active Diagnosis [facility] Medications Combined list of outpatient medications [...] MUSCLE PAIN, TENDERNE SS OR WEAKNESS ORAL ACTIVE 04/12/2026 [id number] JOSÉ LUIS ORTIZ 2024 90 [facility] ATORVASTATI N CA 20MG TAB TAKE ONE TABLET BY MOUTH AT BEDTIME FOR CHOLESTE ROL CALL YOUR PROVIDER IF YOU HAVE MUSCLE PAIN, TENDERNE SS OR WEAKNESS ORAL DISCONT INUED 02/14/2025 [id number] JOSÉ LUIS ORTIZ 2023 90 [facility] BACLOFEN 10MG TAB TAKE ONE-HALF TABLET BY MOUTH AT BEDTIME ORAL ACTIVE 11/02/2025 [id number] JOSÉ LUIS ORTIZ 2024 45 [facility] BACLOFEN 10MG TAB TAKE ONE-HALF TABLET BY MOUTH AT BEDTIME ORAL DISCONT INUED 12/10/2024 [id number] JOSÉ LUIS ORTIZ 2023 45 [facility] CYANOCOBALA MIN 1000MCG TAB TAKE FIVE TABLETS BY MOUTH ONCE A WEEK ORAL ACTIVE JOSÉ LUIS ORTIZ 2024 [facility] GABAPENTIN 300MG CAP TAKE ONE CAPSULE BY MOUTH TWICE A DAY ORAL ACTIVE 11/02/2025 [id number] JOSÉ LUIS ORTIZ 2023 180 [facility] GABAPENTIN 300MG CAP TAKE ONE CAPSULE BY MOUTH TWICE A DAY ORAL DISCONT INUED 08/05/2024 [id number] JOSÉ LUIS ORTIZ 2022 180 [facility] MAGNESIUM OXIDE 400MG TAB TAKE ONE TABLET BY MOUTH DAILY ORAL ACTIVE JOSÉ LUIS ORTIZ 2022 [facility] MULTIVITAMI N,HERBAL CAP/TAB TAKE BY MOUTH ORAL ACTIVE JOSÉ LUIS ORTIZ 2022 [facility] OMEPRAZOLE 20MG CAP,EC TAKE ONE CAPSULE BY MOUTH EVERY MORNING 30 MINUTES BEFORE BREAKFAS T FOR STOMACH ACID ORAL ACTIVE 02/13/2026 [id number] JOSÉ LUIS ORTIZ 2024 90 [facility] OMEPRAZOLE 20MG CAP,EC TAKE ONE CAPSULE BY MOUTH EVERY MORNING 30 MINUTES BEFORE BREAKFAS T FOR STOMACH ACID ORAL DISCONT INUED 07/19/2025 [id number] JOSÉ LUIS ORTIZ 2023 90 [facility] OMEPRAZOLE 20MG CAP,EC TAKE ONE CAPSULE BY MOUTH EVERY MORNING 30 MINUTES BEFORE BREAKFAS T FOR STOMACH ACID ORAL DISCONT INUED 07/05/2024 [id number] JOSÉ LUIS ORTIZ 2023 90 [facility] PHENTERMINE 3.75MG/TOPI RAMATE 23MG CAP,SA TAKE ONE CAPSULE BY MOUTH EVERY MORNING FOR 14 DAYS FOR WEIGHT LOSS ; THEN START 7.5/46MG CAPSULE PRESCRIP TION (ONE CAPSULE 7.5/46MG EVERY MORNING) ; THEN START 7.5/46MG CAPSULE PRESCRIP TION (ONE CAPSULE 7.5/46MG EVERY MORNING) ORAL DISCONT INUED BY PROVIDE R 03/16/2025 [id number] JOSÉ LUIS ORTIZ 2024 14 [facility] PHENTERMINE 7.5MG/TOPIR AMATE 46MG CAP,SA TAKE ONE CAPSULE BY MOUTH EVERY MORNING FOR WEIGHT LOSS ORAL SUSPEND ED 10/11/2025 [id number] JOSÉ LUIS ORTIZ 2024 30 [facility] PHENTERMINE 7.5MG/TOPIR AMATE 46MG CAP,SA TAKE ONE CAPSULE BY MOUTH EVERY MORNING FOR WEIGHT LOSS ORAL DISCONT INUED 04/12/2025 [id number] JANAK PEACE AL L 2024 30 [facility] PHENTERMINE 7.5MG/TOPIR AMATE 46MG CAP,SA TAKE ONE CAPSULE BY MOUTH EVERY MORNING FOR WEIGHT LOSS ORAL DISCONT INUED 03/16/2025 [id number] JOSÉ LUIS ORTIZ 2024 30 [facility] PSYLLIUM CAP,ORAL TAKE 1 CAPSULE BY MOUTH DAILY ORAL ACTIVE JOSÉ LUIS ORTIZ 2024 [facility] Allergies, Adverse Reactions, Alerts Combined list of allergies from Department of Defense and Veterans 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 It does not include entries that were removed or entered in error. Substance Category Reaction Severity Reaction type Status Date Reported Comments Source [facility] Propensity to adverse reaction (finding) Anaphylaxis active 1 [facility] BEE [facility]OM Propensity to adverse reaction (finding) Anaphylaxis SEVERE active 3 [facility] CODEINE Propensity to adverse reactions to drug (finding) active 1 [facility] CODEINE Propensity to adverse reactions to drug (finding) Anaphylaxis SEVERE active 3 [facility] ZOCOR Propensity to adverse reactions to drug (finding) active 3 [facility] Immunizations Combined list of available immunizations from the Department of Defense and Veterans 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 Immunization Series Date Given Administered By Site Reaction Lot Number CVX Code Drug Defensive Line Coach Status Comments Source INFLUENZA, HIGH-DOSE, QUADRIVALENT 2022 ASHLEY DOUGHERTY RIGHT DELTO ID [id number] 197 complet ed [facility], [facility] INFLUENZA VACCINE, QUADRIVALENT, ADJUVANTED 2021 205 complet ed [facility] INFLUENZA VACCINE, QUADRIVALENT, ADJUVANTED 2020 205 complet ed [facility] PNEUMOCOCCAL POLYSACCHARID E PPV23 1 2020 33 complet ed HISTORICA L INFORMATI ON - FROM OTHER REGISTRY, [facility] COVID-19 (PFIZER), MRNA, LNP-S, PF, 30 MCG/0.3 ML DOSE 1 2020 208 complet ed HISTORICA L INFORMATI ON - FROM OTHER REGISTRY, [facility] COVID-19 (PFIZER), MRNA, LNP-S, PF, 30 MCG/0.3 ML DOSE 2 2020 208 complet ed [facility] COVID-19 (PFIZER), MRNA, LNP-S, PF, 30 MCG/0.3 ML DOSE 1 2020 208 complet ed [facility] INFLUENZA, HIGH-DOSE, QUADRIVALENT 2019 197 complet ed [facility] ZOSTER RECOMBINANT 1 2018 187 complet ed [facility] INFLUENZA, TRIVALENT, ADJUVANTED 2017 168 complet ed [facility] INFLUENZA, SEASONAL, INJECTABLE, PRESERVATIVE FREE 2016 140 complet ed Left Deltoid 0.5ml IM [facility] INFLUENZA, SEASONAL, INJECTABLE, PRESERVATIVE FREE 2015 140 complet ed Right Deltoid 0.5ml IM [facility] PNEUMOCOCCAL CONJUGATE PCV 13 2015 133 complet ed [facility] TDAP 1 2015 115 complet ed HISTORICA L INFORMATI ON - FROM OTHER REGISTRY, [facility] HEP B, ADULT 1 2015 43 complet ed HISTORICA L INFORMATI ON - FROM OTHER REGISTRY, [facility] TDAP 2015 115 complet ed [facility] INFLUENZA, UNSPECIFIED FORMULATION 2014 88 complet ed Right Deltoid 0.5ml IM [facility] PNEUMOCOCCAL POLYSACCHARID E PPV23 2014 33 complet ed [facility] INFLUENZA, UNSPECIFIED FORMULATION 2012 88 complet ed Right Deltoid 0.5ml IM [facility] INFLUENZA, UNSPECIFIED FORMULATION 2012 88 complet ed Left Deltoid 0.5ml IM [facility] INFLUENZA, UNSPECIFIED FORMULATION 2011 88 complet [...] TD(ADULT) UNSPECIFIED FORMULATION 1994 139 complet ed [facility] Results Combined list of recent [...] Feb 12, 2025 09:13 AM Reporting Lab: [facility] [address] [facility] [address] Performing Lab: [facility] [address] [facility] [address] [facility] COMPREHEN SIVE PNL ANION GAP IN [...] Sep 11, 2024 02:38 PM Reporting Lab: [address] [address] Performing Lab: [address] [address] [facility] COMPREHEN SIVE PNL GLOMERULAR FILTRATION RATE/1.73 SQ [...] Sep 11, 2024 02:38 PM Reporting Lab: [address] [address] Performing Lab: [address] [address] [facility] COMPREHEN SIVE PNL GLUCOSE [MASS/VOLU ME] IN [...] Sep 11, 2024 02:38 PM Reporting Lab: [address] [address] Performing Lab: [address] [address] [facility] COMPREHEN SIVE PNL POTASSIUM [MOLES/VOL UME] IN [...] Sep 11, 2024 02:38 PM Reporting Lab: [address] [address] Performing Lab: [address] [address] [facility] RUPERT[facility] COMPREHEN SIVE PNL SODIUM [MOLES/VOL UME] IN [...] Sep 11, 2024 02:38 PM Reporting Lab: [address] [address] Performing Lab: [address] [address] [facility] COMPREHEN SIVE PNL [...] Sep 11, 2024 02:38 PM Reporting Lab: [address] [address] Performing Lab: [address] [address] [facility] COMPREHEN SIVE PNL PROTEIN [MASS/VOLU ME] IN [...] Sep 11, 2024 02:38 PM Reporting Lab: [address] [address] Performing Lab: [place] [id number] [facility] COMPREHEN SIVE PNL ALBUMIN [MASS/VOLU ME] IN [...] Sep 11, 2024 02:38 PM Reporting Lab: [address] [address] Performing Lab: [address] [address] [facility] COMPREHEN SIVE PNL ALKALINE PHOSPHATAS E [ENZYMATIC [...] Sep 11, 2024 02:38 PM Reporting Lab: [address] [address] Performing Lab: [place] [id number] [facility] COMPREHEN SIVE PNL ALANINE AMINOTRANS FERASE [ENZYMATIC ACTIVITY/V OLUME] IN SERUM OR PLASMA 20 U/L - 09/18 Specimen Type: PLASMA Comment: [...] Sep 11, 2024 02:38 PM Reporting Lab: [address] [address] Performing Lab: [address] [address] [facility] COMPREHEN SIVE PNL ASPARTATE AMINOTRANS FERASE [ENZYMATIC [...] Sep 11, 2024 02:38 PM Reporting Lab: [address] [address] Performing Lab: [place] [phone] [facility] COMPREHEN SIVE PNL UREA NITROGEN [MASS/VOLU ME] IN SERUM OR PLASMA 18 mg/dL 09/18 Specimen Type: PLASMA Comment: Low-risk [...] Sep 11, 2024 02:38 PM Reporting Lab: [address] [address] Performing Lab: [place] [phone] [facility] COMPREHEN SIVE PNL CALCIUM, TOTAL 10.3 mg/dL [...] Sep 11, 2024 02:38 PM Reporting Lab: [address] [address] Performing Lab: [place] [id number] [facility] COMPREHEN SIVE PNL CARBON DIOXIDE, TOTAL [...] Sep 11, 2024 02:38 PM Reporting Lab: [address] [address] Performing Lab: [place] [phone] [facility] COMPREHEN SIVE PNL CHLORIDE [MOLES/VOL UME] IN [...] Sep 11, 2024 02:38 PM Reporting Lab: [address] [address] Performing Lab: [address] [address] [facility] COMPREHEN SIVE PNL [...] Sep 11, 2024 02:38 PM Reporting Lab: [address] [address] Performing Lab: [address] [address] [facility] LIPID PNL CHOLESTERO L IN HDL [MASS/VOLU [...] Sep 11, 2024 02:38 PM Reporting Lab: [address] [address] Performing Lab: [address] [address] [facility] LIPID PNL TRIGLYCERI DE [MASS/VOLU ME] [...] Sep 11, 2024 02:38 PM Reporting Lab: [address] [address] Performing Lab: [address] [address] [facility] LIPID PNL CHOLESTERO L IN LDL [MASS/VOLU ME] IN SERUM OR PLASMA BY DIRECT ASSAY canc 09/18 Specimen Type: PLASMA Comment: Low-risk levels [...] Sep 11, 2024 02:38 PM Reporting Lab: [address] [address] Performing Lab: [address] [address] [facility] LIPID PNL CHOLESTERO L [MASS/VOLU ME] [...] Sep 11, 2024 02:38 PM Reporting Lab: [address] [address] Performing Lab: [address] [address] [facility] LIPID PNL CHOLESTERO L IN LDL [...] Sep 11, 2024 02:38 PM Reporting Lab: [address] [address] Performing Lab: [address] [phone] [place] [address] VITAMIN B12 EIA COBALAMIN (VITAMIN B12) [MASS/VOLU ME] IN SERUM OR PLASMA 580 pg/mL 193 - 986 09/18 Specimen Type: SERUM No comment entered. Ordering Provider: Ayde ORTIZ Report Released Date/Time: Sep 11, 2024 02:38 PM Reporting Lab: [address] [address] Performing Lab: [address] [address] [facility] MRSA SURVL NARES DNA (REVISED 2-2-18) METHICILLI N RESISTANT STAPHYLOCO CCUS AUREUS (MRSA) DNA [PRESENCE] IN SPECIMEN BY YUMIKO WITH PROBE DETECTION Not Detected 08/27 Specimen Type: NARES No comment entered. Ordering Provider: TJ ESTEBAN Report Released Date/Time: Aug 26, 2023 10:21 AM Reporting Lab: [address] [address] Performing Lab: [address] [address] [facility] CBC W/DIFF LEUKOCYTES [#/VOLUME] IN BLOOD BY AUTOMATED COUNT 8.0 10*3/uL 4.0 - 11.0 08/27 Specimen Type: BLOOD No comment entered. Ordering Provider: TJ ESTEBAN Report Released Date/Time: Aug 26, 2023 10:21 AM Reporting Lab: [address] [address] Performing Lab: [facility] [address] [facility] [address] [facility] CBC W/DIFF ERYTHROCYT ES [#/VOLUME] IN BLOOD BY AUTOMATED COUNT 4.69 10*6/uL 4.20 - 5.70 08/27 Specimen Type: BLOOD No comment entered. Ordering Provider: TJ ESTEBAN Report Released Date/Time: Aug 26, 2023 10:21 AM Reporting Lab: [facility] [address] [place] [address] Performing Lab: [address] [address] [facility] CBC W/DIFF HEMOGLOBIN [MASS/VOLU ME] IN BLOOD 14.0 g/dL 13.0 - 17.0 08/27 Specimen Type: BLOOD No comment entered. Ordering Provider: TJ ESTEBAN Report Released Date/Time: Aug 26, 2023 10:21 AM Reporting Lab: [address] [address] Performing Lab: [address] [address] [facility] CBC W/DIFF HEMATOCRIT [VOLUME FRACTION] OF BLOOD BY AUTOMATED COUNT 41.5 40.0 - 51.0 08/27 Specimen Type: BLOOD No comment entered. Ordering Provider: TJ ESTEBAN Report Released Date/Time: Aug 26, 2023 10:21 AM Reporting Lab: [address] [address] Performing Lab: [address] [address] [facility] CBC W/DIFF MCV [ENTITIC VOLUME] BY AUTOMATED COUNT 88.5 fL 82 - 99 08/27 Specimen Type: BLOOD No comment entered. Ordering Provider: TJ ESTEBAN Report Released Date/Time: Aug 26, 2023 10:21 AM Reporting Lab: [facility] [address] [place] [address] Performing Lab: [address] [address] [facility] CBC W/DIFF MCHC [MASS/VOLU ME] BY AUTOMATED COUNT 29.9 pg 27 - 34 08/27 Specimen Type: BLOOD No comment entered. Ordering Provider: TJ ESTEBAN Report Released Date/Time: Aug 26, 2023 10:21 AM Reporting Lab: [facility] [address] [place] [address] Performing Lab: [address] [address] [facility] CBC W/DIFF MCHC [MASS/VOLU ME] BY AUTOMATED COUNT 33.7 g/dL 31 - 37 08/27 Specimen Type: BLOOD No comment entered. Ordering Provider: TJ ESTEBAN Report Released Date/Time: Aug 26, 2023 10:21 AM Reporting Lab: [address] [address] Performing Lab: [address] [address] [facility] CBC W/DIFF PLATELET MEAN VOLUME [ENTITIC VOLUME] IN BLOOD BY AUTOMATED COUNT 8.9 fL 8 - 12 08/27 Specimen Type: BLOOD No comment entered. Ordering Provider: TJ ESTEBAN Report Released Date/Time: Aug 26, 2023 10:21 AM Reporting Lab: [address] [address] Performing Lab: [address] [address] [facility] CBC W/DIFF PLATELETS [#/VOLUME] IN BLOOD BY AUTOMATED COUNT 241 10*3/uL 130 - 400 08/27 Specimen Type: BLOOD No comment entered. Ordering Provider: TJ ESTEBAN Report Released Date/Time: Aug 26, 2023 10:21 AM Reporting Lab: [facility] [address] [place] [address] Performing Lab: [address] [address] [facility] CBC W/DIFF ERYTHROCYT E DISTRIBUTI ON WIDTH [RATIO] BY AUTOMATED COUNT 14.0 < 15.0 - 15.0 08/27 Specimen Type: BLOOD No comment entered. Ordering Provider: TJ ESTEBAN Report Released Date/Time: Aug 26, 2023 10:21 AM Reporting Lab: [address] [address] Performing Lab: [address] [place] [address] [facility] CBC W/DIFF NEUTROPHIL S/100 LEUKOCYTES IN BLOOD BY AUTOMATED COUNT 51.6 08/27 Specimen Type: BLOOD No comment entered. Ordering Provider: TJ ESTEBAN Report Released Date/Time: Aug 26, 2023 10:21 AM Reporting Lab: [facility] [address] [facility] [address] Performing Lab: [facility] [address] [facility] [address] [facility] CBC W/DIFF LYMPHOCYTE S/100 LEUKOCYTES IN BLOOD BY AUTOMATED COUNT 33.9 08/27 Specimen Type: BLOOD No comment entered. Ordering Provider: TJ ESTEBAN Report Released Date/Time: Aug 26, 2023 10:21 AM Reporting Lab: [facility] [address] [facility] [address] Performing Lab: [facility] [address] [place] [address] [facility] CBC W/DIFF MONOCYTES/ 100 LEUKOCYTES IN BLOOD BY AUTOMATED COUNT 8.8 08/27 Specimen Type: BLOOD No comment entered. Ordering Provider: TJ ESTEBAN Report Released Date/Time: Aug 26, 2023 10:21 AM Reporting Lab: [facility] [address] [facility] [address] Performing Lab: [facility] [address] [facility] [address] [facility] CBC W/DIFF EOSINOPHIL S/100 LEUKOCYTES IN BLOOD BY AUTOMATED COUNT 4.4 08/27 Specimen Type: BLOOD No comment entered. Ordering Provider: TJ ESTEBAN Report Released Date/Time: Aug 26, 2023 10:21 AM Reporting Lab: [facility] [address] [facility] [address] Performing Lab: [facility] [address] [facility] [address] [facility] CBC W/DIFF BASOPHILS/ 100 LEUKOCYTES IN BLOOD BY AUTOMATED COUNT 0.8 08/27 Specimen Type: BLOOD No comment entered. Ordering Provider: TJ ESTEBAN Report Released Date/Time: Aug 26, 2023 10:21 AM Reporting Lab: [facility] [address] [facility] [address] Performing Lab: [address] [address] [facility] CBC W/DIFF IMMATURE GRANULOCYT ES/100 LEUKOCYTES IN BLOOD 0.5 08/27 Specimen Type: BLOOD No comment entered. Ordering Provider: TJ ESTEBAN Report Released Date/Time: Aug 26, 2023 10:21 AM Reporting Lab: [address] [address] Performing Lab: [address] [address] [facility] CBC W/DIFF NEUTROPHIL S [#/VOLUME] IN BLOOD BY AUTOMATED COUNT 4.1 10*3/uL 1.5 - 8.0 08/27 Specimen Type: BLOOD No comment entered. Ordering Provider: TJ ESTEBAN Report Released Date/Time: Aug 26, 2023 10:21 AM Reporting Lab: [address] [address] Performing Lab: [address] [address] [facility] CBC W/DIFF LYMPHOCYTE S [#/VOLUME] IN BLOOD BY AUTOMATED COUNT 2.7 10*3/uL 1.0 - 4.0 08/27 Specimen Type: BLOOD No comment entered. Ordering Provider: TJ ESTEBAN Report Released Date/Time: Aug 26, 2023 10:21 AM Reporting Lab: [address] [address] Performing Lab: [address] [address] [facility] CBC W/DIFF MONOCYTES [#/VOLUME] IN BLOOD BY AUTOMATED COUNT 0.7 10*3/uL 0.2 - 1.0 08/27 Specimen Type: BLOOD No comment entered. Ordering Provider: TJ ESTEBAN Report Released Date/Time: Aug 26, 2023 10:21 AM Reporting Lab: [address] [address] Performing Lab: [address] [address] [facility] CBC W/DIFF EOSINOPHIL S [#/VOLUME] IN BLOOD BY AUTOMATED COUNT 0.4 10*3/uL 0 - 0.4 08/27 Specimen Type: BLOOD No comment entered. Ordering Provider: TJ ESTEBAN Report Released Date/Time: Aug 26, 2023 10:21 AM Reporting Lab: [address] [address] Performing Lab: [address] [address] [facility] CBC W/DIFF BASOPHILS [#/VOLUME] IN BLOOD BY AUTOMATED COUNT 0.1 10*3/uL 0 - 0.2 08/27 Specimen Type: BLOOD No comment entered. Ordering Provider: TJ ESTEBAN Report Released Date/Time: Aug 26, 2023 10:21 AM Reporting Lab: [address] [address] Performing Lab: [address] [address] [facility] CBC W/DIFF IMMATURE GRANULOCYT ES/100 LEUKOCYTES IN BLOOD <0.110*3 /uL 0 - 0.5 08/27 Specimen Type: BLOOD No comment entered. Ordering Provider: TJ ESTEBAN Report Released Date/Time: Aug 26, 2023 10:21 AM Reporting Lab: [address] [address] Performing Lab: [address] [address] [facility] CBC W/DIFF NUCLEATED ERYTHROCYT ES/100 ERYTHROCYT ES IN BLOOD 0.0 /100{WBC s} 0 - 0.2 08/27 Specimen Type: BLOOD No comment entered. Ordering Provider: TJ ESTEBAN Report Released Date/Time: Aug 26, 2023 10:21 AM Reporting Lab: [address] [address] Performing Lab: [facility] [address] [place] [address] [facility] CBC W/DIFF NUCLEATED ERYTHROCYT ES [#/VOLUME] IN BLOOD <0.0110* 3/uL 0 - 0.012 08/27 Specimen Type: BLOOD No comment entered. Ordering Provider: TJ ESTEBAN Report Released Date/Time: Aug 26, 2023 10:21 AM Reporting Lab: [address] [address] Performing Lab: [address] [address] [facility] COMPREHEN SIVE PNL ANION GAP IN SERUM OR PLASMA 11 mmol/L 10 - 20 08/27 Specimen Type: PLASMA Comment: eGFR was calculated using the CKD-EPI Creatinine (2020) equation. Ordering Provider: TJ ESTEBAN Report Released Date/Time: Aug 26, 2023 10:21 AM Reporting Lab: [address] [address] Performing Lab: [address] [address] [facility] COMPREHEN SIVE PNL GLOMERULAR FILTRATION RATE/1.73 SQ M.PREDICTE D [VOLUME RATE/AREA] IN SERUM, PLASMA OR BLOOD BY CREATININE -BASED FORMULA (CKD-EPI 2020) 61 mL/min 60 08/27 Specimen Type: PLASMA Comment: eGFR was calculated using the CKD-EPI Creatinine (2020) equation. Ordering Provider: TJ ESTEBAN Report Released Date/Time: Aug 26, 2023 10:21 AM Reporting Lab: [address] [address] Performing Lab: [address] [address] [facility] COMPREHEN SIVE PNL GLUCOSE [MASS/VOLU ME] IN SERUM OR PLASMA 112 mg/dL 70 - 99 08/27 H Specimen Type: PLASMA Comment: eGFR was calculated using the CKD-EPI Creatinine (2020) equation. Ordering Provider: TJ ESTEBAN Report Released Date/Time: Aug 26, 2023 10:21 AM Reporting Lab: [address] [address] Performing Lab: [address] [address] [facility] COMPREHEN SIVE PNL POTASSIUM [MOLES/VOL UME] IN SERUM OR PLASMA 4.4 mmol/L 3.5 - 4.7 08/27 Specimen Type: PLASMA Comment: eGFR was calculated using the CKD-EPI Creatinine (2020) equation. Ordering Provider: TJ ESTEBAN Report Released Date/Time: Aug 26, 2023 10:21 AM Reporting Lab: [address] [address] Performing Lab: [address] [address] [facility] COMPREHEN SIVE PNL SODIUM [MOLES/VOL UME] IN SERUM OR PLASMA 140 mmol/L 136 - 145 08/27 Specimen Type: PLASMA Comment: eGFR was calculated using the CKD-EPI Creatinine (2020) equation. Ordering Provider: TJ ESTEBAN Report Released Date/Time: Aug 26, 2023 10:21 AM Reporting Lab: [address] [address] Performing Lab: [address] [address] [facility] COMPREHEN SIVE PNL BILIRUBIN. TOTAL [MASS/VOLU ME] IN SERUM OR PLASMA 0.6 mg/dL 0.2 - 1.2 08/27 Specimen Type: PLASMA Comment: eGFR was calculated using the CKD-EPI Creatinine (2020) equation. Ordering Provider: TJ ESTEBAN Report Released Date/Time: Aug 26, 2023 10:21 AM Reporting Lab: [address] [address] Performing Lab: [address] [address] [facility] COMPREHEN SIVE PNL PROTEIN [MASS/VOLU ME] IN SERUM OR PLASMA 6.6 g/dL 5.7 - 8.2 08/27 Specimen Type: PLASMA Comment: eGFR was calculated using the CKD-EPI Creatinine (2020) equation. Ordering Provider: TJ ESTEBAN Report Released Date/Time: Aug 26, 2023 10:21 AM Reporting Lab: [address] [address] Performing Lab: [address] [address] [facility] COMPREHEN SIVE PNL ALBUMIN [MASS/VOLU ME] IN SERUM OR PLASMA 4.1 g/dL 3.4 - 5.0 08/27 Specimen Type: PLASMA Comment: eGFR was calculated using the CKD-EPI Creatinine (2020) equation. Ordering Provider: TJ ESTEBAN Report Released Date/Time: Aug 26, 2023 10:21 AM Reporting Lab: [address] [address] Performing Lab: [address] [address] [facility] COMPREHEN SIVE PNL ALKALINE PHOSPHATAS E [ENZYMATIC ACTIVITY/V OLUME] IN SERUM OR PLASMA 91 U/L 45 - 117 08/27 Specimen Type: PLASMA Comment: eGFR was calculated using the CKD-EPI Creatinine (2020) equation. Ordering Provider: TJ ESTEBAN Report Released Date/Time: Aug 26, 2023 10:21 AM Reporting Lab: [address] [address] Performing Lab: [address] [address] [facility] COMPREHEN SIVE PNL ALANINE AMINOTRANS FERASE [ENZYMATIC ACTIVITY/V OLUME] IN SERUM OR PLASMA 17 U/L 10 - 65 08/27 Specimen Type: PLASMA Comment: eGFR was calculated using the CKD-EPI Creatinine (2020) equation. Ordering Provider: TJ ESTEBAN Report Released Date/Time: Aug 26, 2023 10:21 AM Reporting Lab: [address] [address] Performing Lab: [address] [address] [facility] COMPREHEN SIVE PNL ASPARTATE AMINOTRANS FERASE [ENZYMATIC ACTIVITY/V OLUME] IN SERUM OR PLASMA 16 U/L 10 - 37 08/27 Specimen Type: PLASMA Comment: eGFR was calculated using the CKD-EPI Creatinine (2020) equation. Ordering Provider: TJ ESTEBAN Report Released Date/Time: Aug 26, 2023 10:21 AM Reporting Lab: [address] [address] Performing Lab: [address] [address] [facility] COMPREHEN SIVE PNL UREA NITROGEN [MASS/VOLU ME] IN SERUM OR PLASMA 13 mg/dL 7 - 21 08/27 Specimen Type: PLASMA Comment: eGFR was calculated using the CKD-EPI Creatinine (2020) equation. Ordering Provider: TJ ESTEBAN Report Released Date/Time: Aug 26, 2023 10:21 AM Reporting Lab: [address] [address] Performing Lab: [address] [address] [facility] COMPREHEN SIVE PNL CALCIUM, TOTAL 9.2 mg/dL 8.7 - 10.4 08/27 Specimen Type: PLASMA Comment: eGFR was calculated using the CKD-EPI Creatinine (2020) equation. Ordering Provider: TJ ESTEBAN Report Released Date/Time: Aug 26, 2023 10:21 AM Reporting Lab: [address] [address] Performing Lab: [address] [address] [facility] COMPREHEN SIVE PNL CARBON DIOXIDE, TOTAL [MOLES/VOL UME] IN SERUM OR PLASMA 28.0 mmol/L 21.0 - 32.0 08/27 Specimen Type: PLASMA Comment: eGFR was calculated using the CKD-EPI Creatinine (2020) equation. Ordering Provider: TJ ESTEBAN Report Released Date/Time: Aug 26, 2023 10:21 AM Reporting Lab: [address] [address] Performing Lab: [address] [address] [facility] COMPREHEN SIVE PNL CHLORIDE [MOLES/VOL UME] IN SERUM OR PLASMA 105 mmol/L 98 - 109 08/27 Specimen Type: PLASMA Comment: eGFR was calculated using the CKD-EPI Creatinine (2020) equation. Ordering Provider: TJ ESTEBAN Report Released Date/Time: Aug 26, 2023 10:21 AM Reporting Lab: [address] [address] Performing Lab: [address] [address] [facility] COMPREHEN SIVE PNL CREATININE [MASS/VOLU ME] IN URINE 1.24 mg/dL 0.67 - 1.17 08/27 H Specimen Type: PLASMA Comment: eGFR was calculated using the CKD-EPI Creatinine (2020) equation. Ordering Provider: TJ ESTEBAN Report Released Date/Time: Aug 26, 2023 10:21 AM Reporting Lab: [facility] [address] [place] [address] Performing Lab: [facility] [address] [place] [address] [facility] CARDIAC PROF(PLAS MA) MYOGLOBIN [MASS/VOLU ME] IN SERUM OR PLASMA 74.40 ng/mL 0 - 110 08/26 Specimen Type: PLASMA No comment entered. Ordering Provider: TJ ESTEBAN Report Released Date/Time: Aug 26, 2023 11:55 AM Reporting Lab: [facility] [address] [place] [address] Performing Lab: [facility] [address] [place] [address] [facility] CARDIAC PROF(PLAS MA) CREATINE KINASE.MB [MASS/VOLU ME] IN BLOOD 1.83 ng/mL - 5.0 08/26 Specimen Type: PLASMA No comment entered. Ordering Provider: TJ ESTEBAN Report Released Date/Time: Aug 26, 2023 11:55 AM Reporting Lab: [facility] [address] [place] [address] Performing Lab: [facility] [address] [place] [address] [facility] CARDIAC PROF(PLAS MA) TROPONIN T.CARDIAC [MASS/VOLU ME] IN SERUM OR PLASMA BY HIGH SENSITIVIT Y METHOD 4 - 53 08/26 Specimen Type: PLASMA No comment entered. Ordering Provider: TJ ESTEBAN Report Released Date/Time: Aug 26, 2023 11:55 AM Reporting Lab: [facility] [address] [place] [address] Performing Lab: [facility] [address] [place] [address] [facility] CARDIAC PROF(PLAS MA) MYOGLOBIN [MASS/VOLU ME] IN SERUM OR PLASMA 82.00 ng/mL 0 - 110 08/26 Specimen Type: PLASMA No comment entered. Ordering Provider: TJ ESTEBAN Report Released Date/Time: Aug 26, 2023 11:49 AM Reporting Lab: [facility] [address] [place] [address] Performing Lab: [facility] [address] [place] [address] [facility] CARDIAC PROF(PLAS MA) CREATINE KINASE.MB [MASS/VOLU ME] IN BLOOD 1.66 ng/mL - 5.0 08/26 Specimen Type: PLASMA No comment entered. Ordering Provider: TJ ESTEBAN Report Released Date/Time: Aug 26, 2023 11:49 AM Reporting Lab: [address] [address] Performing Lab: [address] [address] [facility] CARDIAC PROF(PLAS MA) TROPONIN T.CARDIAC [MASS/VOLU ME] IN SERUM OR PLASMA BY HIGH SENSITIVIT Y METHOD 4 - 53 08/26 Specimen Type: PLASMA No comment entered. Ordering Provider: TJ ESTEBAN Report Released Date/Time: Aug 26, 2023 11:49 AM Reporting Lab: [address] [address] Performing Lab: [address] [address] [facility] THYROID CASCADE PANEL THYROTROPI N [UNITS/VOL UME] IN SERUM OR PLASMA 1.242 u[IU]/mL 0.550 - 4.780 08/26 Specimen Type: SERUM No comment entered. Ordering Provider: TJ ESTEBAN Report Released Date/Time: Aug 26, 2023 11:49 AM Reporting Lab: [address] [address] Performing Lab: [address] [address] [facility] Vital Signs Combined list of inpatient and outpatient Vital Signs from Department of Defense and Veterans Affairs, ranging from 12 months to all on record, depending upon the facility. Vital Sign Value Date Comments Source WEIGHT 258 04/17/2025 08:05:12 [facility] BMI 42 kg/m2 04/17/2025 08:05:12 [facility] SYSTOLIC BLOOD PRESSURE 132 02/12/2025 09:02:41 [facility] O[facility] DIASTOLIC BLOOD PRESSURE 74 02/12/2025 09:02:41 [facility] PULSE OXIMETRY 97 02/12/2025 09:02:41 [facility] WEIGHT 270.9 02/12/2025 09:02:41 [facility] BMI 44 kg/m2 02/12/2025 09:02:41 [facility] TEMPERATURE 97.2 02/12/2025 09:02:41 [facility] PULSE 76 02/12/2025 09:02:41 [facility] RESPIRATION 18 02/12/2025 09:02:41 [facility] WEIGHT 272 01/23/2025 08:05:13 [facility] BMI 45 kg/m2 01/23/2025 08:05:13 [facility] WEIGHT 281 11/01/2024 08:37:49 [facility] BMI 46 kg/m2 11/01/2024 08:37:49 [facility] Encounters Combined list of: 1) Encounters from Department of Veterans Affairs facilities going backup to the last 18 months, not all [place] inpatient encounters are included; 2) Encounters from the Department of [facility] facilities going backup to 280 months. Location Location Details Encounter Type Encounter Number Reason For Visit Attending Provider ADM Date DC Date Status Disposition Source [facility] PRO PHONE CALL 11-20 MIN [id number] Diagnos is: ICD-10- CM Z09 Encntr for f/u exam aft trtmt for cond oth than malig neoplslava PICKETT,DA RCIE L 10/[address] [facility] Outpatient Encounter [id number] Diagnos is: ICD-10- CM Z09 Encntr for f/u exam aft trtmt for cond oth than malig neoplm PIYUSH,DA RCIE L 10/[address] 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 Outpatient Encounter [id number] 11/[address] [facility] Outpatient Encounter [id number] 11/[address] [facility] Outpatient Encounter [id number] 11/[address] [facility] HC PRO PHONE CALL 11-20 MIN [id number] Diagnos is: ICD-10- CM Z09 Encntr for f/u exam aft trtmt for cond oth than malig neoplm PIYUSH,DA RCIE L 11/[address] [facility] Outpatient Encounter [id number] Diagnos is: ICD-10- CM Z09 Encntr for f/u exam aft trtmt for cond oth than malig neoplm YANETHON,DA RCIE L 11/[address] [facility] Outpatient Encounter [id number] 11/[address] [facility] HC PRO PHONE CALL 11-20 MIN [id number] Diagnos is: ICD-10- CM Z09 Encntr for f/u exam aft trtmt for cond oth than malig neoplm YANETHON,DA RCIE L 11/24 [facility] OPC OFFICE O/P EST LOW 20 MIN [id number] Diagnos is: ICD-10- CM M76.821 Posteri or tibial tendini tis, right leg HORACE BLAKELY 12/08 [facility] Outpatient Encounter [id number] Diagnos is: ICD-10- CM Z09 Encntr for f/u exam aft trtmt for cond oth than malig neoplm CLAUSON,DA RCIE L 12/[address] [facility] HC PRO PHONE CALL 11-20 MIN [id number] Diagnos is: ICD-10- CM Z09 Encntr for f/u exam aft trtmt for cond oth than malig neoplm CLAUSON,DA RCIE L 01/[address] [facility] Outpatient Encounter [id number] Diagnos is: ICD-10- CM Z09 Encntr for f/u exam aft trtmt for cond oth than malig neoplm CLAUSON,DA RCIE L 01/[address] [facility] Outpatient Encounter [id number] 02/[address] [facility] HC PRO PHONE CALL 11-20 MIN [id number] Diagnos is: ICD-10- CM Z09 Encntr for f/u exam aft trtmt for cond oth than malig neoplm CLAUSON,DA RCIE L 02/[address] [facility] HC PRO PHONE CALL 11-20 MIN [id number] Diagnos is: ICD-10- CM Z09 Encntr for f/u exam aft trtmt for cond oth than malig neoplm CLAUSON,DA RCIE L 02/[address] 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 Outpatient Encounter [id number] 03/[address] [facility] Outpatient Encounter [id number] 03/[address] [facility] Outpatient Encounter [id number] 03/[address] [facility] Outpatient Encounter [id number] 03/[address] [facility] Outpatient Encounter [id number] 03/[address] [facility] Outpatient Encounter [id number] 03/[address] [facility] Outpatient Encounter [id number] 03/[address] [facility] Outpatient Encounter [id number] 04/[address] 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 C 06/28 [facility] Outpatient Encounter [id number] 09/11 [facility] OPC Outpatient Encounter [id number] 09/18 [facility] OPC OFFICE O/P EST LOW 20 MIN [id number] [id number] Diagnos is: ICD-10- CM B35.1 Tinea unguium HORACE BLAKELY 09/18 [facility] Outpatient Encounter [id number] 09/28 [facility] Out[facility] Encounter [id number] 10/11 [facility] HC PRO PHONE CALL 5-10 MIN [id number] [id number] Diagnos is: ICD-10- CM 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 Outpatient Encounter [id number] 10/[address] [facility] Outpatient Encounter [id number] 11/[address] 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 Outpatient Encounter [id number] 02/[address] [facility] Outpatient Encounter [id number] 02/[address] [facility] Outpatient Encounter [id number] 02/[address] [facility] Outpatient Encounter [id number] 02/[address] [facility] Outpatient Encounter [id number] 02/12 [facility] O/P EST LOW 20 MIN [id number] Diagnos is: ICD-10- CM I89.0 Lymphed kaila, not elsewhe re classif ied JOSÉ LUIS ORTIZ 02/12 [facility] MTMS BY PHARM ADDL 15 MIN [id number] Diagnos is: ICD-10- CM E66.01 Morbid (severe ) obesity due to excess calorie s KEMI BURDICK 02/13 [facility] NQHP OL DIG ASSMT&MGMT 5-10 [id number] Diagnos is: ICD-10- CM E66.9 Obesity , unspeci fied NAILA KENNEDY L 02/13 [facility] Outpatient Encounter [id number] 02/26 [facility] MTMS BY PHARM ADDL 15 MIN [id number] Diagnos is: ICD-10- CM E66.01 Morbid (severe ) obesity due to excess calorie s KEMI BURDICK 03/13 [facility] OFFICE O/P EST LOW 20 MIN [id number] Diagnos is: ICD-10- CM R20.2 Paresth esia of skin HORACE BLAKELY 04/02 [facility] Outpatient Encounter [id number] 04/[address] [facility] Outpatient Encounter [id number] 04/06 [facility] MTMS BY PHARM EST 15 MIN [id number] Diagnos is: ICD-10- CM E66.01 Morbid (severe ) obesity due to excess calorie s KEMI BURDICK C 04/10 [facility] Social History Combined list of available smoking, tobacco, and other social history from [facility] and 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 Social History Type Response Date Comment Source Tobacco smoking status [facility] NEVER USED CIGARETTES 02/12/2025 [facility] History of tobacco use [place]-TOBACCO NEVER USED OTHER TYPE 02/12/2025 [facility] History of tobacco use [place]-TOBACCO FORMER USER 04/12/2023 [facility] History of tobacco use SC-TOBACCO FORMER USER 08/27/2022 [facility] History of tobacco use SC-TOBACCO FORMER USER 08/26/2021 [facility] History of tobacco use SC-TOBACCO FORMER USER 09/20/2018 [facility] History of tobacco use QUIT TOBACCO >7 YEARS AGO 09/21/2017 quit 20 years ago [facility] History of tobacco use QUIT TOBACCO >7 YEARS AGO 11/02/2016 [facility] History of tobacco use QUIT TOBACCO >7 YEARS AGO 02/05/2015 [facility] History of tobacco use QUIT TOBACCO >12 MO and <7 YRS AGO 08/08/2013 [facility] History of tobacco use QUIT TOBACCO >12 MO and <7 YRS AGO 07/12/2012 [facility] History of tobacco use QUIT TOBACCO IN THE LAST 12 MONTHS 03/25/2011 [facility] History of tobacco use TOBACCO OFFERRED PT MEDS (PROVIDER) 03/18/2010 [facility] History of tobacco use TOBACCO OFFERRED PT MEDS (PROVIDER) 02/01/2009 [facility] History of tobacco use TOBACCO OFFERRED PT MEDS (PROVIDER) 08/03/2008 [facility] History of tobacco use TOBACCO OFFERRED PT MEDS (PROVIDER) 06/10/2007 [facility] History of tobacco use CURRENT NON-SMOKER 03/10/2001 [facility] History of tobacco use CURRENT NON-SMOKER 05/08/2000 [facility] Plan of Care List of future care activities from Department [facility] facilities. Additional future care activities may be listed in the Assessment and Plan section. Date/Time Care Activity Care Activity Detail Facili ty 04/17/2025 AMBULATORY - NONE AMBULATORY - NONE [facility] Advance Directives List of completed, amended, or rescinded Advance Directives on record at [facility] facilities. An actual copy of the Directive is not included. Date Advance Directive Provider Source 03/16/2024 ADVANCE DIRECTIVE DISCUSSION LUPE LEPE [facility] 02/09/2024 ADVANCE DIRECTIVE LEXY WHALEY [facility] 11/03/2023 RESCINDED ADVANCE DIRECTIVE LUPE LEPE [facility] / [facility] 09/20/2023 RESCINDED ADVANCE DIRECTIVE LENNIE VALENTIN [facility] 08/26/2021 ADVANCE DIRECTIVE DISCUSSION COLT PEARL [facility]
--- OUTSIDE RECORDS SUMMARY | 2025-04-17 14:45 | XMS_ITS | Clinical Summary ---
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
--- OUTSIDE RECORDS SUMMARY | 2025-04-17 14:45 | XMS_ITS | Referral Summary ---
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
--- NOTE | 2025-04-17 14:55 | ECG_ITS ---
Test Date: 2025-04-17 15:01:39 Measurements Intervals [place] Rate: 70 P: 61 TX: 191 QRS: -60 QRSD: 108 T: 59 QT: 379 QTc: 409 Interpretive Statements SINUS RHYTHM LEFT ANTERIOR FASCICULAR BLOCK [QRS AXIS <= -45, QR IN I, RS IN II] Compared to ECG 03/05/2025 18:31:41 No significant changes Electronically Signed On 04-18-2025 16:29:04 CDT by Bhaksar Chávez M.D.
[2025-04-17 14:58] LABS: Basophils Absolute Auto 0.04 K/mm3 (0.00-0.10); Basophils Percent Auto 0.5 % (0.0-1.0); Eosinophils Absolute Auto 0.34 K/mm3 (0.02-0.50); Eosinophils Percent Auto 4.3 % (1.0-6.0); Hematocrit 42.5 % (37.0-46.0); Hemoglobin 13.8 g/dL (12.4-15.3); Immature Granulocyte Absolute 0.02 K/mm3 (0.00-0.00); Immature Granulocyte Percent A 0.3 % (0.0-0.0); Lymphocytes Absolute Auto 2.93 K/mm3 (1.10-4.50); Lymphocytes Percent Auto 37.2 % (18.0-42.0); Mean Corpuscular HGB Conc 32.5 g/dL (32-36); Mean Corpuscular Hemoglobin 29.2 pg (27.0-31.0); Mean Corpuscular Volume 89.9 fL (78.0-102.0); Monocytes Absolute Auto 0.61 K/mm3 (0.10-0.90); Monocytes Percent Auto 7.8 % (2.0-11.0); Neutrophils Absolute Auto 3.93 K/mm3 (1.70-7.20); Neutrophils Percent Auto 49.9 % (50.0-70.0); Platelet Count Result 265 K/mm3 (150-420); Red Blood Count 4.73 M/mm3 (4.70-6.10); White Blood Count 7.9 K/mm3 (4.8-10.8)
== END 2025-04-17 14:42 | disposition home or self-care (01) ==
PROVIDERS: PCP Family Medicine; Visit Provider Family Medicine
DX: I10 Essential (primary) hypertension (principal); I44.4 Left anterior fascicular block
CPT/HCPCS: 36415; 85025; 93005

== ENCOUNTER 2025-06-08 08:20 | Outpatient (RCR) | payer OTHER, SELFPAY ==
--- NOTE | 2025-06-08 10:21 | OPREHPOC ---
Outpatient Therapy Plan of Care This is a Multidisciplinary Plan of Care that may contain components documented by all disciplines (PT, OT, and ST.) PT Problem 1 PT Problem #1 Knowledge Deficit PT Goal 1 Goal / Goal Update The patient will be independent in a home exercise program. Target Visit 2 PT Problem 2 PT Problem #2 Impaired Functional Mobility PT Goal 1 Goal / Goal Update The patient will demonstrate 40% or less self perceived disability per the LEFS questionnaire. The patient will ambulate 1,000 feet during the 6 MWT to improve community ambulation. Target Visit 12 PT Problem 3 PT Problem #3 Impaired Gait PT Goal 1 Goal / Goal Update The patient will ambulate without an AD with no antalgia noted. Target Visit 12 PT Problem 4 PT Problem #4 Impaired Strength PT Goal 1 Goal / Goal Update The patient will improve left ankle strength to at least 4/5 to improve gait and balance. Target Visit 12 PT Problem 5 PT Problem #5 Impaired Balance PT Goal 1 Goal / Goal Update The patient will demonstrate a low fall risk per the Tinetti Balance Scale. Target Visit 12
--- NOTE | 2025-06-08 10:24 | PTOPEVAL1 ---
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 He has 5 pins in his foot now. He reports he broke his feet while he was in the [place] but never got them fixed . 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 Over time, he developed deformity in the foot and had to have surgery. He had his right foot fixed in 2023. Since his left foot surgery, he has been in a boot and non-weight bearing on the left foot. He has been using a knee scooter for mobility. He just was allowed to start putting his foot on the floor in the boot for balance while getting onto his knee scooter 3 days ago. He has not had any pain in the left foot and ankle up to this point. He does note pain in the left knee when he has been on the knee scooter for a long period and he first extends the knee. Reported Pain Level Pain Score 6: Self Report Assessment PT Clinical Summary Jimi Villalobos presents 6 weeks s/p left foot/ankle surgery to fix an acquired valgus deformity. He has been non-weight bearing and in a boot since surgery. He has been released to start partial weight bearing in the boot starting with 30# and progress 30# every 3 days until he is full weight bearing in the boot. He is reporting no pain in the foot and ankle but has had pain in the left knee after being on the scooter for a long period. He demonstrates objective deficits in left foot and ankle AROM, left foot and ankle strength, gait , balance, and functional mobility. He will benefit from skilled PT to address these limitations and improve his quality of life. Plan of Care Interventions Gait Training,Hot Pack/Cold Pack,Intermittent Compression Pump,Manual Therapy,Neuro Re-education ,Patient/Caregiver Education,Therapeutic Activities,Therapeutic Exercise PT Services Indicated Yes Treatment Frequency and 2 times a week for 12 visits Duration These treatments will address the objective and functional deficits as defined above. The patient will be advanced safely and appropriately in order for the patient to progress towards his/her prior level of function. Additional exercises will be introduced and as well as a comprehensive home exercise program upon discharge, if needed, ?to ensure carryover of functional gains achieved in the clinic. This treatment plan has been reviewed and agreement upon by the patient.
--- NOTE | 2025-07-09 14:49 | OPREHPOC ---
Outpatient Therapy Plan of Care This is a Multidisciplinary Plan of Care that may contain components documented by all disciplines (PT, OT, and ST.) PT Problem 1 PT Problem #1 Knowledge Deficit PT Goal 1 Goal / Goal Update The patient will be independent in a home exercise program. Target Visit 2 Progress Met PT Problem 2 PT Problem #2 Impaired Functional Mobility PT Goal 1 Goal / Goal Update The patient will demonstrate 40% or less self perceived disability per the LEFS questionnaire. - met The patient will ambulate 1,000 feet during the 6 MWT to improve community ambulation. Target Visit 12 Progress Partially Met PT Problem 3 PT Problem #3 Impaired Gait PT Goal 1 Goal / Goal Update The patient will ambulate without an AD with no antalgia noted. Target Visit 12 Progress Met PT Problem 4 PT Problem #4 Impaired Strength PT Goal 1 Goal / Goal Update The patient will improve left ankle strength to at least 4/5 to improve gait and balance. -met Target Visit 12 Progress Met PT Problem 5 PT Problem #5 Impaired Balance PT Goal 1 Goal / Goal Update The patient will demonstrate a low fall risk per the Tinetti Balance Scale. Target Visit 12 Progress Not Met
--- NOTE | 2025-07-09 14:49 | PTOPPROG ---
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 Assessment PT Clinical Summary Mr. Villalobos presents for his 10th skilled PT visit today. He has been progressing well with physical therapy and has met goals addressing L ankle strength and ambulation without AD, however he demonstrates reduced endurance and experiences fatigue with prolonged time on his feet. He will benefit from continued skilled PT intervention to improve endurance and standing tolerance to improve his ability to perform functional tasks. Plan of Care Interventions Gait Training,Hot Pack/Cold Pack,Intermittent Compression Pump,Manual Therapy,Neuro Re-education ,Patient/Caregiver Education,Therapeutic Activities,Therapeutic Exercise PT Services Indicated Yes Treatment Frequency and Continue per POC Duration These treatments will address the objective and functional deficits as defined above. The patient will be advanced safely and appropriately in order for the patient to progress towards his/her prior level of function. Additional exercises will be introduced and as well as a comprehensive home exercise program upon discharge, if needed, ?to ensure carryover of functional gains achieved in the clinic. This treatment plan has been reviewed and agreement upon by the patient.
--- NOTE | 2025-07-18 07:59 | OPREHPOC ---
Outpatient Therapy Plan of Care This is a Multidisciplinary Plan of Care that may contain components documented by all disciplines (PT, OT, and ST.) PT Problem 1 PT Problem #1 Knowledge Deficit PT Goal 1 Goal / Goal Update The patient will be independent in a home exercise program. Target Visit 2 Progress Met PT Problem 2 PT Problem #2 Impaired Functional Mobility PT Goal 1 Goal / Goal Update The patient will demonstrate 40% or less self perceived disability per the LEFS questionnaire. - met The patient will ambulate 1,000 feet during the 6 MWT to improve community ambulation. -not met Target Visit 12 Progress Partially Met PT Goal 2 Goal / Goal Update Continue. Target Visit 22 PT Problem 3 PT Problem #3 Impaired Gait PT Goal 1 Goal / Goal Update The patient will ambulate without an AD with no antalgia noted. Target Visit 12 Progress Met PT Goal 2 Goal / Goal Update Pt to be able to tolerate ambulating more than 6, 000 steps in one day without L ankle/foot pain. Target Visit 22 PT Problem 4 PT Problem #4 Impaired Strength PT Goal 1 Goal / Goal Update The patient will improve left ankle strength to at least 4/5 to improve gait and balance. -met Target Visit 12 Progress Met PT Goal 2 Goal / Goal Update Pt to improve L ankle strength to 5/5 to reflect improved stability and arch support for functional tasks. Target Visit 22 PT Problem 5 PT Problem #5 Impaired Balance PT Goal 1 Goal / Goal Update The patient will demonstrate a low fall risk per the Tinetti Balance Scale. Target Visit 12 Progress Not Met PT Goal 2 Goal / Goal Update Continue. Target Visit 22
--- NOTE | 2025-07-18 08:00 | PTOPPROG ---
Assessment and note entered by Nena Ramey, PT Evaluation Information Assessment Status Progress Diagnosis s/p left ankle surgery ICD-10 Condition Codes (PT) Pain in left ankle and joints of left foot M25.572 Other ICD-10 Condition Codes ( M21.072, M76.822 PT) Onset 04/25/25 Subjective Information Pt reports he saw his doctor and that his foot is healing, but it's not fully healed. He presents today with a new order to continue PT. He notes the only places he feels pain are on the top of his ankle where he has a surgical scar and he states the pain is usually caused by pressure from the straps on his shoes. He notes pain also occurs at the surgical scar on the lateral side of his foot when he does a lot of walking (more than 6000 steps) in a day. Assessment PT Clinical Summary Mr. Villalobos has attended 12 skilled PT visits following L ankle surgery. Per recent follow up with the surgeon, pt's L ankle/foot is not fully healed yet. Due to his pain and impairments in ankle ROM and strength, he has not yet been able to return to work. He has made progress in his L ankle strength and his balance but continues to demonstrate weakness and is still at risk for falls. He also continues to demonstrate reduced ambulation tolerance and speed that inhibits efficiency at home and in the community. He will benefit from continued skilled PT to make further progress to be able to return to full participation in functional tasks in the home, community, and at work. Plan of Care Interventions Gait Training,Hot Pack/Cold Pack,Intermittent Compression Pump,Manual Therapy,Neuro Re-education ,Patient/Caregiver Education,Therapeutic Activities,Therapeutic Exercise PT Services Indicated Yes Treatment Frequency and 2x/week for 8 additional visits Duration These treatments will address the objective and functional deficits as defined above. The patient will be advanced safely and appropriately in order for the patient to progress towards his/her prior level of function. Additional exercises will be introduced and as well as a comprehensive home exercise program upon discharge, if needed, ?to ensure carryover of functional gains achieved in the clinic. This treatment plan has been reviewed and agreement upon by the patient.
--- NOTE | 2025-07-30 07:55 | OPREHPOC ---
Outpatient Therapy Plan of Care This is a Multidisciplinary Plan of Care that may contain components documented by all disciplines (PT, OT, and ST.) PT Problem 1 PT Problem #1 Knowledge Deficit PT Goal 1 Goal / Goal Update The patient will be independent in a home exercise program. Target Visit 2 Progress Met PT Problem 2 PT Problem #2 Impaired Functional Mobility PT Goal 1 Goal / Goal Update The patient will demonstrate 40% or less self perceived disability per the LEFS questionnaire. - met The patient will ambulate 1,000 feet during the 6 MWT to improve community ambulation. -not met Target Visit 12 Progress Partially Met PT Goal 2 Goal / Goal Update Continue. Target Visit 23 Progress Partially Met PT Problem 3 PT Problem #3 Impaired Gait PT Goal 1 Goal / Goal Update The patient will ambulate without an AD with no antalgia noted. Target Visit 12 Progress Met PT Goal 2 Goal / Goal Update Pt to be able to tolerate ambulating more than 6, 000 steps in one day without L ankle/foot pain. - met, but has pain afterwards Target Visit 23 Progress Partially Met PT Problem 4 PT Problem #4 Impaired Strength PT Goal 1 Goal / Goal Update The patient will improve left ankle strength to at least 4/5 to improve gait and balance. -met Target Visit 12 Progress Met PT Goal 2 Goal / Goal Update Pt to improve L ankle strength to 5/5 to reflect improved stability and arch support for functional tasks. -not met Target Visit 23 Progress Not Met PT Problem 5 PT Problem #5 Impaired Balance PT Goal 1 Goal / Goal Update The patient will demonstrate a low fall risk per the Tinetti Balance Scale. Target Visit 12 Progress Not Met PT Goal 2 Goal / Goal Update Continue. Target Visit 23 Progress Not Met
--- NOTE | 2025-07-30 07:55 | PTOPPROG ---
Assessment and note entered by Nena Ramey, PT Evaluation Information Assessment Status Progress Diagnosis s/p left ankle surgery ICD-10 Condition Codes (PT) Pain in left ankle and joints of left foot M25.572 Other ICD-10 Condition Codes ( M21.072, M76.822 PT) Onset 04/25/25 Subjective Information Mr. Villalobos presents for his 15th skilled PT visit this date. He had a follow up with his surgeon last month who told Mr. Villalobos that his surgical components weren't fully healed yet and ordered more skilled PT. He currently denies pain this morning however he reports that pain increases with moving his ankle inwards and that his pain gets up to a 6/10 in intensity at the end of the day, especially if he's been on his feet a lot in a day. He has been able to walk up to 8,000 steps in a day and he's also able to ride his stationary bike at home for a combined time of an hour each day, split into 15 minute sessions. However despite his improved activity tolerance since surgery, he continues to have difficulty with climbing stairs and has not been able to return to work due to his pain and functional limitations. He reports that he needs to be able to lift heavy boxes and climb ladders to return to work. Assessment PT Clinical Summary Mr. Villalobos has attended 15 skilled PT visits following L ankle surgery. He has continued to make slight improvements in his L ankle AROM and strength, however he still demonstrates functional limitations in ambulation tolerance and endurance as evidenced by 6MWT, and he also continues to demonstrate deficits in L ankle strength (sharmin. in plantarflexion and inversion) and balance as evidenced by moderate fall risk on Tinetti. He experiences a moderate increase in pain with prolonged weight bearing and is unable to return to work at this time due to inability to climb ladders and lift heavy loads. He will benefit from continued skilled PT intervention to improve strength, balance, and functional performance to be able to return to full participation in functional tasks around his home and to return to work. Plan of Care Interventions Gait Training,Hot Pack/Cold Pack,Intermittent Compression Pump,Manual Therapy,Neuro Re-education ,Patient/Caregiver Education,Therapeutic Activities,Therapeutic Exercise PT Services Indicated Yes Treatment Frequency and 2x/week for 8 additional visits Duration These treatments will address the objective and functional deficits as defined above. The patient will be advanced safely and appropriately in order for the patient to progress towards his/her prior level of function. Additional exercises will be introduced and as well as a comprehensive home exercise program upon discharge, if needed, ?to ensure carryover of functional gains achieved in the clinic. This treatment plan has been reviewed and agreement upon by the patient.
== END 2025-09-06 23:59 | disposition home or self-care (01) ==
LOC: CHSPT 08:20
DX: M21.072 Valgus deformity, not elsewhere classified, left ankle (principal); M25.572 Pain in left ankle and joints of left foot
CPT/HCPCS: 97110; 97112; 97116; 97140; 97161; 97530